=== PATIENT | female | born 1975 | race Caucasian/White ===

== ENCOUNTER 2023-07-31 21:35 | Outpatient (REF) | payer BC, SELFPAY ==
[2023-08-06 13:10] LABS: Age Gdln ACOG Testing Note (.); HPV Aptima Negative (Negative); IGP, Aptima HPV, rfx 16/18,45 Note (.)
== END 2023-07-31 21:36 | disposition home or self-care (01) ==
LOC: LAB 21:35
PROVIDERS: Visit Provider Obstetrics & Gynecology
DX: Z01.419 Encounter for gynecological examination (general) (routine) without abnormal findings (principal)
CPT/HCPCS: 87624; G0145

== ENCOUNTER 2023-08-02 14:27 | Outpatient (OUT) | payer BC, SELFPAY ==
--- NOTE | 2023-08-02 14:31 | MM_ITS ---
Patient Name: MESHA HOLLINGSWORTH MR#: [id number] : 1975 Exam Date: 08/02/2023 Ordering Doctor: DR Andrew Ma . RADIOLOGY REPORT PROCEDURE: MM TOMOSYNTHESIS SCREENING BI COMPARISON: MG MAMM SCREEN [place] W CAD, 08/22/2018. MG MAMM SCREEN 3D [place] CAD, 08/31/2021. INDICATIONS: Screening Calculator Name NCI Breast Cancer Risk Assessment Tool 5 Year Breast Cancer Risk 0.90% Lifetime Breast Cancer Risk 9.50% Personal Breast Cancer No Personal Ovarian Cancer No Treatments None Family Cancers Grandmother-maternal with cervical cancer at age ~55; Grandfather-maternal with liver cancer at age 63. LOCATION: [facility] BREAST COMPOSITION: Scattered areas fibroglandular density. FINDINGS: DIAGNOSTIC CATEGORY 1--NEGATIVE. NO CHANGE FROM COMPARISON ASSESSMENT. Scattered benign-appearing nodules are present. Scattered benign-appearing calcifications are present. Scattered benign-appearing lymph nodes are present. RIGHT BREAST: No significant suspicious finding. LEFT BREAST: No significant suspicious finding. RECOMMENDATIONS: ROUTINE MAMMOGRAM AND CLINICAL EVALUATION IN 12 MONTHS. PLEASE NOTE: A NORMAL MAMMOGRAM DOES NOT EXCLUDE THE POSSIBILITY OF BREAST CANCER. A CLINICALLY SUSPICIOUS PALPABLE LUMP SHOULD BE BIOPSIED. Dictated by: Ronak Coulter MD on 08/02/2023 at 15:54 Approved by: Ronak Coulter MD on 08/02/2023 at 16:05
--- OUTSIDE RECORDS SUMMARY | 2023-08-02 14:31 | XMS_ITS | CCD ---
Author Name Unknown Address [address] [place] [address] Organization [facility] Care Team Providers Care Brazing Furnace Feeder Name Role Phone Unavailable Primary Care Provider UnavailJean Herrera Primary Care Provider TRINA SAMUEL Attending Unavailable CLARA MORALES Referring Unavailable JEAN REED Primary Care Unavailable BRIANNA, DR JEAN Hussein Primary Care Unavailable PAY, DR ROCHE Admitting Unavailable PAY, DR ROCHE Attending Unavailable PAY, DR ROCHE Consulting Unavailable CARMEN, DR ELIZABETH Admitting Unavailable CARMEN, DR ELIZABETH Attending Unavailable FURLONG, DR JEAN Hussein Primary Care Unavailable CARMEN, DR ELIZABETH Consulting Unavailable CARMEN, DR ELIZABETH Admitting Unavailable CARMEN, DR ELIZABETH Attending Unavailable CARMEN, DR ELIZABETH Primary Care Unavailable CARMEN, DR ELIZABETH Consulting Unavailable ZIEBER, DR CJ Torres Consulting Unavailable JOSEFINA, DR MOSLEY Consulting Unavailable BRIANNA, DR JEAN Hussein Primary Care Unavailable BENEDICT FROST Admitting Unavailable BENEDICT FROST Attending Unavailable HELLEN BERNAL Consulting Unavailable BENEDICT FROST Consulting Unavailable HIRAM CLARK Consulting Unavailable Janice Frey Primary Care Provider JEAN REED Primary Care Unavailable JEAN REED Primary Care Unavailable CLARA MORALES Attending Unavailable Allergies Allergy Classification Reported Allergen(s) Allergy Type Date of Onset Reaction(s) Facility (3 sources) Fluconazole Drug Allergy 9 Hives [facility] (4 sources) Lisinopril; Translations: [lisinopril] Drug Allergy 8 Cough [facility] (2 sources) Nitrofurantoin Drug Allergy 9 Anaphylaxis [facility] (1 source) Amino Acids Drug Allergy 7 [facility] (2 sources) Fluconazole; Translations: [Diflucan] Drug Allergy 8 [facility] (2 sources) Nitrofurantoin; Translations: [Macrodantin] Drug Allergy 3 [facility] (1 source) metFORMIN Drug Allergy 3 Nausea [facility] (1 source) Nitrofurantoin Drug Allergy 8 Anaphylaxis [facility] Medications Current Medications Medication Drug Class(es) Dates Sig (Normalized) Sig (Original) albuterol 0.83 mg/ml inhalation solution (2 sources) beta2-Adrenergic Agonist Start: 10-19-2021 take 3 mL by inhalation every six hours as needed for wheezing albuterol (PROVENTIL,VENTOLIN ) 2.5 mg /3 mL (0.083 %) nebulizer solution Indications: Mild intermittent reactive airway disease without complication Inhale 3 mL (2.5 mg total) by nebulization every 6 (six) hours as needed for wheezing. 75 mL 12 10/19/2021 Active take 2 puff(s) by in halation every six hours as needed for wheezing albuterol (PROVENTIL HFA;VENTOLIN HFA) 9 0 mcg/actuation inhaler Inhale 2 puffs every 6 (six) hours as needed for wheezing. 0 Active atorvastatin 10 mg oral tablet (3 sources) HMG-CoA Reductase Inhibitor take 1 tablet by mouth in the morning atorvastatin (LIPITOR) 10 mg tablet Take 1 tablet (10 mg total) by mouth in the morning. 0 Active azelastine hydrochloride 0.137 mg/actuat metered dose nasal spray (1 source) Histamine-1 Receptor Antagonist Start: 04-04-20 take 2 spray(s) nasal route in the morning azelastine (ASTELIN) 137 mcg (0.1 %) nasal spray Administer 2 sprays into each nostril in the morning and 2 sprays before bedtime. Use in each nostril as directed. 30 mL 12 04/04/2023 Active blood-glucose meter,continuous (DEXCOM G6 ENVIRONMENTAL ASSOCIATE) misc (1 source) Start: 02-14-20 blood-glucose meter,continuous (DEXCOM G6 ENVIRONMENTAL ASSOCIATE) misc 1 Disk by miscellaneous route continuously. 1 each 5 02/13/2023 Active blood-glucose sensor (DEXCOM G6 SENSOR) device (1 source) Start: 02-14-20 blood-glucose sensor (DEXCOM G6 SENSOR) device 1 Device by miscellaneous route continuously. For continous blood sugar monitoring while on insulin 5 each 5 02/13/2023 Active 24 hr buPROPion hydrochloride 300 mg extended release oral tablet (3 sources) Aminoketone Start: 10-20-19 take 1 tablet by mouth every twenty-four hours in the morning buPROPion XL (WELLBUTRIN XL) 300 mg 24 hr tablet Take 1 tablet (300 mg total) by mouth in the morning. 0 10/19/2021 Active take 1 tablet by ever th every twelve hours buPROPion (WELLBUTRIN SR) 150 MG tablet SR Take 150 mg by mouth every 12 hours. 0 Active cetirizine hydrochloride 10 mg oral tablet (1 source) Histamine-1 Receptor Antagonist Start: 04-04-2023 take 1 tablet by mouth in the morning cetirizine (ZyrTEC) 10 mg tablet Take 1 tablet (10 mg total) by mouth in the morning. 90 tablet 4 04/04/2023 Active 12 hr cetirizine hydrochloride 5 mg / pseudoephedrine hydrochloride 120 mg extended release oral tablet (1 source) alpha-Adrenergic Agonist, Histamine-1 Receptor Antagonist cetirizine-pseudoep hedrine (ZyrTEC-D) 5-120 mg per 12 hr tablet every 12 (twelve) hours. 0 Active cholecalciferol 0.025 mg oral tablet (1 source) Vitamin D take 1 tablet by mouth in the morning cholecalciferol (VITAMIN D3) 1,000 units tablet Take 1 tablet (1,000 Units total) by mouth in the morning. 0 Active Cinnamon Preparation (1 source) Non-Standardized Food Allergenic Extract take 100 mg by mouth once daily CINNAMON PO Take 100 mg by mouth daily. 0 Active DEXCOM G6 TRANSMITTER device (1 source) Start: 02-15-2023 DEXCOM G6 TRANSMITTER device diclofenac sodium 0.01 mg/mg topical gel (1 source) Nonsteroidal Anti-inflammatory Drug diclofenac sodium (VOLTAREN) 1 % gel Voltaren 1 % topical gel 0 Active empagliflozin 25 mg oral tablet (2 sources) Sodium-Glucose Cotransporter 2 Inhibitor Empagliflozin (JARDIANCE) 25 MG Tab tablet Take 25 mg by mouth. 0 Active 24 hr empagliflozin 25 mg / metFORMIN hydrochloride 1000 mg extended release oral tablet (1 source) Biguanide, Sodium-Glucose Cotransporter 2 Inhibitor take 1 tablet by mouth every twenty-four hours in the morning empagliflozin-metFO RMIN 25-1,000 mg tablet, IR & ER, biphasic 24hr Take 1 tablet by mouth in the morning. 0 Active [id number] 0.3 ml EPINEPHrine 1 mg/ml auto-injector (1 source) alpha-Adrenergic Agonist, beta-Adrenergic Agonist, Catecholamine Start: 05-07-2023 EPINEPHrine (EPIPEN) 0.3 mg/0.3 mL auto-injector Inject 0.3 mL (0.3 mg total) into the appropriate muscle as needed (anaphylaxis). 2 each 4 05/07/2023 Active fluticasone furoate 0.0275 mg/actuat metered dose nasal spray (1 source) Corticosteroid Start: 05-09-2023 take 2 spray(s) nasal route once daily fluticasone (FLONASE SENSIMIST) 27.5 mcg/actuation nasal spray Administer 2 sprays into each nostril once daily. 10 g 12 05/09/2023 Active 1.5 ml insulin glargine 300 unt/ml pen injector (1 source) Insulin Analog Start: 05-22-2023 insulin glargine 300 unit/mL (TOUJEO SOLOSTAR U-300 INSULIN) 300 unit/mL (1.5 mL) insulin pen Indications: Type 2 diabetes mellitus with hyperglycemia, without long-term current use of insulin ([facility]) Inject 50 Units under the skin nightly. 22.5 mL 3 05/22/2023 Active losartan potassium 25 mg oral tablet (2 sources) Angiotensin 2 Receptor Balaji take 1 tablet by mouth once daily losartan (COZAAR) 25 MG Tab tablet Take 25 mg by mouth daily. 0 Active metFORMIN hydrochloride 500 mg oral tablet (2 sources) Biguanide take 500 mg by mouth twice daily METFORMIN HCL PO Take 500 mg by mouth 2 times daily. 0 Active montelukast 10 mg oral tablet (3 sources) Leukotriene Receptor Antagonist montelukast (SINGULAIR) 10 mg tablet montelukast 10 mg tablet 0 Active nystatin [id number] unt/ml topical cream (2 sources) Polyene Antifungal Start: 02-13-2023 nystatin (MYCOSTATIN) cream Indications: Candidiasis Apply 1 Application topically in the morning and 1 Application before bedtime. 60 g 1 02/13/2023 Active Start: 10-19-2021 nystatin (MYCO STATIN) powder Apply topically 2 (two) times a day as needed (rash or itching). 15 g 0 10/19/2021 Active olmesartan medoxomil 5 mg oral tablet (2 sources) Angiotensin 2 Receptor Balaji Start: 04-02-2023 take 1 tablet by mouth once daily olmesartan (BENICAR) 5 mg tablet TAKE ONE TABLET BY MOUTH DAILY 90 tablet 1 04/02/2023 Active take 1 tablet by mouth once kathryn y olmesartan 5 MG Tab Take 5 mg by mouth daily. 0 Active pantoprazole 40 mg delayed release oral tablet (3 sources) Proton Pump Inhibitor Start: 05-22-2023 take 1 tablet by mouth once daily before breakfast pantoprazole (PROTONIX) 40 mg EC tablet Indications: Gastroesophageal reflux disease with esophagitis without hemorrhage Take 1 tablet (40 mg total) by mouth every morning before breakfast. 90 tablet 0 05/22/2023 Active take 1 tablet by mouth once kathryn y pantoprazole (PROTONIX) [address] tablet DR Take 20 mg by mouth daily. 0 Active 24 hr venlafaxine 37.5 mg extended release oral capsule (1 source) Serotonin and Norepinephrine Reuptake Inhibitor Start: 10-19-2021 take 1 capsule by mouth every twenty-four hours in the morning venlafaxine XR (EFFEXOR-XR) 37.5 mg 24 hr capsule Take 1 capsule (37.5 mg total) by mouth in the morning. 0 10/19/2021 Active vitamin d 1000 unt oral tablet (2 sources) take 1 tablet by mouth once Cholecalciferol (VITAMIN D) 1000 units Tab Take 1,000 Units by mouth. 0 Active Problems Active Problems Problem Classification Problem Date Documented Date Episodic/Chronic Allergic reactions (1 source) Environmental allergy; Translations: [Other allergy status, other than to drugs and biological substances] 06-13-2023 Episodic Anxiety disorders (1 source) Mixed anxiety and depressive disorder; Translations: [Other specified anxiety disorders] Onset: 10-17-2021 10-17-2021 Chronic Asthma (1 source) Unspecified asthma, uncomplicated; Translations: [UNSPECIFIED ASTHMA UNCOMPLICATED] Onset: 10-17-2021 Chronic Disorders of lipid metabolism (1 source) Hyperlipidemia; Translations: [Hyperlipidemia, unspecified] 10-17-2022 Chronic Esophageal disorders (2 sources) Gastro-esophageal reflux disease without esophagitis; Translations: [Gastric reflux] Onset: 11-06-2017 03-28-2022 Chronic Essential hypertension (1 source) Essential hypertension; Translations: [Essential (primary) hypertension] Onset: 10-25-2021 03-28-2022 Chronic Immunizations and screening for infectious disease (1 source) Encounter for screening for human papillomavirus (HPV); Translations: [ENC SCREENING HUMAN PAPILLOMAVIRUS] Onset: 07-31-2022 Episodic Joint disorders and dislocations; trauma-related (1 source) Derangement of right knee; Translations: [Unspecified internal derangement of right knee] Onset: 11-06-2017 03-28-2022 Chronic Other nutritional; endocrine; and metabolic disorders (1 source) Morbid obesity; Translations: [Obesity, morbid, BMI 40.0-49.9] Onset: 09-24-2018 09-24-2018 Chronic Other nutritional; endocrine; and metabolic disorders (1 source) Obesity, unspecified; Translations: [OBESITY UNSPECIFIED] Onset: 10-17-2021 Chronic Other nutritional; endocrine; and metabolic disorders (1 source) Body mass index (BMI) 40.0-44.9, adult; Translations: [BODY MASS INDEX BMI 40.0-44.9 ADULT] Onset: 10-17-2021 Chronic Other nutritional; endocrine; and metabolic disorders (1 source) Body mass index 40+ - severely obese; Translations: [Morbid (severe) obesity due to excess calories] Onset: 09-24-2018 03-28-2022 Chronic Other nutritional; endocrine; and metabolic disorders (1 source) Obesity; Translations: [Obesity, unspecified] Onset: 03-28-2022 03-28-2022 Chronic Other screening for suspected conditions (not mental disorders or infectious disease) (8 sources) Encounter for screening for malignant neoplasm of cervix; Translations: [Encounter for screening mammogram for malignant neoplasm of breast] Onset: 08-31-2021 Episodic Other upper respiratory disease (1 source) Allergic rhinitis due to house dust mite; Translations: [Other allergic rhinitis] 06-13-2023 Chronic Other upper respiratory disease (1 source) Allergic rhinitis due to animal hair and dander; Translations: [Allergic rhinitis due to animal (cat) (dog) hair and dander] 06-13-2023 Chronic Other upper respiratory disease (1 source) Allergic rhinitis due to animals; Translations: [Allergic rhinitis due to animal (cat) (dog) hair and dander] 06-13-2023 Chronic Other upper respiratory disease (1 source) Allergic rhinitis caused by mold; Translations: [Other allergic rhinitis] 06-13-2023 Chronic Other upper respiratory disease (1 source) Allergic rhinitis due to pollen; Translations: [Allergic rhinitis due to pollen] 06-13-2023 Chronic Unclassified (2 sources) New Patient; Translations: [New Patient] Onset: 09-24-2018 Unclassified (1 source) CONTACT W/AND (SUSP) EXPOS COVID-19; Translations: [CONTACT W/AND (SUSP) EXPOS COVID-19] Onset: 10-17-2021 Unclassified (4 sources) LOW BACK PAIN, UNSPECIFIED; Translations: [LOW BACK PAIN, UNSPECIFIED] Onset: 10-17-2021 Past or Other Problems Problem Classification Problem Date Documented Date Episodic/Chronic Abdominal hernia (1 source) Hiatal hernia; Translations: [Diaphragmatic hernia without obstruction or gangrene] Onset: 10-18-2021 10-18-2021 Episodic Abdominal pain (2 sources) Epigastric pain; Translations: [Unspecified abdominal pain] Onset: 10-17-2021 Episodic Diabetes mellitus with complications (2 sources) Type 2 diabetes mellitus with hyperglycemia; Translations: [Type 2 diabetes mellitus] Onset: 10-17-2021 Resolved: 10-31-2022 10-31-2022 Chronic Diabetes mellitus without complication (1 source) Type 2 diabetes mellitus without complication; Translations: [Type 2 diabetes mellitus without complications] Onset: 10-15-2016 Resolved: 10-31-2022 10-31-2022 Chronic Genitourinary symptoms and ill-defined conditions (1 source) Frequency of micturition; Translations: [FREQUENCY OF MICTURITION] Onset: 10-17-2021 Episodic Mood disorders (1 source) Mood disorders Onset: 05-22-2023 05-22-2023 Nausea and vomiting (5 sources) Nausea with vomiting, unspecified; Translations: [Nausea and vomiting] Onset: 10-13-2021 Episodic Noninfectious gastroenteritis (1 source) Noninfective gastroenteritis and colitis, unspecified; Translations: [NONINFECTIVE GE AND COLITIS UNS] Onset: 10-17-2021 Episodic Nonmalignant breast conditions (3 sources) Hypertrophy of breast; Translations: [Large breast] Onset: 09-24-2018 09-24-2018 Episodic Other aftercare (1 source) Other fpc (current) drug therapy; Translations: [OTH BIOFUELS PRODUCTION TECHNICIAN CURRENT DRUG THERAPY] Onset: 10-17-2021 Episodic Other aftercare (1 source) nursing home (current) use of oral hypoglycemic drugs; Translations: [FDC USE ORAL HYPOGLYCEMIC DX] Onset: 10-17-2021 Episodic Other and unspecified benign neoplasm (1 source) Gastric polyposis; Translations: [Polyp of stomach and duodenum] Onset: 10-18-2021 10-18-2021 Episodic Residual codes; unclassified (3 sources) Chronic back pain ; Translations: [Dorsalgia, unspecified] Onset: 09-24-2018 09-24-2018 Episodic Residual codes; unclassified (1 source) Acquired absence of both cervix and uterus; Translations: [ACQUIRED ABSENCE BOTH CERVIX AND UTERUS] Onset: 10-17-2021 Episodic Residual codes; unclassified (1 source) Family history of malignant neoplasm of other genital organs; Translations: [FAM HX MALIG NEOPLSM OT GENIT ORGN] Onset: 09-01-2021 Episodic Residual codes; unclassified (1 source) Family history of malignant neoplasm of other organs or systems; Translations: [FAM HX MALIG NEOPLASM OT ORGN/SYS] Onset: 09-01-2021 Episodic Spondylosis; intervertebral disc disorders; other back problems (1 source) Neck pain; Translations: [Cervicalgia] Onset: 03-28-2022 03-28-2022 Episodic Sprains and strains (1 source) Complete tear, knee, anterior cruciate ligament; Translations: [Sprain of anterior cruciate ligament of right knee, initial encounter] Onset: 07-15-2020 07-15-2020 Episodic Unclassified (1 source) LOW BACK PAIN, UNSPECIFIED; Translations: [LOW BACK PAIN, UNSPECIFIED] Onset: 10-13-2021 Results Test Name Value Interpretation Reference Range Facility Provider Orderson 06-27-2023 Provider Orders [id number] [facility] PAP ACOG PANEL 2: 30 to 65on 08-06-2022 . . Normal [facility] Comment on above: Result Comment: Perf ormed at: WB Performed By: #### [id number] #### [facility] [address] [place] [address] Dr. Grace Frank Age Gdln ACOG Testing 30-65 Normal [facility] Comment on above: Performed By: #### [id number] #### [facility] [address] [address] [address] Grace Frank DIAGNOSIS: Comment Normal [facility] Comment on above: Result Comment: NEGA TIVE FOR INTRAEPITHELIAL LESION OR MALIGNANCY. Performed at: WB Performed By: #### [id number] #### [facility] [address] [place] [address] Dr. Grace Frank HPV Aptima Negative Normal Negative [facility] Comment on above: Result Comment: This nucleic acid amplification test detects fourteen high-risk HPV types (16,18,31,33,35,39,45,51,52,56,58,59,66,68) without differentiation. Performed at: =G Performed By: #### [id number] #### [facility] [address] [place] [address] Dr. Grace Frank HPV Genotype Reflex Comment [facility] Comment on above: Result Comment: Crit eria not met, HPV Genotype not performed. Performed at: WB Performed By: #### [id number] #### [facility] [address] [place] [address] Dr. Grace Frank Methodology: Comment [facility] Comment on above: Result Comment: This liquid based ThinPrep(R) pap test was screened with the use of an image guided system. Performed at: WB Performed By: #### [id number] #### [facility] [address] [place] [address] Dr. Grace Frank Note: Comment Normal [facility] Comment on above: Result Comment: The Pap smear is a screening test designed to aid in the detection of premalignant and malignant conditions of the uterine cervix. It is not a diagnostic procedure and should not be used as the sole means of detecting cervical cancer. Both false-positive and false-negative reports do occur. . Performed at: WB Performed By: #### [id number] #### [facility] [address] [place] [address] Dr. Grace Frank Performed by: Comment Normal [facility] Comment on above: Result Comment: Eloise Harris, Armature Connector (ASCP) Performed at: WB Performed By: #### [id number] #### [facility] [address] [place] [address] Dr. Grace Frank Specimen adequacy: Comment Normal [facility] Comment on above: Result Comment: Sati sfactory for evaluation. No endocervical component is identified. Performed at: WB Performed By: #### [id number] #### [facility] [address] [place] [address] Dr. Grace Frank CBC AUTO DIFFon 10-14-2021 BASO # 0.0 103/ul Normal 0.0-0.1 [facility] Comment on above: Performed By: #### U MICRO, ERUR #### [facility] [address] [place] [address] Dr. Grace Frank Basophils/100 WBC (Bld) 0.2 % Normal 0.2-2.0 [facility] Comment on above: Performed By: #### U MICRO, ERUR #### [facility] [address] [place] [address] Dr. Grace Frank EO # 0.1 103/ul Normal 0.0-0.7 [facility] Comment on above: Performed By: #### U MICRO, ERUR #### [facility] [address] [place] [address] Dr. Grace Frank Eosinophils/100 WBC (Bld) 0.6 % Critically low 0.9-7.0 [facility] Comment on above: Performed By: #### U MICRO, ERUR #### [facility] [address] [place] [address] Dr. Grace Frank Erythrocyte distribution width (RBC) [Ratio] 13.2 % Normal 11.0-15.0 [facility] Comment on above: Performed By: #### U MICRO, ERUR #### [facility] [address] [place] [address] Dr. Grace Frank Hematocrit (Bld) [Volume fraction] 41.4 % Normal 36.0-48.0 [facility] Comment on above: Performed By: #### U MICRO, ERUR #### [facility] [address] [place] [address] Dr. Grace Frank Hemoglobin (Bld) [Mass/Vol] 13.2 g/dL Normal 12.0-16.0 [facility] Comment on above: Performed By: #### U MICRO, ERUR #### [facility] [address] [place] [address] Dr. Grace Frank IG # 0.03 10e3/ul Normal 0.00-0.03 [facility] Comment on above: Performed By: #### U MICRO, ERUR #### [facility] [address] [place] [address] Dr. Grace Frank IG % 0.3 % Normal 0.0-0.5 [facility] Comment on above: Performed By: #### U MICRO, ERUR #### [facility] [address] [place] [address] Dr. Grace Frank LYMPH # 1.3 103/ul Normal 1.2-3.8 [facility] Comment on above: Performed By: #### U MICRO, ERUR #### [facility] [address] [place] [address] Dr. Grace Frank Lymphocytes/100 WBC (Bld) 11.9 % Critically low 20.5-60.0 [facility] Comment on above: Performed By: #### U MICRO, ERUR #### [facility] [address] [place] [address] Dr. Grace Frank MANUAL DIFF REQ NO Normal [facility] Comment on above: Performed By: #### U MICRO, ERUR #### [facility] [address] [place] [address] Dr. Grace Frank MCH (RBC) [Entitic mass] 28.6 pg Normal 26.7-34.0 [facility] Comment on above: Performed By: #### U MICRO, ERUR #### [facility] [address] [place] [address] Dr. Grace Frank MCHC (RBC) [Mass/Vol] 31.9 g/dL Normal 29.9-35.2 [facility] Comment on above: Performed By: #### U MICRO, ERUR #### [facility] [address] [place] [address] Dr. Grace Frank MCV (RBC) [Entitic vol] 89.8 fL Normal 81.0-99.0 [facility] Comment on above: Performed By: #### U MICRO, ERUR #### [facility] [address] [place] [address] Dr. Grace Frank MONO # 0.6 103/ul Normal 0.3-0.8 [facility] Comment on above: Performed By: #### U MICRO, ERUR #### [facility] [address] [place] [address] Dr. Grace Frank Monocytes/100 WBC (Bld) 5.5 % Normal 1.7-12.0 [facility] Comment on above: Performed By: #### U MICRO, ERUR #### [facility] [address] [place] [address] Dr. Grace Frank NEUT # 8.6 103/ul Critically high 1.4-6.5 [facility] Comment on above: Performed By: #### U MICRO, ERUR #### [facility] [address] [place] [address] Dr. Grace Frank Neutrophils/100 WBC (Bld) 81.5 % Critically high 43.0-75.0 [facility] Comment on above: Performed By: #### U MICRO, ERUR #### [facility] [address] [place] [address] Dr. Grace Frank Platelet mean volume (Bld) [Entitic vol] 11.1 fL Normal 9.5-13.5 [facility] Comment on above: Performed By: #### U MICRO, ERUR #### [facility] [address], [place] [address] Dr. Grace Frank PLT 247 103/ul Normal 150-450 [facility] Comment on above: Performed By: #### U MICRO, ERUR #### [facility] [address], [place] [address] Dr. Grace Frank RBC 4.61 106/ul Normal 4.20-5.40 [facility] Comment on above: Performed By: #### U MICRO, ERUR #### [facility] [address] [place], [place] [address] Dr. Grace Frank WBC 10.6 103/ul Normal 4.0-11.0 [facility] Comment on above: Performed By: #### U MICRO, ERUR #### [facility] [address], [place] [address] ABD/PELV W CONon 10-15-19 CT ABD/PELV W CON EXAM: CT abdomen and pelvis with contrast dated 10/13/2021 9:42 PM EDT HISTORY: 46 years old Female with left upper quadrant pain and nausea with vomiting. COMPARISON STUDY: 10/16/2010. No recent prior. 12/30/2015 abdomen ultrasound. TECHNIQUE: Multidetector spiral CT of the abdomen and pelvis was performed from lung bases to pubic symphysis. 100 mL Omnipaque 300 intravenous contrast was administered during this examination. Portal venous and 3 minute delayed imaging was obtained. Axial, coronal and sagittal multiplanar reformats were performed by the technologist. Dose reduction techniques were achieved by using automated exposure control and/or adjustment of mA and/or kV according to patient size and/or use of iterative reconstruction technique. FINDINGS: Lung Bases: No acute or significant lung base finding. Calcified granuloma noted at the right lung base. Normal heart size. No pleural or pericardial effusion. Liver: The liver is normal in size. Slight underlying hepatic steatosis may be present. No focal lesions. Normal hepatic vascular enhancement. Gallbladder and Biliary Tree: Distended with no definite stones on CT imaging. Very minimal dependent sludge may be present however there are no findings to suggest cholecystitis on CT imaging. Spleen: Unremarkable Pancreas: The pancreas is normal in appearance without focal lesions or abnormal enhancement. Adrenal Glands: Unremarkable Kidneys: Kidneys demonstrate normal symmetric enhancement without focal lesions, calculi or hydronephrosis. Bladder: Slight perinephric edema and very minimal thickening of the bladder is not entirely excluded. Consider laboratory value correlation for infection. The bladder does opacify with contrast on delayed phase imaging. Bowel: The stomach is underdistended however mild gastric mural thickening may be present. Slight rugal fold prominence is noted. There are areas of prominent calibers of the enteric bowel filled with fluid in the left upper abdomen and left upper quadrant however this may represent peristalsis, and lack of oral contrast lowers sensitivity for evaluation however there are no definite significant findings to suggest high-grade obstruction identified. There is fluid noted in the enteric bowel elsewhere. The appendix appears to be absent. A large amount of liquid content is noted in the proximal colon from the level of the cecum to the transverse colon. Underdistention or mild thickening of the descending colon with similar findings of the enteric bowel in the left abdomen. Thickening of the colon is best appreciated on the coronal reconstructed images 45 and 30 through 57 of series 5 more distally. No significant focal surrounding inflammatory changes are identified. Scattered diverticulosis with no diverticulitis. (Prominent loops of enteric bowel are best seen in the left abdomen on images 42 through 72 series 3.) Ascites: Absent. Lymphadenopathy: No mesenteric, retroperitoneal or periportal lymphadenopathy. Abdominal Wall and Mesentery: Unremarkable. Vasculature: The visualized abdominal aorta is normal in size and caliber. Abdominal and pelvic vessels demonstrate normal enhancement. Pelvic Organs: The uterus is surgically absent. Musculoskeletal: No aggressive focal bony lesions, acute fractures or dislocation. Mild scoliotic curvature to the right of the lumbar spine centered at L3-L4. IMPRESSION: Fluid-filled and mildly thickened large and small bowel throughout the abdomen as described above. Gastric mural thickening and slight rugal fold prominence. Findings suggest infectious or inflammatory gastroenteritis/colit is. No drainable fluid collection or features of obstruction. Mild bilateral perinephric edema and slight bladder thickening for which laboratory correlation for infection is recommended. Status post appendectomy. Status post hysterectomy. Nonacute findings as noted. Electronically authenticated by: HIARM CLARK Date: 2021-10-14 00:11 Normal [facility]23 SARS-CoV-2 (COVID-19) RNA JONN+probe Ql (Unsp spec) Not detected Normal NOT DETECTED [facility] Comment on above: Result Comment: This test is not yet approved or cleared by the [place] FDA. When there are no FDA-approved or cleared tests available, and other criteria are met, FDA can make tests available under an emergency access mechanism called an Emergency Use Authorization (EUA). The EUA for this test is supported by the [place] of Health and Human Service's (HHS's) declaration that circumstances exist to justify the emergency use of in vitro diagnostics for the detection and/or diagnosis of the virus that causes COVID-19. This EUA will remain in effect (meaning this test can be used) for the duration of the COVID-19 declaration justifying emergency of IVDs, unless it is terminated or revoked by FDA (after which the test may no longer be used). When diagnostic testing is negative, the possibility of a false negative should be considered in the context of a patient's recent exposures and the presence of clinical signs and symptoms consistent with SARS-CoV-2. Performed By: #### U MICRO, ERUR #### [facility] [address] [place] [address] Dr. Grace Frank INFLUENZA A AND B AGon 10-14 [facility] Normal [facility] Comment on above: Result Comment: Nega tive for Flu A protein angiten. Infection due to Flu A cannot be ruled out. Flu A angiten in the sample may be below the detection limit of the test. Performed By: #### U MICRO, ERUR #### [facility] [address] [place] [address] Dr. Grace Frank INFLUBNEG SEE BELOW Normal [facility] Comment on above: Result Comment: Nega tive for Flu B protein antigen. Infection due to Flu B cannot be ruled out. Flu B antigen in the sample may be below the detection limit of the test. Performed By: #### U MICRO, ERUR #### [facility] [address] [place] [address] Dr. Grace Frank INFLUENZA A AG Negative Normal NEGATIVE SEE COMMENT [facility] Comment on above: Performed By: #### U MICRO, ERUR #### [facility] [address] [place] [address] Dr. Grace Frank INFLUENZA B AG Negative Normal NEGATIVE SEE COMMENT [facility] Comment on above: Performed By: #### U MICRO, ERUR #### [facility] [address] [place] [address] Dr. Grace Frank INTERNAL CONTROLS Within Normal Limits Normal Wi thin Normal Limits [facility] Comment on above: Performed By: #### U MICRO, ERUR #### [facility] [address] [place] [address] Dr. Grace Frank LACTATE/LACTIC ACIDon 2021 Lactate [Moles/Vol] 1.0 mmol/L Normal 0.4-2.0 [facility] Comment on above: Performed By: #### L ACT #### [facility] [address] [place] [address] Dr. Grace Frank LIPASEon 10-14-2021 Lipase [Catalytic activity/Vol] 47.0 U/L Critically low 73.0-393.0 [facility] Comment on above: Performed By: #### H STROPN, LIPA, TSH, CMP #### [facility] [address] [place] [address] Dr. Grace Frank PROF 14(COMP METB)on 022 Albumin [Mass/Vol] 3.3 g/dL Critically low 3.4-5.0 [facility] Comment on above: Performed By: #### H STROPN, LIPA, TSH, CMP #### [facility] [address] [place] [address] Dr. Grace Frank Albumin/Globulin [Mass ratio] 0.9 {ratio} Normal [facility] Comment on above: Performed By: #### H STROPN, LIPA, TSH, CMP #### [facility] [address] [place] [address] Dr. Grace Frank ALP [Catalytic activity/Vol] 85 U/L Normal 46-116 [facility] Comment on above: Performed By: #### H STROPN, LIPA, TSH, CMP #### [facility] [address] [place] [address] Dr. Grace Frank ALT [Catalytic activity/Vol] 34 U/L Normal 14-59 [facility] Comment on above: Performed By: #### H STROPN, LIPA, TSH, CMP #### [facility] [address] [address] [address] Grace Frank Anion gap [Moles/Vol] 10.9 mmol/L Normal [facility] Comment on above: Performed By: #### H STROPN, LIPA, TSH, CMP #### [facility] [address] [address] [address] Grace Frank AST [Catalytic activity/Vol] 23 U/L Normal 15-37 [facility] Comment on above: Performed By: #### H STROPN, LIPA, TSH, CMP #### [facility] [address] [place] [address] Dr. Grace Frank Bilirubin [Mass/Vol] 0.7 mg/dL Normal 0.2-1.3 [facility] Comment on above: Performed By: #### H STROPN, LIPA, TSH, CMP #### [facility] [address] [address] [address] Grace Frank Calcium [Mass/Vol] 8.1 mg/dL Critically low 8.5-10.1 [facility] Comment on above: Performed By: #### H STROPN, LIPA, TSH, CMP #### [facility] [address] [place] [address] Dr. Grace Frank Chloride [Moles/Vol] 102 mmol/L Normal 98-107 [facility] Comment on above: Performed By: #### H STROPN, LIPA, TSH, CMP #### [facility] [address] [address] [address] Grace Frank CO2 [Moles/Vol] 26.9 mmol/L Normal 21.0-32.0 [facility] Comment on above: Performed By: #### H STROPN, LIPA, TSH, CMP #### [facility] [address] [place] [address] Dr. Grace Frank Creatinine [Mass/Vol] 0.65 mg/dL Normal 0.55-1.02 [facility] Comment on above: Performed By: #### H STROPN, LIPA, TSH, CMP #### [facility] [address] [place] [address] Dr. Grace Frank EGFR-AF COMORAN >60 Normal >=60 [facility] Comment on above: Performed By: #### H STROPN, LIPA, TSH, CMP #### [facility] [address] [place] [address] Dr. Grace Frank EGFR-NON AF COMORAN >60 Normal >=60 [facility] Comment on above: Performed By: #### H STROPN, LIPA, TSH, CMP #### [facility] [address] [place] [address] Dr. Grace Frank Globulin (S) [Mass/Vol] 3.5 g/dL Normal [facility] Comment on above: Performed By: #### H STROPN, LIPA, TSH, CMP #### [facility] [address] [place] [address] Dr. Grace Frank Glucose [Mass/Vol] 127 mg/dL Critically high 74-106 [facility] Comment on above: Performed By: #### H STROPN, LIPA, TSH, CMP #### [facility] [address] [place] [address] Dr. Grace Frank Potassium [Moles/Vol] 3.8 mmol/L Normal 3.5-5.1 [facility] Comment on above: Performed By: #### H STROPN, LIPA, TSH, CMP #### [facility] [address] [place] [address] Dr. Grace Frank Protein [Mass/Vol] 6.8 g/dL Normal 6.1-8.2 [facility] Comment on above: Performed By: #### H STROPN, LIPA, TSH, CMP #### [facility] [address] [place] [address] Dr. Grace Frank Sodium [Moles/Vol] 136 mmol/L Normal 136-145 [facility] Comment on above: Performed By: #### H STROPN, LIPA, TSH, CMP #### [facility] [address] [place] [address] Dr. Grace Frank Urea nitrogen [Mass/Vol] 17.0 mg/dL Normal 7.0-18.0 [facility] Comment on above: Performed By: #### H STROPN, LIPA, TSH, CMP #### [facility] [address] [place] [address] Dr. Grace Frank Urea nitrogen/Creatinin e [Mass ratio] 26.2 mg/mg Normal [facility] Comment on above: Performed By: #### H STROPN, LIPA, TSH, CMP #### [facility] [address] [place] [address] Dr. Grace Frank PROTIMEon 10-14-2021 INR Coag (PPP) [Relative time] 1.01 {INR} Normal [facility] Comment on above: Performed By: #### U MICRO, ERUR #### [facility] [address] [place] [address] Dr. Grace Frank INR GUIDELINES SEE BELOW Normal [facility] Comment on above: Result Comment: JUNG RED INR: 2.0 - 3.0 CONDITIONS NOT LISTED BELOW 2.5 - 3.5 FOR PROSTHETIC HEART VALVE REPLACEMENT 2.5 - 3.5 RECURRENT THROMBOSIS Performed By: #### U MICRO, ERUR #### [facility] [address] [place] [address] Dr. Grace Frank PT Coag (PPP) [Time] 10.9 s Normal 9.0-11.6 [facility] Comment on above: Performed By: #### U MICRO, ERUR #### [facility] [address] [place] [address] Dr. Grace Frank PTTon 10-14-2021 aPTT Coag (Bld) [Time] 25.6 s Normal 22.3-36.2 [facility] Comment on above: Performed By: #### U MICRO, ERUR #### [facility] [address] [place] [address] Dr. Grace Frank TROPONIN, HIGH SENSITIVITYon 10-14-2021 HSTROP 4.3 pg/mL Normal 4.0-51.3 [facility] Comment on above: Result Comment: CUT- OFF POINTS HAVE BEEN ESTABLISHED BASED ON THE FOURTH UNIVERSAL DEFINITIONS OF MYOCARDIAL INFARCTION. THE UPPER REFERENCE LIMIT (URL) OF TROPONIN, DEFINED THE 99TH PERCENTILE OF cTnI DISTRIBUTION IN A REFERENCE POPULATION, HAS BEEN CONFIRMED THE DECISION THRESHOLD FOR NM DIAGNOSIS. Performed By: #### H STROPN, LIPA, TSH, CMP #### [facility] [address] [place] [address] Dr. Grace Frank TSHon 10-14-2021 TSH 1.715 uIU/mL Normal 0.470-4.[address] [facility] Comment on above: Performed By: #### H STROPN, LIPA, TSH, CMP #### [facility] [address] [place] [address] Dr. Grace Frank TSH RANGE SEE BELOW Normal [facility] Comment on above: Result Comment: <0.3 4 UIU/ml HYPERTHYROID 0.34-5.60 UIU/ml EUTHYROID >5.60 UIU/ml HYPOTHYROID Performed By: #### H STROPN, LIPA, TSH, CMP #### [facility] [address] [place] [address] Dr. Grace Frank CBC AUTO DIFFon 10-13-2021 BASO # 0.0 103/ul Normal 0.0-0.1 [facility] Comment on above: Performed By: #### C BC #### [facility] [address] [place] [address] Dr. Grace Frank Basophils/100 WBC (Bld) 0.3 % Normal 0.2-2.0 [facility] Comment on above: Performed By: #### C BC #### [facility] [address] [place] [address] Dr. Grace Frank EO # 0.1 103/ul Normal 0.0-0.7 [facility] Comment on above: Performed By: #### C BC #### [facility] [address] [place] [address] Dr. Grace Frank Eosinophils/100 WBC (Bld) 0.5 % Critically low 0.9-7.0 [facility] Comment on above: Performed By: #### C BC #### [facility] [address] [place] [address] Dr. Grace Frank Erythrocyte distribution width (RBC) [Ratio] 13.2 % Normal 11.0-15.0 [facility] Comment on above: Performed By: #### C BC #### [facility] [address] [place] [address] Dr. Grace Frank Hematocrit (Bld) [Volume fraction] 44.1 % Normal 36.0-48.0 [facility] Comment on above: Performed By: #### C BC #### [facility] [address] [place] [address] Dr. Grace Frank Hemoglobin (Bld) [Mass/Vol] 14.3 g/dL Normal 12.0-16.0 [facility] Comment on above: Performed By: #### C BC #### [facility] [address] [place] [address] Dr. Grace Frank IG # 0.04 10e3/ul Critically high 0.00-0.03 [facility] Comment on above: Performed By: #### C BC #### [facility] [address] [place] [address] Dr. Grace Frank IG % 0.4 % Normal 0.0-0.5 [facility] Comment on above: Performed By: #### C BC #### [facility] [address] [place] [address] Dr. Grace Frank LYMPH # 1.3 103/ul Normal 1.2-3.8 [facility] Comment on above: Performed By: #### C BC #### [facility] [address] [place] [address] Dr. Grace Frank Lymphocytes/100 WBC (Bld) 13.9 % Critically low 20.5-60.0 [facility] Comment on above: Performed By: #### C BC #### [facility] [address] [place] [address] Dr. Grace Frank MANUAL DIFF REQ NO Normal [facility] Comment on above: Performed By: #### C BC #### [facility] [address] [address] [address] Grace Frank MCH (RBC) [Entitic mass] 29.1 pg Normal 26.7-34.0 [facility] Comment on above: Performed By: #### C BC #### [facility] [address] [place] [address] Dr. Grace Frank MCHC (RBC) [Mass/Vol] 32.4 g/dL Normal 29.9-35.2 [facility] Comment on above: Performed By: #### C BC #### [facility] [address] [place] [address] Dr. Grace Frank MCV (RBC) [Entitic vol] 89.8 fL Normal 81.0-99.0 [facility] Comment on above: Performed By: #### C BC #### [facility] [address] [place] [address] Dr. Grace Frank MONO # 0.5 103/ul Normal 0.3-0.8 [facility] Comment on above: Performed By: #### C BC #### [facility] [address] [place] [address] Dr. Grace Frank Monocytes/100 WBC (Bld) 5.2 % Normal 1.7-12.0 [facility] Comment on above: Performed By: #### C BC #### [facility] [address] [place] [address] Dr. Grace Frank NEUT # 7.7 103/ul Critically high 1.4-6.5 [facility] Comment on above: Performed By: #### C BC #### [facility] [address] [place] [address] Dr. Grace Frank Neutrophils/100 WBC (Bld) 79.7 % Critically high 43.0-75.0 [facility] Comment on above: Performed By: #### C BC #### [facility] [address] [place] [address] Dr. Grace Frank Platelet mean volume (Bld) [Entitic vol] 11.0 fL Normal 9.5-13.5 [facility] Comment on above: Performed By: #### C BC #### [facility] [address] [place] [address] Dr. Grace Frank PLT 247 103/ul Normal 150-450 [facility] Comment on above: Performed By: #### C BC #### [facility] [address] [place] [address] Dr. Grace Frank RBC 4.91 106/ul Normal 4.20-5.40 [facility] Comment on above: Performed By: #### C BC #### [facility] [address] [place] [address] Dr. Grace Frank WBC 9.7 103/ul Normal 4.0-11.0 [facility] Comment on above: Performed By: #### C BC #### [facility] [address] [place] [address] Dr. Grace Frank CULTURE URINEon 10-13-2021 CULTURE URINE Culture Observations : LIGHT GROWTH OF MIXED GENITAL SANDRA. NO POTENTIAL PATHOGENS SEEN. Normal [facility] Comment on above: Performed By: #### U MICRO, ERUR #### [facility] [address] [place] [address] Dr. Grace Frank ER URINE PROFILEon 2 Bilirubin Ql (U) Negative Normal NEGATIVE [facility] Comment on above: Performed By: #### U MICRO, ERUR #### [facility] [address] [place] [address] Dr. Grace Frank Clarity (U) CLEAR Normal CLEAR [facility] Comment on above: Performed By: #### U MICRO, ERUR #### [facility] [address] [place] [address] Dr. Grace Frank Color (U) YELLOW Normal YELLOW [facility] Comment on above: Performed By: #### U MICRO, ERUR #### [facility] [address] [place] [address] Dr. Grace WREN A micrscopic examination will be performed if indicated. Normal [facility] Comment on above: Performed By: #### U MICRO, ERUR #### [facility] [address] [place] [address] Dr. Grace Frank Glucose Ql (U) >1000 Abnormal NEGATIVE [facility] Comment on above: Performed By: #### U MICRO, ERUR #### [facility] [address] [address] [address] Grace Frank Hemoglobin Ql (U) SMALL Abnormal NEGATIVE [facility] Comment on above: Performed By: #### U MICRO, ERUR #### [facility] [address] [address] [address] Grace Frank Ketones Ql (U) >=80 Abnormal NEGATIVE [facility] Comment on above: Performed By: #### U MICRO, ERUR #### [facility] [address] [address] [address] Grace Frank LEUKOCYTES Negative Normal NEGATIVE [facility] Comment on above: Performed By: #### U MICRO, ERUR #### [facility] [address] [place] [address] Dr. Grace Frank Nitrite Ql (U) Negative Normal NEGATIVE [facility] Comment on above: Performed By: #### U MICRO, ERUR #### [facility] [address] [address] [address] Grace Frank pH (U) 6.0 [pH] Normal 5-9 [facility] Comment on above: Performed By: #### U MICRO, ERUR #### [facility] [address] [place] [address] Dr. Grace Frank SPEC GRAVITY 1.025 Normal 1.005-<=1.025 [facility] Comment on above: Performed By: #### U MICRO, ERUR #### [facility] [address] [place] [address] Dr. Grace Frank UA PROTEIN TRACE Normal NEGATIVE/ TRACE [facility] Comment on above: Performed By: #### U MICRO, ERUR #### [facility] [address] [address] [address] Grace Frank UR MICRO IND INDICATED Normal [facility] Comment on above: Performed By: #### U MICRO, ERUR #### [facility] [address] [place] [address] Dr. Grace Frank Urobilinogen Qn (U) 0.2 {John'U}/dL Normal 0.2 - 1.0 [facility] Comment on above: Performed By: #### U MICRO, ERUR #### [facility] [address] [place] [address] Dr. Grace Frank LIPASEon 10-13-2021 Lipase [Catalytic activity/Vol] 62.0 U/L Normal 23.0-300.0 [facility] Comment on above: Performed By: #### U MICRO, ERUR #### [facility] [address] [place] [address] Dr. Grace Frank URon 10-13-2021 , QUAL Negative Normal NEGATIVE [facility] Comment on above: Performed By: #### U MICRO, ERUR #### [facility] [address] [place] [address] Dr. Grace Frank PROF 14(COMP METB)on 022 Albumin [Mass/Vol] 3.7 g/dL Normal 3.4-5.0 [facility] Comment on above: Performed By: #### U MICRO, ERUR #### [facility] [address] [place] [address] Dr. Grace Frank Albumin/Globulin [Mass ratio] 0.9 {ratio} Normal [facility] Comment on above: Performed By: #### U MICRO, ERUR #### [facility] [address] [place] [address] Dr. Grace Frank ALP [Catalytic activity/Vol] 96 U/L Normal 46-116 [facility] Comment on above: Performed By: #### U MICRO, ERUR #### [facility] [address] [place] [address] Dr. Grace Frank ALT [Catalytic activity/Vol] 37 U/L Normal 14-59 [facility] Comment on above: Performed By: #### U MICRO, ERUR #### [facility] [address] [place] [address] Dr. Grace Frank Anion gap [Moles/Vol] 10.9 mmol/L Normal [facility] Comment on above: Performed By: #### U MICRO, ERUR #### [facility] [address] [address] [address] Grace Frank AST [Catalytic activity/Vol] 32 U/L Normal 15-37 [facility] Comment on above: Performed By: #### U MICRO, ERUR #### [facility] [address] [address] [address] Grace Frank Bilirubin [Mass/Vol] 0.8 mg/dL Normal 0.2-1.3 [facility] Comment on above: Performed By: #### U MICRO, ERUR #### [facility] [address] [address] [address] Grace Frank Calcium [Mass/Vol] 8.8 mg/dL Normal 8.5-10.1 [facility] Comment on above: Performed By: #### U MICRO, ERUR #### [facility] [address] [address] [address] Grace Frank Chloride [Moles/Vol] 99 mmol/L Normal 98-107 [facility] Comment on above: Performed By: #### U MICRO, ERUR #### [facility] [address] [address] [address] Grace Frank CO2 [Moles/Vol] 29.2 mmol/L Normal 21.0-32.0 [facility] Comment on above: Performed By: #### U MICRO, ERUR #### [facility] [address] [address] [address] Grace Frank Creatinine [Mass/Vol] 0.62 mg/dL Normal 0.55-1.02 [facility] Comment on above: Performed By: #### U MICRO, ERUR #### [facility] [address] [address] [address] Grace Frank EGFR-AF COMORAN >60 Normal >=[address] [facility] Comment on above: Performed By: #### U MICRO, ERUR #### [facility] [address] [address] [address] Grace Frank EGFR-NON AF COMORAN >60 Normal >=60 [facility] Comment on above: Performed By: #### U MICRO, ERUR #### [facility] [address] [address] [address] Grace Frank Globulin (S) [Mass/Vol] 3.9 g/dL Normal [facility] Comment on above: Performed By: #### U MICRO, ERUR #### [facility] [address] [address] [address] Grace Frank Glucose [Mass/Vol] 115 mg/dL Critically high 74-106 T [facility] Comment on above: Performed By: #### U MICRO, ERUR #### [facility] [address] [address] [address] Grace Frank Potassium [Moles/Vol] 4.1 mmol/L Normal 3.4-5.0 [facility] Comment on above: Performed By: #### U MICRO, ERUR #### [facility] [address] [place] [address] Dr. Grace Frank Protein [Mass/Vol] 7.6 g/dL Normal 6.1-8.2 [facility] Comment on above: Performed By: #### U MICRO, ERUR #### [facility] [address] [address] [address] Grace Frank Sodium [Moles/Vol] 135 mmol/L Critically low 137-145 [facility] Comment on above: Performed By: #### U MICRO, ERUR #### [facility] [address] [address] [address] Grace Frank Urea nitrogen [Mass/Vol] 14.0 mg/dL Normal 7.0-18.0 [facility] Comment on above: Performed By: #### U MICRO, ERUR #### [facility] [address] [address] [address] Grace Frank Urea nitrogen/Creatinin e [Mass ratio] 22.6 mg/mg Normal [facility] Comment on above: Performed By: #### U MICRO, ERUR #### [facility] [address] [address] [address] Grace Frank TROPONIN, HIGH SENSITIVITYon 10-13-2021 HSTROP 5.8 pg/mL Normal 4.0-51.3 [facility] Comment on above: Result Comment: CUT- OFF POINTS HAVE BEEN ESTABLISHED BASED ON THE FOURTH UNIVERSAL DEFINITIONS OF MYOCARDIAL INFARCTION. THE UPPER REFERENCE LIMIT (URL) OF TROPONIN, DEFINED THE 99TH PERCENTILE OF cTnI DISTRIBUTION IN A REFERENCE POPULATION, HAS BEEN CONFIRMED THE DECISION THRESHOLD FOR NM DIAGNOSIS. Performed By: #### U MICRO, ERUR #### [facility] [address] [place] [address] Dr. Grace Frank URINE MICROSCOPIC ONLYon BACTERIA TRACE Abnormal NONE SEEN [facility] Comment on above: Performed By: #### U MICRO, ERUR #### [facility] [address] [place] [address] Dr. Grace Frank Bacteria identified Cx Nom (U) INDICATED Normal [facility] Comment on above: Performed By: #### U MICRO, ERUR #### [facility] [address] [place] [address] Dr. Grace Frank CAST NONE SEEN Normal NONE SEEN [facility] Comment on above: Performed By: #### U MICRO, ERUR #### [facility] [address] [place] [address] Dr. Grace Frank Crystals LM Nom (Urine sed) NONE SEEN Normal NONE SEEN [facility] Comment on above: Performed By: #### U MICRO, ERUR #### [facility] [address] [place] [address] Dr. Grace Frank Epithelial cells LM Ql (Urine sed) MANY Abnormal NONE SEEN /RARE [facility] Comment on above: Performed By: #### U MICRO, ERUR #### [facility] [address] [place] [address] Dr. Grace Frank MUCOUS TRACE Abnormal NONE SEEN [facility] Comment on above: Performed By: #### U MICRO, ERUR #### [facility] [address] [place] [address] Dr. Grace Frank RBC 2-5 Abnormal 0-2 [facility] Comment on above: Performed By: #### U MICRO, ERUR #### [facility] [address] [place] [address] Dr. Grace Frank WBC 0-2 Abnormal NONE SEEN [facility] Comment on above: Performed By: #### U MICRO, ERUR #### [facility] [address] [address] [address] Grace Frank MG MAMM SCREEN 3D CHAUNCEY CADon 08-31-2021 MG MAMM SCREEN 3D CHAUNCEY CAD Patient: RADHA LEMOS Exam Date: 08/31/2021 : 1975 Gender:F Ordering : DR CLARA MORALES . Admission #: [id number] Family : Order #: [id number] CLICK HERE TO VIEW EXAM RADIOLOGY REPORT PROCEDURE: MAMMOGRAM SCREENING 3D BILATERAL CAD COMPARISON: MG MAMM SCREEN CHAUNCEY W CAD, 08/22/2018. MG MAMM SCREEN CHAUNCEY W CAD, 08/13/2017. INDICATIONS: Screening mammography Calculator Name NCI Breast Cancer Risk Assessment Tool 5 Year Breast Cancer Risk 0.90% Lifetime Breast Cancer Risk 9.60% Personal Breast Cancer No Personal Ovarian Cancer No Treatments None Family Cancers Grandmother-maternal with cervical cancer at age 55; Grandfather-maternal with liver cancer at age 63. LOCATION: [facility] BREAST COMPOSITION: Scattered areas fibroglandular density. FINDINGS: DIAGNOSTIC CATEGORY 1--NEGATIVE. RIGHT BREAST: No significant suspicious finding. No significant change has occurred. LEFT BREAST: No significant suspicious finding. No significant change has occurred. RECOMMENDATIONS: ROUTINE MAMMOGRAM AND CLINICAL EVALUATION IN 12 MONTHS. PLEASE NOTE: A NORMAL MAMMOGRAM DOES NOT EXCLUDE THE POSSIBILITY OF BREAST CANCER. A CLINICALLY SUSPICIOUS PALPABLE LUMP SHOULD BE BIOPSIED. Dictated by: Cj Yanes M.D. on 08/31/2021 at 15:45 Approved by: Cj Yanes M.D. on 08/31/2021 at 15:50 Normal [facility] COMPREHENSIVE METABOLIC PANE Guy 06-03-2021 Albumin [Mass/Vol] 3.9 g/dL Normal 3.6-5.1 [facility] Comment on above: Performed By: #### 1 0231, 5120 #### [facility] [address], [address] [place] [id number] Electronics Worker: Richard Cobb MD Albumin/Globulin [Mass ratio] 1.6 {ratio} Normal 1.0-2.5 [facility] Comment on above: Performed By: #### 1 0231, 7600 #### [facility] of [address] [address] Electronics Worker: Richard Cobb MD ALP [Catalytic activity/Vol] 71 U/L Normal 31-125 [facility] Comment on above: Performed By: #### 1 0231, 7600 #### [facility] of [address], [address] [place] [address] Electronics Worker: Richard Cobb MD ALT [Catalytic activity/Vol] 18 U/L Normal 6-29 [facility] Comment on above: Performed By: #### 1 0231, 7600 #### [facility] [address] [address] Electronics Worker: Richard Cobb MD AST [Catalytic activity/Vol] 15 U/L Normal 10-35 [facility] Comment on above: Performed By: #### 1 0231, 7600 #### [facility] [address] [address] Electronics Worker: Richard Cobb MD Bilirubin [Mass/Vol] 0.4 mg/dL Normal 0.2-1.2 [facility] Comment on above: Performed By: #### 1 0231, 7600 #### [facility] [address] [address] Electronics Worker: Richard Cobb MD BUN/CREATININE RATIO NOT APPLICABLE Normal 6-22 [facility] Comment on above: Performed By: #### 1 0231, 7600 #### [facility] of [address], [address] [place] [address] Electronics Worker: Richard Cobb MD Calcium [Mass/Vol] 9.1 mg/dL Normal 8.6-10.2 [facility] Comment on above: Performed By: #### 1 0231, 7600 #### [facility] [address] [address] Electronics Worker: Richard Cobb MD Chloride [Moles/Vol] 103 mmol/L Normal 98-110 [facility] Comment on above: Performed By: #### 1 230, 7600 #### [facility] [address] [address] Electronics Worker: Richard Cobb MD CO2 [Moles/Vol] 29 mmol/L Normal 20-32 [facility] Comment on above: Performed By: #### 1 023, 7600 #### [facility] [address] [address] Electronics Worker: Richard Cobb MD Creatinine [Mass/Vol] 0.61 mg/dL Normal 0.50-1.10 [facility] Comment on above: Performed By: #### 1 230, 7600 #### [facility] [address] [address] Electronics Worker: Richard Cobb MD eGFR NON-AFR. COMORAN 109 mL/min/1.73m2 Normal > OR = 60 [facility] Comment on above: Performed By: #### 1 230, 0 #### [facility] [address] [address] Electronics Worker: Richard Cobb MD GFR/1.73 sq M.predicted among blacks MDRD (S/P/Bld) [Vol rate/Area] 127 mL/min/{1.73_m2} Normal > OR = 60 [facility] Comment on above: Performed By: #### 1 023, 7600 #### [facility] [address] [address] Electronics Worker: Richard Cobb MD Globulin (S) [Mass/Vol] 2.5 g/dL Normal 1.9-3.7 [facility] Comment on above: Performed By: #### 1 023, 7600 #### [facility] [address] [address] Electronics Worker: Richard Cobb MD Glucose [Mass/Vol] 118 mg/dL High 65-99 [facility] Comment on above: Result Comment: Fasting reference interval For someone without known diabetes, a glucose value between 100 and 125 mg/dL is consistent with prediabetes and should be confirmed with a follow-up test. Performed By: #### 1 023, 7600 #### [facility] [address] [address] Electronics Worker: Richard Cobb MD Potassium [Moles/Vol] 4.2 mmol/L Normal 3.5-5.3 [facility] Comment on above: Performed By: #### 1 023, 7600 #### [facility] [address] [address] Electronics Worker: Richard Cobb MD Protein [Mass/Vol] 6.4 g/dL Normal 6.1-8.1 [facility] Comment on above: Performed By: #### 1 023, 7600 #### [facility] [address] [address] Electronics Worker: Richard Cobb MD Sodium [Moles/Vol] 139 mmol/L Normal 135-146 [facility] Comment on above: Performed By: #### 1 023, 7600 #### [facility] [address] [address] Electronics Worker: Richard Cobb MD Urea nitrogen [Mass/Vol] 17 mg/dL Normal 7-25 [facility] Comment on above: Performed By: #### 1 023, 7600 #### [facility] [address] [address] Electronics Worker: Richard Cobb MD LIPID PANEL, [facility] 05-24 Cholesterol [Mass/Vol] 172 mg/dL Normal <200 [facility] Comment on above: Order Comment: FASTI NG:YES FASTING: YES Performed By: #### 1 023, 7600 #### [facility] [address] [address] Electronics Worker: Richard Cobb MD Cholesterol in HDL [Mass/Vol] 66 mg/dL Normal > OR = 50 [facility] Comment on above: Order Comment: FASTI NG:YES FASTING: YES Performed By: #### 1 023, 7600 #### [facility] [address], [address] [place] [address] Electronics Worker: Richard Cobb MD Cholesterol in LDL [Mass/Vol] 79 mg/dL Normal [facility] Comment on above: Order Comment: FASTI NG:YES FASTING: YES Result Comment: Refe rence range: <100 Desirable range <100 mg/dL for primary prevention; <70 mg/dL for patients with CHD or diabetic patients with > or = 2 CHD risk factors. LDL-C is now calculated using the Jose calculation, which is a validated novel method providing better accuracy than the Friedewald equation in the estimation of LDL-C. Joey SS et al. DAYTON. 2013;310(19): 2524-4798 (http://education.TrueView/faq/IKQ796) Performed By: #### 1 023, 0 #### [facility] [address], [address] [place] [address] Electronics Worker: Richard Cobb MD Cholesterol.total/ Cholesterol in HDL [Mass ratio] 2.6 {ratio} Normal <5.0 [facility] Comment on above: Order Comment: FASTI NG:YES FASTING: YES Performed By: #### 1 023, 7600 #### [facility] [address], [address] [place] [address] Electronics Worker: Richard Cobb MD NON HDL CHOLESTEROL 106 mg/dL (calc) Normal <130 [facility] Comment on above: Order Comment: FASTI NG:YES FASTING: YES Result Comment: For patients with diabetes plus 1 major ASCVD risk factor, treating to a non-HDL-C goal of <100 mg/dL (LDL-C of <70 mg/dL) is considered a therapeutic option. Performed By: #### 1 023, 7600 #### [facility] [address], [address] [place] [address] Electronics Worker: Richard Cobb MD Triglyceride [Mass/Vol] 177 mg/dL High <150 [facility] Comment on above: Order Comment: FASTI NG:YES FASTING: YES Performed By: #### 1 0231, 7600 #### [facility] [address], [address] [place] [address] Electronics Worker: Richard Cobb MD ALBUMIN, RANDOM URINE W/CREA TININEon 11-15-2020 ALBUMIN, URINE 0.2 mg/dL Normal See Note: [facility] Comment on above: Result Comment: Refe rence Range: Reference Range Not established Performed By: #### 7 600, 6517, 00510, 496 #### [facility] [address], [address] [place] [address] Electronics Worker: Richard Cobb MD ALBUMIN/CREATININE RATIO, RANDOM URINE 4 mcg/mg creat Normal <30 [facility] Comment on above: Result Comment: The ADA defines abnormalities in albumin excretion as follows: Category Result (mcg/mg creatinine) Normal <30 Microalbuminuria 30-299 Clinical albuminuria > OR = 300 The ADA recommends that at least two of three specimens collected within a 3-6 month period be abnormal before considering a patient to be within a diagnostic category. Performed By: #### 7 600, 6517, 84948, 496 #### [facility] [address], [address] [place] [address] Electronics Worker: Richard Cobb MD Creatinine (U) [Mass/Vol] 57 mg/dL Normal 20-275 [facility] Comment on above: Performed By: #### 7 600, 6517, 32292, 496 #### [facility] [address], [address] [place] [address] Electronics Worker: Richard Cobb MD COMPREHENSIVE METABOLIC PANE [facility] 11-15-2020 Albumin [Mass/Vol] 4.1 g/dL Normal 3.6-5.1 [facility] Comment on above: Performed By: #### 7 600, 6517, 76231, 496 #### [facility] [address], [address] [place] [address] Electronics Worker: Richard Cobb MD Albumin/Globulin [Mass ratio] 1.5 {ratio} Normal 1.0-2.5 [facility] Comment on above: Performed By: #### 7 600, 6517, 30403, 496 #### [facility] [address] [address] Electronics Worker: Richard Cobb MD ALP [Catalytic activity/Vol] 87 U/L Normal 31-125 [facility] Comment on above: Performed By: #### 7 600, 6517, 14371, 496 #### [facility] [address] [address] Electronics Worker: Richard Cobb MD ALT [Catalytic activity/Vol] 16 U/L Normal 6-29 [facility] Comment on above: Performed By: #### 7 600, 6517, 50837, 496 #### [facility] [address] [address] Electronics Worker: Richard Cobb MD AST [Catalytic activity/Vol] 13 U/L Normal 10-35 [facility] Comment on above: Performed By: #### 7 600, 6517, 62969, 496 #### [facility] [address] [address] Electronics Worker: Richard Cobb MD Bilirubin [Mass/Vol] 0.6 mg/dL Normal 0.2-1.2 [facility] Comment on above: Performed By: #### 7 600, 6517, 16172, 496 #### [facility] [address] [address] Electronics Worker: Richard Cobb MD BUN/CREATININE RATIO NOT APPLICABLE Normal 6-22 [facility] Comment on above: Performed By: #### 7 600, 6517, 36158, 496 #### [facility] [address] [address] Electronics Worker: Richard Cobb MD Calcium [Mass/Vol] 9.2 mg/dL Normal 8.6-10.2 [facility] Comment on above: Performed By: #### 7 600, 6517, 05514, 496 #### [facility] [address] [address] Electronics Worker: Richard Cobb MD Chloride [Moles/Vol] 100 mmol/L Normal 98-110 [facility] Comment on above: Performed By: #### 7 600, 6517, 52228, 496 #### [facility] [address] [address] Electronics Worker: Richard Cobb MD CO2 [Moles/Vol] 28 mmol/L Normal 20-32 [facility] Comment on above: Performed By: #### 7 600, 6517, 21252, 496 #### [facility] [address] [address] Electronics Worker: Richard Cobb MD Creatinine [Mass/Vol] 0.67 mg/dL Normal 0.50-1.10 [facility] Comment on above: Performed By: #### 7 600, 6517, 53157, 496 #### [facility] [address] [address] Electronics Worker: Richard Cobb MD eGFR NON-AFR. COMORAN 106 mL/min/1.73m2 Normal > OR = 60 [facility] Comment on above: Performed By: #### 7 600, 6517, 05181, 496 #### [facility] [address] [address] Electronics Worker: Richard Cobb MD GFR/1.73 sq M.predicted among blacks MDRD (S/P/Bld) [Vol rate/Area] 123 mL/min/{1.73_m2} Normal > OR = 60 [facility] Comment on above: Performed By: #### 7 600, 6517, 64821, 496 #### [facility] [address] [address] Electronics Worker: Richard Cobb MD Globulin (S) [Mass/Vol] 2.7 g/dL Normal 1.9-3.7 [facility] Comment on above: Performed By: #### 7 600, 6517, 85644, 496 #### [facility] [address] [address] Electronics Worker: Richard Cobb MD Glucose [Mass/Vol] 135 mg/dL High 65-99 [facility] Comment on above: Result Comment: Fasting reference interval For someone without known diabetes, a glucose value >125 mg/dL indicates that they may have diabetes and this should be confirmed with a follow-up test. Performed By: #### 7 600, 6517, 85773, 496 #### [facility] [address] [address] Electronics Worker: Richard Cobb MD Potassium [Moles/Vol] 4.1 mmol/L Normal 3.5-5.3 [facility] Comment on above: Performed By: #### 7 600, 6517, 92868, 496 #### [facility] [address] [address] Electronics Worker: Richard Cobb MD Protein [Mass/Vol] 6.8 g/dL Normal 6.1-8.1 [facility] Comment on above: Performed By: #### 7 600, 6517, 49689, 496 #### [facility] [address] [address] Electronics Worker: Richard Cobb MD Sodium [Moles/Vol] 138 mmol/L Normal 135-146 [facility] Comment on above: Performed By: #### 7 600, 6517, 78220, 496 #### [facility] [address] [address] Electronics Worker: Richard Cobb MD Urea nitrogen [Mass/Vol] 13 mg/dL Normal 7-25 [facility] Comment on above: Performed By: #### 7 600, 6517, 26534, 496 #### [facility] of [address] [place] [address] Electronics Worker: Richard Cobb MD HEMOGLOBIN A1con 11-15-2020 HEMOGLOBIN A1c 7.0 % of total Hgb High <5.7 [facility] Comment on above: Result Comment: For someone without known diabetes, a hemoglobin A1c value of 6.5% or greater indicates that they may have diabetes and this should be confirmed with a follow-up test. For someone with known diabetes, a value <7% indicates that their diabetes is well controlled and a value greater than or equal to 7% indicates suboptimal control. A1c targets should be individualized based on duration of diabetes, age, comorbid conditions, and other considerations. Currently, no consensus exists regarding use of hemoglobin A1c for diagnosis of diabetes for children. Performed By: #### 7 600, 6517, 02607, 496 #### [facility] [address], [address] [place] [address] Electronics Worker: Richard Cobb MD LIPID PANEL, [facility] 10-23 Cholesterol [Mass/Vol] 180 mg/dL Normal <200 [facility] Comment on above: Performed By: #### 7 600, 6517, 80721, 496 #### [facility] [address] [address] Electronics Worker: Richard Cobb MD Cholesterol in HDL [Mass/Vol] 63 mg/dL Normal > OR = 50 [facility] Comment on above: Performed By: #### 7 600, 6517, 19642, 496 #### [facility] [address] [address] Electronics Worker: Richard Cobb MD Cholesterol in LDL [Mass/Vol] 91 mg/dL Normal [facility] Comment on above: Result Comment: Refe rence range: <100 Desirable range <100 mg/dL for primary prevention; <70 mg/dL for patients with CHD or diabetic patients with > or = 2 CHD risk factors. LDL-C is now calculated using the Jose calculation, which is a validated novel method providing better accuracy than the Friedewald equation in the estimation of LDL-C. Joey REYNOSO et al. DAYTON. 2013;310(19): 8415-3833 (http://education.[employer]/faq/KZX146) Performed By: #### 7 600, 6517, 95810, 496 #### [facility] [address], [address] [place] [address] Electronics Worker: Richard Cobb MD Cholesterol.total/ Cholesterol in HDL [Mass ratio] 2.9 {ratio} Normal <5.0 [facility] Comment on above: Performed By: #### 7 600, 6517, 06072, 496 #### [facility] [address], [address] [place] [address] Electronics Worker: Richard Cobb MD NON HDL CHOLESTEROL 117 mg/dL (calc) Normal <130 [facility] Comment on above: Result Comment: For patients with diabetes plus 1 major ASCVD risk factor, treating to a non-HDL-C goal of <100 mg/dL (LDL-C of <70 mg/dL) is considered a therapeutic option. Performed By: #### 7 600, 6517, 13203, 496 #### [facility] [address], [address] [place] [address] Electronics Worker: Richard Cobb MD Triglyceride [Mass/Vol] 161 mg/dL High <150 [facility] Comment on above: Performed By: #### 7 600, 6517, 81648, 496 #### [facility] [address] [place] [address] Electronics Worker: Richard Cobb MD Vital Signs Date Time Vital Sign Value Performing Clinician Suhail correa 06-13-2023 12:56-0500 Body height 162.6 cm Diamante James MD Work Phone: [facility] 06-13-2023 12:56-0500 Body mass index (BMI) [Ratio] 43.92 kg/m2 Diamante James MD Work Phone: [facility] 06-13-2023 12:56-0500 Body weight 116.12 kg Diamante James MD Work Phone: [facility] 06-13-2023 12:56-0500 Diastolic blood pressure 80 mm[Hg] Diamante James MD Work Phone: [facility] 06-13-2023 12:56-0500 Heart rate 78 /min Diamante James MD Work Phone: [facility] 06-13-2023 12:56-0500 SaO2% (BldA) [Mass fraction] 96 % Diamante James MD Work Phone: [facility] 06-13-2023 12:56-0500 Systolic blood pressure 126 mm[Hg] Diamante James MD Work Phone: [facility] 09-24-2018 14:15-0400 BMI (Body Mass Index) 44.46 kg/m2 [facility] [employer] [employer] 09-24-2018 14:15-0400 BP Diastolic 77 mm[Hg] [facility] 09-24-2018 14:15-0400 BP Systolic 110 mm[Hg] [facility] 09-24-2018 14:15-0400 Height 162.6 cm [facility] 09-24-2018 14:15-0400 Pulse (Heart Rate) 75 /min [facility] 09-24-2018 14:15-0400 Weight 117.48 kg [facility] Encounters Encounter Date Encounter Type Care Provider Facility Start: 07-31-2023 End: 07-31-2023 ambulatory CLARA MORALES Not Available Start: 07-25-2023 ambulatory [facility] ty:[facility] Start: 06-27-2023 End: 07-24-2023 [facility] Facility:[facility] Start: 06-13-2023 End: 06-13-2023 Patient encounter procedure Diamante James MD Work Phone: [facility] Comment on above: Allergic rhinitis du e to dust mite (Primary Dx); Allergic rhinitis due to animal (cat) (dog) hair and dander; Allergic rhinitis due to animals; Allergic rhinitis caused by mold; Seasonal allergic rhinitis due to pollen; Environmental allergies Start: 07-30-2022 End: 07-30-[address] CLARA MORALES Facility: Start: 10-13-2021 End: 10-14-[address] JEAN REED Facility:[facility] Start: 10-13-2021 End: 10-13-[address] JEAN REED Facility:[facility] Start: 08-31-2021 End: 09-01-[address] CLARA MORALES Facility:[facility] Start: 09-24-2018 Patient encounter procedure TRINA SAMUEL [facility] Start: 09-24-2018 End: 09-24-2018 Office outpatient new 45 minutes Trina Samuel Work Phone: [facility] Comment on above: Macromastia (Primary Dx); Chronic back pain, unspecified back location, unspecified back pain laterality Start: 08-04-2018 End: 08-04-2018 Chart abstracting Trina Samuel Work Phone: [facility] Procedures Date Procedure Procedure Detail Performing Clinician Start: 05-22-2023 Adult depression screening assessment Diamante James MD Work Phone: Plan of Treatment Date Care Activity Detail Author Start: 01-24-2026 Screening for malign ant neoplasm of colon Colon Cancer Screening 3 Year Cologuard [facility] Start: 06-13-2024 Adult BMI Screening Adult BMI Screen ing [facility] Start: 06-13-2024 Tobacco Screening Tobacco Screening [facility] Start: 05-22-2024 Depression Screening Depression Scre ening [facility] Start: 09-25-2023 End: 09-25-2023 Patient encounter procedure 09/25/2023 4:30 PM EDT [facility] [address] [place] [address] Janice Matthews, MARKETING FINANCE SPECIALIST-VICE PRESIDENT [employer]NAG[employer] [address] [place] [address] [facility] Start: 08-15-2023 End: 08-15-2023 Patient encounter procedure 08/15/2023 2:15 PM EST Office Visit [facility] [facility] [place] [address] Diamante James MD [address] [place] [address] [facility] Start: 02-22-2019 Influenza vaccination INFLUENZ A VACCINE (Season Ended) [facility] Start: 08-27-2018 End: 08-27-2018 Office Visit 08/27/2018 Office Visit Plastic Surgery Trina Samuel MD [address] [place] [address] [phone] [place] [facility] Start: 02-22-2018 Influenza vaccination INFLUENZA VACC INE (#1) [facility] Start: 2015 Fasting lipid profile LIPID SCREENIN G [facility] Start: 2015 Protein mass conc MAMMOGRAM SC REENING DISCUSSION [facility] Start: 1996 Screening for malign ant neoplasm of cervix PAP SMEAR DISCUSSION [facility] Start: 1994 DTaP,Tdap and Td Vaccines (1 - Tdap) DTaP,Tdap and Td Vaccines (1 - Tdap) [facility] Start: 1994 Third diphtheria, tetanus and acellular pertussis (DTaP) vaccination TDAP (ADULT) [facility] Start: 1993 Adult BMI Follow Up Plan Adult BMI Follow Up Plan [facility] Start: 1993 Tetanus vaccination [facility] Start: 1988 HIV screening HIV SCREENING DISCUSSION [facility] Immunizations Immunization Date Immunization Notes Care Provider Fa cility 05-09-2021 COVID-19 Vaccine, vector-nr, rS-Ad26, PF, 0.5mL Diamante James MD Work Phone: [facility] 05-09-2021 COVID-19, mRNA, LNP- S, PF, 100mcg/0.5mL Dose Diamante James MD Work Phone: [facility] Payers Date Payer Category Payer Unknown [id number] 2018 Private Health Insurance ZAY WRAY xxxxxxxxxx 2018-Present xxxxxxxxxx [id number] 2018 Private Health Insurance [id number] 1975 Unknown [id number] 1975 Unknown [id number] 1975 Unknown [id number] 1975 Unknown [id number] 1975 Unknown [id number] 1975 Unknown [id number] 1975 Unknown [id number] 1975 Unknown [id number] 1959 Unknown [id number] Social History Date Type Detail Facility Start: 08-04-2018 End: 10-17-2022 Tobacco smoking status [facility] Never smoker [facility] Start: 1975 Sex Assigned At Not on file [facility] Start: 10-17-2022 Tobacco use and exposure Smokeless tobacco non-user [facility] Start: 06-13-2023 Alcohol intake Current non-dr traffic signal mechanic of alcohol (finding) [facility] Start: 07-15-2020 End: 06-13-2023 History of Social function [facility] Start: 07-15-2020 End: 06-13-2023 Tobacco use panel [facility] Adolescent depressio n screening assessment 0 [facility] Medical Equipment Procedure Code Equipment Code Equipment Origin al Text Equipment Identifier Dates 1 Pen Needle by miscellaneous route Daily at 0300. To use daily with selena [id number] Start: 02-13-2023 Goals Date Patient Goal Desired Activity /State Personal health goal Comment on above: Formatting of this n ote might be different from the original. Evaluation of progress towards goal: Safe dc transition home. Note 06-13-2023 RVSIT - Diamante James MD - 06/13/2023 3:05 PM ESTRVSIT Dread James MD - 06/13/2023 2:42 PM ESTRVSIT Dread James MD - 06/13/2023 1:57 PM ESTRVSIT Dread James MD - 06/13/2023 1:26 PM EST Note Date & Type Note Facility 06-13-2023 Miscellaneous Notes Formattin g of this note might be different from the original. [facility] Immunotherapy Injection Visit Recorded On Date: Jun 13 2023 3:05PM By [facility] User: [id number] Initials: lc Injection Provider: Diamante James MD Diagnoses: J30.1 Injection: T G 0.5mL @ Yellow 1:10 Location: RA -> Reaction: None Rxn Notes: None -> Frequency: 1-2x/week Schedule: Cluster Visit 4 Treatment Plan: Allergy Standard Buildup Max Dose: 0.50 @ Red 1:1 Injection: W 0.5mL @ Yellow 1:10 Location: [place] -> Reaction: None Rxn Notes: None -> Frequency: 1-2x/week Schedule: Cluster Visit 4 Treatment Plan: Allergy Standard Buildup Max Dose: 0.50 @ Red 1:1 Injection: M DM C D 0.5mL @ Yellow 1:10 Location: [place] Notes: Cluster -> Reaction: None Rxn Notes: None -> Frequency: 1-2x/week Schedule: Cluster Visit 4 Treatment Plan: Allergy Standard Buildup Max Dose: 0.50 @ Red 1:1 Allergic Health Screen: Passed [facility] Immunotherapy Injection Visit Recorded On Date: Jun 13 2023 2:42PM By [facility] User: [id number] Initials: lc Injection Provider: Diamante James MD Diagnoses: J30.1 Injection: T G 0.45mL @ Yellow 1:10 Location: [place] -> Reaction: None Rxn Notes: None -> Frequency: 1-2x/week Schedule: Cluster Visit 4 Treatment Plan: Allergy Standard Buildup Max Dose: 0.50 @ Red 1:1 Injection: W 0.45mL @ Yellow 1:10 Location: RA -> Reaction: None Rxn Notes: None -> Frequency: 1-2x/week Schedule: Cluster Visit 4 Treatment Plan: Allergy Standard Buildup Max Dose: 0.50 @ Red 1:1 Injection: M DM C D 0.45mL @ Yellow 1:10 Location: RA Notes: cluster -> Reaction: None Rxn Notes: None -> Frequency: 1-2x/week Schedule: Cluster Visit 4 Treatment Plan: Allergy Standard Buildup Max Dose: 0.50 @ Red 1:1 Allergic Health Screen: Passed -> Comments: Cluster [facility] Immunotherapy Injection Visit Recorded On Date: Jun 13 2023 1:57PM By [employer] User: [id number] Initials: lc Injection Provider: Diamante James MD Diagnoses: J30.1 Injection: T G 0.4mL @ Yellow 1:10 Location: RA -> Reaction: None Rxn Notes: None -> Frequency: 1-2x/week Schedule: Cluster Visit 4 Treatment Plan: Allergy Standard Buildup Max Dose: 0.50 @ Red 1:1 Injection: W 0.4mL @ Yellow 1:10 Location: [place] -> Reaction: None Rxn Notes: None -> Frequency: 1-2x/week Schedule: Cluster Visit 4 Treatment Plan: Allergy Standard Buildup Max Dose: 0.50 @ Red 1:1 Injection: M DM C D 0.4mL @ Yellow 1:10 Location: [place] Notes: Cluster -> Reaction: None Rxn Notes: None -> Frequency: 1-2x/week Schedule: Cluster Visit 4 Treatment Plan: Allergy Standard Buildup Max Dose: 0.50 @ Red 1:1 Allergic Health Screen: Passed -> Comments: Cluster [facility] Immunotherapy Injection Visit Recorded On Date: Jun 13 2023 1:26PM By [facility] User: [id number] Initials: lc Injection Provider: Diamante James MD Diagnoses: J30.1 Injection: T G 0.35mL @ Yellow 1:10 Location: [place] -> Reaction: None Rxn Notes: None -> Frequency: 1-2x/week Schedule: Cluster Visit 4 Treatment Plan: Allergy Standard Buildup Max Dose: 0.50 @ Red 1:1 Injection: W 0.35mL @ Yellow 1:10 Location: RA -> Reaction: None Rxn Notes: None -> Frequency: 1-2x/week Schedule: Cluster Visit 4 Treatment Plan: Allergy Standard Buildup Max Dose: 0.50 @ Red 1:1 Injection: M DM C D 0.35mL @ Yellow 1:10 Location: RA Notes: Cluster -> Reaction: None Rxn Notes: None -> Frequency: 1-2x/week Schedule: Cluster Visit 4 Treatment Plan: Allergy Standard Buildup Max Dose: 0.50 @ Red 1:1 Allergic Health Screen: Passed -> Comments: Cluster documented in this encounter [facility] Clinical Note 06-13-2023 RVSIT - Diamante James MD - 06/13/2023 3:05 PM EST Note Date & Type Note Facility 06-13-2023 Note Formatting of this n ote might be different from the original. [facility] Immunotherapy Injection Visit Recorded On Date: Jun 13 2023 3:05PM By [facility] User: [id number] Initials: lc Injection Provider: Diamante James MD Diagnoses: J30.1 Injection: T G 0.5mL @ Yellow 1:10 Location: RA -> Reaction: None Rxn Notes: None -> Frequency: 1-2x/week Schedule: Cluster Visit 4 Treatment Plan: Allergy Standard Buildup Max Dose: 0.50 @ Red 1:1 Injection: W 0.5mL @ Yellow 1:10 Location: [place] -> Reaction: None Rxn Notes: None -> Frequency: 1-2x/week Schedule: Cluster Visit 4 Treatment Plan: Allergy Standard Buildup Max Dose: 0.50 @ Red 1:1 Injection: M DM C D 0.5mL @ Yellow 1:10 Location: [place] Notes: Cluster -> Reaction: None Rxn Notes: None -> Frequency: 1-2x/week Schedule: Cluster Visit 4 Treatment Plan: Allergy Standard Buildup Max Dose: 0.50 @ Red 1:1 Allergic Health Screen: Passed [facility] Clinical Note 06-13-2023 JACKIE James MD - 06/13/2023 2:42 PM EST Note Date & Type Note Facility 06-13-2023 Note Formatting of this n ote might be different from the original. [facility] Immunotherapy Injection Visit Recorded On Date: Jun 13 2023 2:42PM By [facility] User: [id number] Initials: lc Injection Provider: Diamante James MD Diagnoses: J30.1 Injection: T G 0.45mL @ Yellow 1:10 Location: [place] -> Reaction: None Rxn Notes: None -> Frequency: 1-2x/week Schedule: Cluster Visit 4 Treatment Plan: Allergy Standard Buildup Max Dose: 0.50 @ Red 1:1 Injection: W 0.45mL @ Yellow 1:10 Location: RA -> Reaction: None Rxn Notes: None -> Frequency: 1-2x/week Schedule: Cluster Visit 4 Treatment Plan: Allergy Standard Buildup Max Dose: 0.50 @ Red 1:1 Injection: M DM C D 0.45mL @ Yellow 1:10 Location: RA Notes: cluster -> Reaction: None Rxn Notes: None -> Frequency: 1-2x/week Schedule: Cluster Visit 4 Treatment Plan: Allergy Standard Buildup Max Dose: 0.50 @ Red 1:1 Allergic Health Screen: Passed -> Comments: Cluster [facility] Clinical Note 06-13-2023 JACKIE James MD - 06/13/2023 1:57 PM EST Note Date & Type Note Facility 06-13-2023 Note Formatting of this n ote might be different from the original. [facility] Immunotherapy Injection Visit Recorded On Date: Jun 13 2023 1:57PM By [facility] User: [id number] Initials: lc Injection Provider: Diamante James MD Diagnoses: J30.1 Injection: T G 0.4mL @ Yellow 1:10 Location: RA -> Reaction: None Rxn Notes: None -> Frequency: 1-2x/week Schedule: Cluster Visit 4 Treatment Plan: Allergy Standard Buildup Max Dose: 0.50 @ Red 1:1 Injection: W 0.4mL @ Yellow 1:10 Location: [place] -> Reaction: None Rxn Notes: None -> Frequency: 1-2x/week Schedule: Cluster Visit 4 Treatment Plan: Allergy Standard Buildup Max Dose: 0.50 @ Red 1:1 Injection: M DM C D 0.4mL @ Yellow 1:10 Location: [place] Notes: Cluster -> Reaction: None Rxn Notes: None -> Frequency: 1-2x/week Schedule: Cluster Visit 4 Treatment Plan: Allergy Standard Buildup Max Dose: 0.50 @ Red 1:1 Allergic Health Screen: Passed -> Comments: Cluster [facility] Clinical Note 06-13-2023 RVSIT - Diamante James MD - 06/13/2023 1:26 PM EST Note Date & Type Note Facility 06-13-2023 Note Formatting of this n ote might be different from the original. [facility] Immunotherapy Injection Visit Recorded On Date: Jun 13 2023 1:26PM By [facility] User: [id number] Initials: lc Injection Provider: Diamante James MD Diagnoses: J30.1 Injection: T G 0.35mL @ Yellow 1:10 Location: [place] -> Reaction: None Rxn Notes: None -> Frequency: 1-2x/week Schedule: Cluster Visit 4 Treatment Plan: Allergy Standard Buildup Max Dose: 0.50 @ Red 1:1 Injection: W 0.35mL @ Yellow 1:10 Location: RA -> Reaction: None Rxn Notes: None -> Frequency: 1-2x/week Schedule: Cluster Visit 4 Treatment Plan: Allergy Standard Buildup Max Dose: 0.50 @ Red 1:1 Injection: M DM C D 0.35mL @ Yellow 1:10 Location: RA Notes: Cluster -> Reaction: None Rxn Notes: None -> Frequency: 1-2x/week Schedule: Cluster Visit 4 Treatment Plan: Allergy Standard Buildup Max Dose: 0.50 @ Red 1:1 Allergic Health Screen: Passed -> Comments: Cluster [employer] History of Present illness Narrative 06-13-2023 Diamante James MD - 06/13/2023 1:00 PM EST Note Date & Type Note Facility 06-13-2023 History of Present illness Narrative Images from the original note were not included. [facility] - Allergy and Immunology HISTORY OF PRESENT ILLNESS: Radha is a 47 y.o. female who presents for follow-up and 4th cluster AIT. She was referred by Janice Matthews APRN-F*. PCP: SANTI RIBERA TODAY: She is here for her 4th cluster AIT shot. She is doing well. Denies any recent infections. PRIOR HISTORY: Seasonal Allergies: Has a h/o seasonal environmental allergies. Symptoms are mainly nasal congestion, runny nose, itchy nose, watery eyes, itchy eyes, sneezing, PND, and occasional cough. Symptoms are all year around, but worse with weather changes. Has tried fluticasone and cetirizine, Singulair, claritin, mikel which didn't help much with the symptoms. Currently using Zyrtec-D and Singulair (10 mg daily), notes no mood changes or nightmares. Previously did allergy shots but stopped due to insurance coverage. Did them for about a year. Asthma: On Albuterol as needed, has not needed to use it in a while. PAST MEDICAL HISTORY: Past Medical History: Diagnosis Date Allergic 05/15/2023 allergy shots 1 a week Asthma Diabetes mellitus type 2, controlled ([facility]) Hyperlipidemia Hypertension Meniscal injury, right, subsequent encounter PAST SURGICAL HISTORY: Past Surgical History: Procedure Laterality Date APPENDECTOMY EGD N/A 10/18/2021 Performed by Alli Rodriguez DO at [facility] HYSTERECTOMY ovaries remain KNEE SURGERY Right 04/20/2020 revision acl , medial and lateral meniscectomies Dr Amaro OTHER SURGICAL HISTORY uterine ablasion OVARIAN CYST SURGERY FAMILY HISTORY: Family History Problem Relation Age of Onset Hypertension Mother Hyperlipidemia Mother SOCIAL HISTORY: Social History Socioeconomic History Marital status: Spouse name: Not on file Number of children: Not on file Years of education: Not on file Highest education level: Not on file Occupational History Not on file Tobacco Use Smoking status: Never Smokeless tobacco: Never Vaping Use Vaping Use: Never used Substance and Sexual Activity Alcohol use: No Drug use: No Sexual activity: Yes Partners: Male control/protection: Post-menopausal Other Topics Concern Not on file Social History Narrative Not on file Social Determinants of Health Financial Resource Strain: Not on file Food Insecurity: No Food Insecurity (05/22/2023) Hunger Screening Food Insecurity - Worry: Never True Food Insecurity - Inability: Never True Transportation Needs: Not on file Physical Activity: Not on file Stress: Not on file Social Connections: Not on file Interpersonal Safety: Not on file Environmental History: Allergy Environmental History Lives with: and kids Secondhand Smoke Exposure?: Yes Pets: no Mold/mildew: No Pest/ Rodents: No Housing Type: House AC: Window Air Conditioning Heating: Furnace [place]axa: Carpet?: Yes [place]a: Hardwood?: Yes [place]: Tile?: Yes ALLERGY: Allergies Allergen Reactions Macrodantin [Nitrofurantoin Macrocrystal] Anaphylaxis Diflucan [Fluconazole] Hives Lisinopril Cough Dry cough Metformin Nausea MEDICATIONS Current Outpatient Medications Medication Sig Dispense Refill albuterol (PROVENTIL HFA;VENTOLIN HFA) 90 mcg/actuation inhaler Inhale 2 puffs every 6 (six) hours as needed for wheezing. albuterol (PROVENTIL,VENTOLIN) 2.5 mg /3 mL (0.083 %) nebulizer solution Inhale 3 mL (2.5 mg total) by nebulization every 6 (six) hours as needed for wheezing. 75 mL 12 atorvastatin (LIPITOR) 10 mg tablet Take 1 tablet (10 mg total) by mouth in the morning. azelastine (ASTELIN) 137 mcg (0.1 %) nasal spray Administer 2 sprays into each nostril in the morning and 2 sprays before bedtime. Use in each nostril as directed. 30 mL 12 blood-glucose meter,continuous (DEXCOM G6 ENVIRONMENTAL ASSOCIATE) misc 1 Disk by miscellaneous route continuously. 1 each 5 blood-glucose sensor (DEXCOM G6 SENSOR) device 1 Device by miscellaneous route continuously. For continous blood sugar monitoring while on insulin 5 each 5 buPROPion XL (WELLBUTRIN XL) 300 mg 24 hr tablet Take 1 tablet (300 mg total) by mouth in the morning. cetirizine (ZyrTEC) 10 mg tablet Take 1 tablet (10 mg total) by mouth in the morning. 90 tablet 4 cetirizine-pseudoephedrine (ZyrTEC-D) 5-120 mg per 12 hr tablet every 12 (twelve) hours. cholecalciferol (VITAMIN D3) 1,000 units tablet Take 1 tablet (1,000 Units total) by mouth in the morning. DEXCOM G6 TRANSMITTER device diclofenac sodium (VOLTAREN) 1 % gel Voltaren 1 % topical gel empagliflozin-metFORMIN 25-1,000 mg tablet, IR & ER, biphasic 24hr Take 1 tablet by mouth in the morning. EPINEPHrine (EPIPEN) 0.3 mg/0.3 mL auto-injector Inject 0.3 mL (0.3 mg total) into the appropriate muscle as needed (anaphylaxis). 2 each 4 fluticasone (FLONASE SENSIMIST) 27.5 mcg/actuation nasal spray Administer 2 sprays into each nostril once daily. 10 g 12 insulin glargine 300 unit/mL (TOUJEO SOLOSTAR U-300 INSULIN) 300 unit/mL (1.5 mL) insulin pen Inject 50 Units under the skin nightly. 22.5 mL 3 montelukast (SINGULAIR) 10 mg tablet montelukast 10 mg tablet nystatin (MYCOSTATIN) cream Apply 1 Application topically in the morning and 1 Application before bedtime. 60 g 1 nystatin (MYCOSTATIN) powder Apply topically 2 (two) times a day as needed (rash or itching). 15 g 0 olmesartan (BENICAR) 5 mg tablet TAKE ONE TABLET BY MOUTH DAILY 90 tablet 1 pantoprazole (PROTONIX) 40 mg EC tablet Take 1 tablet (40 mg total) by mouth every morning before breakfast. 90 tablet 0 pen needle, diabetic 32 gauge x 5/32 needle 1 Pen Needle by miscellaneous route Daily at 0300. To use daily with toujeo 100 each 3 venlafaxine XR (EFFEXOR-XR) 37.5 mg 24 hr capsule Take 1 capsule (37.5 mg total) by mouth in the morning. No current facility-administered medications for this visit. ROS: A comprehensive 10+ review of systems was negative except for symptoms noted in HPI. Additional positives include: None. Physical Exam General appearance: well-nourished, well-hydrated, in NAD Head: No scalp scaling, no scalp rash, no alopecia Neck: No cervical LAD, full neck ROM Eyes: Pupils symmetric, EOMMI, no conjunctival injection, no infraorbital darkening, no periorbital edema or rash ENT: Right TM- clear, +light reflex, no effusions, not bulging Left TM- clear, +light reflex, no effusions, not bulging Nose: External nose symmetric, 1+ nasal turbinates, normal nasal mucosa, no rhinorrhea, no polyps Mouth: No oropharyngeal lesions, MMM CV: RRR, no murmur, 2+ peripheral pulses, cap refill <2s Respiratory: Comfortable WOB, normal RR, no stertor, no stridor, CTAB with good aeration throughout all lung villalobos Abdomen: soft, non-distended Skin: No rash, hives, angioedema, or excoriations Neurologic: No focal deficit, normal gait Labs, imaging, and records: I have personally obtained and reviewed the labs/imaging below, with interpretation as follows: Results for orders placed or performed during the hospital encounter of 02/13/23 Comprehensive metabolic panel Result Value Ref Range Sodium 137 134 - 146 mmol/L Potassium, Bld 4.1 3.5 - 5.0 mmol/L Chloride 99 98 - 109 mmol/L CO2 27 22 - 32 mmol/L Anion gap 11 5 - 15 mmol/L BUN 18 5 - 23 mg/dL Creatinine 0.68 0.40 - 1.00 mg/dL Glucose 161 (H) 65 - 99 mg/dL Calcium 9.7 8.5 - 10.5 mg/dL Total Protein 7.3 6.0 - 8.0 g/dL Albumin 4.3 3.2 - 5.3 g/dL Alkaline Phosphatase 104 39 - 130 U/L AST 35 0 - 41 U/L ALT 37 (H) 0 - 31 U/L Total bilirubin 0.4 0.3 - 1.2 mg/dL eGFR (CKD-EPI)non-race dependent >90 >59 ml/min/1.73sq.m Hemoglobin A1c Result Value Ref Range Hemoglobin A1C 9.0 (H) 4.4 - 5.6 % Average glucose 212 mg/dL Microalbumin - Albumin: Creatinine Urine Ratio Result Value Ref Range Microalbumin urine <0.7 0.0 - 1.9 mg/dL Urine creat 31.48 mg/dL Alb/creat ratio NOT CALCULATED 0.0 - 30.0 mg/g creat Skin Prick Testing Allergy Skin Testing done by prick (puncture) technique Read: 04/04/2023 3:16 PM [place] tree Wheal: 8 Flare: 15 Elm Wheal: 8 Flare: 10 Birch tree Wheal: 10 Flare: 15 [place] Wheal: 8 Flare: 15 Boxelder (Maple) Wheal: 8 Flare: 12 [place] Wheal: 7 Flare: 15 [place] Wheal: 10 Flare: 14 [place] Wheal: 10 Flare: 30 [place] Wheal: 10 Flare: 25 [place] grass Wheal: 7 Flare: 20 [place] Wheal: 8 Flare: 20 [place] grass Wheal: 12 Flare: 30 [place] Wheal: 5 Flare: 15 [place] bluegrass Wheal: 20 Flare: 40 [place] Wheal: 15 Flare: 30 Josh grass Wheal: 30 Flare: 50 Dock/sorrel Wheal: 10 Flare: 20 Nettle Wheal: 10 Flare: 25 Martiniquais plantain Wheal: 10 Flare: 20 Pigweed Wheal: 8 Flare: 20 Kochia Wheal: 8 Flare: 20 Ragweed Wheal: 20 Flare: 45 [place]er Wheal: 7 Flare: 15 Angolan thistle Wheal: 8 Flare: 25 Damien Wheal: 10 Flare: 20 Cladosporium Wheal: 8 Flare: 25 Alternaria Wheal: 8 Flare: 30 Epicoccum nigrum Wheal: 5 Flare: 20 Aspergillus fumigatus Wheal: 10 Flare: 25 Penicillium Wheal: 5 Flare: 15 Liliana albicans Wheal: 7 Flare: 20 Trichophyton Wheal: 7 Flare: 20 D. farinae Wheal: 10 Flare: 25 Cat Wheal: 7 Flare: 25 D. pteronyssius Wheal: 10 Flare: 40 Rat Wheal: 5 Flare: 20 Feathers Wheal: 5 Flare: 20 Dog epithelium Wheal: 4 Flare: 15 Cockroach Wheal: 5 Flare: 20 AP Dog Wheal: 10 Flare: 25 Gerbil Wheal: 5 Flare: 15 Mouse Wheal: 8 Flare: 25 Guinea pig Wheal: 5 Flare: 15 Rabbit Wheal: 5 Flare: 30 Hamster Wheal: 7 Flare: 20 Saline Wheal: 0 Flare: 0 Horse Wheal: 5 Flare: 40 Histamine Wheal: 20 Flare: 50 Assessment/ Plan: 1. Allergic rhinitis due to dust mite 2. Allergic rhinitis due to animal (cat) (dog) hair and dander 3. Allergic rhinitis due to animals 4. Allergic rhinitis caused by mold 5. Seasonal allergic rhinitis due to pollen 6. Environmental allergies Allergic Rhinitis: - Patient's skin testing 04/04/23 showed sensitization to trees, weeds, grass, mold, dust mites, cockroaches, feathers, cats, rats, dogs, gerbils, guinea pig, hamster, horse, mice, and rabbits. - Reviewed proper avoidance measures during the visit today and provided a handout. - Continue Flonase Sensimist nasal spray, 2 SEN, QD (midday). - Continue azelastine nasal, 2 SEN, BID (morning and evening). - Reviewed proper nasal sprays using instructions in details today. - Continue with Vix if it helps. - Started traditional AIT on 05/09/23. - Started Cluster AIT on 05/23/2023, she took her fourth shot today 06/13/2023 and tolerated it well without any adverse events. - She is planning on continuing her shots at work where an BEHAVIOR CLINICIAN would be giving her the shots. She works at [employer]. - Follow up in 3 months or sooner as needed. Scribe Statement: Scribed for and in the presence of DIAMANTE JAMES MD by Shekhar Prajapati (scribe). Shekhar Prajapati 06/13/2023 12:53 PM I, Diamante James MD, personally performed the services described in the documentation, as scribed in my presence, and confirm that the documentation is both accurate and complete. Diamante James MD [facility] Allergy and Immunology Total time spent was 3 hours: preparing to see the patient (e.g., review of tests), obtaining and/or reviewing history, examination, counseling and educating the patient/family/caregive, orders and documenting clinical information in the electronic or other health record. [facility] Patient Instructions Note Date & Type Note Facility 06-13-2023 Instructions Shekhar Prajapati - 06/13/2023 1:00 PM EST Allergic Rhinitis: - Patient's skin testing 10/12/23 showed sensitization to trees, weeds, grass, mold, dust mites, cockroaches, feathers, cats, rats, dogs, gerbils, guinea pig, hamster, horse, mice, and rabbits. - Reviewed proper avoidance measures during the visit today and provided a handout. - Continue Flonase Sensimist nasal spray, 2 SEN, QD (midday). - Continue azelastine nasal, 2 SEN, BID (morning and evening). - Reviewed proper nasal sprays using instructions in details today. - Continue with Vix if it helps. - Started AIT on 05/09/23. - Started Cluster AIT on 05/23/2023, she took her fourth shot today 06/13/2023 and tolerated it well without any adverse events. - She is planning on continuing her shots at work where an BEHAVIOR CLINICIAN would be giving her the shots. She works at [employer]. - Follow up for next immunotherapy injection. documented in this encounter [facility] Evaluation note Note Date & Type Note Facility Evaluation note Diagnosis Allergic rhinitis due to dust mite- Primary Allergic rhinitis due to animal (cat) (dog) hair and dander Allergic rhinitis due to animals Allergic rhinitis due to animal (cat) (dog) hair and dander Allergic rhinitis caused by mold Seasonal allergic rhinitis due to pollen Environmental allergies Other allergy, other than to medicinal agents documented in this encounter [facility] History of Present Illness * Trina Samuel MD - 09/24/2018 2:00 PM EDT Subjective: Radha Lemos is an 43 y.o. female who presents for evaluation of large breasts and a history of chronic neck and back problems. She has seen a chiropractor in the past and uses anti-inflammatory agents for her neck, shoulder and back pain. Allergies Allergen Reactions Macrodantin [Nitrofurantoin] Anaphylaxis Diflucan [Fluconazole] Hives Lisinopril Current Outpatient Medications Medication Sig Dispense Refill atorvastatin (LIPITOR) 10 MG Tab tablet Take 10 mg by mouth daily. buPROPion (WELLBUTRIN SR) 150 MG tablet SR Take 150 mg by mouth every 12 hours. Cholecalciferol (VITAMIN D) 1000 units Tab Take 1,000 Units by mouth. CINNAMON PO Take 100 mg by mouth daily. Empagliflozin (JARDIANCE) 25 MG Tab tablet Take 25 mg by mouth. METFORMIN HCL PO Take 500 mg by mouth 2 times daily. montelukast (SINGULAIR) 10 MG Tab tablet Take 10 mg by mouth daily. olmesartan 5 MG Tab Take 5 mg by mouth daily. pantoprazole (PROTONIX) [address] tablet DR Take 20 mg by mouth daily. losartan (COZAAR) 25 MG Tab tablet Take 25 mg by mouth daily. No current facility-administered medications for this visit. Past Medical History: Diagnosis Date Asthma Diabetes mellitus Essential hypertension, benign Hyperlipidemia Past Surgical History: Procedure Laterality Date OTHER SURGICAL 10/05/2016 Endometrial ablation OTHER SURGICAL 2016 Uterine ablation FOOT SURGERY Right 2010 Rt foot tendon repair ANKLE SURGERY Left 2008 ACL RECONSTRUCTION Right 1998 APPENDECTOMY 1995 ARTHROSCOPY KNEE 1996, 1997, 1998 x3 with ACL x1 OVARIAN CYST REMOVAL Left 1994, 1995 TUBAL LIGATION Family History Problem Relation Age of Onset Hypertension Mother Stroke Father Diabetes Maternal Grandfather Social History Socioeconomic History Marital status: Spouse name: Not on file Number of children: Not on file Years of education: Not on file Highest education level: Not on file Occupational History Not on file Social Needs Financial resource strain: Not on file Food insecurity: Worry: Not on file Inability: Not on file Transportation needs: Medical: Not on file Non-medical: Not on file Tobacco Use Smoking status: Never Smoker Smokeless tobacco: Never Used Substance and Sexual Activity Alcohol use: Yes Drug use: Not on file Sexual activity: Not on file Lifestyle Physical activity: Days per week: Not on file Minutes per session: Not on file Stress: Not on file Relationships Social connections: Talks on phone: Not on file Gets together: Not on file Attends latter-day service: Not on file Active member of club or organization: Not on file Attends meetings of clubs or organizations: Not on file Relationship status: Not on file Intimate partner violence: Fear of current or ex partner: Not on file Emotionally abused: Not on file Physically abused: Not on file Forced sexual activity: Not on file Other Topics Concern Not on file Social History Narrative Not on file Review of Systems Pertinent items are noted in HPI. General Plastics Review of Systems: Do you have any of the following: Chills, Fatigue, Fever or Night Sweats: no. Ear pain or eye discharge: no. Hearing loss or visual changes: no. Sore throat or chronic cough: no. Shortness of breath: no. Chest pain, swelling, or heart palpitations: no. Abdominal pain: no. Constipation or diarrhea: yes. Heartburn or Nausea: yes, heartburn. Rash or skin problems: no. Dizziness or numbness: no. Headaches or Migraines: no. Seizures: no. Joint pain, joint swelling or muscle weakness: yes, joint pain. Bruise or bleed easily: no. Any swollen lymph nodes: no. Objective: Blood pressure 110/77, pulse 75, height 1.626 m (5' 4 ), weight 117.5 kg (259 lb). Bilateral mammary hypertrophy with wide ptotic breasts. No palpable masses or adenopathy. Sternal notch to nipple L--37cm, R--36cm. Shallow shoulder grooves. Hypertrophy of the trapezius Assessment: Bilateral mammary hypertrophy, neck and back pain Plan: The procedure of Bilateral breast reduction was thoroughly reviewed with the patient. The patient's goals and expectation for the surgery were reviewed, as well as the reasonable expected outcome. The expected pre-, intra-, and post- operative course was reviewed. Pt to Obtain Further Documentation to Support the Need for the Proposed Procedure. We will then submit all the obtained info to the insurance company to obtain pre-authorization. Estimate 400-600gm * Mouna Andrade - 09/24/2018 2:00 PM EDT General Plastics Review of Systems: Do you have any of the following: Chills, Fatigue, Fever or Night Sweats: no. Ear pain or eye discharge: no. Hearing loss or visual changes: no. Sore throat or chronic cough: no. Shortness of breath: no. Chest pain, swelling, or heart palpitations: no. Abdominal pain: no. Constipation or diarrhea: yes. Heartburn or Nausea: yes, heartburn. Rash or skin problems: no. Dizziness or numbness: no. Headaches or Migraines: no. Seizures: no. Joint pain, joint swelling or muscle weakness: yes, joint pain. Bruise or bleed easily: no. Any swollen lymph nodes: no. documented in this encounter Assessments Diagnosis Macromastia- Primary Hypertrophy of breast Chronic back pain, unspecified back location, unspecified back pain laterality Summary Purpose Family History No Family History Records FoundNo Family History Records FoundNo Family History Records FoundNo Family History Records FoundNo Family History Records Found Advance Directives No Advanced Directives Records FoundLatest Code Status on File Code Status Date Activated Date Inactivated Comments Full Code 10/17/2021 10:55 AM 10/19/2021 3:17 PM Additional Source Comments Reason for Visit (unrecogniz ed section and content) Reason Comments New Patient Breast reduction con sult. C/o neck, back and chest pain. Takes NSAIDS for pain. Has seen a chiropractor in the past. C/o sides and underwire of bras dig in. Pt uses Nystatin powder when it is warm outside. Reason Comments Procedure Cluster 4 INFORMATION SOURCE (unrecogn ized section and content) DATE CREATED AUTHOR 09/26/2018 [facility] DATE CREATED AUTHOR AUTHOR'S ORGANIZ ATION 06/04/2021 [facility] DATE CREATED AUTHOR AUTHOR'S ORGANIZ ATION 2022 [facility] DATE CREATED AUTHOR AUTHOR'S ORGANIZ ATION 07/25/2023 [facility] DATE CREATED AUTHOR AUTHOR'S ORGANIZ ATION 08/01/2023 [facility] Care Teams (unrecognized sec tion and content) [employer] Relationship Specialty Start Date End Date Janice Matthews APRN-VICE PRESIDENT [employer]NAGEMENT [address] [id number] PCP - General Internal Medicine 02/14/23 FOR RECORDS PERTAINING TO PATIENTS WHO ARE OR HAVE BEEN ENROLLED IN A CHEMICAL DEPENDENCY/SUBSTANCEABUSE PROGRAM, SOME INFORMATION MAY BE OMITTED. This clinical summary was aggregated from multiple sources. Caution should be exercised in using it in the provision of clinical care. This summary normalizes information from multiple sources, and as a consequence, information in this document may materially change the coding, format and clinical context of patient data. In addition, data may be omitted in some cases. CLINICAL DECISIONS SHOULD BE BASED ON THE PRIMARY CLINICAL RECORDS. [facility]. provides no warranty or guarantee of the accuracy or completeness of information in this document.
== END 2023-08-02 14:28 | disposition home or self-care (01) ==
LOC: MAMMO 14:27
PROVIDERS: Visit Provider Obstetrics & Gynecology
DX: Z12.31 Encounter for screening mammogram for malignant neoplasm of breast (principal); Z80.8 Family history of malignant neoplasm of other organs or systems
CPT/HCPCS: 77063; 77067

== ENCOUNTER 2024-08-05 19:24 | Outpatient (REF) | payer BC, SELFPAY ==
--- OUTSIDE RECORDS SUMMARY | 2024-08-05 19:27 | XMS_ITS | CCD ---
Author Organization [facility] Care Team Providers Care Correctional Security Officer Name Role Phone Unavailable Primary Care Provider UnavailJean Herrera Primary Care Provider KULWINDER SAMUEL Attending Unavailable ANDREW MA Referring Unavailable BRIANNA, JEAN Primary Care Unavailable FURLOSHANDA, DR JEAN Hussein Primary Care Unavailable PAY, DR ROCHE Admitting Unavailable PAY, DR ROCHE Attending Unavailable PAY, DR ROCHE Consulting Unavailable FRANCESCA, DR ELIZABETH Admitting Unavailable FRANCESCA, DR ELIZABETH Attending Unavailable FURLONG, DR JEAN Hussein Primary Care Unavailable FRANCESCA, DR ELIZABETH Consulting Unavailable FRANCESCA, DR ELIZABETH Admitting Unavailable FRANCESCA, DR ELIZABETH Attending Unavailable FRANCESCA, DR ELIZABETH Primary Care Unavailable FRANCESCA, DR ELIZABETH Consulting Unavailable ZIEBER, DR JULIO CESAR Torres Consulting Unavailable JOSEFINA, DR MOSLEY Consulting Unavailable ROSIONG, DR JEAN Hussein Primary Care Unavailable BENEDICT FROST Admitting Unavailable BENEDICT FROST Attending Unavailable HELLEN BERNAL Consulting Unavailable BENEDICT FROST Consulting Unavailable HIRAM CLARK Consulting Unavailable Jean Reed MD Primary Care Provider Rory FILM PAINTER-PHLEBOTOMIST LAB ASSISTANTJanice Primary Care Provider Gabriel FILM PAINTER-TABULATING SUPERVISOR, Christina Brown Primary Care Provider Christina Rios MD Unavailable Arias Dwyer MD Provider Primary Care Provi chula ANDREW MA Attending Unavailable PALOMO FRANCOIS Attending Unavailable CHRISTINA RIOS Referring Unavailable JANICE VALADEZ Referring Unavailable JANICE VALADEZ Primary Care Unavailable JANICE VALADEZ Attending Unavailable JANICE VALADEZ Referring Unavailable KUNS, MAXIMUS Primary Care Unavailable JACOB, AHMED Attending Unavailable JANICE VALADEZ ROSE Referring Unavailable KUNS, MAXIMUS Primary Care Unavailable AILINSJANICEMAXIMUS Attending Unavailable AILINSJANICEMAXIMUS Referring Unavailable KUNS, MAXIMUS Primary Care Unavailable GABRIEL, CHRISTINA L Attending Unavailable GABRIEL, CHRISTINA L Referring Unavailable GABRIEL, CHRISTINA L Primary Care Unavailable JACOB, AHMED Attending Unavailable JANICE VALADEZ ROSE Referring Unavailable GABRIEL, CHRISTINA L Primary Care Unavailable GABRIEL, CHRISTINA L Attending Unavailable GABRIEL, CHRISTINA L Referring Unavailable GABRIEL, CHRISTINA L Primary Care Unavailable GABRIEL, CHRISTINA L Attending Unavailable GABRIEL, CHRISTINA L Referring Unavailable GABRIEL, CHRISTINA L Primary Care Unavailable GABRIEL, CHRISTINA L Attending Unavailable GABRIEL, CHRISTINA L Referring Unavailable GABRIEL, CHRISTINA L Primary Care Unavailable GABRIEL, CHRISTINA L Referring Unavailable GABRIEL, CHRISTINA L Primary Care Unavailable FURLONG, JEAN G Attending Unavailable GABRIEL, CHRISTINA L Referring Unavailable GABRIEL, CHRISTINA L Primary Care Unavailable JACOB, AHMED Attending Unavailable GABRIEL, CHRISTINA L Referring Unavailable GABRIEL, CHRISTINA L Primary Care Unavailable GABRIEL, CHRISTINA L Attending Unavailable GABRIEL, CHRISTINA L Referring Unavailable GABRIEL, CHRISTINA L Primary Care Unavailable GEOFFREY BADILLO Attending Unavailable GABRIEL, CHRISTINA L Referring Unavailable GABRIEL, CHRISTINA L Primary Care Unavailable JACOB, AHMED Attending Unavailable JANICE VALADEZ Referring Unavailable AILINS, JANICE AVENDANO Primary Care Unavailable GABRIEL, CHRISTINA L Attending Unavailable GABRIEL, CHRISTINA L Referring Unavailable GABRIEL, CHRISTINA L Primary Care Unavailable JANICE VALADEZ R Referring Unavailable RORY, JANICE R Primary Care Unavailable GABRIEL, CHRISTINA L Referring Unavailable GABRIEL, CHRISTINA L Primary Care Unavailable FURLONG, JEAN G Primary Care Unavailable FURLONG, JEAN G Primary Care Unavailable FURLONG, JEAN G Primary Care Unavailable FURLONG, JEAN G Primary Care Unavailable FURLONG, JEAN G Primary Care Unavailable FURLONG, JEAN G Primary Care Unavailable FURLONG, JEAN G Primary Care Unavailable FURLONG, JEAN G Primary Care Unavailable GEORGE CALVILLO Admitting Unavailable FURLONG, JEAN G Primary Care Unavailable FURLONG, JEAN G Primary Care Unavailable FURLONG, JEAN G Primary Care Unavailable FURLONG, JEAN G Primary Care Unavailable Allergies Allergy Classification Reported Allergen(s) Allergy Type Date of Onset Reaction(s) Facility (20 sources) Fluconazole; Translations: [FLUCONAZOLE] Drug Allergy 9 Hives [facility] (20 sources) Lisinopril; Translations: [LISINOPRIL] Drug Allergy 8 Cough [facility] (7 sources) Nitrofurantoin Drug Allergy 9 Anaphylaxis [facility] (1 source) Amino Acids Drug Allergy 7 [facility] (2 sources) Fluconazole; Translations: [Diflucan] Drug Allergy 8 [facility] (2 sources) Nitrofurantoin; Translations: [Macrodantin] Drug Allergy 3 [facility] (5 sources) Fluconazole Propensity to adverse reactions 4 [facility] (5 sources) Lisinopril Propensity to adverse reactions 4 Cough [facility] (20 sources) metFORMIN; Translations: [METFORMIN] Drug Allergy 3 Nausea [facility] (20 sources) Nitrofurantoin; Translations: [NITROFURANTOIN MACROCRYSTAL] Drug Allergy 8 Anaphylaxis [facility] Medications Current Medications Medication Drug Class(es) Dates Sig (Normalized) Sig (Original) acetaminophen 325 mg / oxyCODONE hydrochloride 5 mg oral tablet (1 source) Opioid Agonist Start: 07-22-2024 End: 07-27-2024 oxyCODONE-acetamin ophen (PERCOCET) 5-325 mg per tablet Indications: Post-op pain Take 1-2 tablets by mouth every 4 (four) hours as needed for pain for up to 5 days. Max Daily Amount: 12 tablets 30 tablet 07/22/2024 07/27/2024 Active [id number] 200 actuat albuterol 0.09 mg/actuat metered dose inhaler (20 sources) beta2-Adrenergic Agonist Start: 10-21-2023 take 2 puff(s) by inhalation every six hours as needed for wheezing albuterol (PROVENTIL HFA;VENTOLIN HFA) 90 mcg/actuation inhaler Indications: Mild intermittent asthma without complication Inhale 2 puffs every 6 (six) hours as needed for wheezing. 18 g 1 10/21/2023 Active Start: 10-19-2021 take 3 mL by inhalat ion every six hours as needed for wheezing albuterol (PROVENTIL,VENTOLIN) 2.5 mg /3 mL (0.083 %) nebulizer solution Indications: Mild intermittent reactive airway disease without complication Inhale 3 mL (2.5 mg total) by nebulization every 6 (six) hours as needed for wheezing. 75 mL 12 10/19/2021 Active take 2 puff(s) by in halation every six hours for wheezing albuterol HFA 90 mcg/act inhaler Inhale 2 puffs every 6 (six) hours if needed for wheezing Active take 2 puff(s) by in halation every six hours as needed for wheezing albuterol (PROVENTIL HFA;VENTOLIN HFA) 90 mcg/actuation inhaler Inhale 2 puffs every 6 (six) hours as needed for wheezing. 0 Active atorvastatin 10 mg oral tablet (20 sources) HMG-CoA Reductase Inhibitor Start: 03-19-2024 take 1 tablet by mouth in the morning atorvastatin (LIPITOR) 10 mg tablet Take 1 tablet (10 mg total) by mouth in the morning. 90 tablet 1 03/19/2024 Active Start: 09-13-2023 take 1 tablet by ever th in the morning atorvastatin (LIPITOR) 10 mg tablet Take 1 tablet (10 mg total) by mouth in the morning. 90 tablet 1 09/13/2023 Active Start: 07-16-2023 End: 09-13-2023 take 1 tablet by mouth in the morning atorvastatin (Lipitor) 10 MG tablet Take 10 mg by mouth in the morning. 07/16/2023 Active azelastine hydrochloride 0.137 mg/actuat metered dose nasal spray (20 sources) Histamine-1 Receptor Antagonist Start: 04-04-2023 take 2 spray(s) nasal route in the morning azelastine (ASTELIN) 137 mcg (0.1 %) nasal spray Administer 2 sprays into each nostril in the morning and 2 sprays before bedtime. Use in each nostril as directed. 30 mL 12 04/04/2023 Active Start: 04-04-2023 take 2 spray(s) nasa l route in the morning azelastine (Astelin) 0.1 % nasal spray Administer 2 sprays into affected nostril(s) in the morning and 2 sprays in the evening. 04/04/2023 Active blood-glucose meter,continuo us (DEXCOM G6 RICE FIELD WORKER) misc (6 sources) Start: 02-13-2023 End: 04-14-2024 blood-glucose meter,continuo us (DEXCOM G6 RICE FIELD WORKER) misc 1 Disk by miscellaneous route continuously. 1 each 5 02/13/2023 04/14/2024 Discontinued (Therapy completed) Start: 02-13-2023 blood-glucose meter,continuous (DEXCOM G6 RICE FIELD WORKER) misc 1 Disk by miscellaneous route continuously. 1 each 5 02/13/2023 Active blood-glucose meter,continuo us (DEXCOM G7 RICE FIELD WORKER) misc (13 sources) Start: 04-14-2024 blood-glucose meter,continuous (DEXCOM G7 RICE FIELD WORKER) misc 1 each by miscellaneous route every 3 (three) months. 1 each 3 04/14/2024 Active blood-glucose sensor (DEXCOM G6 SENSOR) device (6 sources) Start: 03-06-2024 End: 04-14-2024 blood-glucose sensor (DEXCOM G6 SENSOR) device APPLY SENSOR TO SKIN FOR CONTINUOUS BLOOD SUGAR MONITORING, REPLACE EVERY 10 DAYS 3 each 1 03/06/2024 04/14/2024 Discontinued (Therapy completed) Start: 03-06-2024 blood-glucose sensor (DEXCOM G6 SENSOR) device APPLY SENSOR TO SKIN FOR CONTINUOUS BLOOD SUGAR MONITORING, REPLACE EVERY 10 DAYS 3 each 1 03/06/2024 Active Start: 02-13-2023 blood-glucose sensor (DEXCOM G6 SENSOR) device 1 Device by miscellaneous route continuously. For continous blood sugar monitoring while on insulin 5 each 5 02/13/2023 Active blood-glucose sensor (DEXCOM G7 SENSOR) device (13 sources) Start: 04-14-2024 blood-glucose sensor (DEXCOM G7 SENSOR) device 1 each by miscellaneous route every 10 days. 9 each 3 04/14/2024 Active 24 hr buPROPion hydrochloride 300 mg extended release oral tablet (20 sources) Aminoketone Start: 10-19-2021 take 1 tablet by mouth every twenty-four hours in the morning buPROPion XL (WELLBUTRIN XL) 300 mg 24 hr tablet Take 1 tablet (300 mg total) by mouth in the morning. 90 tablet 1 02/13/2024 Active take 1 tablet by ever th every twelve hours buPROPion (WELLBUTRIN SR) 150 MG tablet SR Take 150 mg by mouth every 12 hours. 0 Active cetirizine hydrochloride 10 mg oral tablet (20 sources) Histamine-1 Receptor Antagonist Start: 04-04-2023 End: 04-30-2024 take 1 tablet by mouth in the morning cetirizine (ZyrTEC) 10 mg tablet Indications: Allergic rhinitis due to dust mite , Allergic rhinitis due to animal (cat) (dog) hair and dander , Allergic rhinitis due to animals , Allergic rhinitis caused by mold , Seasonal allergic rhinitis due to pollen Take 1 tablet (10 mg total) by mouth in the morning. 90 tablet 4 04/30/2024 Active 12 hr cetirizine hydrochloride 5 mg / pseudoephedrine hydrochloride 120 mg extended release oral tablet (4 sources) alpha-Adrenergic Agonist, Histamine-1 Receptor Antagonist cetirizine-pseudoeph edrine (ZyrTEC-D) 5-120 mg per 12 hr tablet every 12 (twelve) hours. 0 Active cholecalciferol 0.025 mg oral tablet (20 sources) Vitamin D Start: 10-21-2023 take 1 tablet by mouth in the morning cholecalciferol (VITAMIN D3) 1,000 units tablet Take 1 tablet (1,000 Units total) by mouth in the morning. 100 tablet 3 10/21/2023 Active cholecalciferol (Vitamin D-[address]) 25 MCG (1000 UT) tablet Take 1,000 Units by mouth in the morning. Active take 1 tablet by mouth in the mo rning cholecalciferol (VITAMIN D3) 1,000 units tablet Take 1 tablet (1,000 Units total) by mouth in the morning. 0 Active Cinnamon Preparation (1 source) Non-Standardized Food Allergenic Extract take 100 mg by mouth once daily CINNAMON PO Take 100 mg by mouth daily. 0 Active Continuous Blood Gluc Sensor (Dexcom G6 Sensor) misc (5 sources) Start: Continuous Blood Gluc Sensor (Dexcom G6 Sensor) misc Place 1 each on the skin in the morning. 07/30/2023 Active Start: 07-30-2023 Continuous Blo od Gluc Sensor (Dexcom G6 Sensor) misc Place 1 each on the skin in the morning. 0 07/30/2023 Active DEXCOM G6 TRANSMITTER device (18 sources) Start: 01-07-2024 DEXCOM G6 MARTINEZ SMITTER device TO USE WITH CONTINOUS SYSTEM 1 each 1 01/07/2024 Active Start: 02-15-2023 DEXCOM G6 MARTINEZ SMITTER device diclofenac sodium 0.01 mg/mg topical gel (18 sources) Nonsteroidal Anti-inflammatory Drug diclofenac sodium (VOLTAREN) 1 % gel Voltaren 1 % topical gel Active empagliflozin 25 mg oral tablet (2 sources) Sodium-Glucose Cotransporter 2 Inhibitor Empagliflozin (JARDIANCE) 25 MG Tab tablet Take 25 mg by mouth. 0 Active 24 hr empagliflozin 25 mg / metFORMIN hydrochloride 1000 mg extended release oral tablet (20 sources) Biguanide, Sodium-Glucose Cotransporter 2 Inhibitor Start: take 1 tablet by mouth every twenty-four hours in the morning empagliflozin-metFOR MIN 25-1,000 mg tablet, IR & ER, biphasic 24hr Indications: Type 2 diabetes mellitus with hyperglycemia, without long-term current use of insulin ([facility]) Take 1 tablet by mouth in the morning. 90 tablet 3 10/21/2023 Active [id number] 0.3 ml EPINEPHrine 1 mg/ml auto-injector (20 sources) alpha-Adrenergic Agonist, beta-Adrenergic Agonist, Catecholamine Start: 023 EPINEPHrine (EPIPEN) 0.3 mg/0.3 mL auto-injector Inject 0.3 mL (0.3 mg total) into the appropriate muscle as needed (anaphylaxis). 2 each 4 05/07/2023 Active Start: 05-07-2023 inject 0.3 mg by int ramuscular injection every twenty-four hours as needed EPINEPHrine (Epipen) 0.3 MG/0.3ML injection syringe Inject 0.3 mg into the shoulder, thigh, or buttocks Daily as needed for anaphylaxis 05/07/2023 Active fluticasone furoate 0.0275 mg/actuat metered dose nasal spray (9 sources) Corticosteroid Start: 05-09-2023 take 2 spray(s) nasal route in the morning fluticasone (Flonase Sensimist) 27.5 MCG/SPRAY nasal spray Administer 2 sprays into affected nostril(s) in the morning. 05/09/2023 Active Start: 05-09-2023 take 2 spray(s) nasa l route once daily fluticasone (FLONASE SENSIMIST) 27.5 mcg/actuation nasal spray Administer 2 sprays into each nostril once daily. 10 g 12 05/09/2023 Active hydrOXYzine hydrochloride 10 mg oral tablet (14 sources) Antihistamine Start: 10-21-2023 take 1 tablet by mouth three times daily as needed hydrOXYzine (ATARAX) 10 mg tablet Take 1 tablet (10 mg total) by mouth 3 (three) times a day as needed for itching. 90 tablet 1 10/21/2023 Active 3 ml insulin aspart, human 100 unt/ml pen injector (8 sources) Insulin Analog Start: 06-26-2024 insulin aspart U-100 (NovoLOG Flexpen U-100 Insulin) 100 unit/mL (3 mL) insulin pen Inject under skin TID according to sliding scale. E11.65 Total daily dose 36 units 15 mL 4 06/26/2024 Active Start: 06-18-2024 End: 06-26-2024 insulin aspart U-100 (NovoLO G PenFill U-100 Insulin) 100 unit/mL cartridge Inject under skin TID according to sliding scale. E11.65 Total daily dose 36 units 15 mL 12 06/18/2024 06/26/2024 Discontinued (Therapy completed) Start: 06-12-2024 End: 06-18-2024 insulin aspart U-100 (NovoLO G PenFill U-100 Insulin) 100 unit/mL cartridge Inject under skin TID according to sliding scale. E11.65 15 mL 12 06/12/2024 06/18/2024 Discontinued 1.5 ml insulin glargine 300 unt/ml pen injector (20 sources) Insulin Analog Start: 06-11-2024 insulin glargi ne 300 unit/mL (TOUJEO SOLOSTAR U-300 INSULIN) 300 unit/mL (1.5 mL) insulin pen Indications: Type 2 diabetes mellitus with hyperglycemia, without long-term current use of insulin ([facility]) Inject 60 Units under the skin nightly. 22.5 mL 3 06/11/2024 Active Start: 05-22-2023 End: 06-11-2024 insulin glargine 300 unit/mL (TOUJEO SOLOSTAR U-300 INSULIN) 300 unit/mL (1.5 mL) insulin pen Indications: Type 2 diabetes mellitus with hyperglycemia, without long-term current use of insulin ([facility]) Inject 50 Units under the skin nightly. 22.5 mL 3 05/22/2023 06/11/2024 Discontinued Start: 05-22-2023 Lucinda BiswasoSta r 300 UNIT/ML injection Inject 50 Units under the skin in the morning. 05/22/2023 Active losartan potassium 25 mg oral tablet (2 sources) Angiotensin 2 Receptor Balaji take 1 tablet by mouth once daily losartan (COZAAR) 25 MG Tab tablet Take 25 mg by mouth daily. 0 Active meloxicam 15 mg oral tablet (12 sources) Nonsteroidal Anti-inflammatory Drug Start: 04-24-20 End: 06-25-19 take 1 tablet by mouth once daily in the morning meloxicam (MOBIC) 15 mg tablet Indications: Carpal tunnel syndrome of right wrist TAKE 1 TABLET BY MOUTH EVERY MORNING 30 tablet 1 06/25/2024 Active metFORMIN hydrochloride 500 mg oral tablet (2 sources) Biguanide take 500 mg by mouth twice daily METFORMIN HCL PO Take 500 mg by mouth 2 times daily. 0 Active montelukast 10 mg oral tablet (20 sources) Leukotriene Receptor Antagonist Start: 07-16-19 take 1 tablet by mouth once daily montelukast (SINGULAIR) 10 mg tablet Take 1 tablet (10 mg total) by mouth nightly. 90 tablet 3 10/21/2023 Active nystatin [id number] unt/ml topical cream (20 sources) Polyene Antifungal Start: 02-14-20 nystatin (MYCOSTATIN) cream Indications: Candidiasis Apply 1 Application topically in the morning and 1 Application before bedtime. 60 g 1 02/13/2023 Active Start: 10-19-2021 nystatin (MYCO STATIN) powder Apply topically 2 (two) times a day as needed (rash or itching). 15 g 10/19/2021 Active olmesartan medoxomil 5 mg oral tablet (20 sources) Angiotensin 2 Receptor Balaji Start: 04-02-2023 take 1 tablet by mouth once daily in the morning olmesartan (BENICAR) 5 mg tablet Take 1 tablet (5 mg total) by mouth every morning. 90 tablet 1 03/19/2024 Active take 1 tablet by mouth once kathryn y olmesartan 5 MG Tab Take 5 mg by mouth daily. 0 Active pantoprazole 40 mg delayed release oral tablet (20 sources) Proton Pump Inhibitor Start: 10-21-2023 take 1 tablet by mouth once daily before breakfast pantoprazole (PROTONIX) 40 mg EC tablet Indications: Gastroesophageal reflux disease with esophagitis without hemorrhage Take 1 tablet (40 mg total) by mouth every morning before breakfast. 90 tablet 3 10/21/2023 Active Start: 05-22-2023 End: 08-21-2023 take 1 tablet by mouth before mealtime pantoprazole (ProtoNix) 40 MG EC tablet Take 40 mg by mouth in the morning. Take before meals. 05/22/2023 Active take 1 tablet by ever th once daily pantoprazole (PROTONIX) [address] tablet DR Take 20 mg by mouth daily. 0 Active phentermine hydrochloride 37.5 mg oral tablet (14 sources) Sympathomimetic Amine Anorectic Start: 06-11-2024 take 40-44.9 tablets by mouth once daily before breakfast phentermine (ADIPEX-P) 37.5 mg tablet Indications: Class 3 severe obesity due to excess calories with serious comorbidity and body mass index (BMI) of 40.0 to 44.9 in adult ([facility]) Take 1 tablet (37.5 mg total) by mouth every morning before breakfast. 30 tablet 06/11/2024 Active Start: 05-07-2024 End: 06-11-2024 take 1 capsule by mouth once daily in the morning phentermine 37.5 MG capsule Indications: Obesity, morbid, BMI 40.0-49.9 ([facility]) Take 1 capsule (37.5 mg total) by mouth every morning. 30 capsule 05/07/2024 06/11/2024 Discontinued (Therapy completed) Start: 04-04-2024 End: 04-24-2024 take 1 tablet by mouth once daily before breakfast phentermine (ADIPEX-P) 37.5 mg tablet Indications: Obesity, morbid, BMI 40.0-49.9 ([facility]) Take 1 tablet (37.5 mg total) by mouth every morning before breakfast. 30 tablet 04/04/2024 04/24/2024 Discontinued (Therapy completed) Start: 04-04-2024 take 1 tablet by ever th once daily before breakfast phentermine (ADIPEX-P) 37.5 mg tablet Indications: Obesity, morbid, BMI 40.0-49.9 ([facility]) Take 1 tablet (37.5 mg total) by mouth every morning before breakfast. 30 tablet 04/04/2024 Active 24 hr venlafaxine 37.5 mg extended release oral capsule (9 sources) Serotonin and Norepinephrine Reuptake Inhibitor Start: 10-19-2021 take 1 capsule by mouth every twenty-four hours in the morning venlafaxine XR (Effexor XR) 37.5 MG 24 hr capsule Take 37.5 mg by mouth in the morning. 07/16/2023 Active vitamin d 1000 unt oral tablet (2 sources) take 1 tablet by mouth once Cholecalciferol (VITAMIN D) 1000 units Tab Take 1,000 Units by mouth. 0 Active Problems Active Problems Problem Classification Problem Date Documented Date Episodic/Chronic Anxiety disorders (19 sources) Mixed anxiety and depressive disorder; Translations: [Other specified anxiety disorders] Onset: 10-17-2021 10-17-2021 Chronic Asthma (3 sources) Unspecified asthma, uncomplicated; Translations: [Mild intermittent asthma] Onset: 10-17-2021 04-30-2024 Chronic Disorders of lipid metabolism (20 sources) Hyperlipidemia; Translations: [Hyperlipidemia, unspecified] Onset: 10-17-2022 10-17-2022 Chronic Esophageal disorders (20 sources) Gastro-esophageal reflux disease without esophagitis; Translations: [Gastric reflux] Onset: 11-06-2017 03-28-2022 Chronic Esophageal disorders (1 source) Esophageal disorders; Translations: [Gastro-esophageal reflux disease with esophagitis, without bleeding] Onset: 10-21-2023 Essential hypertension (20 sources) Essential hypertension; Translations: [Essential (primary) hypertension] Onset: 10-25-2021 03-28-2022 Chronic Immunizations and screening for infectious disease (1 source) Encounter for screening for human papillomavirus (HPV); Translations: [ENC SCREENING HUMAN PAPILLOMAVIRUS] Onset: 07-31-2022 Episodic Joint disorders and dislocations; trauma-related (18 sources) Derangement of right knee; Translations: [Unspecified internal derangement of right knee] Onset: 11-06-2017 03-28-2022 Chronic Other aftercare (2 sources) longterm (current) use of insulin; Translations: [longterm (current) use of insulin] Onset: 01-09-2024 Episodic Other connective tissue disease (1 source) Radial styloid tenosynovitis; Translations: [Radial styloid tenosynovitis [de Quervain]] 05-07-2024 Episodic Other connective tissue disease (1 source) Radial styloid tenosynovitis [de Quervain]; Translations: [Radial styloid tenosynovitis (de quervain)] Onset: 05-07-2024 Episodic Other nervous system disorders (2 sources) Carpal tunnel syndrome of right wrist; Translations: [Carpal tunnel syndrome, right upper limb] 04-24-2024 Chronic Other nervous system disorders (3 sources) Bilateral carpal tunnel syndrome; Translations: [Carpal tunnel syndrome, bilateral upper limbs] 05-27-2024 Chronic Other nervous system disorders (1 source) Carpal tunnel syndrome, right upper limb; Translations: [Carpal tunnel syndrome, right upper limb] Onset: 04-24-2024 Chronic Other nervous system disorders (3 sources) Paresthesia of hand ; Translations: [Anesthesia of skin] 05-07-2024 Episodic Other nervous system disorders (1 source) Numbness and tingling sensation of skin; Translations: [Anesthesia of skin] 05-27-2024 Episodic Other nervous system disorders (1 source) Anesthesia of skin; Translations: [Anesthesia of skin] Onset: 05-07-2024 Episodic Other nervous system disorders (1 source) Paresthesia of skin; Translations: [Paresthesia of skin] Onset: 05-07-2024 Episodic Other nervous system disorders (1 source) Postoperative pain ; Translations: [Other acute postprocedural pain] 07-22-2024 Episodic Other non-traumatic joint disorders (1 source) Pain in wrist Onset: 04-24-2024 Episodic Other nutritional; endocrine; and metabolic disorders (1 source) Morbid obesity; Translations: [Obesity, morbid, BMI 40.0-49.9] Onset: 09-24-2018 09-24-2018 Chronic Other nutritional; endocrine; and metabolic disorders (1 source) Obesity, unspecified; Translations: [OBESITY UNSPECIFIED] Onset: 10-17-2021 Chronic Other nutritional; endocrine; and metabolic disorders (2 sources) Body mass index (BMI) 40.0-44.9, adult; Translations: [BODY MASS INDEX BMI 40.0-44.9 ADULT] Onset: 10-17-2021 Chronic Other nutritional; endocrine; and metabolic disorders (19 sources) Body mass index 40+ - severely obese; Translations: [Morbid (severe) obesity due to excess calories] Onset: 09-24-2018 03-28-2022 Chronic Other nutritional; endocrine; and metabolic disorders (18 sources) Obesity; Translations: [Obesity, unspecified] Onset: 03-28-2022 03-28-2022 Chronic Other nutritional; endocrine; and metabolic disorders (1 source) Severe obesity; Translations: [Class 3 severe obesity due to excess calories with serious comorbidity and body mass index (BMI) of 40.0 to 44.9 in adult ([facility] [place] 06-11-2024 Chronic Other nutritional; endocrine; and metabolic disorders (1 source) Morbid (severe) obesity due to excess calories; Translations: [Morbid (severe) obesity due to excess calories] Onset: 03-28-2022 Chronic Other screening for suspected conditions (not mental disorders or infectious disease) (10 sources) Encounter for screening for malignant neoplasm of cervix; Translations: [Encounter for screening mammogram for malignant neoplasm of breast] Onset: 08-31-2021 Episodic Other upper respiratory disease (2 sources) Allergic rhinitis due to house dust mite; Translations: [Other allergic rhinitis] 08-21-2023 Chronic Other upper respiratory disease (2 sources) Allergic rhinitis due to animal hair and dander; Translations: [Allergic rhinitis due to animal (cat) (dog) hair and dander] 08-15-2023 Chronic Other upper respiratory disease (2 sources) Allergic rhinitis due to animals; Translations: [Allergic rhinitis due to animal (cat) (dog) hair and dander] 08-15-2023 Chronic Other upper respiratory disease (2 sources) Allergic rhinitis caused by mold; Translations: [Other allergic rhinitis] 08-15-2023 Chronic Other upper respiratory disease (2 sources) Allergic rhinitis due to pollen; Translations: [Allergic rhinitis due to pollen] 08-21-2023 Chronic Other upper respiratory disease (1 source) Other allergic rhinitis; Translations: [Other allergic rhinitis] Onset: 11-13-2023 Chronic Other upper respiratory disease (1 source) Allergic rhinitis due to animal (cat) (dog) hair and dander; Translations: [Allergic rhinitis due to animal (cat) (dog) hair and dander] Onset: 11-13-2023 Chronic Other upper respiratory disease (1 source) Allergic rhinitis due to pollen; Translations: [Allergic rhinitis due to pollen] Onset: 11-13-2023 Chronic Residual codes; unclassified (1 source) Pain Onset: 06-05-2024 Episodic Unclassified (2 sources) New Patient; Translations: [New Patient] Onset: 09-24-2018 Unclassified (1 source) CONTACT W/AND (SUSP) EXPOS COVID-19; Translations: [CONTACT W/AND (SUSP) EXPOS COVID-19] Onset: 10-17-2021 Unclassified (4 sources) LOW BACK PAIN, UNSPECIFIED; Translations: [LOW BACK PAIN, UNSPECIFIED] Onset: 10-17-2021 Unclassified (1 source) Obesity, class 3; Translations: [Obesity, class 3] Onset: 03-28-2022 Unclassified (1 source) Weight Check Onset: 11-14-2023 Past or Other Problems Problem Classification Problem Date Documented Date Episodic/Chronic Abdominal hernia (18 sources) Hiatal hernia; Translations: [Diaphragmatic hernia without obstruction or gangrene] Onset: 10-18-2021 10-18-2021 Episodic Abdominal pain (2 sources) Epigastric pain; Translations: [Unspecified abdominal pain] Onset: 10-17-2021 Episodic Allergic reactions (1 source) Other allergy status, other than to drugs and biological substances; Translations: [Other allergy status, other than to drugs and biological substances] Onset: 11-13-2023 Episodic Diabetes mellitus with complications (20 sources) Type 2 diabetes mellitus with hyperglycemia; Translations: [Type 2 diabetes mellitus] Onset: 10-17-2021 Resolved: 10-31-2022 10-31-2022 Chronic Diabetes mellitus without complication (20 sources) Type 2 diabetes mellitus without complication; Translations: [Type 2 diabetes mellitus without complications] Onset: 10-15-2016 Resolved: 10-31-2022 10-31-2022 Chronic Genitourinary symptoms and ill-defined conditions (1 source) Frequency of micturition; Translations: [FREQUENCY OF MICTURITION] Onset: 10-17-2021 Episodic Mood disorders (18 sources) Mood disorders Onset: 05-22-2023 Resolved: 06-11-2024 05-22-2023 Nausea and vomiting (20 sources) Nausea with vomiting, unspecified; Translations: [Nausea and vomiting] Onset: 10-13-2021 Episodic Noninfectious gastroenteritis (1 source) Noninfective gastroenteritis and colitis, unspecified; Translations: [NONINFECTIVE GE AND COLITIS UNS] Onset: 10-17-2021 Episodic Nonmalignant breast conditions (20 sources) Hypertrophy of breast; Translations: [Large breast] Onset: 09-24-2018 09-24-2018 Episodic Other aftercare (1 source) Other terminal makeup operator (current) drug therapy; Translations: [OTH ICE RINK ATTENDANT CURRENT DRUG THERAPY] Onset: 10-17-2021 Episodic Other aftercare (1 source) longterm (current) use of oral hypoglycemic drugs; Translations: [ICE RINK ATTENDANT USE ORAL HYPOGLYCEMIC DX] Onset: 10-17-2021 Episodic Other and unspecified benign neoplasm (18 sources) Gastric polyposis; Translations: [Polyp of stomach and duodenum] Onset: 10-18-2021 10-18-2021 Episodic Other inflammatory condition of skin (1 source) Pruritus, unspecified; Translations: [Pruritus, unspecified] Onset: 10-21-2023 Episodic Other lower respiratory disease (1 source) Chronic cough; Translations: [Chronic cough] Onset: 11-13-2023 Episodic Residual codes; unclassified (20 sources) Chronic back pain ; Translations: [Dorsalgia, [...] Spondylosis; intervertebral disc disorders; other back problems (18 sources) Neck pain; Translations: [Cervicalgia] Onset: 03-28-2022 03-28-2022 Episodic Sprains and strains (18 sources) Complete tear, knee, anterior cruciate ligament; Translations: [Sprain of anterior cruciate ligament of right knee, initial encounter] Onset: 07-15-2020 07-15-2020 Episodic Unclassified (1 source) LOW BACK PAIN, UNSPECIFIED; Translations: [LOW BACK PAIN, UNSPECIFIED] Onset: 10-13-2021 Unclassified (14 sources) Onset: 10-21-2023 10-21-2023 Results Test Name Value Interpretation Reference Range Facility Coding Summaryon 07-27-2024 Coding Summary HTMLBase 64 ZltypnrcRBu7oEv+PGhlY WQ+EJ8GQLAaN73jlZKseI 0uH7YIUArRFvasTDWRNKp ZGqQbwiQkYD8mfUEzRYAp IC8+MS8qKMRnOefntXUbl 6M7cJD6K58esk7uSIdkdY X2BBUdLoVnozuye2lqnKz 6IDcuNmluOyBt CLLbmR72ABK8fP69Pa49b EZspNThi6fbpIz5AeWrRM ElOHF9sTxuWAtxw8QtUFP kQ36xgMFpk0U2 FLRibMrlsEEwAwXxwWX7h H4nPJujkijvn1lwxpiePc c1xb89jRUaq2R6cKL4Y6T ijqQ4NMEzpWYk MmonmOPLwT3yvqvvh6bio noqCcDyGTRqBNm3JOi9MG MciQcvKnZdPJ07KYJ3TQN utnHgR5KlYJVr iBaoApD4k9C8If0MN9AUW iojE2JTCTHBAQmocAO+PC 14pm35N1MeCgqoOye2RXN aCMW7kCT3qE1l EREmOWfts8C3mTW4E2Mvq iUaak4ed4ksNMAmPMcwH1 2xxSBeg6I4NRCmuFM2FCY wuMouXiEbuH06 Oyc+AAIzdQcji3KxGakpt 0vzd8vvvTa6SdwyIIWeuv ZlnAsnMFR5u6TfDl2pQHZ dpXI4gZE9tF1i YkHnKiI9NQroI550LmDit PGuWrvqZ13kY8AgtOP+PH VyNeb5BEWyrBidDD1pM3Z hZGRpbmctbGVm fVwzSZ7dSPMgmiljTQPvb S4mXXEbE0w0DpLcOvH5VK bvK1IeEDTnopqpTy67tT4 kZpJdNdO8CDcu G9LirnD3WOQqjCRkAXxjX AT1E15sf1L8ZXPpGMMdEV Y5nJY0oA5stIunldmuyTY mdDsgdmVydGlj RGsuROrkP004UZEjhBunO kNvZGluZyBEYXRlOiAgMD IvMDMvMjAyNTwvdGQ+PHR tKLO1sFxaLQTb iISlJKxrWd0qvCfnlWitQ M2pPDSowxclYHJipM6tKL HgmRCnvGftGU9wQRIzerd hz959KpVcIPT1 ILBiwXPoZ4AsbS2hDhVwG RBvIGImV3RwpWYpXQlrK2 99CUwaAgP0LBHntzFeG2T sLWFsaWduOiB0 e3H5Ua8Mb1IpifgvC5Xgg NHmByBpRydeYDj7J0DcDh wvdHI+CZ09DOSzWE05VVs 8YPX2iEloYHsw KQRkC1OazN1qRfWoTDGxE GRkOyc+PHRhYmxlIHdpZH RoPScxMDAlJyBzdHlsZT0 gCi8cAJFtMWIh yVqosMCtZjPch7lmSDTrU EjrPJ3hhZzbV5GhaQR7YC Qvj4g6Wv62U39vS7QobIH +JWWrmSL3oCU5 xQ3hPfQbFsG8NQybX433C qSbtPAgCgpdb0jot9wodJ d2DkX4UIJuvqJrfYofMYR 7x7RdBw80M52i IHdpZHRoPSIxNSUiIHZhb Zwvuc3vkL5sJq7+PGNvbC N5tZQ5oQ7tGtZfCoR6ADc aY543AgToaEIm Egudb1rje5iprUj2WcGpZ GJqzuRxoZccQTE0w3OzCp 58S1CdzJbfo6XgIhp1xi6 1nQBgo8I9qUL4 P5XxSRDlzblomNYobVheW Z6dHLSrwxxaPDOneB7yBK YvX1q8WqAiSbC3CMyjC6C spnI1QLMcpWVj WLNzmAAYlK7kpumkv8mjw lwcEaYbDGOqZEj3RIi3RS WsiMdzRfPmHRT6BrN6KWC 6cIHeoZ4rnGdq hpxxwU5fUte+HLY1xIQof ZLXBN9pOzsutWE+PHRkIH U2aUwvKGsaPAXspI1lAHO rP9j7PaRoPcG8 JGgaU7TjooY6QPRqtJZbA AEfkZVRuW4nebutg5aoma ciQzRuEZFhQJg5VQm3GBB saWduOiBsZWZ0 ZuT9CIQ0kRIsjQ0yyNsau eprcD9dWhg+QmlydGggRG D8DCd1W9VaCac1ELYmdGh hMC4hsZAoZWmu En8oiCozhHvfRF4zDXIgg alom758JdCbz6noNFEjdV RoMXyhJTN5B31cp2D5HVH nXFHqFBH7jDY0 kZ5sgGogzxzgtBIkcTthl nJweOpqVYxzVQlfL406GX RdpEonNbMwSXz4I4RbAsx 0QNCxoLplQM4p iNGhDJkqQj9jpHkfyWqdN U5pYRVurbbdm505SgFkn3 lmUDHjfIAjGSbrQMO5S53 da5P8IRZuLNUv TWD2iRR5yH1lvBpvvunbk GVmdDsgdmVydGljYWwtYW crA533HNGtgMypMkFgfTo 5U1OkUui3QBBr uWrnJF9liGXlTEllKo4ha QfyqWfaWO6pEQHnnevug5 02RbDui0dpHJAnsOMaRMb hMPG2W20ti5L5 JIWkGWFqFJL4jAQ8nK6xz GlnbjogbGVmdDsgdmVydG xwLUdvTXwdK202ZUErzIz nPlBhdGllbnQg RSkjIXj3P1UcUxobsNA+P G68IDSwBJ14vEUvlPYrw7 lqyMl1GxXdHPZoSMK3aVe fLGrao8HsSPIh D23ihOOhr4V1CVUafFqyz RMkDnLalSO9wB2dWUwiqk mkg0vmvherQdtad1sfeg0 0aK83D63qQOgp ZHRoPSIzMCUiIHZhbGlnb x9bbV2yOb2+ISOrxIG4pR F0uE6rEOEkObH3IWblC13 9InRvcCIvPjxj e2nmz4rbvAx0AmR9NNMmq hQtiTcoXNY9u9JgSv75Z4 9sIHdpZHRoPSIyMCUiIHZ nhXzmqe5ehU1f Ii8+HRSybUW6fNN5eK4mM nIxZrY0KWsnF068EcHujU FfGojnA19rA6FutTU+PHR xVzm9XKXzzBuj AY1cwICqVCjmXc2bLNS9G bZoDxGdEFmjA4BoZEBfso mobqkubFI5TDLoZZGwqQ4 9Qm2coAdvVRKh aOZNuX3iiiwbw7mtitytU hJyIAKhAFe4KVc9KULhiZ etHuDuQGJ6XiO0ZCW3hNA klH0ltKbkbzrg pQ2nL9ZwLHPwvawuPw49q X4dVvFkSaG1BElgOqu+SE 3TTTPOEPqvLJAIP8tmWAx vdGQ+PHRkIHN0 jWuvVAdsHFPujI0oPSBuK 2z7JrPrHuS5HObpJ4MwKS LnlzeqOb48fI9mXdYeQgN 1MLzmH0LkibQ0 CANmgIGzQPvbLYK0U30wt 4Y6UBYkGYBjDGL6mXF5iF 1hbGlnbjogbGVmdDsgdmV ydGljYWwtYWxp J491ETRjpBclAtGoXvJ6X xW3WmV1T7IeLsb6UUMcaM ypCS2nrXGuLBzeJz5okIh ujCzhAW7kCUKw gybqMHYqrV9gRIZdxJBkg MgdKC0gJFRzurgln074Ry HpTSF5VYHxyFVhJ2PbzB4 yOiAjMDAwMDAw S4XzaOUuAFamD065XAtlM oZ1FQXmnmSwJ3OvAPRgeR dwCdX6y9J9Ee74HEFYRRC yczwvdGQ+PHRk CPJ2nGbvYGxgRKPhgB5qF QTxK2f2BiYmYvE8MDkhQ9 IuUTVrzjkaCv42uM4tZpB mTrZ5GNjrL5Wx cxI6XRLvkXVdHGojEIJ0V 25xd1X8MCMaZVYeIDZ1sX S3aN2ylGkehlyaiXJkfRg gdmVydGljYWwt EKcoA663OLSsqUbqSuCRI UFMRTwvdGQ+FMJlFYX0oU hnATezMUFfvZ3zNIKzB0z 9LxQwNwQ9FCql D7NoKBAkjhknUj76hQ7lC cRiYyJ3AVypT1FclyP3NN FicLQePXafPLF9F93sy2V 0QNFbMVLdSWF2 hUS7xE1qbKyuolkjcJDgt DsgdmVydGljYWwtYWxpZ2 89ECIluHvsVcRoH6Tbzuc uZyBPdXRwYXRp YU11KY11UZ30I2GkHpfon GFibGU+PHRhYmxlIHdpZH RoPScxMDAlJyBzdHlsZT0 aWy4pJLZkKZYo bWskoPIeWpDms0dsCODkF WvrQA5skApfQ2KwaGK9VC Lnn4t4Jd34T57fC9NhyVU +DQThyUH9sUW8 bS1bUhQmUfU3PDncX345A fPpmKLzUpcrt6tcl4gzhZ r2FpLdINCyuqKpsMwnHXF 5y8IpMq31R68p IHdpZHRoPSIyMCUiIHZhb Gpjjv6udY2gEa2+PGNvbC Y2rQZ1dY8gQlXeBmC4CHy jH224FeMaeBNv BvizI59oF3XmlAE+PHRyP vi0CTFtoAwdNV4liGQeYI tqMf5aHGT7LjJvAfHdWZd mW2KdUSStueux ceiaoVW9XHYrZHXujS01A d1dtCjfHy6sGHZyGNW3XJ IciPLoG0FanI3jBePqPFC rQBAyX4WhpIJq TBfxY592KCcxJyF2UATlm zUoE7JgSKJfxAciUeA2r9 S5Rk1HdWbqyDGmXQ4vBhX zINv0L7BbEvd6 FKTybVasCC8umMCmJCgjG o5ymBwosOpnWL6dTNDlkq mow917TxZiw4omFVEytHM bDBrtKAG4H26p h0A3FSDtWBNeSXZ2pXX8b W8yaYhyuxucvMDzfJouqq GflIfgWZpbMOwjC541FWD vcDsnPkZJTjo8 Z8JoXmu8RLYfrSqyEQ9uo DVwXJxcNg1llDxnaDogWO 2cNJGkplczw563KpUnw6l kIDEwcHQgVGlt NXO5R02zs3I5YODsWKYcC AE3mUM9yW2igCynjtgrlO VmdDsgdmVydGljYWwtYWx iG883ECDcyItz Su0HIzb7L3ZzVjq4JZHta CvvZX1csRNpICqiZv2ayL ygtZfdES5wDAVfhqldo55 7TkVwl8arNLHu oJSrYWnsAHP7A84un9D2K RQsCYOlDWJ4rSJ4uW3nyU lnbjogbGVmdDsgdmVydGl yUXblQEdcX291 IHRvcDsnPlBheWVyOjwvd GQ+CX90ky91I6GuVldeBc j2KVVgYKJ1iQY1dB4rZCX uMMejj6R2aKS2 J2J (more content not included)... [facility] Coding Summaryon 06-23-2024 Coding Summary HTMLBase 64 IdmhftdsKFn3eMt+PGhlY WQ+IF4MXINcE49auVCjbR 9eW2MKKUrLNeiaQIOAQNu PKhDlmqVwNP8boWGpYWGt IC8+PL1hXXCeYemxaYZnt 6C0oDO3Z04qfu5rCHhamH K4IPSdPgGlkrhbc8grgVc 6IDcuNmluOyBt IMZjwX43SPQ7wU20Mh60d ODxsPSrl5doyHk7YnXvLS TpBSH2tZwyENjwl6QgTCY xM70dpJXxs9C2 CRNxeAlpuBSdXyWbeAA1r Z5oTDtdxfidf5tjaozoYf s2ha68gLUpb6N6qDI5Z6R kckE5LMWyoYVe IncuoJMYhX6halmbi9nrd wotRgEuMDHxWQt5KMs9NX JekKgpVsJoUI15ZSV1JBQ mlwQhQ5DcPJEv yQhyKvC0m8K4We9IO1FXZ rcuS3RTBGOVDSxmwXC+PC 19hv47T9GmWjihFar1JUM yFZL0nVG9aO2w TTJdORpau7Q2sLW1M4Weu yUeah9vx7uoXQVoZOybU0 9djBEcc4Y6PSShoLI6TED sfVniZiNfqI98 Oyc+YEKxwOblh0MnToafl 7zzr8wngCf1XroiIIIwhj XjaAyuKEY2h4ArKf6bQXU tzWW8vOE0wK5t UzMnEgM4DMyrR282GaQno ZScOzvsJ09uH5MmzDM+PH YhBfa0WQKwrRyrMK8gG0G hZGRpbmctbGVm cMhzRQ3aBOGvrlviCDLhf F1oLUZmH6z7NcZcGjB5IB unY4NuMJKfvqihBo27xJ0 aXmMeCgA6TIwh G1NkfoX1FWVviIVvHErqY NY7M75uc2I3KQFwIOZxPW I1mDN9mG3hjWjvvpmldGL mdDsgdmVydGlj OObjDJitE887TBBkiSqiF kNvZGluZyBEYXRlOiAgMT IvMzEvMjAyNDwvdGQ+PHR wENV0eWfmCDQa tSBoAIgnEo0rdKfarByeF Z9wGSLrfxqyDXBpjJ2kAJ BwiPWiiDweFE2kRLDnkbi cs240UnHiORM0 OKMgsRKeM8KyjQ4wUyKhS FJoIYTmM9XfeZMmMPllH0 64LVpsBbM3OIHtwzUmW4H sLWFsaWduOiB0 h2I4Az9Pb5HpppvgI4Iib PGmXuNoNpidHIz2V8LdAa wvdHI+RG62LFFrXF00AKe 3BOY1fIhbDGnd QMDeK5KfmZ2zBiYkPDNoN GRkOyc+PHRhYmxlIHdpZH RoPScxMDAlJyBzdHlsZT0 pJr9vTNVcINUy gSzdeYTmLgFsg6tpMZIcI EgbXI7jxDzzB3UzuVV9HS Yxw1x4Qz23X76nE1SeuFT +QIXuyPX0iVT2 aV5gZdChDfR5QZybU222T lVsmTOpLvjrz2tgw1znfH i5HxY7MVHeekVsaUwcKWT 5w1ObOr87I35h IHdpZHRoPSIxNSUiIHZhb Fcnrf9lbY2aRt2+PGNvbC R9xAY8iU7jXjHzMtP5LWm dU612NdQclQMn Eksez0ipf1gmlUu6QwOiO VOmjiOooWriSCV5x1DyKe 18S9OnmXnmk0WqEay4ip5 8wSAff1D0lZG7 I9AzLVUxcbueiJQruRhlI Y7oGNSijqhoDXSmjQ4lDE MfG0l9IfXaImW7TAomF7M digX1BUWxlUVv DVSthXDHeC6tuyimh9zlz xkpXzAlAXAqUXy3OVu7LI NktZfcDpZzAAM4VeP5AAX 6xALjnJ2alWuo rcvcbR4tLlz+HOM5pYOhv JSPTH8aDftniME+PHRkIH X0hAbkVYoyTHUgkQ9oSZC gR8k9WnMhTlI8 KKruE8JvdqF7APNnmDEuA XIbjWMNgM8yguwjf9wwvn wyXpQzRHLiRIq8MLp0ZJL saWduOiBsZWZ0 ExZ7JVA4yOJyrK2vhUhbq rjwcK0rJqu+QmlydGggRG B2LRm0X5HfXhe5GKLisEc hQQ6dgAIqIQru Hs0ozWhasMbfGQ2hEPKhs uiai750UbIal5ovNFUirY YfZFsjLSF6K34uy8B5HDG aOXWjYKW9zDV3 lM9zcYevydmurJWgkVgwv iHzbLtjLGjhMOsfQ111EU CdpBohBdPjMAf5T8AbVgg 4SXOnwUdaSQ0l lMKxVVcuKl6ujEubdRrjS O0bBPSviwlyl950FzNpq7 toJMKhaKFuKZnuYXW4U17 qn0K5JYXrDRBl EXJ8kST3gL8nmMoazcems GVmdDsgdmVydGljYWwtYW axK568NQTrxAknOwJlbTt 3E2HbYew4QCGl pQunXW2bxTEiTLnjHs8fe WxcsBimJO9mRCIhsmoxt8 99QnMab1grSXHyxROdPUw yTRD8L75eg1Z4 CPEmCXPuANL1oQV2xJ6ki GlnbjogbGVmdDsgdmVydG apGBkfFIxnT298KFSzhRi nPlBhdGllbnQg DQxhWXc2I9DnFglsmCO+P O27FVIdEP12qFYrwCUgj0 nwkZx7MbGhJGLqXBE5pFh eBGbok7FdHINp G16imQYku8M3SABbiQhvn FGyYrDogLF7qG7bAStzjv wbn8slmbccGjnxj4cslx8 8yS27C05lAOzy ZHRoPSIzMCUiIHZhbGlnb k4ajA9lLh0+WXOskCM1iQ C7yY1nBBPmDrG0MFdaJ50 9InRvcCIvPjxj f5rkf6brqUr8OpM4PDVub rGaqHywMFJ8u8CiRb97B5 9sIHdpZHRoPSIyMCUiIHZ qfIytjp4ekG0h Ii8+KTEatKV8fVY0qO8rX uVaTjZ6FDpqK626WzLfdY LjDwtrG11zU9CzwQD+PHR uEwp2XITcpApv BO6vvIQfAAlaSi6zROA0I vUbEoKxVPdzR6YsRAPnds cclawtlBV6ADBlGYYxfM2 4Qt3gbRqcTTWt dWRTvL3llzjjz6laobapJ uQeWSJbQFi3DAi9NRNayO zlGcPlCNA7WdZ7OGI6rWQ mgQ2jiRscgdoh yF9mL7LuNBKbzfdqJe02s C0hQvNgVzU7IFwgSez+SE 1AYMUJFCadMEZRQ2mcZCq vdGQ+PHRkIHN0 vOpnJGfyRYCbkA1bCNTbZ 4e4JfElEyA3LJopH6MgNS SfovshZp67oE7eThEfPkW 1HUcyK4AepgA5 YFYtbHOuLImoBEY0P67ir 1E8JEBeZTRjIBT1hQD9aT 1hbGlnbjogbGVmdDsgdmV ydGljYWwtYWxp Z276AFTxtAozJsWeIiR9P mA1LyW9H1ClAdr8EJPcbO reWG3onNXiHKsvWo9qoYm ycTutHN6wDGXh dvdaEEXhqG3zTPIrwQTzt NwxMD3gBAOktwzld559Yg AyJBK8RTJmsHTeY6TotO2 yOiAjMDAwMDAw S8EmbLYeHTfoA143OAkaH vO9ZDQkhiZyL4QcBPLgwO hxGmQ4s8D1Ls98BEZVLIM yczwvdGQ+PHRk CVW6oKxkNSznYFMnaW5hK CLrB1r6TqMpHmL7CJvwB4 VrHMYhgsnxQh92iV0wNuF eOjO0ZDcpR6Kt gjI2LXEzsASmTTurVCO1U 27cr3C4IOFeQRLiGIO1cQ H9zM1cwPmnhgljeNOhbPt gdmVydGljYWwt VBevM383ZSKavYttMeHXD UFMRTwvdGQ+RBCrLXB3bC iwKIabTTGjiK5sTHWoU5s 7DbGbEaK4CNwh X6FcHHOwtqsrJt18bP5hR tDxZaF1QIlaH3CpaaV4FD GmiGZhJLijLIY5S62ng6G 9XGThJZQlAZM1 zQL3aH1miWxplteiyITfo DsgdmVydGljYWwtYWxpZ2 00AFChwCwgXmNaL5Gjdir uZyBPdXRwYXRp YZ29VF96EC26P3BgMaeoa GFibGU+PHRhYmxlIHdpZH RoPScxMDAlJyBzdHlsZT0 hOm6zXMExFPLc lCuosSFnMbAnq8ieBIRtB FurSS3sdMhvA1PnhKU0CI Ksu9a6Hk12D71tL2PokZM +HRKcdTN0pKG4 tH9wNjEyHhU9XZgwT944Q gRkxFMpJyoyy1lzf8ezbR r1UnOuNQAqojAmoMytOOC 9k8YcAr25X13m IHdpZHRoPSIyMCUiIHZhb Udzxd1kqD3dRa1+PGNvbC T4fRB0jP3lOxEzScC2JKq xI704EaVepHYg QhosI55zJ2GorXF+PHRyP oc2NBBfzWjlDK7kgSKvKN kwEe2eETB7RyPxIeEgRXc pR8JdMQRgwgfw nneemNZ0XJDuCJLnwC61A l0hcIxyAs8hPAXhYFY8BC McfNPrF2PijU9zUwGxUFM jRKRyT2PbjLAg WVtpG543DLkeGrM5CMRrf gNdA1BpKQStbEcnMiH0r0 E8Xu5FiFzefDOtEK5yRbB xFXc9F7FeTig3 UVAwsYazWT2uyHCwHFcnQ g7cnEsfxBvdSW7mCAXxvc uiw774WxNlf5pgFBDnkUH yPLkeVCI6N26j q4X8RSKzSVCmGLC9gCJ3w G5yzIlrmizmmQTmnJngjt VeqNsmBAqnNWwtN046UKH vcDsnPkZJTjo8 O9DbQns5OVInkJwdVA1oq SWnPBhiZw4xjTcfyZiiLV 3zXJFbexkzg236JsNak0n kIDEwcHQgVGlt VLH9C62bg9L5BLMqZORnX JE5bYZ1vF2rjYxdfpaneL VmdDsgdmVydGljYWwtYWx lC486WIYepGop By9JDmc0B4NuWdx9XYNja SgwIW1xvGZsUIpnJs4lzQ nqnCypJY6oLQWxvpeeb16 2MoDvs9vjPLMo cBRvFPzwBXG2G48vm5P7C NEvPDQpVRE9rZL8aG4pzS lnbjogbGVmdDsgdmVydGl cMKqhAXztI590 IHRvcDsnPlBheWVyOjwvd GQ+XQ92aj27C4JePkrfHg i2EUYsJKN0nGU7nU0eYVR iEPgzo9Y5fEE6 J2J (more content not included)... Normal [facility] HGB A1C (GLYCO-HGB)on 2023 Glucose [Mass/Vol] 197 mg/dL Normal [facility] Comment on above: Performed By: #### H A1C #### [facility] ([id number]) [address], [address] [place] [address] HbA1c (Bld) [Mass fraction] 8.5 % High 4.4-5.6 [facility] Comment on above: Result Comment: NOTE ADA Guidelines Result HgbA1c Normal : less than 5.7 % Prediabetes : 5.7 % to 6.4 % Diabetes : > 6.4 % Use with caution in patients with abnormal hemoglobin variants as the half-life of red blood cells and in vivo glycation rates are affected. Performed By: #### H A1C #### [facility] ([id number]) [address], [address] [place] [address] MICROALBUMIN - ALBUMIN:CREAT ININE URINE RATIOon 06-11-2024 ALB/CREAT RATIO NOT CALCULATED Normal 0.0-30.0 [facility] Comment on above: Result Comment: Result for Albumin/Creatinine Ratio cannot be reliably calculated because urine albumin and or urine creatinine is below the detection limit of the assay. Performed By: #### M ALBU #### [facility] ([id number]) [address], [address] [place] [address] Albumin DL <= 20 mg/L (U) [Mass/Vol] mg/dL Normal 0.0-1.9 [facility] Comment on above: Performed By: #### M ALBU #### [facility] ([id number]) [address], [address] [place] [address] URINE CREAT 40.51 mg/dL Normal [facility] Comment on above: Performed By: #### M ALBU #### [facility] ([id number]) [address], [address] [place] [address] EMG 2 Extremitieson 05-27-20 24 EMG/NCS BUE Mild Patrick [facility] NVC 05-05 Nerveson 4 EMG/NCS BUE Mild patrick [facility] Coding Summaryon 05-18-2024 Coding Summary HTMLBase 64 RlbmditoGDk3cTq+PGhlY WQ+MR7IHQKdN38gbMSpvS 3eA4MDNRjBZtefULPVQKm VDsFmfrZzVJ1uqFEaRHOm IC8+LW1xZQVkYdpgfPUrd 5N3hQD6X99ifz2zJPquuB Y4EWFvAfPcszquz0qxqXo 6IDcuNmluOyBt QMEgoH73CCF6pD98Tx70i XOhpKTex7bdsCh8LjZhZI MsOKH5lClyBRvdr8VjUMG zJ44pjBThc3K1 LSRryXfrvCMvBgRpiLP3l G0wHTacqjqun3usrrqsFn k7ef15eUUik9Y3xBO4X0Y dmhS9STNbvWSu MqozeOIHwU6wgtwny7qgd fkhAfQxYZSqSLs1OTq0QL NfzDldJhQfYY85MEO1UHC iyeEyR7UhDGVr wIhiOmQ7d1S5Pe9QW2DQT xdqP8CJLBOSVDixvXT+PC 09jn08D3YsQvdjYua2GYW cPUZ6kCX7jD6z AQBxIGjbr7H9nYH8T0Lqq uMoad1mr5vhVUWdNZqxG9 9uiGEii9B9STHnkNF7ZWU ofHewAwUmwK33 Oyc+VEUlxIunj5FfYyirk 6crc0gvbFi6YczsOBNfoo OjtOzoIXU1v9CvPp9lNLZ vpQW6fYF4nU5c VkIcEaR1AYjoH113LwJwg RJxWimyK54zS2WhoKU+PH BeIvb2ODDceKyaLT9kF6M hZGRpbmctbGVm jRxoSI0gAHYdbatiAXOks J6oBRPdF0h3BcTfIqX8HY adG3TjCVMuqtddVw40gU4 aPqIrQdT0CKij J5XxmdW3JTInwVRiYNbwY QH5K18sp3K0TYZmJTSoCQ S9zBU0vI8srQzskpwznWB mdDsgdmVydGlj JSvsLYbnZ597OAJlpBvsP kNvZGluZyBEYXRlOiAgMT EvMjUvMjAyNDwvdGQ+PHR nCAF5cWouCMSq jYFqJNnmWp8jcDmamMyuT X7bRQAvrrdlGUSaoZ3wMS EzfNSnlCeoUM1kCUXknil bu749XzZcVUV1 MAXeoLFdV8EpqK5lMlAoG CVkRRKnW7OgaKSmPTbkB9 19YXwySqR2KVJnqjZmD3G sLWFsaWduOiB0 q2K5Jf5En3RcjugaH4Kbq BNaGzAfGffhAAs6S3CvJu wvdHI+CC92ACYiBT57BNg 5SJV2zYyhRIgc YIEuG5MsuJ9qShBtKIFlP GRkOyc+PHRhYmxlIHdpZH RoPScxMDAlJyBzdHlsZT0 dPt1sPDAsBHLc eXpftGQdJgUyv3ipTZPtZ YcbSE8nnCacL9TnhSM2LV Hmh7g5Os84K80eG5VhgPB +WHKzlBF5vPR8 mF9oRcArJdH8BVynS044P qSzpOLoCvcdf3aqw2jcbU r6CxR9AUVedrCblBxuWOU 4h3HlOi43H08r IHdpZHRoPSIxNSUiIHZhb Ptxwg6hiL3kEv1+PGNvbC E1dHO7qR9zZvSrQaU1MUe tE330GuHunAZk Prcnj0ajk1qfzZa7NuJsL MQxlgNzvLfkOZS8g0TyAh 66F7VdvCylu5WwPyc4kq1 8zXZxb3A7lHN2 K1FjTSOeszvcyEMtjGgtL G5dPJPpmprbARSqxL4fAK VqW5s7JgWySxE2GHcoI1V hrvF7TIWnpNMn UHBltDJTqA9bughym9gfq ktgHkWhPOJpBYz0FSa3WA XgeQopNoOaWHF7LtY9TOY 0fZIgzN2slMbf sebfkI9cHvo+USC4ePNgu ZEGAF9gRnqbbCG+PHRkIH X2eTwaCXyaMLMvqY6bSXA yU0o4UjXwPcC1 ZHibA4DyxeL6IDWjvEUrG ZSngGCKqE6tmyzqh6cqpe kwJsOpZARgKMu5XBh4ARD saWduOiBsZWZ0 DqG8AXG2qFVshS2qgHdqs tpvuC2mZiz+QmlydGggRG C3RDu7T9ZtCev5WNOwbYi sTE6oxVZzMTmj Sd1xxRdpdJeaVO1fDFOuq gpmp275OpBbj5itASNrjN FhHPzgAJV6R06cu4B3FGJ fTWWeEBO4tBL9 rT8xcTwkamnwuJJpmQhuu gIsdNqeRHmxAVqiV497GH PztPsbJaCeCIg5Q9TjCnw 6OKDieRoeZY4t iELvLFxoDn5bfEwvfBjhY V1hSTNbozyms674YoGhl9 reRYClwLLbNTywWRQ9R40 kx5J1LQSoGVRd NPU3aUK1oM2znPkarzoad GVmdDsgdmVydGljYWwtYW syU420EITafJjaHlOpiVv 5B2EtJxc8UKEz zKbeOA2rjGEhTSgnXu9cv RfylDhvRC2sRQCzofmla6 01FlVcy7djCIZwfSOuQGh zJSJ1J92ac7H6 AVMpQCSbRJZ2lNM1bS3xx GlnbjogbGVmdDsgdmVydG rfGYzbUTszN466VQMprFi nPlBhdGllbnQg TEyrWRk2B0FrQhvosRT+P S02DPEkVZ95eKWzbOJbl1 gqsVo5XkLiBERnHZY9uVu cDDbai2MuQSRp V24qsUWxn2E8RYCihFcos XXrLiEdzAR4nE3vHSjtvy nzn5vjhhlvFbnwv3skna7 1sM75A78xYNip ZHRoPSIzMCUiIHZhbGlnb x6ksU3lHi6+MIVwpKK3cT U5yB8qOITkRsA4UWubR38 9InRvcCIvPjxj g5wlx2emwZb0UvH2LCBsa cZwcQwcEGC0q1PmFu99E5 9sIHdpZHRoPSIyMCUiIHZ oaWtdqh6hwH5j Ii8+WYTtsWP7lHB3tQ3lE bWkSrO3SCypY639CnSbeR FjEttbU39rL1RnhHZ+PHR pZvy5NKDufPcc PS8yzKJeIKayJk9uUJW7G mGkQwNqIRkmK2HzUEVldg stjgqznZT7VOScDIMeaM8 1Wx2ztYfqKVEq xDQGxA8rijrmm2pkmjdcR oGkPJPyGEr8ONs5TMJzvA mlTxSoLTY4MjP5DWK6aUR sjA2snYufmddt wF1bO4IoTEYkwldcRw56x L8mTgGtNzW5HWlyKga+SE 3USVFTCMyoBWRMT4drZBl vdGQ+PHRkIHN0 rUemYJzqFYCpgI7nRJUjS 3w0SkZnPtY3JSjhG1EdQF NgswbjLe94qI3aVsOrRlO 0YWrjN0BmitQ8 UJZbiQJxXNzpSQS2C14lz 6D3ITRdPYPuAWK7wZO2qX 1hbGlnbjogbGVmdDsgdmV ydGljYWwtYWxp E106GTZznRmnHbXmAqP3N fE6NhY5U9ZiKgq3VPKecC xyZE8vuIAcXTakZg4xcWn buOygFL5nAYOw rjwvNYGqcT6rRMPxsKTeg SpfBH4mKQFwlvxsw843Th IgPOQ1OMCnmNXaK7IytY3 yOiAjMDAwMDAw S8NbuZWuWGgbT613DWbgK pM4CNWbmxZuD3VgIQXjbC pgPxU5t9E7Hr95HEDOYFX yczwvdGQ+PHRk VDC7eFoyZVpkCAGkbX3sV AKyB4r6HhPwNoV8KScyE3 WyJZFmhbfpYy97fP3gDlK qIzN3YHexL4Si lhY2MGUuuTDoHMfiNFX6T 92ki1N2NGQxTMAiKVC3nX W4cI1vmCdhswgeyVZkfZs gdmVydGljYWwt FOksL811FNZqaNfvQmELN UFMRTwvdGQ+WNAdQWQ5hQ ehORvdLZXzzG1qWLGjK8j 3ThHfFqE2RZmw V2OwXKEaocxyZk92wH4nO aQqIkQ8UNrbV2NosmV0XE NyqKIsUVvuPKO6U20lx6R 5DPEvETGrPLR6 aQK4oD7gjKygbuyrrKAtl DsgdmVydGljYWwtYWxpZ2 92CUVwkDhnZe2JFJ38YG6 1L3PzOdrfdUZa bGU+PHRhYmxlIHdpZHRoP KzuDQIaNsOnyAowHH6oZt 9yZGVyLWNvbGxhcHNlOiB hq3wlFRSiSWmp HU3luZyhT8PcsBP2RPJvz 2u4Xm82T48uS6ErzYD+PG GbeID5iXL8oO0lSlLeZjV 9KJaeU851SsAh yZSvVlqmu9mfy3akkXb3X zToCXAmvqUnrSqkIQA2p8 UuGr85U84jDVytNRFnTEP yMCUiIHZhbGln ze5xmH0bAk3+AMSlaCG2s EZ2sE2hTzJqVqX5HHgzJ5 97BqLlkVZeIabuM13lP0O vdXA+PHRyPjx0 JVYhaCxiGQ3smDIuFBqaN b7lSBF6AmIbKfVdZIjoD6 HbXZIpebsljkdtmHR4QCG aIBPhnD28Ak8q tVdpMf9kMMCqZBB2MTLfd KQcI0DcgN0wQuGkLRPdDP PgH4SrqOFtQQtrY781ULh pJkT3JSHatzGj F7VzWPNzvJfzRaV2p1G0U r6WgCtbaHCoXS0kGuDbZR q4X9BpPtq1SSHzgSfaRY9 nmQUuCZmgRf6t tDxylSfsIL2fFNLxfuvra 562MuQpv3loRCIvmQZiWI jzCTE2M07lu6Q9WFEeZJW lGAT0jYV8mE5b bGlnbjogbGVmdDsgdmVyd VlkQJzxDZluW533CGUtzS lvMvMMSnr3K8VlMnh1NAD tiJsfDV1gdVTx NQhoXo6emQyyeQuyWL3gF MTtxzllv891FkWbm3swEU SymYEhIBatDAQ2V01qt6G 9WIWlUIEqDNP9 sAP9eL7ycEpaodizcCMbb DsgdmVydGljYWwtYWxpZ2 73GRMwtKavVl1ABtq4T6G lSxz2CNIkwOpf YS5dtBHuDQhzSd2mfIcut EpkHP0gQQBmjqjzf867Yp Frd5uzHKCbtFBkFOuiDUJ 3Y93ir2D6GKQg YTHrIKA7bNX3cG1jpYkuh jogbGVmdDsgdmVydGljYW nrVCpeB305BQBrgSvhZrM heWVyOjwvdGQ+ QD51vq69G7RiRhkxRfh0Q YOrKYA9sNT2gL3aBFHzXD dij9A5pJN9C1MzmbQjhe8 ic4pbEAFuFBoq Y29 (more content not included)... [facility] Coding Summaryon 11-01-2024 Coding Summary HTMLBase 64 RegrzisaJIg9uEc+PGhlY WQ+VQ6PKKNjI91knUWoqQ 2fZ9AEYWbGWiqyOSWKGMd KQyGdxsXiKW4oeMUbRXJr IC8+NI5nECQqOmwegUWjp 9W1eTZ9G98cho0cMMzulU X0DKKpVtZoeyhud7ihlYe 6IDcuNmluOyBt IUFmjX32TOC4lD41Ac52t LTgfBAzn5ltuYd0TvNeGH VhJJM9xHcxYLwum2LtGVS dU32kzFXla8O4 COUiwExllRIxApSnuFI0k S2qCPtbzzzvy7vzotuaUv k5cy64iGWmj5I1yDO8L5G xmzT4BOVgxSAo RruroVIOlF8ylxdhy9xnu tgaAiNcMVTjAYu4YFt1ES DqsNnfTjUnTO50VWI3NCH gjjKpE7MyXIDm cQuqUcY8o1K6Dl8KW5UWZ katN2BFLDVEEKjzdKM+PC 25ep68K4RmCmtjFlh8ITO vZDH9lSO5bI5w TEUsYTzuy6A0oXL7R0Ysf wYcxu0ee2rgIFHnNXjmG5 5raEOzl2G9ICPwhUM4QYA miUuvQmEbbU15 Oyc+IKHsaFrga0UeHdyux 4zmj4zynIj5ZnuzJSZhyc HvxKsqZRC5t4MdMv0fFGG djLZ1kBH7eV8d LgNuLfT8PYwrO929ZuAmw VQtYdxwA98lT3ZckZG+PH TaVrt3JFKfwUdnRU5sR2S hZGRpbmctbGVm uVnxYX9qLVKjuxoeMENng Q5sJYBuE4k6ZrSsSpU9HR hqV2YzRFQhhflcWu26yX8 iYpBdCrQ8PKfe M2XwmnD6TSGekTInNAchD NR9X49cj9R4CFOjCKEwQQ Y1lDH8gD9veGruycbpyYU mdDsgdmVydGlj ELfeEBevI240WBYjmIqpX kNvZGluZyBEYXRlOiAgMT EvMDEvMjAyNDwvdGQ+PHR yRME7bXzgUMCs tLLmPSxiOt1fxDdegVpeX P2kHSDedpcxTLSedY0iJU WwvAZjvWmmDX9bFNWprvk qx733HxAoVUM7 PJYpxMEdC2OxaQ8eDpEyW RThFUNsL6QwdIXiVAnhI2 74OTgnHcL8JRPykuYkB2X sLWFsaWduOiB0 o4L0Dj2Kf3KmtwwfG3Icw XMrUmUxXyspISl5L5DgOx wvdHI+BF51NUXjTB07WCe 2ONC0eRopBIee FNPyS4RnuE0zGqQxXAQoE GRkOyc+PHRhYmxlIHdpZH RoPScxMDAlJyBzdHlsZT0 eUd8sYCUqWFGd dNablFGoPoUcr7dgBLFrS OtrVH4dkHicA7IqyCF2PC Ydn5i1Qs67A20gG3NioHU +ZHLuiER5bIQ1 qH4hNpNdRcF1AQvaT908N fDmzNMdBsyjf9zzh4qjfM u2EwZ8PDOllxJtqNvxRFQ 3s9KvBa45N21m IHdpZHRoPSIxNSUiIHZhb Eilpx5jqE0vNw1+PGNvbC D3eHS5xF0nLhVbJuX0PPk rK151FvHiyOWe Kfiqs2yve6wkzBp5UpCyA DMwxrZqhZltTBH9p3QgGs 84J5AhdBjhd9RmNwy4zh4 8rSAfm5H6eWE3 A1XsZIIfgtqbpOIdtTqnH X2bLHPzbcxuRGNpsF3xWC JrK5s8LvBdBkC4CZtaA3G jhiR2AJDuhSEp AJSvgSQXnJ3lyrhcg4buh tvwDqGuJWQxGWl8AYd0EQ FrjFaoCcSgXMH0LvO9WET 8tZQhvK6hrWbe nukhqL5cZov+RGL3pQPtf TPIGS0jVfzbcPX+PHRkIH D3jVxsEQepPOFixH7yPWV rR3z6AqTiYeM1 GLqwD8UficF6UZMsrAMgC RKuuQTSjZ6fdhlmg1gzbs ixXrOwRAAjUYw2LNm9GYX saWduOiBsZWZ0 AnZ9FBG4mJKjgM5hnVpgh gthjJ9gKhl+QmlydGggRG Q4GWq6K2NhPhm9AEFjfNm eYT0nqKUaSSve Wv0gaRvrwKquHY7xHZHuw adqg302OoTpe4soEDXecI ZaFBjuZQS1I88cs2P4RNJ qUEHkCJO8aUQ8 pW6lmUvvmjzyqSKkuAfwv yFbpXweSUtfXNrrT758AL PzoTztQkNkOGi1P2NmRqw 9HLTniPlwTD1v nZYkIBegKz3nvHdyoTckK N5fMWFgdojmu599BlTie6 trKARzqTExXLneLOX9B10 mx8Y4BMZsPSKh ITO4eLE4aS2soFahkyfjr GVmdDsgdmVydGljYWwtYW mdH194QKMomSafJfHmqGf 4P6FkWnr1SUMz xTcaXD3tnCEpLTmeVh6xq GdzaHhfIJ5zYEGvqvwas1 48GkSck9ocZBMwtWMyNZa wPWZ5Y08ho2J8 XLHyIKCxJRL8dJG8hA7ak GlnbjogbGVmdDsgdmVydG zkOQvuNJivE481TIPbzGq nPlBhdGllbnQg ZFagQXi6H5FrOkvsvRQ+P Y18HGVfHZ58jJFknWLmj7 npgAd7ZaNtUEDcOSE7oSa pWHlie9UoPIVr K14wgGOtp4J6HEKycOwpi COgAbKpkMP3kS6pETldhn yui2okxoaaZkomd3xbso8 0zQ76L03vUYrs ZHRoPSIzMCUiIHZhbGlnb y7uuM9gXz1+QAPfyFS4lG Q2fL2uTRRyFaA3GTexT49 9InRvcCIvPjxj x2luu9tdkMg1XrN9GSOid fDlkVhkAJJ2z3XlFz38V9 9sIHdpZHRoPSIyMCUiIHZ nwWbsip4fwM4i Ii8+QAKmqPO4nEB9aK5wW uUiTaV2RWmoS150UiUsjJ XgTlztK72iY4NqbQZ+PHR lCpd0JCNrkQub RJ0swGOiFRqzRr6gLHC8Y yOgHiHuNAzpJ1GgYQAjzx rwbbxilXG9TLQzEXIbrJ0 6Up5hgSwhNSBt dTKWzO1lkydeh4dzoddpP kNsHJHnQQq6HHx7TKUttX haYqBxTFZ7XgG0VXL6eJD myN6hbIdlilfv yD1fN0CrLHVtgueuHv32m J6eNbCcMvW1BSfbFhr+SE 0IXRDTUOgtDRKQQ0knRDz vdGQ+PHRkIHN0 pAwmIIjrPFYshE2oPAWgE 9x3KaSzRiS3MKzaZ7BnNH OxvazrOr43fQ6aFfMgNfL 2XJxsN1YykuB3 CISmcNOnXDnsRUW2N14fz 5D7ZQZuOAIhPZU3zKI7pB 1hbGlnbjogbGVmdDsgdmV ydGljYWwtYWxp U793YZDoqKreOnEqIoS3F bX5QyQ2F2ZySmh9WISzdJ wzDH1feTFiILjdTn5foMj yfBchIF8kEGKj sdzeDPHdjJ5eVKAwgJWbk ShgJE8fYWTbkxmqk519Io RkTLX2AUVsiHWiF0RyrP5 yOiAjMDAwMDAw K5GkkVObTLerR834CBcdK pF8GQOyazDdW4BhFOJwgG bpYqQ6g1J6Hb95VLMJABD yczwvdGQ+PHRk OFG3dHusKZqzTJPxnP1bJ BQdQ2h9YcVoNqR1BLwmF7 KzJBIprtvaBv19eC0lDvU fIjL7LXprW8Fd vlE1CDHpeILcYCkvSVX6K 08fu2E6FJYnSSZpEBB8rM U7hI0mhYwztocftEIhnGy gdmVydGljYWwt NHpmD526AFJonYmkOxXLC UFMRTwvdGQ+VKEwYUQ7xV poKKerWKWfwM9dSBXgD0o 8OzIlGlZ7LAwj J6PjKRAhcjvuKw88bG5eA dZcOsR1RLmnI9NivpV4YR TxeYJuAYbqLXF8N27li4E 3ZRSvFMJhQBZ7 xXE5hZ3lsQkqrinddAMfc DsgdmVydGljYWwtYWxpZ2 98HSDkuOniTwOqB2Bmywn uZyBPdXRwYXRp XI76MM35MZ24O1VdBsskk GFibGU+PHRhYmxlIHdpZH RoPScxMDAlJyBzdHlsZT0 mZy4kDAKoNSNq sAxxqTQaYkRoc5asVITrP RpkAD6vdFajZ9LhdRN1DY Sqv9x4Wu58X69jF0DjkUU +YAQfrNC0hDL9 rS2hXiYiLuX0SUhvR081I hJovMVfNzyzc3mff7plxT v4PtKcDISunjVlzHmcKRC 4v0PbOa10V41c IHdpZHRoPSIyMCUiIHZhb Carsu6vjH8tYy5+PGNvbC J8mRB5qG7aXqOpWsQ0PGb lW350HvQzlTKi FgwxL20dI1NpsXE+PHRyP oa4UCHjqJrjXI6jbDXwMH rxRt4rVEU0UhSwFdYwGEz kI4OyQNKragea ptorlJQ6PFDiSUOitH46T z8diIsjTs6vULUwXZL6ZU KriCEfV5UtqZ0gWpUuJEL tNYSzY8WvvOKa EWlkF580WGriBdW3QKAai hEfL4WwJJOhmJaiRvO2i9 U4Sn1WpObvdNXmOT0eKtU wNJs4Q0YhGko7 DZMuhOyzQC0vdSFnOMfqA q9qsAolfRltEO0jMCCscb djd225SvLps5gxYFAdpPN rWNikGIA1X94p y8K6RNFvLLMfQOG9kPB0s S1wgIyyfsmirACjnQedsm UijUvlOWwrBKsgY746MUR vcDsnPkZJTjo8 H5NiDhb2UXJdmSrdVX8cj QHaZVpuHd1flFylyLzpKD 7uDBUuivrik813QiPly0g kIDEwcHQgVGlt EAD1T21lm0R5SQUaDVRaC EY2aZL4cY5adFstrfdjcC VmdDsgdmVydGljYWwtYWx zT483WXUedSbi Do0OFgs0U7GoGeq1OQNft FgoEM6chNMhJUbjQh8zyK afvTngZD9gSBZilkdbj95 7DjYpa2itYCDt fHEpNUmdWTW9F47js0P3A KBoEFKuYWI5uOY9nE3boA lnbjogbGVmdDsgdmVydGl fHEgbWVixX768 IHRvcDsnPlBheWVyOjwvd GQ+XD96yd79P2DlAdqkGy f6OTIeMQS6hWL6vQ7uKJS cIVkyf9S1jAH6 J2J (more content not included)... [facility] Coding Summaryon 03-17-2024 Coding Summary HTMLBase 64 UvkukgvnGZp4qOs+PGhlY WQ+DK1BUQErL32xlTFajD 5nA7WWKSmHSvnlHUQKKKl WGvMuyfOzIY4xfPWnLRGd IC8+VS5lARDfNcoboVIgf 9F5pZQ6A65bwi2xAMwmeN S2YMAtFlJqrdmcc4bqjPc 6IDcuNmluOyBt FGIynW02KPK7rF76Yb75f XAkmTAzo4hieBv6AdPmBR HtSYJ3hQazROajm2NsXWW nT51vjMRun3B0 TPIotLvxeHDkXvEshGD6v R5gUDflsgwwz0zovannGu b1fu84gJVbu5H5lPF1O6S gftT6TFUotLFe QrnpfVXLbI1rijjwl7ebn ccxZcYyLLHiLPn3JRc9YZ YveDqsJpZtYK59VOC9LMJ adlMfQ9JdXHRj gHtuWxN6l3T2Dw8OA8HUI hxdW7MWCAPXRGcomGF+PC 58sy15P1CyAqfoRjx2NSR uDRV6yCB2lK5k CUGzLNeni8J4yYJ8S1Fqh rCidu7du1kqDMTzOCdxY3 2xxGRxw7S4DOJycUS4GND aiFbyIaIifI41 Oyc+XCLkkStfa0LpUhocr 3uyj4eurDi5DmflUFKpqx HyzZwuIRB3b2LpJw3aTUP xnZW3wKC9yP0j TbToTjD7CNllH670UmSku SMqXqzgW08nX4BpyLQ+PH EvGdn1LBCuyJgsKI6gF1Z hZGRpbmctbGVm uEksHG3cOLSccchoSXRza S3fUBCzA8o3IwBsEuJ4WI kyF5WaPVKrzajeKc79qE4 jJiWiVrN2VPig R7PbiaD8PPBfmOVsHYbtJ RL5R89oa7M7NYQgPUPoDH C5dLT7uX2diGmbioxirAG mdDsgdmVydGlj YKmhPEojE618VPQmlCxfI kNvZGluZyBEYXRlOiAgMD kvMjQvMjAyNDwvdGQ+PHR jHCA3sMmxTTGx pZFtBTogOk2paRoxjHtdB S7gANLironsHJUfiR0gPG LwqXOhmEqaAL1wHMMaeds na269HsQbDCN5 YDBnmMLnW9BswL1fLlJhX JWqUHDdG2TlvNSaGEbdK8 88BMgpQrS3RRFqdaWqO6O sLWFsaWduOiB0 i3K8Ir1Xf8GovgyaY5Sim FQuQnKvIwbpNDy4G0MhZm wvdHI+KQ70QAEuQK15IPo 2FWK6rUiiDGnt YBWsN2SgiX9yImJbMGKwI GRkOyc+PHRhYmxlIHdpZH RoPScxMDAlJyBzdHlsZT0 yMt2rKXHtEFUy jHunyVWfDgXvs1yhBWAhR DvsWJ3vlCrrB1XfeNY1CA Mkh8r8Wx09S21gH3MmoKO +FUCziMP2wFO8 fZ1gHxNoTkQ0DTmbO734V dKboJAlLedhq9mrr8hvyA d5EjI5WAQpniAprKfmPBE 2w5JaRw55F76q IHdpZHRoPSIxNSUiIHZhb Eeplt6ztZ9rAd2+PGNvbC L8qZS7oW6wJwFeCjI3SDh yW933UeTemUEr Pfsjv7vfh2cfpNg2GxZzQ DBmthSszZiiDRJ0d0ZmPw 52P1ZoiYjvo4ApOjw8nu6 8zINgi9G1wXN2 J6VwWLEtaurrwFDttTgiQ P6kGSZlvxboQLYllZ8tCR WuG1d8XgHlOhA5JSepU8I jbsR9VMJlxDVx PZMxtOTQdW2uatafz9njw qnhHxRiVAArUDl8ZDf7XQ CcbEdmJiLcECQ1EsT2DYA 6wQYbhX6tmBqt gwkgtQ3qXgf+GUB7hDKzg FOGCX7tBwkqlSM+PHRkIH N3zSmjWVkcFHQguL2jIHV iI6a8GxUsNtD0 ERbaN8JffpJ9BSXxgTSfP AZgxHDMpD3qtgorp5dnhs vdXvBbJGYtSCy2AGa0ZPK saWduOiBsZWZ0 GhA4UBV3vRPlnM4ivXjtb etkoU6wUvu+QmlydGggRG S5EDd7B8YmOzf8YJOhvGu cLA2bpFYvQJci Ht8exFicwNkgCY6hDDYzp getf468JuEag7yqCYKuoN KaDXcsNIF9H13yr7U6GBQ dBFRdMGT9bUE8 nQ6ijGolckpcoFDpyFxmv tWvjWkoKMgpZYyrY244GO LfbXlpNjBkJVr7D5RzCtx 4LUHqzLzfXK3s sRVzLIrkNc8ckXbouHthB S0hHEIjkcyln284AjHtk7 xhVLUhnTDzIPzgDRN3H47 ox5P4AUNnSUKd CZJ1zYV0qV6mtEijzxmen GVmdDsgdmVydGljYWwtYW nqN782HWAqwZfhGmDavYk 1Q0DbVii3JPEh vBpnGU9zrZUaUEcsTf5wz DminFjhHA8rRUTkgspph4 71OxTwc2ynEINosWYfRQk wZHF1N93if6Q1 XDGsYEUlJRQ1iGI0gP5ty GlnbjogbGVmdDsgdmVydG osXKqbACuuW106SHIkvKy nPlBhdGllbnQg DHosMIa8D3WdIqltyKB+P P94LUMaVZ33bDDebSEsu2 wpdXz1XeNrYXDlKBL5oSo sHXhhp8MvDZRa M02hrTJzt1R9GCGirLpxk XJrMuBkiWI9mD7iPVyour cuy1lszpcxPfmfp4xydt4 3bK55D00rYEog ZHRoPSIzMCUiIHZhbGlnb c2pdO6jMl2+HKDubRF6nH P9eO8tBKQgGmW3DVnqB49 9InRvcCIvPjxj m2xpo8bobDs0RzF0XPMta xEybOdrTTD4m2SeYl66F5 9sIHdpZHRoPSIyMCUiIHZ orKapts8xwN7v Ii8+GSMrkFG5wYJ5rW3aZ rKuLaJ5NTxxW926VdVuxW IrYliyZ31cW4JssOC+PHR tArs1OEQxtArg KN8ktMHrFIiaAi4vVEF2B nDvPgSnFAynQ8HkMWMurm bokmzymMM1UBXkLEJhhF4 8Xa5wiZyaIDLy bMKAxM3siofph4zsjplxA bOaOGBtJIw2AKo5RNRkeY mhSpHtEYI1GbE0TMK0pQH jrZ0pgRbubwvw eL2vZ0DjBHDnxjcyGk55a R3zBsXuMdB7NNtjZvb+SE 0ZVKQQGYeaPALFC6wkYLm vdGQ+PHRkIHN0 hWooDRfuQZDitF4fPIKtE 5l0JwClKbD1PFiaA2OdRM HxssvkRa01aV1qVkAzEpP 0QNzxH3PuzrU4 HIBadQVmJTcoOSZ5A34yv 2T7YELwWRKwRFF9xHH8yH 1hbGlnbjogbGVmdDsgdmV ydGljYWwtYWxp S415FPValBxqBuLaDvX9S hO5ZsG7H0HeJbc8PWBfpK dyPA5itEUhFQubKl2qqMk fhWwxMS4gVJGo uvqgUMCaeK0lNXMptEXpq YyoTW6wCTGlzsnes725Ay LdRGD6UWFexNZlR4KbwP6 yOiAjMDAwMDAw X3NicKIoHSuoE226YNgrV nK6VMKbjcEiG1JtJZJfzQ blChR0u2F3Mw62IESLCPZ yczwvdGQ+PHRk NAX4jGhqKQhtFPZdqK7oQ ZDcV9s0SfNiSbQ9URiuA5 VhTYRbblfmPk18xI3sShI bEiS3ORlzB5Qu imF7ABDrvGNwTZdrYLE7T 51uq1Q7QQLzOAIrQHE9sJ W4rD8cxEwrpqoipTFzcAs gdmVydGljYWwt IRazE220MUVdoTyvLnDBJ UFMRTwvdGQ+EMRvDKG2rH xqPCewJFLoxT9vHFAbL7t 2YhZeVuI8EEwy G3TdAUTlivluIg14bZ9fV gKtFxU2MZlwF0PtlvK3ZS QvpNHjNZqkDUE9L31ub2X 2WSAdRRDjVIC3 gJW8sB1jsIlcnnygvLLhy DsgdmVydGljYWwtYWxpZ2 58MGPbvOmgEtMrO0Rmqrb uZyBPdXRwYXRp YQ86IK84JC77E7NnIvohr GFibGU+PHRhYmxlIHdpZH RoPScxMDAlJyBzdHlsZT0 gPn2jKKXzJWKi gOykmMHjKnJkd0gfEYQxS XvcOW2qcMleD5TkaKX5YI Due5f2Mg41Q83sM7ZivVS +TYWtaRI9dRT1 cG6cDqArAgE9TPksY800C pBcaRNcEsiuq3lbd8xfiE f9GxLmIITttpBncNnjXAV 7z4ZlNw16S57c IHdpZHRoPSIyMCUiIHZhb Woxkt4kjC1xCz2+PGNvbC A5fJT7bL3cVsFtSiK2SRf tB410YhYsuSVo DbpkS32xE1TwsMA+PHRyP yv5OCYfjCorHK2ycNUqXV znBg8jVND4OsTjLpTnDTf yP9NdMEYmkquh flbmpLG2BAZxVOJcnU06J t7bsQocJj4lANYwVQL5RY WjeKUgY3QwhY8qMpAdUDI uAKAmV3UxmWYl HXfcE687NWxjBpI6QEFja lZcA7XvRJGgcHiaVpU3d5 H1Xe1SfSktdXVxOO3bQnJ qMLa8G6PpTle4 WZBndAraQZ7weDDeAVtjY u0cfLqfhUmrUU0vJARbdq iqh131VaUwz0ehTJPptZY pGEcuTAR2N88b v5S3PQXgKUTpLKN3mVI2j M2afKqaiqvpwKMoeHsnay EwuZbwDNrhATnmP957XHW vcDsnPkZJTjo8 F2CuEuk9GWXooBjyIM0ty GZfFHcrMp1pcHxvoBoaLD 6vELBirbecy043McWna2w kIDEwcHQgVGlt SYB0M99hs2O8JCLmZJNjT II0yGB1eI4vwNtajmtdaU VmdDsgdmVydGljYWwtYWx yH955KXCqpVpg Ox7YJlp3Y1CaQng1KOQmf DfjQL6skEOkLXohIl0dmV ulxWvtOF7nTWZezurfc59 0GsPdv1ghRDIy tALhQKkdVVE8Y30zv5X2K UMlMTCoLQV9zOA4bK4xjM lnbjogbGVmdDsgdmVydGl hSSsnKBalX323 IHRvcDsnPlBheWVyOjwvd GQ+EP94qh63H5QzLukhJh z4QVKkXRA5yPC1kL1uQYQ uODxcy5D8kHO1 J2J (more content not included)... [facility] Coding Summaryon 02-18-2024 Coding Summary HTMLBase 64 GazobmbhLUr5gXr+PGhlY WQ+ND6QEAOvY18xeICiqQ 4pE8RWODfLFlviBHOXVGt NGoMmzmRiVL7iaZCxMTLx IC8+VT6jQYHjDlewaXFiw 5K9jTM3C55xgp8yWBakoS F8ORAsWrFyxqrzd6hpiRs 6IDcuNmluOyBt EQFuzZ20AOY2tD16Yl33o IHfrJPqa6wgpMu8QvPpFR RjCEL6rDggXJcfi3LrNAE hD05iuFBew3R2 ZBUzmLqxdXMtVqDqcWQ8p H4sACcxwzgmo9foudxgMz c8jc13tNLoh5M3dLP2T4F ztvT5VLTcvBZb IxnwiLDUkG5hhgwux4dlg ythTsYxHKYsSEa1FAr4FT NpiDmyOmFaHR40CPA6IWK emnVkF7NqIKFm zSjsWdW8x7E1Fz8GE6QKJ losX7QRCPRQJMchzKP+PC 61gq02Z7EdLxznJok2FEU uEPG7nOJ5bA2i JGJdDVpil8Q0jSY4E3Lrz mJdsv8yy4mzNHWbNFcgH9 9kvKIdy3M9CEBjxHL0KEX nkRavFtCndY02 Oyc+GUNzlIore5CyIopsc 0kcj0yntUa0KufzJJBfyf DegDtaCIW6t9XpZi8oNHV huME8lPW4wK2w MgYbJbN4BEfgI557XbNtk VWxAfatK70eJ5QowFY+PH GrEio6JETacFpeML9lH9C hZGRpbmctbGVm uQijGR2mABMdbetbFGXzs Z4sLCEyO6w6RuMzQtR1VW znM3TuJXOqyyixRs65mN2 wTfVtNzK6TIiw U1YpqpN8WPRefNNqTBomK RO5J05yt3H2ALWhHIIzRC I5jIF6mP1uxGmrjvdxyTP mdDsgdmVydGlj GRyhDLucW494ERWdlCyfQ kNvZGluZyBEYXRlOiAgMD gvMjcvMjAyNDwvdGQ+PHR fNCV5hHxdWLGi rPYnOLspKt4qzHovqNlzB R3iBPIdcniuGMRirO2kRF TemUMelYtmET5yRDLzlrx ps854VgXpPQH8 VMBufHSrA9BwcJ5dTsIbH JVoALLcM2CjtBVvCIwwF3 29UFrcMzB1KJAayxHzQ1D sLWFsaWduOiB0 u6S1Wr3Hm1RvfhwtL3Oik TYzVlVdUemrGDc0D3KmCf wvdHI+ND91XPAnXO60VNf 7DND4tMjsELvl MOHdK5PjnE4sXzQsZCZkY GRkOyc+PHRhYmxlIHdpZH RoPScxMDAlJyBzdHlsZT0 wLi3tKSFdYUIz wUbbaTRnGbWpi4dwPXIdS EyyVG5rvWjjJ5ArnGG5QD Qji1t3Ug67R79gV9UydHC +SDQcgEX5yZV9 rZ5gBcExDtU5NEavK739Y zRmlVUcDwhcy5glh9pnsE a4NiO9MOPzxhAuzHchIFW 2r3RvCm18E60h IHdpZHRoPSIxNSUiIHZhb Lmjyw6xtO3qXm4+PGNvbC N0lES3nN7nIjMtErB8EPs hC975EaBcgIRn Yqxbw7zzz7sozCw7HrJoQ UOzfeVgxMjcYEC5t7NlQr 68F0TkaWjbz2JwGsx2mw9 8cYVnl1O2vVQ5 W5NmJNUjmqzzlTNalYcoJ H4lLLBklkdbBGGkiD3uCY IzP2r0UqUpWyH7IUemK6P rnlO3ZFLfnEIk GHMonHIMnW4tcgkcx1uds jjfSoLtLGQbJXy9DSh3TM ZcxBulJnIxANA3UcA4ANF 8yBMoaN9ehBay mitkmW7iUva+JMG1uTUec FFOPM5tUoaumGM+PHRkIH E6lUevGIibLMQafZ0gJNO aZ9h1KqDrWqJ3 HJorR0GcqlT3LKKysQToZ QCqhGQDiA3jbsvlm0xupj ohZvOoRNCbRXg7MHt8RNI saWduOiBsZWZ0 BoM6WLT8lGBviO2noFvra asvdM7bUcz+QmlydGggRG J7FFc8H8HzJby1ERZwqUx iXM6kuHPaZHao Ls8obOswcXouTB3kTMVal xfer791NkDxl0ewQTAbzA XdZCcjVYR5D70te4P0WQL tQSAaSKE2qZB4 jP7mvYeorhzseIYigZmrq tEitByiGUwnIQopQ942UN SydHeqRnOjIQo0X0JmImv 0THQbwJzeTJ3s gFNrUHiaEn2fkOjbrJcdI K8bDVLddvuvs755AuVng3 iiKLOegUCtFEvdQVI4P40 mr1R1KIOnNBWq YBH2bQC3aA5qrFjmgvnov GVmdDsgdmVydGljYWwtYW pwO718KKKozJntJuNrwKx 6K6MiGei6OJRp gGefLG4wbRCjZEceDb9ex DrnvCbySM3dTVOlorzzl2 66UvSwj0pjOYAvhOEdJZl yWWF1D25mc2O2 OPDiNSJvRFE8rDA9oW6et GlnbjogbGVmdDsgdmVydG ucPXswUTfsP196SVGjjHh nPlBhdGllbnQg QIjwUFv6D2TlLjmbuPL+P I88JBDcLY82fNTrtMYjr2 stwUg8GfRmCUBrLZY1uJe qACkwg4GzMFQj D67lnQIte4U2FQZcwSxka VLgCsIfxTX9kF6eXOijhq fik6uzweblOparz3difh5 7pM84C15zVQke ZHRoPSIzMCUiIHZhbGlnb g0zvP5iGd7+JXRxzTY4gF O6wY1uZDCkBeO8JNaxH85 9InRvcCIvPjxj t7mcw6vspAp6VrW4OYWzi uLanNxjPVV8e9QdZk80Z1 9sIHdpZHRoPSIyMCUiIHZ xeLklqx2uhK1f Ii8+EACtxBU8sXO3vA4uY sAtAtL3CXkxT121EaNawR NmGdmfI24oW5OinSF+PHR sNar9KHAzeOom ST0swZMgXPknFx7fHSW5V bQxRiAlNHupP1SsMLBstr qagcuaxUR4AHWfNZUraC9 0Ei9gaTrdIGUj vHDPaD5udyncw1yuuyptL bJcZTNpEAh7RNs0ZPDdmQ rzTiMrUWY8ScU8CHO5qKB qlT9ezLrbziin zU1sT5HaWFIitksvHv45u U7gLqBaNlS2TNevJhp+SE 7TZWLGWDreZTQKM5rmSNo vdGQ+PHRkIHN0 gEsrVOyhBAVyrD2tMDAuV 4a8SkZjYjE4IXrhQ8KdBR GifxpoLl43zC4jPqSqRhK 8NOvxE6GhvrK0 CDZtiLLmQExfIIK0C21wy 9L0IFFbPQUvNNJ1zXT0fI 1hbGlnbjogbGVmdDsgdmV ydGljYWwtYWxp H310APPsrTszPbJzNfR6X rE3TqP8E9YqJnt8OBNzxM lrII9umFVeYRrnXa5dnPi bvOfbFB3aDSUc bouaBKNwzT8wWXAhyBTrt BhcVM7jUUQjnmsez870Ou MtBAU9BBZozRFiQ0ZecW0 yOiAjMDAwMDAw M1PfjLXtDTyoF546CNflW wJ9GKNyvrLlT6WrYLRxgA spEmL3p7R8Cj16YSJFCZB yczwvdGQ+PHRk ICQ3zOsaNOrpEAThkD5kK ACoS9a1QdUzRnU0DZtbQ1 ClMIYkwragKw65kP3tDgI lKjK8CRjdD2Bx yuF1SWOkhPUrAIxxSFO8E 78an7J9FBQzVZGlEZU1dD H6cE6emAmjaejkuJPuwYy gdmVydGljYWwt TQejL093CJYiqRojMoKPT UFMRTwvdGQ+AWUmVCL8uA soPTnpFOJtmQ1uKPYhD1e 3UfNdKmU4GYqz Z0IgYOIkvmeeDs12nI6fG qZvAyK3YFnzJ8EhdhX9UI GtzYNsVQpoROE9Q60ow6C 6HKIdKAEuHIU6 lKI0wB0niVmfrdhppLGah DsgdmVydGljYWwtYWxpZ2 02JXKkxYojCiJqZ3Mkzjs uZyBPdXRwYXRp XC97UR89DI84X1HeVnarq GFibGU+PHRhYmxlIHdpZH RoPScxMDAlJyBzdHlsZT0 qCu6kDPYsIFGe eHqujCIyGcUqv5vmBTZnB SjjYB5ogUszT3SkeAJ8ID Vko6r4Xq27L53kB7CjbYL +YBLscXU5kJQ7 gU4oPkNpGuZ7HWyfL052V pPgdVKiKaeuu8isd4hvuL j5SgBtHRJwdrSqwNnaVSE 9c2TiMc20E22z IHdpZHRoPSIyMCUiIHZhb Ltgzp3gcM3oTe9+PGNvbC N4mUS4yS8aMtCnKkW1KKn pX375WqQycQTt SzwmJ86uM7VliWW+PHRyP my1SZOpxAptHK4lyLLtOL mpPk8zCEX0MuKqIpOaDGz tI1BgUOQgvtoo ipczsVB0EKZbPJVotJ62N e7uaWnxAp8uABGiOZF1EA PfsHMkS0QyrS2mIdGpHPJ oGBYaS7IjgLPt KYrxZ341COhnUsN8EVOkg fHqB9WzTWUmaZfpEgC0i4 R4Hf3PqUnsrVWuJU6sTzO hLGy3J2GlBmv1 JKMvoGsxBO6yfTFiDOvoB d8zfSfnmJxrGN0qWZTraj sbo891ZmVwc6hjIBBhyQE jEEnhZDS7A34t l1J9JEIxPNYgZWX2mTL2k Z6vqQlxiptmuRTqoCdoiw AvvUxjMNflSViaE909JDI vcDsnPkZJTjo8 Y3BnTxi9QZHbnLqwYT7vx RNiIGgbGr3gpShgeKhbQV 9vQYXewukkx765GrNfg6s kIDEwcHQgVGlt TZT3U73un1X5CUQlWQZhE AZ1aXI6pK8zmKbpldxipU VmdDsgdmVydGljYWwtYWx sE359ZHFpgLit Nc9XBzs1B5OvQji6SOUnq IpgIH1gpNDqIPccTl4zgB tdsPyiCW5lXCPijfpcm83 7SmGki2akNZXl hYUfGTxnJYL3S57mh6L1H UQxTBRnAHU5jMU5cJ6gyI lnbjogbGVmdDsgdmVydGl vFYjvOKqlG183 IHRvcDsnPlBheWVyOjwvd GQ+DZ03sb04B6DkHhvoDc a5RMAcHVY7nGW6tE2kTJS vIGdrp5P0oBP0 J2J (more content not included)... [facility] Coding Summaryon 01-20-2024 Coding Summary HTMLBase 64 KtgkfysjGXo8fMc+PGhlY WQ+TB5QEICzN30uvEXskT 1gY1EHAVtCVzryRBKLOKr XMnKjntKyRR3ecUMiNDEq IC8+EN5eBZUuRhfsgOLed 1S5jVD6C77zaw6dMGnzyY Z3WAWyHpUivnidn4recSr 6IDcuNmluOyBt RCCkuM59OWU7gF16Ky75j ZBdhKCsd3crgQb7TxAeAE VzFDJ5qZeuEKeeb1TxPNY xI07gcMSuu9K3 NPAzkPivrWAjPaJmzRQ3k K2wILowskshw6xxlwpnHy b5go19bLWqh1E4hPF3I4N nbiD0BWUoiKYa QshhcCEJbP5ocoxby1xon ehyHnOpLSSnAAg7LKm8HA BwhSynSmUxAN45CAB7WVY ehqRjR2KnEHSx rWpeNwH6i8I9Ih4ME0DOA eeaZ7RKAWSXITdhgJD+PC 25ee09Y0OaUtpnNmd2TFI zDLD3qGL7rO9t YTCqKVncy4O3eOY6P5Hgy aHpkp0vq3gkUDVjTFexE5 2kdQHrt9M9BUMrzFK2QZC jkAxcHdIscY53 Oyc+QKEwdMnhp2QbAkvrw 3dkq4rprUy5OoicIAEqbu LkaKauFZN0j6GpOz0oEFC qnUZ9mDF6gQ5m QaUvUlO4VCteO913AdNwj OOwJgqqI85tM7ZbjJO+PH EjDdq6LWMwpZbqVL6sS5M hZGRpbmctbGVm mXuqQC8mSGVwmjstNAXjc A6fGDEuD2n3QhKiFvV8NY lhQ3EmDLLlrceuVm34wG2 rUfJvOkW2UJss B9DszzH4TNEewBKxKJryZ HQ6F16gb8F9YDAeJNOlRE T6kJL9cS7qaLvuniiksST mdDsgdmVydGlj SCniMSpcC706DVBxzTtjH kNvZGluZyBEYXRlOiAgMD cvMjkvMjAyNDwvdGQ+PHR sHIG1bOdhMNCp qGCbERadSo5kjUirjEcoU I8aGBBrmyylTARonL9uCB FhfQYkzWypEE3iANXgimv yq597BhFrZXU6 CXJjaVNhX5AnbT3fHhVoA MEmHGZnI4RrdFOyJRbeN6 69OUxgErG0AAOlntQwY4W sLWFsaWduOiB0 h7K0Zi3Rv5BadqdwD3Rgm APcZbLmHqtzGFh4S3VqMn wvdHI+GK24IRLeTJ05JNw 9NRL4oSlvRRdu VDYjL5WunN2jTyLiABQaA GRkOyc+PHRhYmxlIHdpZH RoPScxMDAlJyBzdHlsZT0 jCo1lARJlSZQs uOtqiUHhWiTcc9ocXOOvL IxkIS7ndKqkV6HgoAB1XD Wce9g6Aa10G39tS4OyxLY +ELCdcFX9iQY2 jS8sZjHvFsH0PUakQ780H lFwdCHkWfkdg3ogw6zkkP v6OkY7UELdwvJfqTbwTRC 8y2MzMc84W47r IHdpZHRoPSIxNSUiIHZhb Vwfjl3eeG8kAe3+PGNvbC I3yYJ3mB5xQnLwHnA6RCu oM520CkBcaKNl Sanwi0cks5zhrKy5SuMyO MAsglJozTpnOVU0l2QpAm 20Q3LkrOqvk8UwZhk8pe6 2sYOcu1G1yOF9 U8OjHYPhyugoaNQzpOvvI W4iCZMjedhfPTNfcK6tXG YlA1e0QlAaCaK8CBbeX8E btxD5TUKshJLe ALXelITOoZ2xrgyxr5jcb sliVjQnXRQmKXv1WFa3HS QsoWajLrEmQRJ5HoR0YCI 5xZStxL2grOkz osnctU8uAyy+MFP5nPIzf TVAXG5vCqypnPQ+PHRkIH S3cMewZMtcUKLaiZ8cEBB eG6k1JpWpCtN9 QIkvA2LnmpO2RILwuDBsA MQglYHWtV8hntmmu4zswy khTzFbIJKyMUy1LTl8OTN saWduOiBsZWZ0 FkP5GBZ6nUEmoS2mwCgnb wfeeZ6pIpg+QmlydGggRG H1IXz6J6EdOky8EESvjYp jOP2nnFDhMRlm Gn4smKicyDpcDT7wCKZdh hsqb208JsUpl1bbRVElqQ JcBFcvPPV7W52ax4Z2YLI fHXOoLPJ8uLR7 gG6iaThayofhmOZgiWxrk cDzdRhaVDgxVBtwA181NQ TvoZblSuQyJVl5F7UjHid 2BKAghDoyRV4u xIYnPQggHl0kkOxqyIbaY E9qMDOcusang812WpZgz9 dmEJTvmWZaJWhyWFW5E36 dq2F7TJTzREPk TAG8hAQ9kX9bpYguxciwa GVmdDsgdmVydGljYWwtYW kuU946GNIrdBtcRkEdsJh 7N7CvCxa6WQLu dOivSM2auPYcYBobZg9xh GzrbHnpHM5aYOOntsubg7 57AmLhh1fnTJAlcPWpLTe yZJW1D90gh4P3 LOBsSQXxBNS4iPZ5rK2ny GlnbjogbGVmdDsgdmVydG xdQGpmODbzE933BGMncJc nPlBhdGllbnQg OIowIBt2F4QqOxtwfOL+P T67ATTtIF60oGSbjYOrf0 kpgDh4ZlRwAOHpBZD6xCs pLKfaq8FrJDMe G65yxBEgk3M1BSVybYivg HVdNuMyfAO4qC5bYAbfsz udx1znimeeRfmjr7wtve2 5zQ26F62aIZph ZHRoPSIzMCUiIHZhbGlnb y9ypD7uOt1+HQUrbSE6mI J9vC2dIURbUeJ0XElaM13 9InRvcCIvPjxj j4nsn1dbdIn9HqD8PIOgz jIqrMgkFTT9t6JkYm42P4 9sIHdpZHRoPSIyMCUiIHZ ngKamdd7hjS5y Ii8+SPIoaHL2jUG8xW7qC fVzOaA9GJcoJ229VrOnyT OkYbugP67eU0PjcLB+PHR qMrc9NJVahNxw TY0haZVuNLaxKo9nSHX5W pHySxSjWCmiX4HwOTEyuq qnyabbpYN4SBMxEXIdfN9 2Vp2qaOihLYDc nLSPmQ7qyfelb1ogriurR uIsUBAdNHn3MXe1CBEiqQ zmYqQjPNN0JuX2IJQ7rTT gpL1meDfyvegp lK3hV8TfSINkudbxZi19k H2tQoYeXkU0IOciDax+SE 2PPVTXWWliLRPFS3yxECb vdGQ+PHRkIHN0 fYpwCWnnHEReoI2vOGArA 3h8PnHiDhO4HIolR5AoNO WbkixeJo97eG6bXoDmLaP 1YJbxC8AvcaO8 ULAdtEJjMVquXHZ5L26wn 3X7AETaSHKxZJL9aRX4pH 1hbGlnbjogbGVmdDsgdmV ydGljYWwtYWxp C353RKHkyWokMaFzQpC3H hA2MiY3O6KlOzf5ODNckW rdXU3flEAhPOstXs9rzNk orIlfWD2gULHo ebjeAZEnxX4hCYOyxMLgc IwaVZ6jQMYkquizu817Ry KeGSM6KMOkoUVrE9PlzF1 yOiAjMDAwMDAw C9YmyHGvUHscY980QKrvU mB0ALYehvNaO1FsDGZhhM hnPoW3i2M0Xc36MQSEVMA yczwvdGQ+PHRk FGB5pMicZIrlWJPdwP5oZ UIfS4p6KzPhAdM3YTdlF4 XuRXMixivaTr24oX3mBxX yKeN3KThyY5Rz qeD4ICZrdJKqXEehHPL0D 82zy2S3HUEsBARaJKK9yD X4pS8mtCtrusaujZPbpSq gdmVydGljYWwt YUkcV774ZETabRuhMqXFX UFMRTwvdGQ+NRCwFOF6cX mfPIkmATOegC9sQMLmE7k 9BuZqCjX8MAvd B2HsPBTqodsrZn49uJ3oF eEqRxL9LBzeT2MpflN7PM UwoKZaJOrmWCX9Y90fz5H 8DPNxVFJrZDP5 wAS0uA6clMeupddtbIVah DsgdmVydGljYWwtYWxpZ2 28BRZwaYqeDjJyI8Lquss uZyBPdXRwYXRp VX48RI58ZO38Y3YhWenpv GFibGU+PHRhYmxlIHdpZH RoPScxMDAlJyBzdHlsZT0 xNk4kYLWgOYMa nLlckZTfPbBdu5mmJQPbA NvqCH8xhTohV7KixFG2LJ Kod6b8Ab20F54yR8FeoYH +DPKbnBU0cPW6 pJ3zLrAuDxW5XXmtK414X tIifEVsIzqbo0rgh7wymT l9QiNtGZOnkgOevJkmWCG 6a3CwHx41I80r IHdpZHRoPSIyMCUiIHZhb Efnod3ssL1vIt1+PGNvbC W1fIP7bQ0fLiRrObO8HZt yI611KnYzyWWy SdinK01qK3TynXE+PHRyP ww8UDFckMfyTM0joCZcTN ysIa3jACX1GsLuDbZlQZq hR0PrRUAflaxp zdmijUB9CGStMIJdgW40O w9pjAioDh3mBBDkKZT2WJ UsfSMzW9ZvvK3nCoWtRTT aSPPsU6IujOCl VJjfB498RTcuIhT9FKNhh vZuY8BzIWCzvOlfHnM8t1 C2Bo3VnVytzPCgOY6hBgB rEUn5E4MyMlh5 KOZuvJnqTC6cqCJfTXmuF m5laCotmDmeUP3wLPKlxl lwl656ChXxi0cmZCNhiUJ vDJuwPVE4Q55x u4J3UKNgTQOoBCN9pBI3r F1roUlwtehkgEOyvPufyd LnpEacJWcxUDatP793KZE vcDsnPkZJTjo8 E6DbChf4ADQjsZwxGV2bq BCrKTgnCz5ewHpaoDikOZ 8cLOUeduczn503FwKty5m kIDEwcHQgVGlt PXE0N86nw0M4GQMkQQXzI JT2oWF2yV0ywIrkujcnyR VmdDsgdmVydGljYWwtYWx sD611BNQtxUex Aa4EVfh9X1HyZsb0MLRhx KymYA3lmOCpBYvyFn6rcM qzlHcbDR3xAMLeyyfip37 4JvYks4uuCJBa lQUjMIdkCUX8O27wp7D9X APvWXLuWLH0xNE2dB7jrN lnbjogbGVmdDsgdmVydGl sOWzsDWamA843 IHRvcDsnPlBheWVyOjwvd GQ+RX56yi82H8GfSjqyGy u0YYQjETY7uED2wT3yYKW jPPqjw3I5sXG7 J2J (more content not included)... [facility] Provider Orderson 12-23-2023 Provider Orders [id number] [email or web address] Coding Summaryon 12-17-2023 Coding Summary HTMLBase 64 GzebxbweYAy4bYc+PGhlY WQ+ZR0XYBIrO51fqDDvuA 3bF6JTIEzOUsggVGAKQPp LZjLxwtZnIJ6zjGGkDJZt IC8+TU4aTVAlHowmsNZjw 6J0kTZ8G46lwf6bMTajyB F1MGLiAaHeiutha0zooDw 6IDcuNmluOyBt OGLlhU07ZUF2bJ03Gq23s OKacDIvd5ytsOq5SvUfES FrBAB1xZohCGfee1GcIGV kF54nyPDwj2W0 OCRomGadaPDoGoBicUD4t Y4oXHboeozvn8fntcauCc g5bc59wRLfz2N8cMO6O9T gzwP1WSYuxIHz YwrpmDTDhC5janfad5brl gqmVkVrJFVqZIa1GDa3OL XhdZmvNoOgSJ85DJL4TZQ dwdLyZ5ClQELx sPgkHmT4z2N6Cw4GA5PED qleN4ZFRNQABKhgpJL+PC 69sc38W5ZsGkxaKcu5KLA uRNN4aHI2dN5p MXPbFRani3T4yQN4D3Agl qZzgj3ik2asZMNnCNwqG7 0eqRZjb9Q1ILDwfDS8LMX bwBhhPzViwK10 Oyc+HFKfmXyod7MlKdnem 0doh8pbyDt0NfkiJZRetx NiyTnxOIS2v9MbNs1tGGZ vmCI1hSH8gV5b UgUjJvC8RMwiF386YmJkh JZoQcaeI94qS7SqsPF+PH HiLip6ZIFrySpwGC6yH3R hZGRpbmctbGVm lUedCN7nFQXcybxaNGPdj K5gVTSdZ1f6PjWlLsF9JM tuN5RfJOVddlzpAe14jP4 fMcHhQnV1VAwf X0PaqbF8FCZdbFSmUCsrF SG7Z26yc9I0ZDUwFWXiJU M3jOD1jR5ghUfitxlyvYH mdDsgdmVydGlj WIpoTCjvI083XOGwyGceE kNvZGluZyBEYXRlOiAgMD YvMjUvMjAyNDwvdGQ+PHR fBLY1lZrpZIAr hNEoPNnxDt2vuEisgXahT H3aCQLknuoaOXDizR2cQL KqlCAcnDgpEN3qRNBvyxs bo529JrMnOKU0 VLFcsRFoW6ZoiP0xJrXfL KVdVBAaE9TdnKVuSJbdA9 81KPccAhX2YHMmthYhT2P sLWFsaWduOiB0 z9C3Up7Qf4CzhlunK5Olo EKaClUzMzmgCAx5K4EcOl wvdHI+RO17BHVjBR45HIu 8AGX8lWcpKVip BUAwK1HpxZ9vPlZiJPItE GRkOyc+PHRhYmxlIHdpZH RoPScxMDAlJyBzdHlsZT0 nJz2iZEWxOWVj sLtfgPRiTiWjj4doBRLjG TllSK1xyGyrT4HfmEP1RU Qau3x7Vz26F22tG7XvnRF +NLNfkSF6fFD8 bT2fShBdGvZ9NZgqI150J xLifXEkFokde7nly9bkzI v0ZwP0HITqzxIgoMvvSQP 9a7YiGv23W48v IHdpZHRoPSIxNSUiIHZhb Repgy4veK7bFd1+PGNvbC F8vZG1wH1hFdXlCtQ7NXu gP162IgPomELz Zbkyn4lvf7mqyAs5ErSmL VEoleWoiXtdJCS2x8MfWd 18N6MlrAjat4HgVvf1nw6 0hKKzh9S9vSC3 M9WbMIIgrovtyDDsfZwvU L2jEMIdsruoZUMsiX3dYM NbP3l0BoJzVzK6DRrvQ3E lsiT7YPQqoRPu SZZjqQYZsO0wmqdvk6wto cckNqEgNQSmWZs4MYy3PZ FazJzdZdWoTPA8LgP9IOB 8yXEodP4ylDbx svyqyI2zEbf+MHT5eQJxr LVWHQ5tNgwkfBD+PHRkIH J7aUqpBLzcLDSoeX6mDYX uS0b4RsVuWoE6 NJgkU5AtmgJ4GYSnzVLvR PIrtKWAoR7wgacum2sgst jdAbBzFTPyWEa6WPg9ZYB saWduOiBsZWZ0 XeP5RUK7fSGdjW2uxUcio wvjvN5iXio+QmlydGggRG H6DJy7W6VoVlz5TRKcqRb yQP2qiLMhQFdj Fa5unKthiRwdBQ7kETMxu exjl370YaVkm2bjSELxiX EsZAycSUI7E30ke6L4QES uNUBbFGR6aDN0 qC3owLldopkfsWCztKnfj pQdzBelPOpdHRywA842AO YtaNnaEbHaWNc2I9JqLjc 7ZAXwoJhvOJ9l lIVpTWhmKs5njXkfqUcyN D2sPLNanqoue009EtNsp2 smGITlhORtJJniSXY3T38 hn4G8FCYtIELf KVR5iYC8aN2xyVrkcxahb GVmdDsgdmVydGljYWwtYW dxR045GJPnhSrxOqDgjIp 8F7VzBqm6RAJi bFrqON6faHSoRIerMm6mt OthsDvnNW1iHQXhuuxyx5 55BsXms6nnPKBtrLXvRSe dBXI9P07pp5R4 DRJcXACvBQK5bPF6gM2ta GlnbjogbGVmdDsgdmVydG igOHbkHXueW456UDTddHn nPlBhdGllbnQg VUcdVAs0K0XpJcyfhNZ+P J79JOZeEB52gDYqaQGje4 yujAz7WyKyKCIwBRE4nJs uZIhhv0ByAYIx T64rgOLes1D8WOUzjXpze RHvYbEnyKN3dB2hIRwqmv txr6holepuMfpue9wxqg3 3pF54E82hSSfa ZHRoPSIzMCUiIHZhbGlnb q2jlH7pJs6+VHWipLF2oG G7fC9gRWSeMoL7QQrwS84 9InRvcCIvPjxj d8hjc7rouVn9UyI8ZUIxk gDgnYxvTPE0e2XcWd87N8 9sIHdpZHRoPSIyMCUiIHZ qmSyilu2beT3f Ii8+PKZcnVB9bOI9kI6dX hCtTeV9VZejB248PwSibW JsReobE97gW8ArrCZ+PHR jOjt6ZBKvlJyt ED1jcWTdSWdrJx1zKVP0S pXtKlVjPKqhM3EvQJRuxu kvwgfzhMV0YCAhWZVbaX4 0Ve5yzWxgBVFc oFWXqK9zotgyy5skjlkgD gLoHGVgHUz3KVe9IXTlyN vbHzXbCQC4KiP0GSY9oTL xcX7hsGnyhqpd uJ4tE8AgHMUsjmyoLi23s Y3qNtLxEnZ7IJlnXxn+SE 1QEEQMAJyxKAJHT5ucLJr vdGQ+PHRkIHN0 bPqyFWknYDUkvC5hNJXfI 5h6LtBxKkW9CUjpE9UhCX WwrmndSh89wO0bGaYnQaO 5KMxeZ8YdqjE2 CZJyzKKsRLozSRU7M91kz 7A4GYGcKFGnWCN1sSA0vI 1hbGlnbjogbGVmdDsgdmV ydGljYWwtYWxp T108CGOnwSdxGrAmKwF5T nT5NuZ0L5CgDqo7RQIldB agWL4upNHpYRbvWp6ycFq unXpyUR4pBJKw sgcjKAWnrK2tJTVchRSlz JqyQH0yWTQpdyhyp641Nt QeWRW1XJBguEXvB5ZfoP2 yOiAjMDAwMDAw A3XirPFkPLmoH139MJsnB bL4GRVikkZyP6MdPJZyhE xfFvY2f3L1Ln82TQHQLFD yczwvdGQ+PHRk VDL8mRhoQNfzBOJsiP3dL CMmM0t3UdBaNjR7BHlqK6 FxMEMjobkoRm90yC5rZjO iZxV5XIozO6Sy sbI5RLAgbGWjLQzjDUY3G 41tv0E6IATxXCFiFVY0bE V1oB4hxQofglyniXHxnHx gdmVydGljYWwt MRejF804YRNlpIsnOeRWE UFMRTwvdGQ+XZVqNIB1hD imTBpsUOEfmU3vDIHvS2o 1ZcTgKfJ8NUhy Y0SeRVVcmeflNi23hC0hC tFxXoS0UZukT0CwifW3BB NpnVRyVOyqNLS9O21yb0E 5SDVkAGDcUWC8 rAX1fS4zmTaugaeqnASzy DsgdmVydGljYWwtYWxpZ2 89GSKceUthWyBaK0Rggcp uZyBPdXRwYXRp IN46MO24FO44X9TjRhlbe GFibGU+PHRhYmxlIHdpZH RoPScxMDAlJyBzdHlsZT0 vXy2pDYCsRLIa zTxixCJpEjNxr9waSPPgY EjlKR8wdZvcR7RwvML8RO Vrg7c8Il64I47oY9DmjCT +XJKbiNA9fEV1 nN8pNyHaVcT9AZeaW284R fXddOEgMobvg1rsz8vhrG r5TrPpGRDgqfFjmAjkLQZ 7d6UwXu22E74i IHdpZHRoPSIyMCUiIHZhb Mdrpd6qqP1aUq9+PGNvbC P4hFH5tL2eDzOlDgW2KOy gH766QnYqxDUo VmwqY82pX8PpuEC+PHRyP ti7IVLvkGffYV7svKYqCZ deUx8tBBX4ChWkXqFfNGg hZ5UpGLHxnewl brtlfNR7AQAfJACnzS82J d9inNppWh7mAEUsOSE3NU MpnZMrK5NmiB8uQsPbPOA vAXYtJ5BitADl LCahY742ZVbrUlE8UGXnk iSqY5JkCKWogBeoUhO5q0 D0Es6WfUgebCTxJI3aQnX mGMs9Q0QlHrq5 OFQnhJrhTX6hfYAoAIfbM q9zpDookXyoGR5jXSWzct qab121IlCox8xtPVLbmLH qQPqpKDG2L38o i9T1EEWwAYNgCJF0sJM5h W1lgRoxeqnnkPEprPbrdz LnkTspRMafYEzrY807BEK vcDsnPkZJTjo8 Z3XxJzs7UBBhoWbaFY9xq PVtPFhdLm2pdBfurAuvEA 0aRQLyrykss171UtFjy9d kIDEwcHQgVGlt WRC2D30hm6S1WZJfXZRhP TZ8lIB8qV5ddZojysidsG VmdDsgdmVydGljYWwtYWx lY757THHgeIiw Te8LUhk8J5VtAtv1QIOdh JygMD2pgHWcRKgaQq8kzD qxgGlqNF5mOEBwvhegf13 5VhEip1gsVQHq zBPbDAiqSGW3J27ls6X6C ELcRUPkMSW4eEK4cK6rpG lnbjogbGVmdDsgdmVydGl nJSpkSDyhF893 IHRvcDsnPlBheWVyOjwvd GQ+IY07sr78H9WdJohtUj y2NOIlKOJ0yMJ3mL2lJNW oPZrba3N7dBL7 J2J (more content not included)... [facility] Coding Summaryon 11-19-2023 Coding Summary HTMLBase 64 CzsqpxfmQWh2wJj+PGhlY WQ+CU2XQXVuN65vbTRoiB 7yA7ZWHKhXXcuzNJFPUGi PEjNdszYxGB5cpPNpFKLk IC8+ZB9cTDFsAnqzcNYze 7O1dUF4B94hwm8lOSnnpY K2SXLcDdMnixwyc4mmwZc 6IDcuNmluOyBt VLXbdB31KCO7yC48Pp21r SVfmKAuj7gztJc0BxLrHW OdXKS0mSjbVWqth2DySQJ hI51rkAAfe3K2 PACdqShhfVFuGaPwdFY5d Z8lFPyjydggt9rxjnhkWd t4hk15kAYvj3Y9iVU4D3S lxsV5JFEfxITw GnctoJDCcF6ysersr4bsv rrhDpFbAIMbSTk7YFn9SH WnjHhcJbTeMW97EKB5KSA mwlQzH7ZdSNHh tKrfLhZ9s1L2Ip3WF3XCL vbhI3TEBYQAJCgabHH+PC 53qa98U0LjZdwlWkm5YMJ rDFM5cZT9zS8t TPDzJZsjj7J0bCQ9C2Oyy qVwvq8pl5hyCUZmXZnjF8 2mlDXrz5M6GFOoyWX7GUK iaYkcRrRadB78 Oyc+PTFwpEqur0YsQfhli 8kff1dkpJg6SdoeBFTjdu LxbUmjNWV0d6YmHj5dJRX djNE0sQO5qM2v YbFpZjN5KNpoJ083UvTpz DBuRyzxM20eC3ZbjGZ+PH DhLsi1MVClqXznJJ7nD5D hZGRpbmctbGVm uDoqBI1nEDHuvzcjLHYhq Y8fFSIgT7t9ApAtGwM1VW soS8QgLMBymcooYj05xS0 rAdAkGaD5NLgo S1SujhH6JVWqeJXoQKjwY EV9U98vb9I7OOKwNKLjCE K9kKK7gV8ngOxvjyyisYM mdDsgdmVydGlj AZydXCkxQ715EEEubFwqG kNvZGluZyBEYXRlOiAgMD UvMjgvMjAyNDwvdGQ+PHR kPMV2lNydZWNr dPEcBAezZr8lqNklaCrsF D9pEOAcxaeqNWBbxZ4tQG AvpQWeoQueTD3hYHItajr dc180ZmMiCJL9 GYEyfKAcN1BghJ4bZaMnG EKjUMKuX9JqtXOtAUhvF0 89COweXjZ4NGGjsuVbV7N sLWFsaWduOiB0 t5W7Sd6Tu4WmilngS9Hsk UCcMgMfQhfpNJf4I8YvIy wvdHI+IT95NYVnWS68RUi 5FLX5lHgwECfd SPCyZ3ZuoH3aUlImGCFyX GRkOyc+PHRhYmxlIHdpZH RoPScxMDAlJyBzdHlsZT0 sBq3fBJYiMCBj yEtsjKYtXrLsm1ikRKKaX TnqWG7ofPdaD4BndRV1RQ Qgr2l1Xu05C97mB9MwxCL +EWVonWZ6dYX9 rQ8sWfHhDzJ5VSrfY300Y kSmlSTcKbpod3von8hmvR m8RpH3JTXjlvYxvAyoQKH 2c4LyAq05G35w IHdpZHRoPSIxNSUiIHZhb Shkwg4ntL6eXe0+PGNvbC G4rRN3hO0sPcUcWxD5CAg fO291DvMlwQCw Jqtou8rld8onpEo5MkUkV SKpnmLxuKeeCIL5y9AwMn 54K4GivTjwc4IzAxx1br8 4cEYjd6D5uPY0 V5QyORQdtwzafYXtoQhdM A5jXXBgdcxhYZRqzV1kLP OlJ1x5MyOeJqG5UIvfK5S rdjW3ZMGblNNt NLTnfTLDsJ5oinufm4set qiuFnCnMMSbVDp8YJf2BD YnyJusKqDlEWI7GdY7EIH 9cXGbqZ6vuOle lprhuP4mGhk+ZKX0nTQwj KGRIW1hYsputNX+PHRkIH O7oHhuFTvsJKRxwD4pZDK xJ6s9YcPkGzP5 WCutD9HtauJ7OLTnaFTqD FKflRKLlX4dqjnzg8iajw xmWkZuETHjCQj6SWe2ULC saWduOiBsZWZ0 WgT7LXP4xCGaeH3ekCagf otlnE8kJcy+QmlydGggRG N6GJx4W5XkMln7ZUTmpJq eAI2hyFJfUVgy Ak7efGkquHmsZC0aHXWwb yklb099JmZuw2jzSOEvaB HrYQngYZD1P60th7N8CRF hGMUeAWS3zYV9 vI8mxDshgnmsiHJwlTzli rPviPplETgbCYslK468WS BntYqrYdUtBFn7W8KjZxw 1YQScwHsbAG2a eVFjCMtcXl2dpHshfGupO M6sASBetpxec895FkCdb6 itCUDylGJuXAlwXCJ1E02 bd1P9NHNfMAXt CKS1mRU4mB1ktRzqighnc GVmdDsgdmVydGljYWwtYW vvO038XYXaaHsqCnBzlTg 1U0QdAyx2ARLn rZqcLU6bcVMdAWfiSf2hb WhysLbhNQ5yUKLgbrmrm1 01FvMwc9ssAUZbdBWoEBv aBEY4E79wk7C4 ASKnXFJyHGX4sXP8kY8ic GlnbjogbGVmdDsgdmVydG lvXAkdQJigY406LEHbbCe nPlBhdGllbnQg KIbwIWa4B9YiGhwceRD+P H45TDOuYW76hFVqhEDsj5 cdvBc9YbGuQKNsPJF9lYn qDXxhg1SxMDMl D12ijKEwv0S6YTXqtJgit UQrPcPwoLI9hT2cNCkuig ygw2jczhryPdfzz5tcfb6 0kK42Y23cVQnf ZHRoPSIzMCUiIHZhbGlnb b0bhB5cAr6+FEZecKW5jR M3cD8zUCWyHfG2PIvcN06 9InRvcCIvPjxj i9wsy2lxxMj2BiV3DPCnp xXhbHdbLHI2u7SrFw15S3 9sIHdpZHRoPSIyMCUiIHZ xuGnwod4oxO3c Ii8+BIBfxJY9hRO7iE1eK wRcVhJ6NGibX161UyMyoA NyRnroH24kF4VyfXD+PHR dYtu1NZCxiIbh GR8zmSJhRAsjKn4uNVN3F hYrVrIpRYihD8TvHXMgub xiubcopCQ5SKOoRACmbE8 2Go9zrWnaXDAt qUTNoQ0iaueta8voyvjcB tHcDIPyCLh1WIv0EFQkkD osCxNoKAQ9YmJ8LMT3eZW pfX8fiJnmghir aO5bN4MwWPQrcckmQu10m J7oYlLcSsJ1ZKzxSpt+SE 2YTGOQJHzoTNMHC8agNQg vdGQ+PHRkIHN0 sQtkZEubOLFwzY6aGRSmQ 3a1FwLnRhF9WRhtT3JsWR GsnssqYf05vU1xYkRhFkF 9GKpqJ3LggdW5 OKYtsAHzLTfeZJM4F94qo 0I6ICIsXUDgKMN6dWO8jG 1hbGlnbjogbGVmdDsgdmV ydGljYWwtYWxp P346HVJtgSshRuRmNtS9A dX5SjG5K5LaDcg5CITdeE leAX9kwTJlPTeoFe9ewMj zcQutIS4sYLWm gwkrJMTliP4iHRYuiWVkg UprBW1iVHRtanuda505Sl HcJOH4DINbsIBmF8YtvA5 yOiAjMDAwMDAw K7RaiOBxGRnzM504QUmdI yX0BUWnzlVgC0AbMDYziG wxRtI7z4C0Cx55RGMTBYS yczwvdGQ+PHRk DKV3bUgeXTyiJGPfiW9lE RZwA9y6AvIfGxN7LKatZ5 VjXWYuzbhaFp86nK3xOsT hTrY1FUtxZ8Qt ggF5HIGiqSKfXWdyXKP3C 92hu3B8UGGyKSYpJDD5dH U3bG3muAegdjvahOFniBx gdmVydGljYWwt IZinT575HPCloCkgSqROL UFMRTwvdGQ+VEFuSGS9xL stHXgdXMOqcP0bIPIpS5h 0JkGrVvM3WXld B1HyINQelapjKl13nE3nV jTeIqY8SLznI1WthnU9JL HoxGKgEDsjRBC5Y51zb5Q 5SBGvJKFxTZQ9 yBJ3fW7mlMqzxhmduAJoi DsgdmVydGljYWwtYWxpZ2 99GDMfzLooUlCwK8Lhgjr uZyBPdXRwYXRp OS82VF59WJ25L0TvSarqv GFibGU+PHRhYmxlIHdpZH RoPScxMDAlJyBzdHlsZT0 sIz3mJHDmNYJy nZbeoXLyBcGfo6tfGNCnE ByuAX8mnOcsE9NkvWO7FM Vwo7v0Ry73Z72uZ4VuvDR +NPWoqHR2rAN7 gQ1xNkMdKmV4CJjyS161T mOycTLaTqcxz3txx5oueZ c1XaGmJFGfgdDeaZsjGBY 7f9CaDq32Y44l IHdpZHRoPSIyMCUiIHZhb Yoivj8vvZ8tMx6+PGNvbC D8xSD6cL7xTgTePaT2OQz nL716BqJenCVm ZrodK31sK9MmeBD+PHRyP ea3IROmeDpiND3hjVFwOL hyHk3uNMQ4GuOsCpAaVKj dF5VpPMHtpama fqtmiVT7XFOmZRAtqN85O i0blObjNe7fSRKoFVM1WQ NxmLZmY5EoxH9qVmWtOBK jDVQrY7NqpGIg REniO846GLlsSkH8OTNwi tYcT3CbMKNyvDicQrQ5j8 V8Nk5YcEnrjANfJV9bWgN nJZl5X5SmJhx8 EAPkeDkxRY5cfMGvYWbaW u6xsJrlnFulGB4pEQUlsn czf953UyPss3ccHVAkrKI hDNcnYVH1F75e g7O2HZOtQBIfTLR8yCT5o Y3lyNmzvbeogEAxrWudch LltPdeIHmlSDhsK707CZD vcDsnPkZJTjo8 L1PxEre6YPXqmBlcWC9wh FEhVQreIb8ahZuzwLgeSS 6uQGAqnofbs583LhSuy2z kIDEwcHQgVGlt HAZ0E88jp9D9CGGnCBPcI CB3jEX1hD6xiYzopwuagY VmdDsgdmVydGljYWwtYWx zT250QAKzfQtc Ae7TZcp3E5HcDpj3XAYqr SayWV0wgOKfOIduSz2bwX evvUwoZI5pDVFddufjk27 8NfKpg9kvMCOx lITpCVtkVOT8E21oj6K1B ZItYPIxBLY7zSZ1gP1biJ lnbjogbGVmdDsgdmVydGl dUXjtQIhrC548 IHRvcDsnPlBheWVyOjwvd GQ+VO78nd21A8ZgZiseBr r4TKRlLYC9xFR6qW3cXJN jGRall7X2aUM9 J2J (more content not included)... [facility] Coding Summaryon 10-22-2023 Coding Summary HTMLBase 64 EzxsgapkMZu0aYf+PGhlY WQ+LO1FQNCbX35pzMYfzB 3iH7BCNTdBMfnzUOJINRp FFiLxfcVkFH1vqSWiISSy IC8+RU6vVIIdWjrpbJQit 8Z2aIB8B16ohi8cBDbwdX Y9TXCtVfSekhgva3kfdRy 6IDcuNmluOyBt CTCzwD90EWT7tK98Wl88p YOsdJOos6aqgUo0PyZoTU KqTGM7bDizVOspj2AfRRW cY38shMKmz1T9 GPShvEepvQWgKjMuhGD3p N7aVLhyuyxdr5igtvmpQm x9iq77oRAhs5B7sZE1P2D xjzQ7NAAukFEn DgmhoFLKmY8wiobkp0sai lubAzFtKXCpHLo7PFl7CL XtwLxtTuLjLT71QKZ8ZHJ tlcPbL2OjYWIu aQfmYkL2u7N6El9VT1NHL unsS0GYHZNSOMffkQK+PC 47on46H0VsZqqgQai0TIK sVVD3zZY2mV4h ZIPiKHuip5J3dFQ1F1Ila zKiez1qk9feQVJrHAvyS5 0pzZNej0U7PYCabQC7QXO ekForRiLfzG73 Oyc+JSSxeFzlq1SiTvrjp 5azi2hivNy6JtcoLAMzhs DyoRofJZT3z5IsPw3gHDA yeVR0mOA9aX5r QdFnCqV0NFqfC622ZePgr AEwLtmmA84tS2UttSM+PH ThEvm2ZBWlcNsjEG1iB6Z hZGRpbmctbGVm fYrpHT4iIGDqtgwqZROtt O2kZOZhR0m8UuUfGyP9KQ tiZ5EbGHYrnroqYk31eB8 hCfCmQvJ5WBbs W5GsgrD8RORkpXIuNQskC WU1Y84xw9Y9TEMjRDUiNP J1vYM7fH2dlAclmgeitJO mdDsgdmVydGlj PEpqVEedO477VZEviNkjY kNvZGluZyBEYXRlOiAgMD QvMzAvMjAyNDwvdGQ+PHR lTRT3pBatXTQo kYSlXKyvDm5qyYmbqWusJ C1cICDbsmarAEKxqJ3mAO KqfMMkgIxgLH6yCHTvjzi qp020WvWiBUX9 HEMnxTHxN1DltK2xIvOqC XPdSRTrM8KqcZPaXKrbM8 75PZclIqK1UPMtqfYaS8Y sLWFsaWduOiB0 i5S4Cv5Qo4QpyqueP0Gfg GIpLrOoVkqoXXv1R7UlVq wvdHI+ME13MBEiTX06MSk 8IOA6tAhiSFtt ZJRvR8NbeG0cZoBmGEChT GRkOyc+PHRhYmxlIHdpZH RoPScxMDAlJyBzdHlsZT0 zIg1hTIAuWSUs yRvblFWyQzBpv8ijOEBsS KwwGW0puPmzK1TavLR4HS Hnr4q4Aq83Q65eF7FlrXG +LXRbqCU1pPO4 cO9aMyCmGhJ8FBtgJ614X jCpcHLsGrsky5ynw9xalW x7TeQ2EUEafoPhkAvgULV 7b8UkOf45Z42f IHdpZHRoPSIxNSUiIHZhb Xfdlm6euJ8cMq7+PGNvbC E7lCO8eU3sDhLcLiC6JTn eC435BmYoxRJq Nmgep3fvf9agxDe4DqAjV KQefxCcdKbfGUU6f9LnIo 50B2CwbXpxb8TaOrk6lh0 4cRWyb3B1bQL6 K8JkLJDtwbmvvNKafFxxU A8jZEWdlvmvOSUzdT5yZY RuI0r1UcPuYeY8RDoeB4O pfzI5JHJyqOSw NEJscLDNbS0nvxsud1wwh hwnSnMkEKTkBJl9TCh2GW JcjUceKmNbMND1UzK0CRT 2uBGpdT2ncEvx qayueM0oZol+UXF6zKJnv GTRAS7jPlydiKD+PHRkIH T2vHafKYjgNXMpgE4fJFB lS8j5CcIgElR6 YSnjG2YobxF4OYMvsNXuU WLxwLLBkL4utgymo2wvrr irDbQrDYXvCTc1JQn5FCW saWduOiBsZWZ0 GhE5TCF9lLBazX7vzVsbj mlrbU4tLjg+QmlydGggRG B1OJo6D0IqHnq6LMXowLk wPT2pgNQtUJby Sg8ppAxmvMonCH3gAEUyk gysf940CpIgf9fdJYAclB JqJMqaRJE3S61ap1I7JEA hOVEzEPA3kFO0 sK9wkWatqeqzvHKesFhkf bXcdHnzONhhNYbzD844GK QrfPkdYgDtKBg3Y8MwQkz 3PJDolVgaCX7v jEFvVDtvOr6qtMdtyZhnZ Y5xMRYzxqnih550YmXzx6 vmJPAceZSvMQfwRVN8Q37 lp0B1DWHsTURp KZH9tZG9jC7sgZsjiuosb GVmdDsgdmVydGljYWwtYW cbM224JAFhqGavVyCofYa 8L2HfUsn6XFWf tQraFL9qfIEiQWlyDv9bs IaraAodUY0uWPXiphzax2 07ThRkj2dgBSVkcYZqTFu gGTY2I99bl3J4 NHJwIKLiKCM9uTC5xF3hi GlnbjogbGVmdDsgdmVydG xqICanAOzvH531PWRsoDs nPlBhdGllbnQg JMykVQi9D7NlWwkvmMI+P Y15YGSoOP30kVSezAGhz3 bwwFd6NuQoTYIiLCP3yPv wZFjjc7BcHPRk P45noQKzo8I6RTZtgOmhh KMxZrUldYW8aE3mCIxuwc xat3amdfajFymhg5yaps1 3rG33B52zCUbb ZHRoPSIzMCUiIHZhbGlnb k9ztO9vAg0+EHKeeYA9nQ H9kG4pQEHzIhS7WGuxE37 9InRvcCIvPjxj u7xbr7snoJx7VwD3VVAnc uJxvDaxUUF9b4McWl37G4 9sIHdpZHRoPSIyMCUiIHZ xqDgftr8weI4p Ii8+JMHnuFN4tGA4xN6rT fIsTtZ7EBzlG097VrKnuG CqSpwoH97dM5FknFD+PHR eNqw8FOVyaMzo KV3asHNfGLwwYe0bVPR6B nLiVmXoIVlkM3TlKPHjfk rvvmtkkUF1KAKhQSPcqH7 6Qj2ioMisGRKa bAHTkU5twdjif0fdeymtC eAxMLHiWXf9XKb2FAFzfJ jaZgLsWVI2RwK2DYS7wXI uaB3ziVzwesqk mG5xG8WnMYBergqpIl57g N2sKuWhLfU3QCqkRbe+SE 2OHOXREFjuTKWVK3lnAJb vdGQ+PHRkIHN0 bIvdHUjpMUZwqQ9lJGHoY 5t5DqVpZmB3DQvrH1DqLH SqeecgWp98nG4mNvEfAhF 8LPdiX1DwkbK1 XUBjqLHtXVsbSZK1N68wk 6X5UIRbFKDhRMQ5zZY7hC 1hbGlnbjogbGVmdDsgdmV ydGljYWwtYWxp Q673ZOHlkMxwQvTqKfJ3T hT2NoA2T2KuLtz7PZExsD hgVA4faPNyADrqSs8edYj feKcrZW9cAZEi rltoMJXqlZ6rSBOcmIDkx RetMV9dPEUjtygjo835Kn DfYIT1MTQunAPmN3FzjC5 yOiAjMDAwMDAw Y1QwgDIiVYyeN408JActV kZ7XYTqvvSvQ2KzPCCwkI jsJlT0u8O8So45HCHXEEH yczwvdGQ+PHRk ZNW2aFcwOUqbACDxdZ5dD DEaM8x5TtRzIuX2FNxvO2 IuPLLlcfwaQv74aT2sRrN cZbK4ZJroV3Vx voL6JBZguQHqZZgxBGQ9M 91zr2M9VJFcPQInJQW9qA O0kA9gbYjcvtcunBFzkOo gdmVydGljYWwt QXfjL693WJZmlHaaMbONK UFMRTwvdGQ+SDFdOUC0hT kyQYwtUVBaoM8eMMScK1q 0YcDnPdV4AXzg H9ObYJTymsccVj64uR9oL wZiBtD3RQtzC6KcorL6CQ NalABdYTdqLCM7N36wf4P 5BMJfETQaQDC6 zHR8zI9obVbkpwomrNQng DsgdmVydGljYWwtYWxpZ2 32EABsdYulCqHcY4Qdrgg uZyBPdXRwYXRp TW75SA04ZN39U8PwTbili GFibGU+PHRhYmxlIHdpZH RoPScxMDAlJyBzdHlsZT0 iNr4oDARnLJMh pDdxiZHhJzBxi3oyQESwM SvuWL6qkCgbR6IsoCA7WD Epe8s4Yx78G58uV0IaeIV +TIKouXI3lWH6 cY4xFcIhLpA8GDyyJ430F uNfkOCoJhglq9fgp0jjhH j9VdDdMQZauvZhtZeeBMC 3j4YpSf69O15w IHdpZHRoPSIyMCUiIHZhb Pzpmp2kxB7zVm3+PGNvbC A5hEP8hJ8rEaNvBxS2MWp vD248FoXilUEq FnqmG45qM6QedRK+PHRyP tn0FYLxrVvrUQ4qjQBdRS gzMt4nZVF5LsMjGeAkOFg lW4QvTMTwwydm ibjzxYE0JIUtERAxhL39L z0zeUfiGl1gLOZtWWY1XY RfqAPxA2GomC7dLkWiOLB yXZNkB9GzmUZi DGmeQ439NZpwUvP9PDQvp sBeX1ZzZRDngYbkLrV9z2 A7Hu8NaTulcGIwCH1pEaE eFSu8O3VjMwg9 NNAqqUjmZU0imFWaBJmdX f9pjEhzdUbaLN0qMVExqp hlg339FtEcb7hkLPYwuMG zVJqsULU4D58u d7R6VBIsTMTfAUO9hCC6d B9diAurebjmnIZezBryfs ZkxCusWHmgCGyzK822QWG vcDsnPkZJTjo8 P3KiBbb1EJJlxWsvRI8yc TYkFPvqBp0ovLalfNdkKP 5kFUIbqodyq287AkBvd4f kIDEwcHQgVGlt QBV6L01os3I0JLYxRGUvJ MR5rNY3lB9bbJjqhiedsL VmdDsgdmVydGljYWwtYWx nL198ASMocEaq Rf9INcx1N0AcXob3OBPhx FbqQU4nrERxOAmeFb6zgS ifkHbsGX3nYQMunucot61 5UvQjs9ncPFDk rETfJMgoPKR2T15iu9L9Z HWeYFEuTGC9jZU3oF2bzX lnbjogbGVmdDsgdmVydGl gUWpnMIevE341 IHRvcDsnPlBheWVyOjwvd GQ+CT40hv59X8PzIkvsPg l3HUIgBXE6lOY5pT7oASB gRKpbn4J8rXR6 J2J (more content not included)... Normal [facility] COMPREHENSIVE METABOLIC PANE Guy 10-21-2023 Albumin [Mass/Vol] 4.4 g/dL Normal 3.2-5.3 [facility] Comment on above: Performed By: #### C ERWIN, [id number], HA1C #### [facility] ([id number]) [address] [place] [address] ALP [Catalytic activity/Vol] 111 U/L Normal 39-130 [facility] Comment on above: Performed By: #### C ERWIN, [id number], HA1C #### [facility] ([id number]) [address], [address] [place] [address] ALT [Catalytic activity/Vol] 38 U/L High 0-31 [facility] Comment on above: Performed By: #### Terrie HOOD, 72957-7, HA1C #### [facility] ([id number]) [address] [place] [address] Anion gap [Moles/Vol] 13 mmol/L Normal 5-15 [facility] Comment on above: Performed By: #### Terrie HOOD, 48659-0, HA1C #### [facility] ([id number]) [address], [address] [place] [address] AST [Catalytic activity/Vol] 30 U/L Normal 0-41 [facility] Comment on above: Performed By: #### Terrie HOOD 98604-1, HA1C #### [facility] ([id number]) [address], [address] [place] [address] Bilirubin [Mass/Vol] 0.6 mg/dL Normal 0.3-1.2 [facility] Comment on above: Performed By: #### Terrie HOOD 55749-9, HA1C #### [facility] ([id number]) [address], [address] [place] [address] Calcium [Mass/Vol] 10.1 mg/dL Normal 8.5-10.5 [facility] Comment on above: Performed By: #### Terrie HOOD 15584-6, HA1C #### [facility] ([id number]) [address], [address] [place] [address] Chloride [Moles/Vol] 97 mmol/L Low 98-109 [facility] Comment on above: Performed By: #### Terrie HOOD, 56556-5, HA1C #### [facility] ([id number]) [address], [address] [place] [address] CO2 [Moles/Vol] 30 mmol/L Normal 22-32 [facility] Comment on above: Performed By: #### C ERWIN, 32584-5, HA1C #### [facility] ([id number]) [address], [address] [place] [address] Creatinine [Mass/Vol] 0.81 mg/dL Normal 0.40-1.00 [facility] Comment on above: Result Comment: METH OD TRACEABLE TO IDMS STANDARD Performed By: #### C ERWIN, 05691-2, HA1C #### [facility] ([id number]) [address], [address] [place] [address] GFR/1.73 sq M.predicted among non-blacks MDRD (S/P/Bld) [Vol rate/Area] 89 mL/min/{1.73_m2} Normal >59 [facility] Comment on above: Result Comment: Reported eGFR is based on the CKD-EPI 2020 equation that does not use a race coefficient. Performed By: #### Terrie HOOD, 71587-1, HA1C #### [facility] ([id number]) [address], [address] [place] [address] Glucose [Mass/Vol] 138 mg/dL High 65-99 [facility] Comment on above: Performed By: #### Terrie HOOD, 29471-0, HA1C #### [facility] ([id number]) [address], [address] [place] [address] Potassium [Moles/Vol] 3.8 mmol/L Normal 3.5-5.0 [facility] Comment on above: Performed By: #### Terrie HOOD, 62478-5, HA1C #### [facility] ([id number]) [address], [address] [place] [address] Protein [Mass/Vol] 7.9 g/dL Normal 6.0-8.0 [facility] Comment on above: Performed By: #### Terrie HOOD, 14883-3, HA1C #### [facility] ([id number]) [address], [address] [place] [address] Sodium [Moles/Vol] 140 mmol/L Normal 134-146 [facility] Comment on above: Performed By: #### Terrie HOOD, 70528-1, HA1C #### [facility] ([id number]) [address], [facility] [address] [place] [address] Urea nitrogen [Mass/Vol] 14 mg/dL Normal 5-23 [facility] Comment on above: Performed By: #### Terrie HOOD, 40536-9, HA1C #### [facility] ([id number]) [address], [facility] [address] [place] [address] HGB A1C (GLYCO-HGB)on 2023 Glucose [Mass/Vol] 203 mg/dL Normal [facility] Comment on above: Performed By: #### Terrie HOOD, 83165-5, HA1C #### [facility] ([id number]) [address] [address] [place] [address] HbA1c (Bld) [Mass fraction] 8.7 % High 4.4-5.6 [facility] Comment on above: Result Comment: NOTE ADA Guidelines Result HgbA1c Normal : less than 5.7 % Prediabetes : 5.7 % to 6.4 % Diabetes : > 6.4 % Use with caution in patients with abnormal hemoglobin variants as the half-life of red blood cells and in vivo glycation rates are affected. Performed By: #### Terrie HOOD, 48251-9, HA1C #### [facility] ([id number]) [address] [address] [place] [address] Lipid 1996 panelon 4 Cholesterol [Mass/Vol] 198 mg/dL Normal 150-200 [facility] Comment on above: Performed By: #### Terrie HOOD, 90484-1, HA1C #### [facility] ([id number]) [address], [address] [place] [address] Cholesterol in HDL [Mass/Vol] 70 mg/dL Normal >39 [facility] Comment on above: Result Comment: HDL <40 mg/dL - High Risk HDL > or = 40mg/dL- Desirable HDL >60 mg/dL - Negative Risk Performed By: #### Terrie HOOD, 11849-2, HA1C #### [facility] ([id number]) [address], [address] [place] [address] Cholesterol in LDL [Mass/Vol] 89 mg/dL Normal <130 [facility] Comment on above: Result Comment: LDL <100 mg/dL - Desirable LDL >160 mg/dL - High Risk Performed By: #### Terrie HOOD, 61000-4, HA1C #### [facility] ([id number]) [address], [address] [place] [address] Cholesterol in VLDL [Mass/Vol] 39 mg/dL High 0-30 [facility] Comment on above: Performed By: #### Terrie HOOD, 95733-2, HA1C #### [facility] ([id number]) [address], [address] [place] [address] CHOLESTEROL:HDL 2.8 Normal 1.0-5.0 [facility] Comment on above: Performed By: #### Terrie HOOD, 73829-2, HA1C #### [facility] ([id number]) [address], [address] [place] [address] Triglyceride [Mass/Vol] 193 mg/dL High 27-150 [facility] Comment on above: Performed By: #### C , 51433-6, HA1C #### [facility] ([id number]) [address] [facility], [address] [place] [address] Coding Summaryon 10-16-2023 Coding Summary HTMLBase 64 XxgleovtSHo2fPw+PGhlY WQ+DR4HTEHdR59hiSVtiS 4rQ8JUCNrLIelwQYESICl HKiTuajBlCI5fgMTvKKUn IC8+QU4jPAGjFemddXKxm 1P7gWA6R47puh1lWIsyeU T1NFFrPrVcuomxk3fttHj 6IDcuNmluOyBt HOPkfI07FTV9vS91Vt41y TCdsJYie3ntzVs7AiYsXM RlVPR4rTnrSSwxc0EfOCZ hP84ylFNpz2T0 SIWuhBpjuPBaZzTsoUS7v X3pIFpbhahcc1wcbgcyEj p3fi85oJTwr1M4cNQ2F1L qrzY8NUJufPSg MtqhiYCNrU6cvjdyd7uqp txdYaBdEJPpMSh9LJf9MB SvvSjjKpMuDZ33QRM4AHX ztmEfV2TxXPNg oPhxIvI4v8Z5Ry5HZ8VWS wgcR2GYHJUQSHqapCD+PC 92wu59J2NiZtroUwt5FCY sPMF5dAO4pK6t ACEqGBcbr8F0rTO2F1Tbm qRfbj1cl6ylLFJpTUibH5 0hsMVfn7P8QEGbxDJ3CND wlGfcQcJdgE15 Oyc+WDSgrSphs8QrZizog 6ggg1ypkJl5HgshZOHyqb ZabEdzDBY5a2NsDz5vVVG aiFH8aMG7cX3u LzSiNrY7ISjtZ570DaAct XVlLqpiB46uC7RvlSQ+PH IzEiy1HWCgsRmaWL5lZ7S hZGRpbmctbGVm vSpfDI3tAEZlhxstEJKvz J7jUMGyI6e7NbCgZmR6ZW glJ5GeFLZqqnegUu67zE8 nRcCiQcJ6FQff B7FikbY3IOWlbFDiDZfnX GL1Q55tj4L0OIEbMSWiDM O0vFN8kT8enXwqqxaarIW mdDsgdmVydGlj JAljBTknH105DBBhbZmrM kNvZGluZyBEYXRlOiAgMD QvMjQvMjAyNDwvdGQ+PHR aCIY9nJpcLKIq cKGjMGwaZf7qwKodcJszN D4tZIXucnxbVBJtgV8fNJ MggRDnqChzAV2xXCBwyfx ri550IgZtEYL9 YJJgpYVaY9KgzQ1fUaXtV UKcMOUmB5GbsTJzYWtfG7 93MWkcNmU7KVIkwoGuR3L sLWFsaWduOiB0 a5R6Mw9Re5LcpjoeJ8Nmm SNbDdYuUorjBRn9P2CmTc wvdHI+AE42BQZmGY26KVq 1KQV9rLyjQMcs BECxB8QgnB1eYqYfYMWtQ GRkOyc+PHRhYmxlIHdpZH RoPScxMDAlJyBzdHlsZT0 oVl9wZRWuHRRf lBwqcPZaPkIps3kpLSPnK EcrIP0qmPrcM5GstFA2FY Swb8t7Pa63K20dE6KeiED +BWZshWX3rKR4 gQ9bBoDvKmM0QBqyQ643Q tPuzWEqUwywa9svw3rrdL t9DoO8TEBgrzBxsRhyOCU 5t3CqPn97F47i IHdpZHRoPSIxNSUiIHZhb Zaeag3aiX7hSj9+PGNvbC Y9iFP0qE0xQxOkVbK9CQa kO739WiBneVCi Ewqoq0ccn8xyzGf0FgWaE QXuzmJtuJmcDCT7l7XkTz 69I0YubOjya6YjKjw2yh1 1dQHqf5I4oPK0 V9GhHXUodtpclWRfzYpyO J6iVKSwlrluMMHpnA1sIP CyP3o4BoMnNtI8UYrzG0V bslG0AIOxtXVj HVWiuZWOgR4hspugl7wyx bgdDeKbIGTrHLe8QGp8NP YbmHcjBiZaZXP7AuT9EXK 9nATezV8mxJxw vsiulJ5yRrm+XQY3mCAbd XHIIJ5bGpmykAL+PHRkIH Y5uMihMKtyVVVgyA3tCZT rI9r0KnNpTfM5 MJabO5VbdtT9ZJHsjJMsM JEyjACCfP8sipvjb3iefm bqApEmXQKbCGx5YTx4HZP saWduOiBsZWZ0 GnQ0DLT3tCFxkU6cnShdz cwqmE0lKug+QmlydGggRG W2DNn7S8OeYcd9LRNstQh pAF4wzLLjMSwo Na1ryZffgAhgWN9mYYYww joid342JfOhe0okCJEhsX CpRNbiMZO8H42bf8F0ENI wIWAvWWT1sPZ8 lW3gdIqneoeetVKpaEajh tEkhXycLDboAOrkT017RV JdsEtxYtUzCEp2N2IcHie 5JHKbuImsOS4p eWHoXJtyQf8ghCtltFozT H1hYKPdwkxoz038ReWyi1 jwLPWvjTSqEGdcOJR0F54 vc5V0OSNdFDUl FCM4aSR7gM2mwTawvcdri GVmdDsgdmVydGljYWwtYW dcR971UEBkfJkkDeAncZf 7F6YsQam4OATd aWspKE7diVMeTWtvEl6ux DcsyDvsUZ7zUSRrrhhsd0 02CaYlw0rvGMRlzOSrJAc kXSH3F33dc9Y0 ZMDeDCFkJDT6dEM8sE9en GlnbjogbGVmdDsgdmVydG qqXCfvCDffE606WARqwUq nPlBhdGllbnQg RFnjBEf8V9XnDyhdoMY+P E11KGPiPH22cTIupFNcq6 jqaPr5WuSwDAFzFWH5aKm aRXdzs9ZdXLCb I25ehHClu3L9BSMybBtxy QLrZmBptHU0cT3pBJluzw mij7ojwtzlUhfvo4tvcp1 4bO29B36aYEko ZHRoPSIzMCUiIHZhbGlnb h0uvN9cFn9+GZKrlYF0yK M6zZ2uXVIoEmZ9LEknS07 9InRvcCIvPjxj o0pso8vvqGn2FsT2QRTgb yXgcWrwZEX3v4BiOv88B8 9sIHdpZHRoPSIyMCUiIHZ uuQucuv5zaX4h Ii8+KHHlzSR4rQW1cA2jM nOhBvT2QAxuX794JfDeeM QxYuygH01uF3HrvEO+PHR iMsv7KSXplNal SC2wdXQhLJqcKt8mMTS5P qUoUbFdHYgsE4BpSCEuqd beqopjdDG2SMDdIECmzL2 8Mc4fkPchRHAw aILCeQ7ejssae8jmldxhI yIzXGJvHCj0PPn4CDCjiB kyYhZwEOY5NvK5OFV9oCY bwI2llOttjnfg lL1iP9BrRHUkctziHf60m Z3oDgHxUeL4NVvoGlj+SE 2IWKFZPYfhOTRAN9ucGQi vdGQ+PHRkIHN0 lIyaXArjMUGieZ2eQFPzP 2q5IzFaVdX5JJjxR9GkTF BuigzeVe19hX3gUbSsVrH 5TMinJ9MiwkF2 BLXdsWXwETsiSAY9D91lk 3J7VDTnXIAzAIV2yAQ7oK 1hbGlnbjogbGVmdDsgdmV ydGljYWwtYWxp F304LYYhhPgvUiQeVqW6G mH5EdO6V3NwPpw2MXKifT ffQJ0yrFWlGUrnAv8xtFt brCpzWQ7tOZTo pwhsFMFzgE6gFOEwfLYxm MtaNR5aFNJkirfhl431Mi BjMQQ0MHCjhMHiO7IopT7 yOiAjMDAwMDAw I6CwxAXvYWotA953JLefO tT8OAObmcHwB5AiEYWqxX rjQxR4z4C2Ih49TCTPYLG yczwvdGQ+PHRk QGN3qPivMFmjELVbzP8eG XFmT0t0FvWkZbD5GGvxB3 HvFQJqzfprCe16iG4bImS wXwE7XPzxQ4Ae fzS0BWTzuHAhPZsmQAF4L 38dx2C7MOChBXGcDZS0cG J4gL7ggAwrlqrqxLDgfJj gdmVydGljYWwt UCucT077HPYxaVbaDzOSG UFMRTwvdGQ+YYLiDCF3wJ uiJJbgFJUseG8tBISkE9r 5RdRkRwX9OUzm D7QnDWUkshdsSw56iL5uM aGoMhF2PQsyP8TgeuJ7HM IewPYaUStvNYY9V57ez1K 7JUSyYHWkKJM2 rHT7aJ5ogVqmvjitlVFws DsgdmVydGljYWwtYWxpZ2 41SOKxbTfaBaUfW4Sbcjt uZyBPdXRwYXRp ZO88OT49LK79X6CaYuhgn GFibGU+PHRhYmxlIHdpZH RoPScxMDAlJyBzdHlsZT0 nGa9vULAyGTEh kFxhkTPrCnFrn6wwPOQmU GzzSH5sfTclT1JmuSA0CL Ric7z8Zu73S27dS1BxiAN +MQLxzQJ0zEU4 hM5lSgPxJhM8PFfaN359R lNeiYIrRehcu7tgb6fekB i1HcQoOQAuimPosEgvVMS 0b6MsYk81I03w IHdpZHRoPSIyMCUiIHZhb Eijkz1txW2pIi6+PGNvbC E1mUH3xX9hXzBzUeU4SFw wU233PuEqlJTr NrpgP39aE6PuhLD+PHRyP bs2CPYtyZawBG4roMNlOW wuDt2jCTW5MwCsMoNjUSq fS0IuQSHyulyw cyvvmBW8CWEaDHFfwV41K j9cuQmjGz7lZEQvCML7ZX MwrVCsL6WtqI8jNlXuBMB uJSUpZ8YifEFv XFsrD804LIukKiI5HGBse lRwS1VsZQJorLeuFbV8z9 S6Mv9HxLecbQOpQG2dHcK eWSp0W1PtSba8 KXNfbYwdKQ7eiOHtWIuxT i8fjMfmiBzjLV7cZPSlyx aus646SuWfo8hrFISaaYQ aWPybQHQ6V15d y8K8ATHbOHSaCWD7gIG3k K5heDzpdqxnbJEcmNvfpp PavZwhRJeeRBhdQ959KXR vcDsnPkZJTjo8 A2SsVzw8XHJxcCvgDL5ko MZwPHwaAx4suBuslIfaKB 5gKCFgtryfe482PnXih2j kIDEwcHQgVGlt GVB5E22mn5D5JSRhHCKmZ GS5gLL7iH4wnEhviutjpL VmdDsgdmVydGljYWwtYWx cY860VETesPmc Nf5VLlh1K2OnPzn0NYGgh QajWE8dpVPdWXipQk3uiP cdjWloCZ3kCOYxubpwu51 2NeZxc2teIHUb uHPjRLmcCFY2E74co8Y6Z CLcLIUoWUV6kXY6jC5ktS lnbjogbGVmdDsgdmVydGl lUAgbZXxlT610 IHRvcDsnPlBheWVyOjwvd GQ+SC79qq64L8ApVrvmPe v9URPmTQS1wDT3yV1xFBT eHUror8D1uUN8 J2J (more content not included)... [facility] Coding Summary HTMLBase 64 MpxsbuunXWg0wLd+PGhlY WQ+JI2QXPXsE38uaNKdtP 0lY2SANAjKPzqsMFUIJDz LSoOltwOeIJ8idWVgQVJw IC8+XS4xUAHkJaszxRLwk 3B2qUC6Y98rlw3dHKzybY T8VOTsQgXnhorrb3eieCn 6IDcuNmluOyBt XJKlqN53GWD0hE11Ym66a SSraLIqm8ywtQc6RdVkRN XlAKP4mMfzXKxlj2TwZXD rB36zlSPmo9M5 LKSwtNaboXKyZyLabCT1k L5dBPokdunxw7oywgzaKj r4cj86fJRcb1X5kJR5A9J praH0CXVwaUNq DjgzkXUChF0ajjuma6mkn affSzMlXWHwKHq5PZo8XI MhcViaXgAhWY38DQM7KOH ikoDvJ5PfVRVv gWsgAeZ8r3H6Aq9UP9DMJ uwmX8SVOILWGAqmyZN+PC 36xw43M4WjKryvUus2DCX kWUW5eFK1uR5e THDbBHhak9Y9xZA8Z9Xtb uGtzj9ki2qxNNBdLKrlV1 9nsWZcb8T7ZDHwnWR5MBC xkYorOrSuqQ77 Oyc+KKCakZhmk4BoPmcjw 1pww4mtiNo2LbdfJJRbob EkcOdrQVV1r7WfZc7sXLB njDP6eOX0uY0q VyKoAtQ2BQdaZ638KxTqg RDkQncyM87nL0AeqCN+PH ReKde0PMHxoAtiOK5lA5T hZGRpbmctbGVm eGdmAF1cUOCzkjhkWECva V5bHKVpC4b7FnLwBeA4XP ldJ9NcMUJgpexlQa11jR8 iFgKkHvS2UKus J4HdupA3HKGryLKeIDjdD ZY3V64yi7O8UJFdNLZbIH F7kEX9tS5seDtvdmxzpGY mdDsgdmVydGlj TQnkPSzgM107XDAmmOamB kNvZGluZyBEYXRlOiAgMD QvMjQvMjAyNDwvdGQ+PHR vKIL9jPpeTMJr kLXzLTtqEo6ipAvwfZukQ C7nHMYixchnWBJduV9aYD UpuEXfjSzkJO4vVHXfkdx lc630OvLgPFS9 XFVlkNJlH3RoiK7eAxCbZ HSnFYVnK8SplHRfIHscZ2 54AVxzUzS7COPhyySfG0T sLWFsaWduOiB0 r9Q3Ue1Il1QvwccxC6Ian RPbMvLvYacvNEn9C1CmIj wvdHI+VF67BWQqXL73IBl 4QGG5vKohYXrl SJDoT4ExiD3wBcAoJEQvG GRkOyc+PHRhYmxlIHdpZH RoPScxMDAlJyBzdHlsZT0 sFi3hDLDwVEFo rQxsrDZoGnUxl2kcSHHfJ CitCE2kyHgbX2JpqNX5JM Zqh1m8Bb71C82iR3IyiRK +QENvyAZ1fGG6 yB2nMuBzOzZ9PPagH170I uDsvSDnLzemg0yhl7qohD p4KdL9NFYoiwNnkOysEMR 8m3ClZm40X97y IHdpZHRoPSIxNSUiIHZhb Pfczu6ngO4pEf0+PGNvbC K2mMS9fA9wMfWgJlL8YDe tU657AbEogPOu Ebjbb9isk1efyHr4McVdZ QCkqzHagPujHWB1i2QjKy 59A4DrvLuhe4UhYpu5mn0 0qKQzp4C2kXP1 L3OsCWZgqrgfeJDogGgrS D3jLIImqsvtPKXlgM5vMT OvN0m1AnZfVnM4QGuiU4G dfbJ7SWZyjMFd LLCmlPCQyI9ihpevq3pzn ktdIyHyTSLwNHr7KLh1BR UhhItiByEtAYY9OnH2DAB 8mKKliZ6uqKuu uirbvZ1lWfi+NEY4yUIqs AISTJ5zJbvhhJI+PHRkIH B1jXnxXLoeJJMcqX8rCPJ hV1h8SmNpZaW1 HFqnN6DskuZ6DSOndOUuW GQnsLCDtF6tfovfn3sgou mqUtYeUMFzGIp6GSb7BEI saWduOiBsZWZ0 EtE9ZSA9jGVafT7zwDbdj pvhkY4dPrf+QmlydGggRG M1VZd1D1UjZwn0PHBgqWo kBD3rxUTeZWsm Pz7ctTfzxZgpRL4cINMav lvte142TrYtp6qeZKSxiX HtVIusKTO3J38ly7U5WGJ qZNDgBWM5vDR4 aE6rxBrvyhhzuMYneBaph mNgxHfoSEciBInvQ653AZ EvqKjqAnAlUHq7N7RuIzc 3RSEcpJmpXR0b xFHzPDmzBf3wjTmqzDgcR F3rVMReriuns117OpGux9 lnVZMkdHTqLNjdOLI6U80 rb7L3CDPnTKHe GJU6bUC5xJ7hsJvvketda GVmdDsgdmVydGljYWwtYW ugS788YQPyiSsjGvTchNl 3A9RiCth9MAVu qDhxPT4rcHXtIJxxBn7wh WxxfYsrTR8wEMIbvusuq3 53MmKvp4mzFUIcvMWiLLq eXHW6S40tf7H4 NMXcFURkZCA7oBM0kI0bv GlnbjogbGVmdDsgdmVydG vuHCycENweM956XEJtqUt nPlBhdGllbnQg JWbvKXo4P3NiEsmmrNB+P K76TIKwCO94vWYzcAIqo8 fsrBd3FxMaNWNtCEL2vPm zTTgry4RpEVVo O08ftPTqq8O2BTSdjYfgf ZRuOnFuyGY2uI6aJFpkfk ebm7sorsxvKkavc4kulp8 4xS04B27gWKfz ZHRoPSIzMCUiIHZhbGlnb g9pyX3uLr8+OYZiuZK3rG S7qZ3gPYVkOiL2JTauQ24 9InRvcCIvPjxj v5amd1opeVd7GbS3WYDsq mMmuOtvDYI0t6TsMe96Q7 9sIHdpZHRoPSIyMCUiIHZ zxZtigv5mzG9b Ii8+HNYrrVR5eMO1kG1mG lPuIqJ5DEwpT006KjIxcR ZnMufkM01oI0SmwGQ+PHR gYrj7XJJrgJpf RM1kbOFyZSykYg5mJJY1Y fWaZaBjRLwlK6JjCPVfyj xxbjleiHB7WVPvKDVipX6 8Qp6ktUuzQCJo oFTJeM5fymmdi3unxwzfM zEgAKDjWRd0FMq5LNHglP bqVnEaOWD3XpV9GLI8xAO jjT8ngWemjkuh sK0fS1KfUTGjokbaQd79t D2vYvPqPnE9JBvwFce+SE 8JFTGHWBdqCOAUS1lxUDf vdGQ+PHRkIHN0 bPetWZajYBQftW5yPDGcF 4w9VzAjMtN1HWvwO6MmXO GigbgnXz49vT4aMtDyUhH 3VTdoA7YxwdB7 SFTniHDlOJnxDBU9R03vn 1Y9COKyXWTsZTK6sLP3xE 1hbGlnbjogbGVmdDsgdmV ydGljYWwtYWxp I528EQQffFkrLlCvSrB7F tX9JbZ7X0DdUqh8XFDkpE isIR8pvCMhWFzlKy6vkIw wdSwpTN4cCLIc uodoSJBkyC4rYLJxzOIyu XihHJ8kJGVqqvkbd376Mc MaMLN5AELjmDUhI8ZviZ2 yOiAjMDAwMDAw J1LtwEQsZJwxS681LChgE xJ9FSPfprSnR8IiESRteW poSqU3q2Q7Qe58RFJYYKL yczwvdGQ+PHRk KNE7yKbjUVncMXYefF5hK ATrK4u8OjNxCdU4VLztG6 OhVBPqzpaiSr36mM2vEwU gPjJ0OFchQ7Lu avQ4WIDpwZVuDTwcFNB6J 60hw6G0RQVaUVJbEYN4oM N5fB1bxIpsooudhBYvgTc gdmVydGljYWwt YOvlY611BLQoxCugEoJLU UFMRTwvdGQ+BHLkOBS2qI qiBYyzSGNevS2vQASwM9p 9DrGiYjP2MYzs V3XeOOUdzownTs28rD3tE lIjCaZ2NSdqV6FehsA9WK KjtEJoHUlfECM9V34py2O 2YXKcBAJzGXM7 lNY7eK8ojZsbldzbxDCdf DsgdmVydGljYWwtYWxpZ2 94VATieHboXrIlD2Utbhi uZyBPdXRwYXRp KA13KA91FF14G5EgGvgrq GFibGU+PHRhYmxlIHdpZH RoPScxMDAlJyBzdHlsZT0 rSx8gAMBdDOFh bTwoqUUmCgKtu2vvAKZxV CxzOY0igIkuS3DylWB4RO Hll8u2Gk83V49pJ8VesPJ +UBZooCL5zJF2 iV8rRgDkHeF3PLrsY355P mTrkEJfFgesd4xgq7weaR n1YoXxGKHrgqVmmJmlYKK 7j7MyWb17V84p IHdpZHRoPSIyMCUiIHZhb Mxbct4zbH0jMk9+PGNvbC K7eLV3hY0bNqXkDcJ6YHk nI360ZpXroTLl MhzfE78dT6TlpTH+PHRyP lk4INDmjMllHR9iqTVrCT daDt4nKJA0SoSwFiDaLXh hK0UsQWMkmqvb deqypAM0FCMjOUHieX25R n0umOfkGe0wAICxKAP0KJ SotGRvK4MdgL0lQhHxJBS vDXAoQ3AqeWUl QQdyD596GTkuKjL7UIMzf xKtH3CuOTEisJfbFzM7c5 Q3Ca5GoJuqqNQfBE4mXrM uVJe6O7UyWns0 SFVehBubFY3vgRCcZGxaE r9qtYuzlKyoBB9aPBJgmg ydo384IsArh8erGTSvwWN iFGkoYFT2P43s a3L6RGNrFDKaFXV9jZE1k L0ysRehmglzaGOaiLnezr TjeRpoRVycVUpbX609MSP vcDsnPkZJTjo8 A6MiHji1DRQdqGjiVA7fb BOmMYvpEv4jkCqppMsjGT 0lZVVkcsrjg677DaRjp3y kIDEwcHQgVGlt KIF1E43ik1C3NMZkTLQoD ZJ9dKM7nD6vkWfkqurphW VmdDsgdmVydGljYWwtYWx qY888FLJyzBrb Li1MGpf4A6KcJea6EJMrd XdpKL9uzYNtEFhpWv3nhG epwQwaJZ6hKNGuqbcvd40 2NnGbx0lsFKDc mUIjQEhfRXY3I25rj0Z6V WSsBCEhJAV1rBT7sG2mdY lnbjogbGVmdDsgdmVydGl vCDtyZXtqB028 IHRvcDsnPlBheWVyOjwvd GQ+EU51aq09I8QjEzjhBd z4ACWpVVZ6kRW5aF4mZIQ wOJkrp3Y7bQK7 J2J (more content not included)... [facility] Coding Summary HTMLBase 64 VrmdoeffBBe9jMf+PGhlY WQ+TH3IENPbZ53drLAlcI 7qX0TNPErNLifjHXIOVEd HVvGpcdPpKQ3gxDRkBODh IC8+GS8vUBDqAybijMFgq 5Q2tJW9A96qfx1jIPeogG O2LBPnOvObyljyv9pcgKw 6IDcuNmluOyBt BETqzC95FST0pV97Kp72s XYqcBRbz4wbaQk5KnVhWN NuEKV8nSgePKncx0NtJXJ cA98ptJAhj6D7 SACrvRncoDUvDyEvdGX2e B0gWMhknywem9sootaoMj f5jn30oSDyk8A4kSN0G1D daeU4PYRutXIu CpnbyAFAoY6incbgr5vjg kkjVfIuSVLcKKq6FEb9XF JirCiqJbKhYI14OSO8AAG loqCfA3TcHRKz zVglWsI0f8T6Ys2KY9ZWZ nuuO0EMSCQMZGikyQU+PC 35ju25L9MeDodrYcp1HCB xXBM1vRW3qJ1a YQDpAKzka6R1uGR0X3Dyy oEvbj3xp7amESIaFWbnU0 4ljXUte2V0LEKbgEZ5YOV ywYoiXzDavN65 Oyc+IWWbsQphx1JgSqdmf 8shx2nwnFo4DsquFFEjyw GjxSygLEZ0b8HzAr3mJFM izFK4dKQ6kO2q QsFzLxC6JKrdM248FiNop NAoZqfpD07rK7QmyAL+PH UyVzf2TRSrgOkuIC1yM3Z hZGRpbmctbGVm rXiaUS1bWSTcsvkzUDDsl Y4bYEYvC5p1FiKbZaK2TM npN0UjHTMrekryRm49fR9 zYmMtAgF3HQvu V3IkvuS7FKUiyFXwYYbnN PT3G56rq9C1VBOcGJUmSI Q8eBN2eD0qwVjpdccfvGB mdDsgdmVydGlj PMcjGFsaH938PBAscKeeM kNvZGluZyBEYXRlOiAgMD QvMjQvMjAyNDwvdGQ+PHR yAGB9yPweFTXr uTJjYYnsWt1owIqekKfmW X0kBPGyltvzGKBpwS7qTE WqlBNvlRabUK6pGRZzyyu nj312TuWwQOO2 YAAaxRHfF1EtgI2mDgOqF WKgXJYoP5DshSQyQQsaW8 33FJtcGnR9MNEvxvFfU4Y sLWFsaWduOiB0 z6R1Yx3Sw6MonurzI4Ejx ULnCcNwNuiiNFg4O9OnAv wvdHI+HR31HYKoKP73FWj 4WRP9yAmgPLhl HLApA3MuoD3kPwXjESNnC GRkOyc+PHRhYmxlIHdpZH RoPScxMDAlJyBzdHlsZT0 lKo5vYOSmMFXv aGafqYQhBrWpb1qoUHKdN VzuFZ0byZniK0WomBM1ZO Hoq1w1Gl44R51uN9PexGW +SDZxeJB4hAD2 mT4uJpYzRmQ1ROpyF132K zDryFXgSeiut8dcw0jrlX n6AqJ6WXFetcTrcEvsWWT 6c1YbIz41U02j IHdpZHRoPSIxNSUiIHZhb Iujga7znQ6iZf3+PGNvbC A1oWS0hM5oEsHxBmR9VDo bG687FfPioXMw Mlqas0moj2srrBv4NtYzI JJggaZlyMzzNGF0p6OaIm 57O8WapKohh4DtYbb8ff8 8jRBsm3L6fIY8 Z2NuOVZycejhyGBbmGekZ J1uKMMrnwbiLDLkuC1sYB InE8b4WyTyNdE8TJfnS9P rvvG7YPGovQUe IKUxcGHYhX6zqkpvb7dor naqRlLpBRFaDWo3UDf8WC XzoUawPeMwPKA8BcR6ZHN 0tZHsyW4bxJgo hxmfyI1fIvb+TPC8hCYob OWQSF5sExvsfCA+PHRkIH Y8gCmqXVdnCQZhhI9vUOD dN5k2PqNeFoP6 MOxqQ7HhygD4SDDgoNRpE OHybOXVeE5tjixti9zknz jgIvNjJJOhAEo9DCn0IPA saWduOiBsZWZ0 AhE7BSU7hNPpdZ8ntCprd qkubF8eBva+QmlydGggRG E8CAg0K9MtTpn9XRHofKx fLQ0gwOIhJInx Mt4bxHpxxCmwDY0rYTTir wkjy796XvIro2zpGGHopC AfQHycUSB9H33kk2Y9QWG qIELjVLA5zZK5 pB7epVvygbhqzTIqxLqsu sZgfVidXYgdPHsqM943WZ ClwVgbMvUgHPh5G9CdArk 1RPDbvSisCB0x kMFsZVpnHq7riMbkvWbeV T7nXROjuyzyb191VcXdu2 usMVKcoRRjCHmnGXY8W60 ez9H5WXKlAXOe SVU4oMW2eL5evCbedkmgr GVmdDsgdmVydGljYWwtYW llS034HJXmqMcuNrNclOe 5E0IzXof2ERAr pCpbBG0fiXWmQNhjKe5za FiwfWcqMV5rRCNwycqwf2 11CmFcc1gmWNPahXRcDYt zRXI5O18cm1X7 SLYrUJXyOME3iRY3vC7ey GlnbjogbGVmdDsgdmVydG ouKIbxJXrdS684PUFugKh nPlBhdGllbnQg IFmcKTe3N5ZkBlysmZT+P S15NCErNF90lJXmpOHgf0 euoTs2ItTnSDAmILE8dPs lCFdoa3TpGBAc X97umMFed5V7EKCsgGiyc NDrCtQbyUJ6oJ9fGEcvfh qzt8zbemabQdjkg6frgp5 8dE13O32pWIgd ZHRoPSIzMCUiIHZhbGlnb x1toJ9jMl0+FEZtcGY8aV Z5wG2tVIJlGhL3XBynJ54 9InRvcCIvPjxj k6gxa8sgzPz5NbO1AERpi dFohPlnEMN8y6WhYz82J4 9sIHdpZHRoPSIyMCUiIHZ hqPigwa6woD9m Ii8+DWApnGZ0bUO7oZ9uB zQaGdY0CAipT508ToYslR OtJbivS44hI7KulLD+PHR gUnd5BPNfwPsa IC7nyAYyMZbmEr1iANL1R kXcKgXmGKfoO4SiGRKznj vgxuprzHY5BSWwUDJbiK7 4Ks0cvLmoEBNr cESSsK7cqzmql4zoeottX zAaCBJiQUs8HZe8QIBtoH ulCpIlACN0TzD4LSO7gQU duN0ygZrwebis oW8lA4TuEUNhaapcZb03j L2uAdNhOnD7VVntAxc+SE 6UNGLXRZwzKTMYM5fhOIh vdGQ+PHRkIHN0 aLvrDNeoNZPihK6kWIKzC 5v0UjNzYoU3CZtfC6MvJA YklgzpYw79qN1fAqAxXaE 0RWpyN8JahfX9 RHIjwZNiBSsgWNM8G78rs 3M0WLAzAKFoZAF8bZC3kI 1hbGlnbjogbGVmdDsgdmV ydGljYWwtYWxp N393OBRclPbjEwKcXzR6M xG0WxC9U5EsMls1ASRmvU mbJU8fmMVfBLwsSo0ckBe jbVjqQZ8dNWWu ldghOQZzbR0yHDVxxYStp EelHS8bKHPzjezpg092Uo ZjSJK5VCYdaWAnL5PsqX1 yOiAjMDAwMDAw A2GflVNxKFfyC612EVzdV xK4ASNwlkJyT7GsYSJibF tuBfL4k4D8Hi22SVQJHUS yczwvdGQ+PHRk XRO5dEbrURuhJOWbzY4uY FPlS7s8QcUlKeR9YIgbD2 AhBKZrhjelSx55yI2gOuN cCmQ5ZSxkL1Jh svZ6JZPqjVNbFUqqTNH4N 89eb0J2ASMzTJQwGFO8fY Q7bS2ooGebqusshPUtxLb gdmVydGljYWwt YNemE271HWAgtUmjZnDMR UFMRTwvdGQ+LWFqGMC2wD kdDKeqQOOglU5fUONmL8b 2MqIyLlM9LDbg R9TwDBJrcpizNt51jW9vA hTpTbV0DIujE6MdvcC5HO GznEIjSTxzFSL4R73op4K 0IAYtVJHsWJD6 cIF6pC8ehGdbvzhyiIJdn DsgdmVydGljYWwtYWxpZ2 01TQFjjIzfKsVtR3Bfipv uZyBPdXRwYXRp GY61XV88CT02M7BiXxcgb GFibGU+PHRhYmxlIHdpZH RoPScxMDAlJyBzdHlsZT0 tIw1kBQDdQCBj mOhxlBLiXwIvr0pdWDIcP BqdYR7kbNpzC0JofXV0MH Zck0u4Jj62V97yN7CfbXU +GSDmbPN4sLU2 mN7xTzXrCeC0VXwgZ583N dIfbNVcXedeh5cdj4ghdG w2NiZiOQXvqoLolEmpBLP 7l6UjHp49A68i IHdpZHRoPSIyMCUiIHZhb Iurev9ykR6cAv4+PGNvbC E1xPL7qE5uIkIgWoN4NFu uC094JzXesCOk ColnV66aS5NwzLD+PHRyP se1NZKohPcsPX9inCHcOC ihZf1aTSL8HgSwEePpSPk hZ0GuHSDjlcux aunofRJ2GRYkRUNjwP67U v4jmMpfEs5rWUSuEZS9SB AnsSHvR8CeqS8uTaYjPSF sGTVwI3AxfHDy RIqpM465IRrgLkJ5XQUyt fLfX4JiAVCrvAxcSlF0r5 H8Uo2MqKzykMCbPF8yPaW yFWp3D3MsDec3 TTVhcQvvHJ5kfYTgJNojQ l9vvRmknDhrBG9iTMSuwo hhm860LnVlt6mvIMMhyGQ aTUpeLEC1Z00y w8A3FRLrTCFcQVT2aTM6l N5bmIvdupadiZSpdCpovr VmlOchCOxtOOvcY591CWS vcDsnPkZJTjo8 W3WyBta1VOFldFemCK8ic UAwVPjuRn4axXlngAecHN 5nWIArdkwds682BvSuo2z kIDEwcHQgVGlt HCU4X74ww2R1GGUnXHRjR MN0fVC5lS0wwJmrdxkxpF VmdDsgdmVydGljYWwtYWx nO426CBQleHlf At0PKii8G2DeXyu8DALjt XnfAL3odKRfXHtuRe9dvV lkjSfkDL9wBESyrjfvj24 5SgPnq6txDJYe wBXiQDmeTJK8Z33mb0N2X ONsBTCtULG2iFQ8gO1irH lnbjogbGVmdDsgdmVydGl nYLalWWhjC134 IHRvcDsnPlBheWVyOjwvd GQ+LT80xl00V0HhTyggXz u8JKJlOTT5rGZ6jE0nRCH mTJiey8O7qID4 J2J (more content not included)... [facility] IGP,APTIMA HPV,AGE GDLNon AGE GDLN ACOG TESTING Note . [facility] Comment on above: TESTS RESULT FLAG UN ITS REF RANGE LAB Clinician Provided Cytology Information Source.............Vagina No. of containers..01 ThinPrep Vial Age Algo ACOG Ayleen... 30 FLAG LEGEND: L-Low Normal,H-High Normal,LL-Alert Low,HH-Alert High <-Panic Low,>-Panic High,A-Abnormal,AA-Critical Abnormal Performed at: 01 =[address] [id number] Mary Irwin MD, HPV APTIMA Negative Negative [facility] Comment on above: This nucleic acid am plification test detects fourteen high- risk HPV types (16,18,31,33,35,39,45,51,52,56,58,59,66,68) without differentiation. Performed at: = - [address] [id number] Pump Machine Operator: Mary Irwin MD, Phone: [phone] Performed at: [address] [id number] Pump Machine Operator: Mary Irwin MD, Phone: [phone] IGP, APTIMA HPV, RFX 16/18,45 Note . [facility] Comment on above: TESTS RESULT FLAG UN ITS REF RANGE LAB DIAGNOSIS: 02 NEGATIVE FOR INTRAEPITHELIAL LESION OR MALIGNANCY. THIS SPECIMEN WAS RESCREENED PART OF OUR MEDICAL PHYSICS TEACHER PROGRAM. Specimen adequacy: 02 Satisfactory for evaluation. Performed by: Sunday Juarez Auto Technician Mechanic (ASCP) QC reviewed by: Spring Stinson Auto Technician Mechanic ([facility]) . 02 Note: Note 02 The Pap smear is a screening test designed to aid in the detection of premalignant and malignant conditions of the uterine cervix. It is not a diagnostic procedure and should not be used as the sole means of detecting cervical cancer. Both false-positive and false-negative reports do occur. Test Methodology: Note 02 This liquid based ThinPrep(R) pap test was screened with the use of an image guided system. HPV Genotype Reflex Note 02 Criteria not met, HPV Genotype not performed. FLAG LEGEND: L-Low Normal,H-High Normal,LL-Alert Low,HH-Alert High <-Panic Low,>-Panic High,A-Abnormal,AA-Critical Abnormal Performed at: 02 WB [facility] [address] [id number] Mary Irwin MD, SPATULA-ALONE [facility] PAP ACOG PANEL 2: 30 to 65on 08-06-2022 . . Normal [facility] Comment on above: Result Comment: Perf ormed at: WB Performed By: #### [id number] #### [facility] [address] [address] [address] Grace Frank Age Gdln ACOG Testing 30-65 Normal [facility] Comment on above: Performed By: #### [id number] #### [facility] [address] [place], [place] [address] Dr. Grace Frank DIAGNOSIS: Comment Normal [facility] Comment on above: Result Comment: NEGA TIVE FOR INTRAEPITHELIAL LESION OR MALIGNANCY. Performed at: WB Performed By: #### [id number] #### [facility] [address] [place] [address] Dr. Grace Frank HPV Aptima Negative Normal Negative [facility] Comment on above: Result Comment: This nucleic acid amplification test detects fourteen high-risk HPV types (16,18,31,33,35,39,45,51,52,56,58,59,66,68) without differentiation. Performed at: =G Performed By: #### [id number] #### [facility] [address] [address] [address] Grace Frank HPV Genotype Reflex Comment Normal [facility] Comment on above: Result Comment: Crit eria not met, HPV Genotype not performed. Performed at: WB Performed By: #### [id number] #### [facility] [address] [place] [address] Dr. Grace Frank Methodology: Comment Normal [facility] Comment on above: Result Comment: This liquid based ThinPrep(R) pap test was screened with the use of an image guided system. Performed at: WB Performed By: #### [id number] #### [facility] [address] [place] [address] Dr. Grace Frank Note: Comment Normal [facility] Comment on above: Result Comment: The Pap smear is a screening test designed to aid in the detection of premalignant and malignant conditions of the uterine cervix. It is not a diagnostic procedure and should not be used as the sole means of detecting cervical cancer. Both false-positive and false-negative reports do occur. . Performed at: WB Performed By: #### [id number] #### [facility] [address] [place] [address] Dr. Grace Frank Performed by: Comment Normal [facility] Comment on above: Result Comment: Eloise Harris, Auto Technician Mechanic (ASCP) Performed at: WB Performed By: #### [id number] #### [facility] [address] [place] [address] Dr. Grace Frank Specimen adequacy: Comment Normal [facility] Comment on above: Result Comment: Sati sfactory for evaluation. No endocervical component is identified. Performed at: WB Performed By: #### [id number] #### [facility] [address] [place] [address] Dr. Grace Frank CBC AUTO DIFFon 10-14-2021 BASO # 0.0 103/ul Normal 0.0-0.1 [facility] Comment on above: Performed By: #### U MICRO, ERUR #### [facility] [address] [place] [address] Dr. Grace Frank Basophils/100 WBC (Bld) 0.2 % Normal 0.2-2.0 [facility] Comment on above: Performed By: #### U MICRO, ERUR #### [facility] [address] [place] [address] Dr. Grace Frank EO # 0.1 103/ul Normal 0.0-0.7 [facility] Comment on above: Performed By: #### U MICRO, ERUR #### [facility] [address] [place] [address] Dr. Grace Frank Eosinophils/100 WBC (Bld) 0.6 % Critically low 0.9-7.0 [facility] Comment on above: Performed By: #### U MICRO, ERUR #### [facility] [address] [place] [address] Dr. Grace Frank Erythrocyte distribution width (RBC) [Ratio] 13.2 % Normal 11.0-15.0 [facility] Comment on above: Performed By: #### U MICRO, ERUR #### [facility] [address] [place] [address] Dr. Grace Frank Hematocrit (Bld) [Volume fraction] 41.4 % Normal 36.0-48.0 [facility] Comment on above: Performed By: #### U MICRO, ERUR #### [facility] [address] [place] [address] Dr. Grace Frank Hemoglobin (Bld) [Mass/Vol] 13.2 g/dL Normal 12.0-16.0 [facility] Comment on above: Performed By: #### U MICRO, ERUR #### [facility] [address] [address] [address] Grace Frank IG # 0.03 10e3/ul Normal 0.00-0.03 [facility] Comment on above: Performed By: #### U MICRO, ERUR #### [facility] [address] [place] [address] Dr. Grace Frank IG % 0.3 % Normal 0.0-0.5 [facility] Comment on above: Performed By: #### U MICRO, ERUR #### [facility] [address] [place] [address] Dr. Grace Frank LYMPH # 1.3 103/ul Normal 1.2-3.8 [facility] Comment on above: Performed By: #### U MICRO, ERUR #### [facility] [address] [place] [address] Dr. Grace Frank Lymphocytes/100 WBC (Bld) 11.9 % Critically low 20.5-60.0 [facility] Comment on above: Performed By: #### U MICRO, ERUR #### [facility] [address] [place] [address] Dr. Grace Frank MANUAL DIFF REQ NO Normal [facility] Comment on above: Performed By: #### U MICRO, ERUR #### [facility] [address] [place] [address] Dr. Grace Frank MCH (RBC) [Entitic mass] 28.6 pg Normal 26.7-34.0 [facility] Comment on above: Performed By: #### U MICRO, ERUR #### [facility] [address] [place] [address] Dr. Grace Frank MCHC (RBC) [Mass/Vol] 31.9 g/dL Normal 29.9-35.2 [facility] Comment on above: Performed By: #### U MICRO, ERUR #### [facility] [address] [place] [address] Dr. Grace Frank MCV (RBC) [Entitic vol] 89.8 fL Normal 81.0-99.0 [facility] Comment on above: Performed By: #### U MICRO, ERUR #### [facility] [address] [address] [address] Grace Frank MONO # 0.6 103/ul Normal 0.3-0.8 [facility] Comment on above: Performed By: #### U MICRO, ERUR #### [facility] [address] [address] [address] Grace Frank Monocytes/100 WBC (Bld) 5.5 % Normal 1.7-12.0 [facility] Comment on above: Performed By: #### U MICRO, ERUR #### [facility] [address] [address] [address] Grace Frank NEUT # 8.6 103/ul Critically high 1.4-6.5 [facility] Comment on above: Performed By: #### U MICRO, ERUR #### [facility] [address] [place] [address] Dr. Grace Frank Neutrophils/100 WBC (Bld) 81.5 % Critically high 43.0-75.0 [facility] Comment on above: Performed By: #### U MICRO, ERUR #### [facility] [address] [place] [address] Dr. Grace Frank Platelet mean volume (Bld) [Entitic vol] 11.1 fL Normal 9.5-13.5 [facility] Comment on above: Performed By: #### U MICRO, ERUR #### [facility] [address] [address] [address] Grace Frank PLT 247 103/ul Normal 150-450 [facility] Comment on above: Performed By: #### U MICRO, ERUR #### [facility] [address] [place] [address] Dr. Grace Frank RBC 4.61 106/ul Normal 4.20-5.40 [facility] Comment on above: Performed By: #### U MICRO, ERUR #### [facility] [address] [place] [address] Dr. Grace Frank WBC 10.6 103/ul Normal 4.0-11.0 [facility] Comment on above: Performed By: #### U MICRO, ERUR #### [facility] [address] [address] ABD/PELV W CONon [...] Nonacute findings as noted. Electronically authenticated by: HIRAM CLARK Date: 2021-10-14 00:11 Normal [facility]on 09[facility]23 SARS-CoV-2 (COVID-19) RNA JONN+probe Ql (Unsp spec) Not detected Normal NOT DETECTED [facility] Comment on above: Result Comment: This test is not yet approved or cleared by the [place] FDA. When there are no FDA-approved or cleared tests available, and other criteria are met, FDA can make tests available under an emergency access mechanism called an Emergency Use Authorization (EUA). The EUA for this test is supported by the [place] of Health and Human Service's (HHS's) declaration [...] Performed By: #### U MICRO, ERUR #### [facility] [address] [place] [address] Dr. Grace Frank INFLUEN[facility] B [facility] 10[facility] Normal [facility] Comment on above: Result Comment: Nega tive for Flu A protein angiten. Infection due to Flu A cannot be ruled out. Flu A angiten in the sample may be below the detection limit of the test. Performed By: #### U MICRO, ERUR #### [facility] [address] [place] [address] Dr. Grace Frank INFLUBNEG SEE BELOW Normal [facility] Comment on above: Result Comment: Nega tive for Flu B protein antigen. Infection due to Flu B cannot be ruled out. Flu B antigen in the sample may be below the detection limit of the test. Performed By: #### U MICRO, ERUR #### [facility] [address] [place] [address] Dr. Grace Frank INFLUENZA A AG Negative Normal NEGATIVE SEE COMMENT [facility] Comment on above: Performed By: #### U MICRO, ERUR #### [facility] [address] [place] [address] Dr. Grace Frank INFLUENZA B AG Negative Normal NEGATIVE SEE COMMENT [facility] Comment on above: Performed By: #### U MICRO, ERUR #### [facility] [address] [place] [address] Dr. Grace Frank INTERNAL CONTROLS Within Normal Limits Normal Wi thin Normal Limits [facility] Comment on above: Performed By: #### U MICRO, ERUR #### [facility] [address] [place] [address] Dr. Grace Frank LACTATE/LACTIC ACIDon 2021 Lactate [Moles/Vol] 1.0 mmol/L Normal 0.4-2.0 [facility] Comment on above: Performed By: #### L ACT #### [facility] [address] [place] [address] Dr. Grace Frank LIPASEon 10-14-2021 Lipase [Catalytic activity/Vol] 47.0 U/L Critically low 73.0-393.0 [facility] Comment on above: Performed By: #### H STROPN, LIPA, TSH, CMP #### [facility] [address] [place] [address] Dr. Grace Frank PROF 14(COMP METB)on 022 Albumin [Mass/Vol] 3.3 g/dL Critically low 3.4-5.0 [facility] Comment on above: Performed By: #### H STROPN, LIPA, TSH, CMP #### [facility] [address] [place] [address] Dr. Grace Frank Albumin/Globulin [Mass ratio] 0.9 {ratio} Normal [facility] Comment on above: Performed By: #### H STROPN, LIPA, TSH, CMP #### [facility] [address] [place] [address] Dr. Grace Frank ALP [Catalytic activity/Vol] 85 U/L Normal 46-116 [facility] Comment on above: Performed By: #### H STROPN, LIPA, TSH, CMP #### [facility] [address] [place] [address] Dr. Grace Frank ALT [Catalytic activity/Vol] 34 U/L Normal 14-59 [facility] Comment on above: Performed By: #### H STROPN, LIPA, TSH, CMP #### [facility] [address] [place] [address] Dr. Grace Frank Anion gap [Moles/Vol] 10.9 mmol/L Normal [facility] Comment on above: Performed By: #### H STROPN, LIPA, TSH, CMP #### [facility] [address] [place] [address] Dr. Grace Frank AST [Catalytic activity/Vol] 23 U/L Normal 15-37 [facility] Comment on above: Performed By: #### H STROPN, LIPA, TSH, CMP #### [facility] [address] [address] [address] Grace Frank Bilirubin [Mass/Vol] 0.7 mg/dL Normal 0.2-1.3 [facility] Comment on above: Performed By: #### H STROPN, LIPA, TSH, CMP #### [facility] [address] [address] [address] Grace Frank Calcium [Mass/Vol] 8.1 mg/dL Critically low 8.5-10.1 [facility] Comment on above: Performed By: #### H STROPN, LIPA, TSH, CMP #### [facility] [address] [place] [address] Dr. Grace Frank Chloride [Moles/Vol] 102 mmol/L Normal 98-107 [facility] Comment on above: Performed By: #### H STROPN, LIPA, TSH, CMP #### [facility] [address] [place] [address] Dr. Grace Frank CO2 [Moles/Vol] 26.9 mmol/L Normal 21.0-32.0 [facility] Comment on above: Performed By: #### H STROPN, LIPA, TSH, CMP #### [facility] [address] [place] [address] Dr. Grace Frank Creatinine [Mass/Vol] 0.65 mg/dL Normal 0.55-1.02 [facility] Comment on above: Performed By: #### H STROPN, LIPA, TSH, CMP #### [facility] [address] [place] [address] Dr. Grace Frank EGFR-AF DANISH >60 Normal >=60 [facility] Comment on above: Performed By: #### H STROPN, LIPA, TSH, CMP #### [facility] [address] [place] [address] Dr. Grace Frank EGFR-NON AF DANISH >60 Normal >=60 [facility] [facility] Comment on above: Performed By: #### H STROPN, LIPA, TSH, CMP #### [facility] [address] [place] [address] Dr. Grace Frank Globulin (S) [Mass/Vol] 3.5 g/dL Normal [facility] Comment on above: Performed By: #### H STROPN, LIPA, TSH, CMP #### [facility] [address] [address] [address] Grace Frank Glucose [Mass/Vol] 127 mg/dL Critically high 74-106 T [facility] Comment on above: Performed By: #### H STROPN, LIPA, TSH, CMP #### [facility] [address] [address] [address] Grace Frank Potassium [Moles/Vol] 3.8 mmol/L Normal 3.5-5.1 [facility] Comment on above: Performed By: #### H STROPN, LIPA, TSH, CMP #### [facility] [address] [place] [address] Dr. Grace Frank Protein [Mass/Vol] 6.8 g/dL Normal 6.1-8.2 [facility] Comment on above: Performed By: #### H STROPN, LIPA, TSH, CMP #### [facility] [address] [place] [address] Dr. Grace Frank Sodium [Moles/Vol] 136 mmol/L Normal 136-145 [facility] Comment on above: Performed By: #### H STROPN, LIPA, TSH, CMP #### [facility] [address] [place] [address] Dr. Grace Frank Urea nitrogen [Mass/Vol] 17.0 mg/dL Normal 7.0-18.0 [facility] Comment on above: Performed By: #### H STROPN, LIPA, TSH, CMP #### [facility] [address] [place] [address] Dr. Grace Frank Urea nitrogen/Creatinin e [Mass ratio] 26.2 mg/mg Normal [facility] Comment on above: Performed By: #### H STROPN, LIPA, TSH, CMP #### [facility] [address] [place] [address] Dr. Grace Frank PROTIMEon 10-14-2021 INR Coag (PPP) [Relative time] 1.01 {INR} Normal [facility] Comment on above: Performed By: #### U MICRO, ERUR #### [facility] [address] [address] [address] Grace Frank INR GUIDELINES SEE BELOW Normal [facility] Comment on above: Result Comment: JUNG RED INR: 2.0 - 3.0 CONDITIONS NOT LISTED BELOW 2.5 - 3.5 FOR PROSTHETIC HEART VALVE REPLACEMENT 2.5 - 3.5 RECURRENT THROMBOSIS Performed By: #### U MICRO, ERUR #### [facility] [address] [address] [address] Grace Frank PT Coag (PPP) [Time] 10.9 s Normal 9.0-11.6 [facility] Comment on above: Performed By: #### U MICRO, ERUR #### [facility] [address] [address] [address] Grace Frank PTTon 10-14-2021 aPTT Coag (Bld) [Time] 25.6 s Normal 22.3-36.2 [facility] Comment on above: Performed By: #### U MICRO, ERUR #### [facility] [address] [place] [address] Dr. Grace Frank TROPONIN, HIGH SENSITIVITYon 10-14-2021 HSTROP 4.3 pg/mL Normal 4.0-51.3 [facility] Comment on above: Result Comment: CUT- OFF POINTS HAVE BEEN ESTABLISHED BASED ON THE FOURTH UNIVERSAL DEFINITIONS OF MYOCARDIAL INFARCTION. THE UPPER REFERENCE LIMIT (URL) OF TROPONIN, DEFINED THE 99TH PERCENTILE OF cTnI DISTRIBUTION IN A REFERENCE POPULATION, HAS BEEN CONFIRMED THE DECISION THRESHOLD FOR MA DIAGNOSIS. Performed By: #### H STROPN, LIPA, TSH, CMP #### [facility] [address] [address] [address] Grace Frank TSHon 10-14-2021 TSH 1.715 uIU/mL Normal 0.470-4.680 [facility] Comment on above: Performed By: #### H STROPN, LIPA, TSH, CMP #### [facility] [address] [address] [address] Grace Frank TSH RANGE SEE BELOW Normal [facility] Comment on above: Result Comment: <0.3 4 UIU/ml HYPERTHYROID 0.34-5.60 UIU/ml EUTHYROID >5.60 UIU/ml HYPOTHYROID Performed By: #### H STROPN, LIPA, TSH, CMP #### [facility] [address] [place] [address] Dr. Grace Frank CBC AUTO DIFFon 10-13-2021 BASO # 0.0 103/ul Normal 0.0-0.1 [facility] Comment on above: Performed By: #### C BC #### [facility] [address] [place] [address] Dr. Grace Frank Basophils/100 WBC (Bld) 0.3 % Normal 0.2-2.0 [facility] Comment on above: Performed By: #### C BC #### [facility] [address] [place] [address] Dr. Grace Frank EO # 0.1 103/ul Normal 0.0-0.7 [facility] Comment on above: Performed By: #### C BC #### [facility] [address] [place] [address] Dr. Grcae Frank Eosinophils/100 WBC (Bld) 0.5 % Critically low 0.9-7.0 [facility] Comment on above: Performed By: #### C BC #### [facility] [address] [place] [address] Dr. Grace Frank Erythrocyte distribution width (RBC) [Ratio] 13.2 % Normal 11.0-15.0 [facility] Comment on above: Performed By: #### C BC #### [facility] [address] [place] [address] Dr. Grace Frank Hematocrit (Bld) [Volume fraction] 44.1 % Normal 36.0-48.0 [facility] Comment on above: Performed By: #### C BC #### [facility] [address] [place] [address] Dr. Grace Frank Hemoglobin (Bld) [Mass/Vol] 14.3 g/dL Normal 12.0-16.0 [facility] Comment on above: Performed By: #### C BC #### [facility] [address] [place] [address] Dr. Grace Frank IG # 0.04 10e3/ul Critically high 0.00-0.03 [facility] Comment on above: Performed By: #### C BC #### [facility] [address] [place] [address] Dr. Grace Frank IG % 0.4 % Normal 0.0-0.5 [facility] Comment on above: Performed By: #### C BC #### [facility] [address] [place] [address] Dr. Grace Frank LYMPH # 1.3 103/ul Normal 1.2-3.8 [facility] Comment on above: Performed By: #### C BC #### [facility] [address] [place] [address] Dr. Grace Frank Lymphocytes/100 WBC (Bld) 13.9 % Critically low 20.5-60.0 [facility] Comment on above: Performed By: #### C BC #### [facility] [address] [place] [address] Dr. Grace Frank MANUAL DIFF REQ NO Normal [facility] Comment on above: Performed By: #### C BC #### [facility] [address] [place] [address] Dr. Grace Frank MCH (RBC) [Entitic mass] 29.1 pg Normal 26.7-34.0 [facility] Comment on above: Performed By: #### C BC #### [facility] [address] [place] [address] Dr. Grace Frank MCHC (RBC) [Mass/Vol] 32.4 g/dL Normal 29.9-35.2 [facility] Comment on above: Performed By: #### C BC #### [facility] [address] [place] [address] Dr. Grace Frank MCV (RBC) [Entitic vol] 89.8 fL Normal 81.0-99.0 [facility] Comment on above: Performed By: #### C BC #### [facility] [address] [place] [address] Dr. Grace Frank MONO # 0.5 103/ul Normal 0.3-0.8 [facility] Comment on above: Performed By: #### C BC #### [facility] [address] [place] [address] Dr. Grace Frank Monocytes/100 WBC (Bld) 5.2 % Normal 1.7-12.0 [facility] Comment on above: Performed By: #### C BC #### [facility] [address] [place] [address] Dr. Grace Frank NEUT # 7.7 103/ul Critically high 1.4-6.5 [facility] Comment on above: Performed By: #### C BC #### [facility] [address] [place] [address] Dr. Grace Frank Neutrophils/100 WBC (Bld) 79.7 % Critically high 43.0-75.0 [facility] Comment on above: Performed By: #### C BC #### [facility] [address] [place] [address] Dr. Grace Frank Platelet mean volume (Bld) [Entitic vol] 11.0 fL Normal 9.5-13.5 [facility] Comment on above: Performed By: #### C BC #### [facility] [address] [place] [address] Dr. Grace Frank PLT 247 103/ul Normal 150-450 [facility] Comment on above: Performed By: #### C BC #### [facility] [address] [place] [address] Dr. Grace Frank RBC 4.91 106/ul Normal 4.20-5.40 [facility] Comment on above: Performed By: #### C BC #### [facility] [address] [place] [address] Dr. Grace Frank WBC 9.7 103/ul Normal 4.0-11.0 [facility] Comment on above: Performed By: #### C BC #### [facility] [address] [place] [address] Dr. Grace Frank CULTURE URINEon 10-13-2021 CULTURE URINE Culture Observations : LIGHT GROWTH OF MIXED GENITAL SANDRA. NO POTENTIAL PATHOGENS SEEN. Normal [facility] Comment on above: Performed By: #### U MICRO, ERUR #### [facility] [address] [address] [address] Grace Frank ER URINE PROFILEon 2 Bilirubin Ql (U) Negative Normal NEGATIVE [facility] Comment on above: Performed By: #### U MICRO, ERUR #### [facility] [address] [place] [address] Dr. Grace Frank Clarity (U) CLEAR Normal CLEAR [facility] Comment on above: Performed By: #### U MICRO, ERUR #### [facility] [address] [place] [address] Dr. Grace Frank Color (U) YELLOW Normal YELLOW [facility] Comment on above: Performed By: #### U MICRO, ERUR #### [facility] [address] [place] [address] Dr. Grace Frank ERUAHD A micrscopic examination will be performed if indicated. Normal [facility] Comment on above: Performed By: #### U MICRO, ERUR #### [facility] [address] [address] [address] Grace Frank Glucose Ql (U) >1000 Abnormal NEGATIVE [facility] Comment on above: Performed By: #### U MICRO, ERUR #### [facility] [address] [address] [address] Grace Frank Hemoglobin Ql (U) SMALL Abnormal NEGATIVE [facility] Comment on above: Performed By: #### U MICRO, ERUR #### [facility] [address] [address] [address] Grace Frank Ketones Ql (U) >=80 Abnormal NEGATIVE [facility] Comment on above: Performed By: #### U MICRO, ERUR #### [facility] [address] [place] [address] Dr. Grace Frank LEUKOCYTES Negative Normal NEGATIVE [facility] Comment on above: Performed By: #### U MICRO, ERUR #### [facility] [address] [place] [address] Dr. Grace Frank Nitrite Ql (U) Negative Normal NEGATIVE [facility] Comment on above: Performed By: #### U MICRO, ERUR #### [facility] [address] [place] [address] Dr. Grace Frank pH (U) 6.0 [pH] Normal 5-9 [facility] Comment on above: Performed By: #### U MICRO, ERUR #### [facility] [address] [place] [address] Dr. Grace Frank SPEC GRAVITY 1.025 Normal 1.005-<=1.025 [facility] Comment on above: Performed By: #### U MICRO, ERUR #### [facility] [address] [place] [address] Dr. Grace Frank UA PROTEIN TRACE Normal NEGATIVE/ TRACE [facility] Comment on above: Performed By: #### U MICRO, ERUR #### [facility] [address] [place] [address] Dr. Grace Frank UR MICRO IND INDICATED Normal [facility] Comment on above: Performed By: #### U MICRO, ERUR #### [facility] [address] [place] [address] Dr. Grace Frank Urobilinogen Qn (U) 0.2 {John'U}/dL Normal 0.2 - 1.0 [facility] Comment on above: Performed By: #### U MICRO, ERUR #### [facility] [address] [place] [address] Dr. Grace Frank LIPASEon 10-13-2021 Lipase [Catalytic activity/Vol] 62.0 U/L Normal 23.0-300.0 [facility] Comment on above: Performed By: #### U MICRO, ERUR #### [facility] [address] [place] [address] Dr. Grace Frank URon 10-13-2021 , QUAL Negative Normal NEGATIVE [facility] Comment on above: Performed By: #### U MICRO, ERUR #### [facility] [address] [address] [address] Grace Frank PROF 14(COMP METB)on 022 Albumin [Mass/Vol] 3.7 g/dL Normal 3.4-5.0 [facility] Comment on above: Performed By: #### U MICRO, ERUR #### [facility] [address] [address] [address] Grace Frank Albumin/Globulin [Mass ratio] 0.9 {ratio} Normal [facility] Comment on above: Performed By: #### U MICRO, ERUR #### [facility] [address] [address] [address] Grace Frank ALP [Catalytic activity/Vol] 96 U/L Normal 46-116 [facility] Comment on above: Performed By: #### U MICRO, ERUR #### [facility] [address] [place] [address] Dr. Grace Frank ALT [Catalytic activity/Vol] 37 U/L Normal 14-59 [facility] Comment on above: Performed By: #### U MICRO, ERUR #### [facility] [address] [address] [address] Grace Frank Anion gap [Moles/Vol] 10.9 mmol/L Normal [facility] Comment on above: Performed By: #### U MICRO, ERUR #### [facility] [address] [address] [address] Grace Frank AST [Catalytic activity/Vol] 32 U/L Normal 15-37 [facility] Comment on above: Performed By: #### U MICRO, ERUR #### [facility] [address] [address] [address] Grace Frank Bilirubin [Mass/Vol] 0.8 mg/dL Normal 0.2-1.3 [facility] Comment on above: Performed By: #### U MICRO, ERUR #### [facility] [address] [address] [address] Grace Frank Calcium [Mass/Vol] 8.8 mg/dL Normal 8.5-10.1 [facility] Comment on above: Performed By: #### U MICRO, ERUR #### [facility] [address] [address] [address] Grace Frank Chloride [Moles/Vol] 99 mmol/L Normal 98-107 [facility] Comment on above: Performed By: #### U MICRO, ERUR #### [facility] [address] [address] [address] Grace Frank CO2 [Moles/Vol] 29.2 mmol/L Normal 21.0-32.0 [facility] Comment on above: Performed By: #### U MICRO, ERUR #### [facility] [address] [address] [address] Grace Frank Creatinine [Mass/Vol] 0.62 mg/dL Normal 0.55-1.02 [facility] Comment on above: Performed By: #### U MICRO, ERUR #### [facility] [address] [address] [address] Grace Frank EGFR-AF DANISH >60 Normal >=60 [facility] Comment on above: Performed By: #### U MICRO, ERUR #### [facility] [address] [address] [address] Grace Frank EGFR-NON AF DANISH >60 Normal >=60 [facility] Comment on above: Performed By: #### U MICRO, ERUR #### [facility] [address] [address] [address] Grace Frank Globulin (S) [Mass/Vol] 3.9 g/dL Normal [facility] Comment on above: Performed By: #### U MICRO, ERUR #### [facility] [address] [address] [address] Grace Frank Glucose [Mass/Vol] 115 mg/dL Critically high 74-106 T [facility] Comment on above: Performed By: #### U MICRO, ERUR #### [facility] [address] [address] [address] Grace Frank Potassium [Moles/Vol] 4.1 mmol/L Normal 3.4-5.0 [facility] Comment on above: Performed By: #### U MICRO, ERUR #### [facility] [address] [address] [address] Grace Frank Protein [Mass/Vol] 7.6 g/dL Normal 6.1-8.2 [facility] Comment on above: Performed By: #### U MICRO, ERUR #### [facility] [address] [address] [address] Grace Frank Sodium [Moles/Vol] 135 mmol/L Critically low 137-145 Th [facility] Comment on above: Performed By: #### U MICRO, ERUR #### [facility] [address] [address] [address] Grace Frank Urea nitrogen [Mass/Vol] 14.0 mg/dL Normal 7.0-18.0 [facility] Comment on above: Performed By: #### U MICRO, ERUR #### [facility] [address] [place] [address] Dr. Grace Frank Urea nitrogen/Creatinin e [Mass ratio] 22.6 mg/mg Normal [facility] Comment on above: Performed By: #### U MICRO, ERUR #### [facility] [address] [place] [address] Dr. Grace Frank TROPONIN, HIGH SENSITIVITYon 10-13-2021 HSTROP 5.8 pg/mL Normal 4.0-51.3 [facility] Comment on above: Result Comment: CUT- OFF POINTS HAVE BEEN ESTABLISHED BASED ON THE FOURTH UNIVERSAL DEFINITIONS OF MYOCARDIAL INFARCTION. THE UPPER REFERENCE LIMIT (URL) OF TROPONIN, DEFINED THE 99TH PERCENTILE OF cTnI DISTRIBUTION IN A REFERENCE POPULATION, HAS BEEN CONFIRMED THE DECISION THRESHOLD FOR MA DIAGNOSIS. Performed By: #### U MICRO, ERUR #### [facility] [address] [place] [address] Dr. Grace Frank URINE MICROSCOPIC ONLYon BACTERIA TRACE Abnormal NONE SEEN [facility] Comment on above: Performed By: #### U MICRO, ERUR #### [facility] [address] [address] [address] Grace Frank Bacteria identified Cx Nom (U) INDICATED Normal [facility] Comment on above: Performed By: #### U MICRO, ERUR #### [facility] [address] [address] [address] Grace Frank CAST NONE SEEN Normal NONE SEEN [facility] Comment on above: Performed By: #### U MICRO, ERUR #### [facility] [address] [address] [address] Grace Frank Crystals LM Nom (Urine sed) NONE SEEN Normal NONE SEEN [facility] Comment on above: Performed By: #### U MICRO, ERUR #### [facility] [address] [address] [address] Grace Farnk Epithelial cells LM Ql (Urine sed) MANY Abnormal NONE SEEN /RARE [facility] Comment on above: Performed By: #### U MICRO, ERUR #### [facility] [address] [place] [address] Dr. Grace Frank MUCOUS TRACE Abnormal NONE SEEN [facility] Comment on above: Performed By: #### U MICRO, ERUR #### [facility] [address] [place] [address] Dr. Grace Frank RBC 2-5 Abnormal 0-2 [facility] Comment on above: Performed By: #### U MICRO, ERUR #### [facility] [address] [place] [address] Dr. Grace Frank WBC 0-2 Abnormal NONE SEEN [facility] Comment on above: Performed By: #### U MICRO, ERUR #### [facility] [address] [place] [address] Dr. Grace Frank MG MAMM SCREEN 3D PATRICK CADon 08-31-2021 MG MAMM SCREEN 3D PATRICK CAD Patient: RADHA LEMOS Exam Date: 08/31/2021 : 1975 Gender:F Ordering : DR ANDREW MA . Admission #: [id number] Family : Order #: [id number] CLICK HERE TO VIEW EXAM RADIOLOGY REPORT PROCEDURE: MAMMOGRAM SCREENING 3D BILATERAL CAD COMPARISON: MG MAMM SCREEN PATRICK W CAD, 08/22/2018. MG MAMM SCREEN PATRICK W CAD, 08/13/2017. INDICATIONS: Screening mammography Calculator Name NCI Breast Cancer Risk Assessment Tool 5 Year Breast Cancer Risk 0.90% Lifetime Breast Cancer Risk 9.60% Personal Breast Cancer No Personal Ovarian Cancer No Treatments None Family Cancers Grandmother-maternal with cervical cancer at age 55; Grandfather-maternal with liver cancer at age 63. LOCATION: [facility] BREAST COMPOSITION: Scattered areas fibroglandular density. [...] PALPABLE LUMP SHOULD BE BIOPSIED. Dictated by: Julio Cesar Yanes M.D. on 08/31/2021 at 15:45 Approved by: Julio Cesar Yanes M.D. on 08/31/2021 at 15:50 Normal [facility] COMPREHENSIVE METABOLIC PANE Guy 06-03-2021 Albumin [Mass/Vol] 3.9 g/dL Normal 3.6-5.1 [facility] Comment on above: Performed By: #### 1 0231, 7600 #### [facility] [address] [place] [address] [employer] Technician: Richard Cobb MD Albumin/Globulin [Mass ratio] 1.6 {ratio} Normal 1.0-2.5 [facility] Comment on above: Performed By: #### 1 0231, 7600 #### [facility] [address] [employer] Technician: Richard Cobb MD ALP [Catalytic activity/Vol] 71 U/L Normal 31-125 [facility] Comment on above: Performed By: #### 1 0231, 7600 #### [facility] [place] [address] [employer] Technician: Richard Cobb MD ALT [Catalytic activity/Vol] 18 U/L Normal 6-29 [facility] Comment on above: Performed By: #### 1 0231, 7600 #### [facility] [address] [place] [id number] [employer] Technician: Richard Cobb MD AST [Catalytic activity/Vol] 15 U/L Normal 10-35 [facility] Comment on above: Performed By: #### 1 0231, 7600 #### [facility] [address] [place] [address] [employer] Technician: Richard Cobb MD Bilirubin [Mass/Vol] 0.4 mg/dL Normal 0.2-1.2 [facility] Comment on above: Performed By: #### 1 023, 7600 #### [facility] [address] [place] [address] [employer] Technician: Richard Cobb MD BUN/CREATININE RATIO NOT APPLICABLE Normal 6-22 [facility] Comment on above: Performed By: #### 1 023, 7600 #### [facility] [place] [address] [employer] Technician: Richard Cobb MD Calcium [Mass/Vol] 9.1 mg/dL Normal 8.6-10.2 [facility] Comment on above: Performed By: #### 1 023, 7600 #### [facility] [address] [place] [address] [employer] Technician: Richard Cobb MD Chloride [Moles/Vol] 103 mmol/L Normal 98-110 [facility] Comment on above: Performed By: #### 1 023, 7600 #### [facility] [address] [place] [address] [employer] Technician: Richard Cobb MD CO2 [Moles/Vol] 29 mmol/L Normal 20-32 [facility] Comment on above: Performed By: #### 1 0231, 7600 #### [facility] [address] [place] [address] [employer] Technician: Richard Cobb MD Creatinine [Mass/Vol] 0.61 mg/dL Normal 0.50-1.10 [facility] Comment on above: Performed By: #### 1 0231, 7600 #### [facility] [address], [address] [place] [address] [employer] Technician: Richard Cobb MD eGFR NON-AFR. DANISH 109 mL/min/1.73m2 Normal > OR = 60 [facility] Comment on above: Performed By: #### 1 023, 7600 #### [facility] [address], [address] [place] [address] [employer] Technician: Richard Cobb MD GFR/1.73 sq M.predicted among blacks MDRD (S/P/Bld) [Vol rate/Area] 127 mL/min/{1.73_m2} Normal > OR = 60 [facility] Comment on above: Performed By: #### 1 023, 7600 #### [facility] [address], [address] [place] [address] [employer] Technician: Richard Cobb MD Globulin (S) [Mass/Vol] 2.5 g/dL Normal 1.9-3.7 [facility] Comment on above: Performed By: #### 1 023, 7600 #### [facility] [address], [address] [place] [address] [employer] Technician: Richard Cobb MD Glucose [Mass/Vol] 118 mg/dL High 65-99 [facility] Comment on above: Result Comment: Fasting reference interval For someone without known diabetes, a glucose value between 100 and 125 mg/dL is consistent with prediabetes and should be confirmed with a follow-up test. Performed By: #### 1 230, 7600 #### [facility] [address], [address] [place] [address] [employer] Technician: Richard Cobb MD Potassium [Moles/Vol] 4.2 mmol/L Normal 3.5-5.3 [facility] Comment on above: Performed By: #### 1 023, 7600 #### [facility] [address], [address] [place] [address] [employer] Technician: Richard Cobb MD Protein [Mass/Vol] 6.4 g/dL Normal 6.1-8.1 [facility] Comment on above: Performed By: #### 1 0231, 7600 #### [facility] [address], [address] [place] [address] [employer] Technician: Richard Cobb MD Sodium [Moles/Vol] 139 mmol/L Normal 135-146 [facility] Comment on above: Performed By: #### 1 0231, 7600 #### [facility] [address], [address] [place] [address] [employer] Technician: Richard Cobb MD Urea nitrogen [Mass/Vol] 17 mg/dL Normal 7-25 [facility] Comment on above: Performed By: #### 1 0231, 7600 #### [facility] [place] [address] [employer] Technician: Richard Cobb MD LIPID PANEL, [place] [address] Cholesterol [Mass/Vol] 172 mg/dL Normal <200 [facility] Comment on above: Order Comment: FASTI NG:YES FASTING: YES Performed By: #### 1 0231, 7600 #### [facility] [address], [address] [place] [address] [employer] Technician: Richard Cobb MD Cholesterol in HDL [Mass/Vol] 66 mg/dL Normal > OR = 50 [facility] Comment on above: Order Comment: FASTI NG:YES FASTING: YES Performed By: #### 1 0231, 7600 #### [facility] [place] [address] [employer] Analysis [employer] Technician: Richard Cobb MD Cholesterol in LDL [Mass/Vol] [...] LDL-C. Joey REYNOSO et al. DAYTON. 2013;310(19): 1826-1109 (http://education.Avokia/faq/RNN600) Performed By: #### 1 0231, 7600 #### [facility] [address], [address] [place] [address] [employer] Analysis Engineering Technician: Richard Cobb MD Cholesterol.total/ Cholesterol in HDL [Mass ratio] 2.6 {ratio} Normal <5.0 [facility] Comment on above: Order Comment: FASTI NG:YES FASTING: YES Performed By: #### 1 0231, 7600 #### [facility] [address], [address] [place] [address] [employer] Analysis Engineering Technician: Richard Cobb MD NON HDL CHOLESTEROL 106 mg/dL (calc) Normal <130 [facility] Comment on above: Order Comment: FASTI NG:YES FASTING: YES Result Comment: For patients with diabetes plus 1 major ASCVD risk factor, treating to a non-HDL-C goal of <100 mg/dL (LDL-C of <70 mg/dL) is considered a therapeutic option. Performed By: #### 1 0231, 7600 #### [facility] [address], [address] [place] [address] [employer] Analysis Engineering Technician: Richard Cobb MD Triglyceride [Mass/Vol] 177 mg/dL High <150 [facility] Comment on above: Order Comment: FASTI NG:YES FASTING: YES Performed By: #### 1 0231, 7600 #### [facility] [address], [address] [place] [address] [employer] Analysis Engineering Technician: Richard Cobb MD ALBUMIN, RANDOM URINE W/CREA TININEon 11-15-2020 ALBUMIN, URINE 0.2 mg/dL Normal See Note: [facility] Comment on above: Result Comment: Refe rence Range: Reference Range Not established Performed By: #### 7 600, 0117, 57324, 496 #### [facility] [address], [address] [place] [address] Air Analysis Engineering Technician: Richard Cobb MD ALBUMIN/CREATININE RATIO, RANDOM URINE [...] category. Performed By: #### 7 600, 6517, 92246, 496 #### [facility] [place] [address] [employer] Analysis Engineering Technician: Richard Cobb MD Creatinine (U) [Mass/Vol] 57 mg/dL Normal 20-275 [facility] Comment on above: Performed By: #### 7 600, 6517, 74797, 496 #### [facility] [place] [address] Air Analysis Engineering Technician: Richard Cobb MD [facility] 11-15-2020 Albumin [Mass/Vol] 4.1 g/dL Normal 3.6-5.1 [facility] Comment on above: Performed By: #### 7 600, 6517, 25437, 496 #### [facility] [place] [address] Air Analysis Engineering Technician: Richard Cobb MD Albumin/Globulin [Mass ratio] 1.5 {ratio} Normal 1.0-2.5 [facility] Comment on above: Performed By: #### 7 600, 6517, 88747, 496 #### [facility] [place] [address] Air Analysis Engineering Technician: Richard Cobb MD ALP [Catalytic activity/Vol] 87 U/L Normal 31-125 [facility] Comment on above: Performed By: #### 7 600, 6517, 69768, 496 #### [facility] [place] [address] Air Analysis Engineering Technician: Richard Cobb MD ALT [Catalytic activity/Vol] 16 U/L Normal 6-29 [facility] Comment on above: Performed By: #### 7 600, 6517, 38038, 496 #### [facility] of [address], [address] [place] [address] Air Analysis Engineering Technician: Richard Cobb MD AST [Catalytic activity/Vol] 13 U/L Normal 10-35 [facility] Comment on above: Performed By: #### 7 600, 6517, 61546, 496 #### [facility] of [address], [address] [place] [address] Air Analysis Engineering Technician: Richard Cobb MD Bilirubin [Mass/Vol] 0.6 mg/dL Normal 0.2-1.2 [facility] Comment on above: Performed By: #### 7 600, 6517, 86447, 496 #### [facility] of [place] [address] Air Analysis Engineering Technician: Richard Cobb MD BUN/CREATININE RATIO NOT APPLICABLE Normal 6-22 [facility] Comment on above: Performed By: #### 7 600, 6517, 13485, 496 #### [facility] of [place] [address] Air Analysis Engineering Technician: Richard Cobb MD Calcium [Mass/Vol] 9.2 mg/dL Normal 8.6-10.2 [facility] Comment on above: Performed By: #### 7 600, 6517, 14426, 496 #### [facility] of [place] [address] Air Analysis Engineering Technician: Richard Cobb MD Chloride [Moles/Vol] 100 mmol/L Normal 98-110 [facility] Comment on above: Performed By: #### 7 600, 6517, 28044, 496 #### [facility] of [address], [address] [place] [address] Air Analysis Engineering Technician: Richard Cobb MD CO2 [Moles/Vol] 28 mmol/L Normal 20-32 [facility] Comment on above: Performed By: #### 7 600, 6517, 60260, 496 #### [facility] of [place] [address] Air Analysis Engineering Technician: iRchard Cobb MD Creatinine [Mass/Vol] 0.67 mg/dL Normal 0.50-1.10 [facility] Comment on above: Performed By: #### 7 600, 6517, 34085, 496 #### [facility] [place] [address] Air Analysis Engineering Technician: Richard Cobb MD eGFR NON-AFR. DANISH 106 mL/min/1.73m2 Normal > OR = 60 [facility] Comment on above: Performed By: #### 7 600, 6517, 49818, 496 #### [facility] of [place] [address] [employer] Analysis Engineering Technician: Richard Cobb MD GFR/1.73 sq M.predicted among blacks MDRD (S/P/Bld) [Vol rate/Area] 123 mL/min/{1.73_m2} Normal > OR = 60 [facility] Comment on above: Performed By: #### 7 600, 6517, 10146, 496 #### [facility] [place] [address] Air Analysis Engineering Technician: Richard Cobb MD Globulin (S) [Mass/Vol] 2.7 g/dL Normal 1.9-3.7 [facility] Comment on above: Performed By: #### 7 600, 6517, 42217, 496 #### [facility] [place] [address] Air Analysis Engineering Technician: Richard Cobb MD Glucose [Mass/Vol] 135 mg/dL High 65-99 [facility] Comment on above: Result Comment: Fasting reference interval For someone without known diabetes, a glucose value >125 mg/dL indicates that they may have diabetes and this should be confirmed with a follow-up test. Performed By: #### 7 600, 6517, 29714, 496 #### [facility] [place] [address] Air Analysis Engineering Technician: Richard Cobb MD Potassium [Moles/Vol] 4.1 mmol/L Normal 3.5-5.3 [facility] Comment on above: Performed By: #### 7 600, 6517, 91841, 496 #### [facility] [address], [address] [place] [address] Air Analysis Engineering Technician: Richard Cobb MD Protein [Mass/Vol] 6.8 g/dL Normal 6.1-8.1 [facility] Comment on above: Performed By: #### 7 600, 6517, 01488, 496 #### [facility] [address], [address] [place] [address] Air Analysis Engineering Technician: Richard Cobb MD Sodium [Moles/Vol] 138 mmol/L Normal 135-146 [facility] Comment on above: Performed By: #### 7 600, 6517, 30168, 496 #### [facility] [place] [address] Air Analysis Engineering Technician: Richard Cobb MD Urea nitrogen [Mass/Vol] 13 mg/dL Normal 7-25 [facility] Comment on above: Performed By: #### 7 600, 6517, 44026, 496 #### [facility] [place] [address] Air Analysis Engineering Technician: Richard Cobb MD HEMOGLOBIN A1con 11-15-2020 HEMOGLOBIN [...] children. Performed By: #### 7 600, 6517, 04124, 496 #### [facility] [place] [address] Air Analysis Engineering Technician: Richard Cobb MD LIPID PANEL, STANDARDon 10-23 Cholesterol [Mass/Vol] 180 mg/dL Normal <200 [facility] Comment on above: Performed By: #### 7 600, 6517, 12606, 496 #### [facility] [place] [address] Air Analysis Engineering Technician: Richard Cobb MD Cholesterol in HDL [Mass/Vol] 63 mg/dL Normal > OR = 50 [facility] Comment on above: Performed By: #### 7 600, 6517, 69596, 496 #### [facility] [address], [address] [place] [address] Air Analysis Engineering Technician: Ricahrd Cobb MD Cholesterol in LDL [Mass/Vol] 91 [...] LDL-C. Joey REYNOSO et al. DAYTON. 2013;310(19): 3769-4134 (http://education.PlumChoice.Ogden Tomotherapy/faq/OKV521) Performed By: #### 7 600, 6517, 97499, 496 #### [facility] [place] [address] Air Analysis Engineering Technician: Richard Cobb MD Cholesterol.total/ Cholesterol in HDL [Mass ratio] 2.9 {ratio} Normal <5.0 [facility] Comment on above: Performed By: #### 7 600, 6517, 73659, 496 #### [facility] [place] [address] Air Analysis Engineering Technician: Richard Cobb MD NON HDL CHOLESTEROL 117 mg/dL (calc) Normal <130 [facility] Comment on above: Result Comment: For patients with diabetes plus 1 major ASCVD risk factor, treating to a non-HDL-C goal of <100 mg/dL (LDL-C of <70 mg/dL) is considered a therapeutic option. Performed By: #### 7 600, 6517, 68784, 496 #### [facility] [address] [place] [address], [address] [place] [address] Air Analysis Engineering Technician: Richard Cobb MD Triglyceride [Mass/Vol] 161 mg/dL High <150 [facility] Comment on above: Performed By: #### 7 600, 6517, 43737, 496 #### [facility] [address] [facility], [address] [place] [address] Air Analysis Engineering Technician: Richard Cobb MD Vital Signs Date Time Vital Sign Value Performing Clinician Facility 06-11-2024 15:16-0500 Body height 162.6 cm Christina Gabriel FILM PAINTER-TABULATING SUPERVISOR Work Phone: [facility] 06-11-2024 15:16-0500 Body mass index (BMI) [Ratio] 43.08 kg/m2 Christina Gabriel FILM PAINTER-TABULATING SUPERVISOR Work Phone: [facility] 06-11-2024 15:16-0500 Body temperature 97.3 [degF] Christina Gabriel FILM PAINTER-TABULATING SUPERVISOR Work Phone: [facility] 06-11-2024 15:16-0500 Body weight 113.85 kg Christina Gabriel FILM PAINTER-TABULATING SUPERVISOR Work Phone: [facility] 06-11-2024 15:16-0500 Diastolic blood pressure 78 mm[Hg] Christina Gabriel FILM PAINTER-TABULATING SUPERVISOR Work Phone: [facility] 06-11-2024 15:16-0500 Heart rate 88 /min Christina Gabriel FILM PAINTER-TABULATING SUPERVISOR [facility] 06-11-2024 15:16-0500 Respiratory rate 18 /min Christina Gabriel FILM PAINTER-TABULATING SUPERVISOR Work Phone: [facility] 06-11-2024 15:16-0500 SaO2% (BldA) [Mass fraction] 98 % Christina Gabriel FILM PAINTER-TABULATING SUPERVISOR [facility] 06-11-2024 15:16-0500 Systolic blood pressure 124 mm[Hg] Christina Gabriel FILM PAINTER-TABULATING SUPERVISOR Work Phone: [facility] 06-05-2024 07:34-0500 Body height 162.6 cm Geoffrey Badillo MD Work Phone: [facility] 06-05-2024 07:34-0500 Body mass index (BMI) [Ratio] 43.94 kg/m2 Geoffrey Badillo MD Work Phone: [facility] 06-05-2024 07:34-0500 Body weight 116.12 kg Geoffrey Badillo MD Work Phone: [facility] 05-07-2024 13:03-0500 Body height 162.6 cm Christina Gabriel FILM PAINTER-TABULATING SUPERVISOR Work Phone: [facility] 05-07-2024 13:03-0500 Body mass index (BMI) [Ratio] 44.05 kg/m2 Christina Gabriel FILM PAINTER-TABULATING SUPERVISOR Work Phone: [facility] 05-07-2024 13:03-0500 Body temperature 97.5 [degF] Christina Gabriel FILM PAINTER-TABULATING SUPERVISOR Work Phone: [facility] 05-07-2024 13:03-0500 Body weight 116.39 kg Christina Gabriel FILM PAINTER-TABULATING SUPERVISOR Work Phone: [facility] 05-07-2024 13:03-0500 Diastolic blood pressure 80 mm[Hg] Christina Gabriel FILM PAINTER-TABULATING SUPERVISOR Work Phone: [facility] 05-07-2024 13:03-0500 Heart rate 77 /min Christina Gabriel FILM PAINTER-TABULATING SUPERVISOR Work Phone: [facility] 05-07-2024 13:03-0500 Respiratory rate 18 /min Christina Gabriel FILM PAINTER-TABULATING SUPERVISOR Work Phone: [facility] 05-07-2024 13:03-0500 SaO2% (BldA) [Mass fraction] 97 % Christina Rios APRN-TABULATING SUPERVISOR Work Phone: [facility] 05-07-2024 13:03-0500 Systolic blood pressure 120 mm[Hg] Christina Rios APRN-TABULATING SUPERVISOR Work Phone: [facility] 04-30-2024 15:58-0500 Body height 162.6 cm Hayley James MD Work Phone: [facility] 04-30-2024 15:58-0500 Body mass index (BMI) [Ratio] 43.94 kg/m2 Hayley James MD Work Phone: [facility] 04-30-2024 15:58-0500 Body weight 116.12 kg Hayley James MD Work Phone: [facility] 04-30-2024 15:58-0500 Diastolic blood pressure 79 mm[Hg] Hayley James MD Work Phone: [facility] 04-30-2024 15:58-0500 Heart rate 96 /min Hayley James MD Work Phone: [facility] 04-30-2024 15:58-0500 SaO2% (BldA) [Mass fraction] 98 % Hayley James MD Work Phone: [facility] 04-30-2024 15:58-0500 Systolic blood pressure 123 mm[Hg] Hayley James MD Work Phone: [facility] 04-24-2024 10:44-0400 Body height 162.6 cm Jean Lordng DO Work Phone: [facility] 04-24-2024 10:44-0400 Body mass index (BMI) [Ratio] 43.43 kg/m2 Jean Furlong DO Work Phone: [facility] 04-24-2024 10:44-0400 Body temperature 97.2 [degF] Jean Furlong DO Work Phone: [facility] 04-24-2024 10:44-0400 Body weight 114.76 kg Jean Lordng DO Work Phone: [facility] 04-24-2024 10:44-0400 Diastolic blood pressure 80 mm[Hg] Jean Lordng DO Work Phone: [facility] 04-24-2024 10:44-0400 Heart rate 92 /min Jean Lordng DO Work Phone: [facility] 04-24-2024 10:44-0400 SaO2% (BldA) [Mass fraction] 98 % Jean Lordng DO Work Phone: [facility] 04-24-2024 10:44-0400 Systolic blood pressure 138 mm[Hg] Jean Lordng DO Work Phone: [facility] 08-15-2023 13:50-0500 Body height 162.6 cm Hayley James MD Work Phone: [facility] 08-15-2023 13:50-0500 Body mass index (BMI) [Ratio] 47.2 kg/m2 Hayley James MD Work Phone: [facility] 08-15-2023 13:50-0500 Body weight 124.74 kg Hayley James MD Work Phone: [facility] 08-15-2023 13:50-0500 Diastolic blood pressure 83 mm[Hg] Hayley James MD Work Phone: [facility] 08-15-2023 13:50-0500 Heart rate 72 /min Hayley James MD Work Phone: [facility] 08-15-2023 13:50-0500 SaO2% (BldA) [Mass fraction] 93 % Hayley James MD Work Phone: [facility] 08-15-2023 13:50-0500 Systolic blood pressure 125 mm[Hg] Hayley James MD Work Phone: [facility] 07-31-2023 16:14-0500 Body mass index (BMI) [Ratio] 43.79 kg/m2 Andrew Francesca DO Work Phone: [facility] 07-31-2023 16:14-0500 Body weight 115.71 kg Andrew Francesca DO Work Phone: [facility] 07-31-2023 16:14-0500 Diastolic blood pressure 80 mm[Hg] Andrew Francesca DO Work Phone: [facility] 07-31-2023 16:14-0500 Systolic blood pressure 122 mm[Hg] Anderw Francesca DO Work Phone: [facility] 09-24-2018 14:15-0400 BMI (Body Mass Index) 44.46 kg/m2 [facility] 09-24-2018 14:15-0400 BP Diastolic 77 mm[Hg] [facility] 09-24-2018 14:15-0400 BP Systolic 110 mm[Hg] [facility] 09-24-2018 14:15-0400 Height 162.6 cm [facility] 09-24-2018 14:15-0400 Pulse (Heart Rate) 75 /min [facility] 09-24-2018 14:15-0400 Weight 117.48 kg [facility] Encounters Encounter Date Encounter Type Care Provider Facility Start: 07-27-2024 ambulatory JEAN REED [facility] ty:[facility] Start: 07-22-2024 End: 07-22-2024 Orders Only Geoffrey Badillo MD Work Phone: [facility] Comment on above: Post-op pain (Primar y Dx) Start: 06-26-2024 End: 06-26-2024 Orders Only Christina Rios APRN-TABULATING SUPERVISOR Work Phone: [facility] Start: 06-25-2024 End: 07-24-2024 ambulatory JEAN REED Facility:[facility] Start: 06-24-2024 End: 06-25-2024 Refill Jean Reed DO Work Phone: [facility] Comment on above: Carpal tunnel syndro me of right wrist Start: 06-18-2024 End: 06-22-2024 Orders Only Christina Kevin Rios FILM PAINTER-TABULATING SUPERVISOR Work Phone: [facility] Start: 06-12-2024 End: 06-12-2024 Orders Only Christina L Gabriel FILM PAINTER-TABULATING SUPERVISOR Work Phone: [facility] Comment on above: Type 2 diabetes iron itus with hyperglycemia, without long-term current use of insulin ([facility]) (Primary Dx) Start: 06-11-2024 End: 06-11-2024 ambulatory [facility] Start: 06-11-2024 End: 06-11-2024 Office outpatient visit 25 minutes Christina Kevin Rios FILM PAINTER-TABULATING SUPERVISOR Work Phone: [facility] Comment on above: Type 2 diabetes iron itus with hyperglycemia, with long-term current use of insulin ([facility]) (Primary Dx); Essential hypertension; Class 3 severe obesity due to excess calories with serious comorbidity and body mass index (BMI) of 40.0 to 44.9 in adult ([facility]); Type 2 diabetes mellitus with hyperglycemia, without long-term current use of insulin ([facility]); Bilateral carpal tunnel syndrome Start: 06-11-2024 End: 06-11-2024 ambulatory [facility] Start: 06-05-2024 End: 06-05-2024 Office outpatient new 45 minutes Geoffrey Badillo MD Work Phone: [facility] Comment on above: Bilateral carpal jeni farhad syndrome (Primary Dx) Start: 06-05-2024 End: 06-05-2024 ambulatory GEOFFREY BADILLO [facility] Start: 05-27-2024 End: 05-27-2024 Bamboo flowsheet Palomo Francois DO Work Phone: [facility] Start: 05-27-2024 End: 05-27-2024 Bamboo flowsheet Palomo Francois DO Work Phone: [facility] Start: 05-27-2024 End: 05-27-2024 Patient encounter procedure Palomo Francois DO Work Phone: [facility] Comment on above: Carpal tunnel syndro me, bilateral (Primary Dx); Numbness and tingling Start: 05-27-2024 End: 05-27-2024 ambulatory PALOMO FRANCOIS Not Available Start: 05-26-2024 End: 06-18-2024 ambulatory [facility] Facility:[facility] Start: 05-14-2024 End: 05-14-2024 ambulatory [facility] Facility:[facility] Start: 05-07-2024 End: 05-07-2024 Office outpatient visit 25 minutes Christina Gabriel FILM PAINTER-TABULATING SUPERVISOR Work Phone: [facility] Comment on above: Type 2 diabetes iron itus with hyperglycemia, with long-term current use of insulin ([facility]) (Primary Dx); Obesity, morbid, BMI 40.0-49.9 ([facility]); Gastric reflux; Numbness and tingling in both hands; Tendinitis, de Quervain's Start: 05-07-2024 End: 05-07-2024 ambulatory [facility] Start: 04-30-2024 End: 04-30-2024 Office outpatient visit 25 minutes Hayley James MD Work Phone: [facility] Comment on above: Allergic rhinitis du e to dust mite (Primary Dx); Allergic rhinitis due to animal (cat) (dog) hair and dander; Allergic rhinitis due to animals; Allergic rhinitis caused by mold; Seasonal allergic rhinitis due to pollen; Mild intermittent asthma without complication Start: 04-30-2024 End: 04-30-2024 ambulatory HAYLEY JAMES [facility] Start: 04-24-2024 End: 04-24-2024 Office outpatient visit 15 minutes [facility] DO Work Phone: [facility] Comment on above: Carpal tunnel syndro me of right wrist (Primary Dx) Start: 04-24-2024 End: 04-24-2024 ambulatory [facility] Start: 04-15-2024 End: 04-15-2024 Orders Only Christina Kevin Gabriel FILM PAINTER-TABULATING SUPERVISOR Work Phone: [facility] Start: 04-14-2024 End: 04-14-2024 Orders Only Christina L Gabriel FILM PAINTER-TABULATING SUPERVISOR Work Phone: [facility] Start: 04-01-2024 End: 04-23-2024 ambulatory [facility] Facility:[facility] Start: 03-27-2024 End: 03-27-2024 Patient encounter procedure [facility] Start: 03-27-2024 End: 03-27-2024 ambulatory [facility] Start: 03-19-2024 End: 03-19-2024 ambulatory [facility] Start: 02-25-2024 End: 03-12-2024 ambulatory [facility] Facility:[facility] Start: 02-13-2024 End: 02-13-2024 ambulatory [facility] Start: 01-30-2024 End: 02-18-2024 ambulatory [facility] Facility:[facility] Start: 01-09-2024 End: 01-09-2024 ambulatory [facility] Start: 12-23-2023 End: 01-17-2024 ambulatory [facility] Facility:[facility] Start: 12-19-2023 End: 12-19-2023 ambulatory [facility] Start: 12-12-2023 End: 12-12-2023 ambulatory [facility] Start: 11-25-2023 End: 12-19-2023 ambulatory [facility] Facility:[facility] Start: 11-14-2023 End: 11-14-2023 ambulatory [facility] Start: 11-13-2023 End: 11-13-2023 ambulatory [facility] Start: 10-23-2023 End: 11-19-2023 ambulatory [facility] Facility:[facility] Start: 10-21-2023 End: 10-21-2023 ambulatory [facility] Start: 10-21-2023 End: 10-21-2023 ambulatory [facility] Start: 09-24-2023 End: 10-21-2023 ambulatory [facility] Facility:[facility] Start: 09-13-2023 Orders Only Janice Valadez FILM PAINTER-PHLEBOTOMIST LAB ASSISTANT Work Phone: [facility] Start: 08-26-2023 End: 09-23-2023 ambulatory [facility] Facility:[facility] Start: 08-21-2023 Refill Janice Valadez FILM PAINTER-PHLEBOTOMIST LAB ASSISTANT Work Phone: [facility] Comment on above: Gastroesophageal ref lux disease with esophagitis without hemorrhage Start: 08-15-2023 End: 08-15-2023 Office outpatient visit 25 minutes Hayley James MD Work Phone: [facility] Comment on above: Seasonal allergic rh initis due to pollen (Primary Dx); Allergic rhinitis due to dust mite; Allergic rhinitis due to animal (cat) (dog) hair and dander; Allergic rhinitis due to animals; Allergic rhinitis caused by mold Start: 08-15-2023 End: 08-15-2023 ambulatory [facility] Start: 08-08-2023 Telephone encounter Analy grey RN Work Phone: [facility] Start: 07-31-2023 End: 07-31-2023 ambulatory ANDREW MA Not Available Start: 07-31-2023 End: 07-31-2023 Patient encounter procedure Andrew Francesca DO Work Phone: [facility] Work Phone: Start: 07-31-2023 End: 07-31-2023 Periodic preventive med est patient 40-64yrs Anrdew Francesca DO Work Phone: [facility] Comment on above: Well woman exam with routine gynecological exam; Breast cancer screening by mammogram Start: 07-31-2023 Clinisync Result Encounter Cor ey Francesca DO Work Phone: [facility] Unsolicited Start: 07-31-2023 Clinisync Result Encounter Cor ey Francesca DO Work Phone: [facility] Unsolicited Start: 06-18-2023 End: 06-18-2023 ambulatory [facility] Start: 07-30-2022 End: 07-30-[address] ANDREW MA Facility:[facility] Start: 10-13-2021 End: 10-14-[address] JEAN REED Facility:[facility] Start: 10-13-2021 End: 10-13-[address] JEAN REED Facility:[facility] Start: 08-31-2021 End: 09-01-[address] ANDREW MA Facility:[facility] Start: 09-24-2018 Patient encounter procedure KULWINDER HUMMEL [facility] Start: 09-24-2018 End: 09-24-2018 Office outpatient new 45 minutes Kulwinder Samuel Work Phone: [facility] Plastic Surgery Comment on above: Macromastia (Primary Dx); Chronic back pain, unspecified back location, unspecified back pain laterality Start: 08-04-2018 End: 08-04-2018 Chart abstracting Kuliwnder Samuel Work Phone: [facility] Plastic Surgery Procedures Date Procedure Procedure Detail Performing Clinician Start: 06-11-2024 Adult depression scr eening assessment Christina Rios FILM PAINTER-TABULATING SUPERVISOR Work Phone: Start: 05-27-2024 End: 05-27-2024 Needle emg ea extremty w/paraspinl area complete Palomo Francois DO Work Phone: Start: 04-24-2024 Adult depression scr eening assessment Jean Reed DO Work Phone: Start: 02-13-2024 Adult depression scr eening assessment [facility] Room Start: 11-13-2023 Follow-up visit Follow-up HAYLEY STEWART Start: 08-02-2023 Mammography Andrew Fazi o DO Work Phone: Start: 07-31-2023 IGP,APTIMA HPV,AGE GDLN Andrew Francesca DO Work Phone: Start: 05-22-2023 Adult depression scr eening assessment Analy Arechiga RN Work Phone: Plan of Treatment Date Care Activity Detail Author Start: 01-24-2026 Screening for malign ant neoplasm of colon Colon Cancer Screening 3 Year Cologuard [facility] Start: 01-17-2026 Screening for malign ant neoplasm of colon [facility] Start: 06-11-2025 Adult BMI Screening Adult BMI Screen ing [facility] Start: 06-11-2025 Depression Screening Depression Scre ening [facility] Start: 06-11-2025 Tobacco Screening Tobacco Screening [facility] Start: 05-07-2025 Adult BMI Screening Adult BMI Screen ing [facility] Start: 05-07-2025 Tobacco Screening Tobacco Screening [facility] Start: 04-30-2025 Adult BMI Screening Adult BMI Screen ing [facility] Start: 04-30-2025 Tobacco Screening Tobacco Screening [facility] Start: 04-29-2025 End: 04-29-2025 Patient encounter procedure 04/29/2025 4:00 PM EST Office Visit [facility] [address] [place] [address] Hayley James MD [address] [place] [address] [facility] Start: 04-24-2025 Adult BMI Screening Adult BMI Screen ing [facility] Start: 04-24-2025 Depression Screening Depression Scre ening [facility] Start: 04-24-2025 Tobacco Screening Tobacco Screening [facility] Start: 03-19-2025 Adult BMI Screening Adult BMI Screen ing [facility] Start: 03-19-2025 Tobacco Screening Tobacco Screening [facility] Start: 02-12-2025 Depression Screening Depression Scre ening [facility] Start: 10-20-2024 Adult BMI Follow Up Plan Adult BMI Follow Up Plan [facility] Start: 09-10-2024 End: 09-10-2024 Patient encounter procedure 09/10/2024 4:00 PM EDT Office Visit [facility] [address] [place] [address] Christina Rios, FILM PAINTER-TABULATING SUPERVISOR [address] [place] [address] [facility] Start: 08-15-2024 Adult BMI Screening Adult BMI Screen ing [facility] Start: 08-15-2024 Tobacco Screening Tobacco Screening [facility] Start: 08-05-2024 End: 08-05-2024 Patient encounter procedure 08/05/2024 4:00 PM EST Office Visit [facility] [address] [place] [id number] Andrew Ma, DO [address] [place] [address] [facility] Start: 08-02-2024 Screening for malign ant neoplasm of breast Mammogram [facility] Start: 06-13-2024 Adult BMI Screening Adult BMI Screen ing [facility] Start: 06-13-2024 Tobacco Screening Tobacco Screening [facility] Start: 06-11-2024 End: 06-11-2024 Patient encounter procedure 06/11/2024 3:20 PM EST Office Visit [facility] [address] [place] [address] Christina Rios, FILM PAINTER-TABULATING SUPERVISOR [address] [place] [address] [facility] Start: 05-27-2024 End: 05-27-2024 Patient encounter procedure 05/27/2024 8:30 AM EST Procedure Visit [facility] [address] [facility] [address] [place] [id number] Palomo Francois [address] [place] [address] Arrived [facility] Comment on above: Arrived Start: 05-22-2024 Depression Screening Depression Scre [facility] Start: 05-07-2024 End: 05-07-2024 Patient encounter procedure 05/07/2024 1:00 PM EST Office Visit [facility] [address] [place] [address] Christina Rios, FILM PAINTER-TABULATING SUPERVISOR [address] [facility] [place] [address] [facility] Start: 04-30-2024 End: 04-30-2024 Patient encounter procedure 04/30/2024 4:00 PM EST Office Visit [facility] [place] [address] Hayley James MD [address] [place] [address] [facility] Start: 02-23-2024 Influenza vaccination Influenza Vacc ine (#1) [facility] Start: 11-13-2023 End: 11-13-2023 Patient encounter procedure 11/13/2023 4:00 PM EDT Office Visit [facility] [address] [place] [address] Hayley James MD [address] [facility] [address] [place] [address] [facility] Start: 10-21-2023 End: 10-21-2023 Patient encounter procedure 10/21/2023 2:30 PM EDT Office Visit [facility] [address] [place] [address] Janice Valadez, FILM PAINTER-PHLEBOTOMIST LAB ASSISTANT [address] [place] [address] [facility] Start: 09-25-2023 End: 09-25-2023 Patient encounter procedure 09/25/2023 4:30 PM EDT Office Visit [facility] [address] [place] [address] Janice Valadez, FILM PAINTER-PHLEBOTOMIST LAB ASSISTANT [address] [place] [address] [facility] Start: 08-15-2023 End: 08-15-2023 Patient encounter procedure 08/15/2023 2:15 PM EST Office Visit [facility] [address] [place] [address] Hayley James MD [address] [facility] [address] [place] [address] [facility] Start: 07-31-2023 End: 09-28-2024 MG Breast - bilateral Screening Bilateral screening mammogram Imaging Routine Breast cancer screening by mammogram Expected: 07/31/2023 (Approximate), Expires: 09/28/2024 [facility] Work Phone: Comment on above: Expected: 07/31/2023 (Approximate), Expires: 09/28/2024 Start: 02-22-2023 Influenza vaccination Influenza Vacc ine (#1) [facility] Start: 02-22-2019 Influenza vaccination INFLUENZ A VACCINE (Season Ended) [facility] Start: 08-27-2018 End: 08-27-2018 Office Visit 08/27/2018 Office Visit Plastic Surgery Kulwinder Samuel MD [address] [place] [address] [phone] [facility] Start: 02-22-2018 Influenza vaccination INFLUENZA VACC INE (#1) [facility] Start: 2015 Fasting lipid profile LIPID SCREENIN G [facility] Start: 2015 Protein mass conc MAMMOGRAM SC REENING DISCUSSION [facility] Start: 2005 Screening for malign ant neoplasm of cervix [facility] Start: 1996 Screening for malign ant neoplasm of cervix [facility] Start: 1994 DTaP,Tdap and Td Vaccines (1 - Tdap) DTaP,Tdap and Td Vaccines (1 - Tdap) [facility] Start: 1994 Third diphtheria, tetanus and acellular pertussis (DTaP) vaccination TDAP (ADULT) [facility] Start: 1993 Adult BMI Follow Up Plan Adult BMI Follow Up Plan [facility] Start: 1993 Tetanus vaccination [facility] Start: 1988 HIV screening HIV SCREENING DISCUSSI ON [facility] Start: 1975 Screening for malign ant neoplasm of colon [facility] End: 05-07-2025 EMG EMG Neurology Routine Numbness and tingling in both hands 1 Occurrences starting 05/07/2024 until 05/07/2025 [facility] Work Phone: Comment on above: 1 Occurrences starti ng 05/07/2024 until 05/07/2025 End: 06-11-2025 Hemoglobin A1c/Hemoglobin.total in Blood Hemoglobin A1c Lab Routine Type 2 diabetes mellitus with hyperglycemia, with long-term current use of insulin ([facility]) 1 Occurrences starting 06/11/2024 until 06/11/2025 [facility] Work Phone: Comment on above: 1 Occurrences starti ng 06/11/2024 until 06/11/2025 End: 06-11-2025 Microalbumin - Albumin: Creatinine Urine Ratio Microalbumin - Albumin: Creatinine Urine Ratio Lab Routine Type 2 diabetes mellitus with hyperglycemia, with long-term current use of insulin ([facility]) 1 Occurrences starting 06/11/2024 until 06/11/2025 [facility] Comment on above: 1 Occurrences starti ng 06/11/2024 until 06/11/2025 THIN PREP TIS PAP AN D HR HPV DNA THIN PREP TIS PAP AND HR HPV DNA Pathology and Cytology Routine Well woman exam with routine gynecological exam Ordered: 07/31/2023 [facility] Comment on above: Ordered: 07/31/2023 Immunizations Immunization Date Immunization Notes Care Provider Fa [facility] 05-09-2021 COVID-19 Vaccine, vector-nr, rS-Ad26, PF, 0.5mL Analy Arechiga RN Work Phone: [facility] 05-09-2021 COVID-19, mRNA, LNP- S, PF, 100mcg/0.5mL Dose Analy Arechiga RN Work Phone: [facility] Payers Date Payer Category Payer [facility] [id number] 2020 [facility] Managed Care - Other ANTHEM [id number] 2020 Unknown [id number]. 1.13.693. 2.7.3.319902.315 2018 Private Health Insurance ZAY WRAY xxxxxxxxxx 2018-Present xxxxxxxxxx [id number]. [id number] 2018 Private Health Insurance [id number] 1975 Unknown [id number] 2.16.840.1.058231.3.579. 2.983 1975 Unknown [id number] 2.16.840.1.832661.3.579. 2.593 1975 Unknown [id number] 2.16.840.1.318123.3.579. 2.593 1975 Unknown [id number] 2.16.840.1.596158.3.579. 2.593 1975 Unknown [id number] 2.16.840.1.526996.3.579. 2.593 1975 Unknown [id number] 2.16.840.1.972048.3.579. 2.1259 1975 Unknown [id number] 2.16.840.1.737196.3.579. 2.1259 1975 Unknown [id number] 2.16.840.1.803709.3.579. 2.1286 1975 Unknown [id number] 2.16.840.1.284004.3.579. 2.1285 1975 Unknown [id number] 2.16.840.1.198777.3.579. 2.1285 1975 Unknown [id number] 2.16.840.1.535931.3.579. 2.1285 1975 Unknown [id number] 2.16.840.1.041751.3.579. 2.1285 1975 Unknown [id number] 2.16.840.1.527986.3.579. 2.1285 1975 Unknown [id number] 2.16.840.1.349515.3.579. 2.1285 1975 Unknown [id number] 2.16.840.1.969889.3.579. 2.1285 1975 Unknown [id number] 2.16.840.1.801289.3.579. 2.1285 1975 Unknown [id number] 2.16.840.1.846353.3.579. 2.1285 1975 Unknown [id number] 2.16.840.1.140087.3.579. 2.1285 1975 Unknown [id number] 2.16.840.1.800152.3.579. 2.1285 1975 Unknown [id number] 2.16.840.1.647289.3.579. 2.1285 1975 Unknown [id number] 2.16.840.1.602096.3.579. 2.1285 1975 Unknown [id number] 2.16.840.1.084861.3.579. 2.1285 1975 Unknown [id number] 2.16.840.1.897027.3.579. 2.1285 1975 Unknown [id number] 2.16.840.1.813135.3.579. 2.1285 1975 Unknown [id number] 2.16.840.1.213324.3.579. 2.1286 1975 Unknown [id number] 2.16.840.1.213090.3.579. 2.8 1975 Unknown [id number] 2.16.840.1.926776.3.579. 2.8 1975 Unknown [id number] 2.16.840.1.233199.3.579. 2.8 1975 Unknown [id number] 2.16.840.1.509237.3.579. 2. 1975 Unknown [id number] 2.16.840.1.570656.3.579. 2. 1975 Unknown [id number] 2.16.840.1.793030.3.579. 2. 1975 Unknown [id number] 2.16.840.1.623887.3.579. 2.8 1975 Unknown [id number] 2.16.840.1.411967.3.579. 2.8 1975 Unknown [id number] 2.16.840.1.657818.3.579. 2.8 1975 Unknown [id number] 2.16.840.1.704842.3.579. 2.8 1975 Unknown [id number] 2.16.840.1.394326.3.579. 2.8 1975 Unknown [id number] 2.16.840.1.486348.3.579. 2.718 1959 Unknown [id number] Social History Date Type Detail Facility Start: 08-04-2018 End: 10-17-2022 Tobacco smoking status NMIS Never smoker [facility] Start: 1975 Sex Assigned At Not on file A YULIYA Gasngo Start: 07-31-2023 Alcohol intake Ex-drinker (finding) [facility] Start: 07-15-2020 End: 07-09-2023 History of Social function [facility] Start: 07-15-2020 End: 07-09-2023 Tobacco use panel [facility] Start: 07-09-2023 Alcohol Comment Alcohol: occas ional . Caffeine:1-2 cups per day tea [facility] Start: 10-17-2022 Tobacco use and exposure Smokeless tobacco non-user [facility] Start: 06-13-2023 End: 06-11-2024 Alcohol intake Current non-drinker of alcohol (finding) [facility] Adolescent depressio n screening assessment 0 [facility] Start: 01-27-2015 Sex Female (finding) [facility] Medical Equipment Procedure Code Equipment Code Equipment Origin al Text Equipment Identifier Dates 1 Pen Needle by miscellaneous route Daily at 0300. To use daily with toujeo [id number] Start: 02-13-2023 1 Pen Needle by miscellaneous route Daily at 0300. To use daily with toujeo [id number] Start: 02-10-2024 Goals Date Patient Goal Desired Activity /State Personal health goal Comment on above: Formatting of this n ote might be different from the original. Evaluation of progress towards goal: Safe dc transition home. Clinical Notes 07-31-2023 to 06-18-2024 Telephone Encounter - Radha Rasmussen - 06/18/2024 4:31 PM ESTTelephone Encounter - Radha Rasmussen - 06/18/2024 4:31 PM ESTTelephone Encounter - Radha Rasmussen - 06/18/2024 4:31 PM EST Note Date & Type Note Facility 06-18-2024 Miscellaneous Notes Is a Toujeo affordable for patient? It was denied by her insurance but I would prefer using this over Lantus which is preferred. If it is too expensive we can switch to Lantus. [place] get it through them documented in this encounter [facility] 06-18-2024 Telephone encounter Note Is a Toujeo affordable for patient? It was denied by her insurance but I would prefer using this over Lantus which is preferred. If it is too expensive we can switch to Lantus. [facility] 06-18-2024 Telephone encounter Note Mailbox full [facility] 06-18-2024 Telephone encounter Note [place] get it through them [facility] 06-11-2024 History of Presen t illness Narrative [address] [place] [facility] [phone] Patient: Radha Lemos Date of : 1975 Encounter Date: 06/11/2024 History of Present Illness: The patient is a 48 y.o. female, an established patient, and is here for Chief Complaint Patient presents with Diabetes . HPI Patient is here for a diabetic checkup, to check bilateral wrist carpal tunnel syndromes and weight check. She was advised to wean off of her Adipex at last appointment but unfortunately the pharmacy gave her capsules and she was unable to break these to do the wean. She did lose 5 lb this month from the regular dose Adipex. She is having no adverse side effects. Her blood sugars have been about 50% out of range in the last 1 month. Right now her blood sugar in the office is 144 according to her CGM. She has had 7% of her blood sugars very high out of range. She is unable to take G LP 1 inhibitors as she was in the hospital with nausea and vomiting the last time she took them. She is on metformin, SGLT inhibitor and insulin at this time. Patient has bilateral carpal tunnel surgery July 22 and she will be off for 4-6 weeks for this. Problem List Items Addressed This Visit Cardiovascular and Mediastinum Essential hypertension Digestive Obesity Relevant Medications phentermine (ADIPEX-P) 37.5 mg tablet Other Visit Diagnoses Type 2 diabetes mellitus with hyperglycemia, with long-term current use of insulin ([facility]) - Primary Relevant Medications insulin glargine 300 unit/mL (TOUJEO SOLOSTAR U-300 INSULIN) 300 unit/mL (1.5 mL) insulin pen Other Relevant Orders Hemoglobin A1c Microalbumin - Albumin: Creatinine Urine Ratio Type 2 diabetes mellitus with hyperglycemia, without long-term current use of insulin ([facility]) Relevant Medications insulin glargine 300 unit/mL (TOUJEO SOLOSTAR U-300 INSULIN) 300 unit/mL (1.5 mL) insulin pen Bilateral carpal tunnel syndrome Past Medical, Family, and Social History Update: The following portions of the patient's history were reviewed and updated as appropriate: allergies, current medications, past family history, past medical history, past social history, past surgical history and problem list. Past Medical History: Diagnosis Date Allergic 05/15/2023 allergy shots 1 a week Asthma Diabetes mellitus type 2, controlled ([facility]) Hyperlipidemia Hypertension Meniscal injury, right, subsequent encounter Past Surgical History: Procedure Laterality Date APPENDECTOMY EGD N/A 10/18/2021 Performed by Alli Rodriguez DO at [facility] HYSTERECTOMY ovaries remain KNEE SURGERY Right 04/20/2020 revision acl , medial and lateral meniscectomies Dr Amaro OTHER SURGICAL HISTORY uterine ablasion OVARIAN CYST SURGERY Current Outpatient Medications Medication Sig Dispense Refill albuterol (PROVENTIL HFA;VENTOLIN HFA) 90 mcg/actuation inhaler Inhale 2 puffs every 6 (six) hours as needed for wheezing. 18 g 1 atorvastatin (LIPITOR) 10 mg tablet Take 1 tablet (10 mg total) by mouth in the morning. 90 tablet 1 azelastine (ASTELIN) 137 mcg (0.1 %) nasal spray Administer 2 sprays into each nostril in the morning and 2 sprays before bedtime. Use in each nostril as directed. 30 mL 12 blood-glucose meter,continuous (DEXAdvanced-Tec G7 RICE FIELD WORKER) misc 1 each by miscellaneous route every 3 (three) months. 1 each 3 blood-glucose sensor (DEXCOM G7 SENSOR) device 1 each by miscellaneous route every 10 days. 9 each 3 buPROPion XL (WELLBUTRIN XL) 300 mg 24 hr tablet Take 1 tablet (300 mg total) by mouth in the morning. 90 tablet 1 cetirizine (ZyrTEC) 10 mg tablet Take 1 tablet (10 mg total) by mouth in the morning. 90 tablet 4 cholecalciferol (VITAMIN D3) 1,000 units tablet Take 1 tablet (1,000 Units total) by mouth in the morning. 100 tablet 3 DEXCOM G6 TRANSMITTER device TO USE WITH CONTINOUS SYSTEM 1 each 1 diclofenac sodium (VOLTAREN) 1 % gel Voltaren 1 % topical gel empagliflozin-metFORMIN 25-1,000 mg tablet, IR & ER, biphasic 24hr Take 1 tablet by mouth in the morning. 90 tablet 3 EPINEPHrine (EPIPEN) 0.3 mg/0.3 mL auto-injector Inject 0.3 mL (0.3 mg total) into the appropriate muscle as needed (anaphylaxis). 2 each 4 hydrOXYzine (ATARAX) 10 mg tablet Take 1 tablet (10 mg total) by mouth 3 (three) times a day as needed for itching. 90 tablet 1 meloxicam (MOBIC) 15 mg tablet Take 1 tablet (15 mg total) by mouth in the morning. 30 tablet 1 montelukast (SINGULAIR) 10 mg tablet Take 1 tablet (10 mg total) by mouth nightly. 90 tablet 3 nystatin (MYCOSTATIN) cream Apply 1 Application topically in the morning and 1 Application before bedtime. 60 g 1 nystatin (MYCOSTATIN) powder Apply topically 2 (two) times a day as needed (rash or itching). 15 g 0 olmesartan (BENICAR) 5 mg tablet Take 1 tablet (5 mg total) by mouth every morning. 90 tablet 1 pantoprazole (PROTONIX) 40 mg EC tablet Take 1 tablet (40 mg total) by mouth every morning before breakfast. 90 tablet 3 pen needle, diabetic 32 gauge x 5/32 needle 1 Pen Needle by miscellaneous route Daily at 0300. To use daily with toujeo 100 each 3 insulin glargine 300 unit/mL (TOUJEO SOLOSTAR U-300 INSULIN) 300 unit/mL (1.5 mL) insulin pen Inject 60 Units under the skin nightly. 22.5 mL 3 phentermine (ADIPEX-P) 37.5 mg tablet Take 1 tablet (37.5 mg total) by mouth every morning before breakfast. 30 tablet 0 No current facility-administered medications for this visit. (All medications reviewed and updated by provider since last office visit or hospitalization) Allergies: Macrodantin [nitrofurantoin macrocrystal], Diflucan [fluconazole], Lisinopril, and Metformin Tobacco History: Social History Tobacco Use Smoking Status Never Smokeless Tobacco Never (If patient a smoker, smoking cessation counseling offered) Social History: Social History Substance and Sexual Activity Alcohol Use No Review of Systems: Review of Systems Constitutional: Positive for unexpected weight change (5 lb weight loss). HENT: Negative. Respiratory: Negative. Cardiovascular: Negative. Musculoskeletal: Positive for arthralgias. Neurological: Negative. Psychiatric/Behavioral: Negative. Physical Exam: BP 124/78 (BP Site: Right Arm) Pulse 88 Temp 36.3 C (97.3 F) Resp 18 Ht 162.6 cm (5' 4 ) Wt 113.9 kg (251 lb) SpO2 98% BMI 43.08 kg/m Physical Exam Vitals reviewed. Constitutional: Appearance: Normal appearance. She is obese. HENT: Head: Normocephalic and atraumatic. Neck: Vascular: No carotid bruit. Cardiovascular: Rate and Rhythm: Normal rate and regular rhythm. Pulses: Normal pulses. Heart sounds: Normal heart sounds. Pulmonary: Effort: Pulmonary effort is normal. Breath sounds: Normal breath sounds. Abdominal: General: Bowel sounds are normal. Palpations: Abdomen is soft. Tenderness: There is no abdominal tenderness. Musculoskeletal: Right lower leg: No edema. Left lower leg: No edema. Comments: Wearing right wrist cock-up splint Skin: General: Skin is warm. Capillary Refill: Capillary refill takes less than 2 seconds. Neurological: General: No focal deficit present. Mental Status: She is alert and oriented to person, place, and time. Psychiatric: Mood and Affect: Mood normal. Behavior: Behavior normal. Assessment and Plan: Radha was seen today for diabetes. Diagnoses and all orders for this visit: Type 2 diabetes mellitus with hyperglycemia, with long-term current use of insulin ([facility]) - Hemoglobin A1c; Future - Microalbumin - Albumin: Creatinine Urine Ratio; Future Essential hypertension Class 3 severe obesity due to excess calories with serious comorbidity and body mass index (BMI) of 40.0 to 44.9 in adult ([facility]) - phentermine (ADIPEX-P) 37.5 mg tablet; Take 1 tablet (37.5 mg total) by mouth every morning before breakfast. Type 2 diabetes mellitus with hyperglycemia, without long-term current use of insulin ([facility]) - insulin glargine 300 unit/mL (TOUJEO SOLOSTAR U-300 INSULIN) 300 unit/mL (1.5 mL) insulin pen; Inject 60 Units under the skin nightly. Bilateral carpal tunnel syndrome Follow-up: Patient's blood glucose has been out of range at least 50% of the time so her A1c is likely not at goal today. Plan to increase her Toujeo to 60 units per day. Depending on what her A1c is and with patient wanting to wait to see what the value is before starting anything new, we may consider adding short-acting insulin for mealtime coverage with sliding scale. Patient was also offered electrical and radio mechanic and/or endocrinology referral but patient would like to see what her A1c as 1st. We will wean down on the Adipex this month, she was given wean schedule at last appointment referred to last appointment note for weaned schedule according to pharmacist recommendation. Patient's blood pressure and can year cardiovascular risk is low at 0.9%. No changes. The OARRS/MAPPS database was reviewed today and found to be appropriate. No indication of medication diversion, or non compliance. Discussed weight loss measures with patient including bariatric surgery as patient can not use G LP 1 inhibitors. She is going to [facility] with [facility] about [facility]. Patient has upcoming bilateral carpal tunnel surgery. We will try to optimize blood sugars and A1c before surgery at the end of June. Patient should return in 3 months until A1c is less than 7%. LOGAN KILLIAN APRN-CNP 06/11/24 1646 documented in this encounter [facility] 06-05-2024 History of Presen t illness Narrative [facility] [address] [facility] [id number] Name: Radha Lemos : 1975 Chief Complaint Patient presents with Right Hand - Pain New Patient Right hand pain, pain located in thumb area, and on top, taking mobic, prior PT 10 years ago, no cortisone inj or surgery, right is worse. EMG report in symptom Left Hand - Pain Left hand discomfort, denies pain, having numbness and tingle, taking mobic, prior PT 10 years ago, prior cortisone inj 10 years ago or surgery, EMG report in symptom HPI: The patient is a 48 y.o. female with Bilateral hand pain. This has been present now for many years. It has been progressive over time. She has numbness and tingling that primarily involves the thumb, index, and long fingers. She has more recently started to have pain around her carpal tunnel area. Symptoms were initially present at night but are now present during the day and with most activity. Her treatment course up to this point has included: NSAID use, activity modification, physical therapy, corticosteroid injection, wrist braces without improvement. REVIEW OF SYSTEMS: Positive for joint pain, numbness, tingling. Negative for fever, chills, shortness of breath, chest pain, abdominal discomfort. Past Medical History: Diagnosis Date Allergic 05/15/2023 allergy shots 1 a week Asthma Diabetes mellitus type 2, controlled ([facility]) Hyperlipidemia Hypertension Meniscal injury, right, subsequent encounter Past Surgical History: Procedure Laterality Date APPENDECTOMY EGD N/A 10/18/2021 Performed by Alli Rodriguez DO at [facility] HYSTERECTOMY ovaries remain KNEE SURGERY Right 04/20/2020 revision acl , medial and lateral meniscectomies Dr Amaro OTHER SURGICAL HISTORY uterine ablasion OVARIAN CYST SURGERY Allergies Allergen Reactions Macrodantin [Nitrofurantoin Macrocrystal] Anaphylaxis Diflucan [Fluconazole] Hives Lisinopril Cough Dry cough Metformin Nausea Home Meds as of 06/05/24 0735 Medication Sig albuterol (PROVENTIL HFA;VENTOLIN HFA) 90 mcg/actuation inhaler Inhale 2 puffs every 6 (six) hours as needed for wheezing. atorvastatin (LIPITOR) 10 mg tablet Take 1 tablet (10 mg total) by mouth in the morning. azelastine (ASTELIN) 137 mcg (0.1 %) nasal spray Administer 2 sprays into each nostril in the morning and 2 sprays before bedtime. Use in each nostril as directed. blood-glucose meter,continuous (DEXCOM G7 RICE FIELD WORKER) misc 1 each by miscellaneous route every 3 (three) months. blood-glucose sensor (DEXCOM G7 SENSOR) device 1 each by miscellaneous route every 10 days. buPROPion XL (WELLBUTRIN XL) 300 mg 24 hr tablet Take 1 tablet (300 mg total) by mouth in the morning. cetirizine (ZyrTEC) 10 mg tablet Take 1 tablet (10 mg total) by mouth in the morning. cholecalciferol (VITAMIN D3) 1,000 units tablet Take 1 tablet (1,000 Units total) by mouth in the morning. DEXCOM G6 TRANSMITTER device TO USE WITH CONTINOUS SYSTEM diclofenac sodium (VOLTAREN) 1 % gel Voltaren 1 % topical gel empagliflozin-metFORMIN 25-1,000 mg tablet, IR & ER, biphasic 24hr Take 1 tablet by mouth in the morning. EPINEPHrine (EPIPEN) 0.3 mg/0.3 mL auto-injector Inject 0.3 mL (0.3 mg total) into the appropriate muscle as needed (anaphylaxis). hydrOXYzine (ATARAX) 10 mg tablet Take 1 tablet (10 mg total) by mouth 3 (three) times a day as needed for itching. insulin glargine 300 unit/mL (LUCINDA GUARDADO U-300 INSULIN) 300 unit/mL (1.5 mL) insulin pen Inject 50 Units under the skin nightly. meloxicam (MOBIC) 15 mg tablet Take 1 tablet (15 mg total) by mouth in the morning. montelukast (SINGULAIR) 10 mg tablet Take 1 tablet (10 mg total) by mouth nightly. nystatin (MYCOSTATIN) cream Apply 1 Application topically in the morning and 1 Application before bedtime. nystatin (MYCOSTATIN) powder Apply topically 2 (two) times a day as needed (rash or itching). olmesartan (BENICAR) 5 mg tablet Take 1 tablet (5 mg total) by mouth every morning. pantoprazole (PROTONIX) 40 mg EC tablet Take 1 tablet (40 mg total) by mouth every morning before breakfast. pen needle, diabetic 32 gauge x 5/32 needle 1 Pen Needle by miscellaneous route Daily at 0300. To use daily with lucinda phentermine 37.5 MG capsule Take 1 capsule (37.5 mg total) by mouth every morning. PHYSICAL EXAM: Vitals: 06/05/24 0734 Weight: 116.1 kg (256 lb) Height: 162.6 cm (5' 4 ) Body mass index is 43.94 kg/m . The patient is alert and oriented. There are no apparent distress. Examination of the right upper extremity shows the skin to be intact. There is no soft tissue swelling. There is no thenar atrophy. There is tenderness to palpation at the carpal tunnel. ROM at the wrist is 60 of flexion and extension. 50 radioulnar arc. There is full range of motion throughout all the fingers. Negative CMC grind. Negative Haylee's test. Negative Wellington's test. Positive Tinel and Phalen at the carpal tunnel. Negative elbow flexion test and Tinel at the cubital tunnel. 5/5 strength wrist flexion and extension. 5/5 road production general manager strength. Sensation is intact to light touch with reduced two-point discrimination in the median distribution as compared to the contralateral extremity. Sensation is intact in the radial and ulnar distributions. 2+ radial pulse. Examination of the left upper extremity shows the skin to be intact. There is no soft tissue swelling. There is no thenar atrophy. There is tenderness to palpation at the carpal tunnel. ROM at the wrist is 60 of flexion and extension. 50 radioulnar arc. There is full range of motion throughout all the fingers. Negative CMC grind. Negative Haylee's test. Negative Wellington's test. Positive Tinel and Phalen at the carpal tunnel. Negative elbow flexion test and Tinel at the cubital tunnel. 5/5 strength wrist flexion and extension. 5/5 road production general manager strength. Sensation is intact to light touch with reduced two-point discrimination in the median distribution as compared to the contralateral extremity. Sensation is intact in the radial and ulnar distributions. 2+ radial pulse. EMG: Bilateral carpal tunnel syndrome (mild). A/P: Radha Lemos is a 48 y.o. female with Bilateral carpal tunnel syndrome. This has been present for many years and symptoms are progressively worsening over time. It has been confirmed on EMG. She has failed extensive nonoperative modalities. We had a discussion today about further options. We discussed the risks and benefits to surgery which include but are not limited to: Bleeding, infection, damage to surrounding structures, continued symptoms, need for additional procedures. She would like to proceed. Planned procedure will be bilateral carpal tunnel release (mac). Expected postoperative course was discussed. Ample time was allowed for questions. She would like to proceed. Geoffrey Badillo MD 11:50 AM 06/05/2024 documented in this encounter [facility] 05-27-2024 History of Presen t illness Narrative Images from the original note were not included. Reason for Appointment: EMG Patient: Radha Lemos : 1975 EMG Computer: [employer] Referring Physician: Christina Rios CNP EMG: JONATHAN inspector repairer sandstone: Dave Nix RT(R) Office Location: [place] Reason for EMG: c/o numbness/tingling in bilateral hands/forearms L>R. Hx of DM. Not on blood thinners. Comments: Procedure was explained to the patient who expressed understanding. Patient appeared to have tolerated the test well despite some discomfort due to the nature of the test. documented in this encounter [facility] 05-07-2024 History of Presen t illness Narrative [address] [place] [address] Patient: Radha Lemos Date of : 1975 Encounter Date: 05/07/2024 History of Present Illness: The patient is a 48 y.o. female, an established patient, and is here for Chief Complaint Patient presents with Weight Check . HPI Patient is here for a weight check on the Adipex. Unfortunately patient did not lose any weight since last appointment. She is here with her daughter Grisel. Her fasting blood sugars have been in the 150s and after eating blood sugars are usually between 230 and 250. She has had no hypoglycemia. Her A1c in January was 8.7%. Patient can not tolerate G LP 1 inhibitors as she had to be hospitalized when Ozempic was increased in the past due to nausea and vomiting. Patient is also here to follow-up on her diagnosed right carpal tunnel syndrome after last appointment with Dr. Reed. She has been wearing a right wrist brace since April 25 and states her wrist pain and numbness and tingling are only minimally improved. She still has wrist pain to the thumb side and numbness and tingling in all of her fingers. The numbness and tingling is not new as this has been going on for about 1 year. 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 The Mobic helps slightly and does not hurt her stomach or cause GERD. Problem List Items Addressed This Visit Digestive Gastric reflux Obesity, morbid, BMI 40.0-49.9 ([facility]) Relevant Medications phentermine 37.5 MG capsule Other Visit Diagnoses Type 2 diabetes mellitus with hyperglycemia, with long-term current use of insulin ([facility]) - Primary Numbness and tingling in both hands Relevant Orders EMG [facility] - Celia - Mel TendinitisCrump's Past Medical, Family, and Social History Update: The following portions of the patient's history were reviewed and updated as appropriate: allergies, current medications, past family history, past medical history, past social history, past surgical history and problem list. Past Medical History: Diagnosis Date Allergic 05/15/2023 allergy shots 1 a week Asthma Diabetes mellitus type 2, controlled ([facility]) Hyperlipidemia Hypertension Meniscal injury, right, subsequent encounter Past Surgical History: Procedure Laterality Date APPENDECTOMY EGD N/A 10/18/2021 Performed by Alli Rodriguez DO at [facility] HYSTERECTOMY ovaries remain KNEE SURGERY Right 04/20/2020 revision acl , medial and lateral meniscectomies Dr Amaro OTHER SURGICAL HISTORY uterine ablasion OVARIAN CYST SURGERY Current Outpatient Medications Medication Sig Dispense Refill albuterol (PROVENTIL HFA;VENTOLIN HFA) 90 mcg/actuation inhaler Inhale 2 puffs every 6 (six) hours as needed for wheezing. 18 g 1 atorvastatin (LIPITOR) 10 mg tablet Take 1 tablet (10 mg total) by mouth in the morning. 90 tablet 1 azelastine (ASTELIN) 137 mcg (0.1 %) nasal spray Administer 2 sprays into each nostril in the morning and 2 sprays before bedtime. Use in each nostril as directed. 30 mL 12 blood-glucose meter,continuous (DEXCOM G7 RICE FIELD WORKER) misc 1 each by miscellaneous route every 3 (three) months. 1 each 3 blood-glucose sensor (DEXCOM G7 SENSOR) device 1 each by miscellaneous route every 10 days. 9 each 3 buPROPion XL (WELLBUTRIN XL) 300 mg 24 hr tablet Take 1 tablet (300 mg total) by mouth in the morning. 90 tablet 1 cetirizine (ZyrTEC) 10 mg tablet Take 1 tablet (10 mg total) by mouth in the morning. 90 tablet 4 cholecalciferol (VITAMIN D3) 1,000 units tablet Take 1 tablet (1,000 Units total) by mouth in the morning. 100 tablet 3 DEXCOM G6 TRANSMITTER device TO USE WITH CONTINOUS SYSTEM 1 each 1 diclofenac sodium (VOLTAREN) 1 % gel Voltaren 1 % topical gel empagliflozin-metFORMIN 25-1,000 mg tablet, IR & ER, biphasic 24hr Take 1 tablet by mouth in the morning. 90 tablet 3 EPINEPHrine (EPIPEN) 0.3 mg/0.3 mL auto-injector Inject 0.3 mL (0.3 mg total) into the appropriate muscle as needed (anaphylaxis). 2 each 4 hydrOXYzine (ATARAX) 10 mg tablet Take 1 tablet (10 mg total) by mouth 3 (three) times a day as needed for itching. 90 tablet 1 insulin glargine 300 unit/mL (TOULARRY SOLOSTBELEM U-300 INSULIN) 300 unit/mL (1.5 mL) insulin pen Inject 50 Units under the skin nightly. 22.5 mL 3 meloxicam (MOBIC) 15 mg tablet Take 1 tablet (15 mg total) by mouth in the morning. 30 tablet 1 montelukast (SINGULAIR) 10 mg tablet Take 1 tablet (10 mg total) by mouth nightly. 90 tablet 3 nystatin (MYCOSTATIN) cream Apply 1 Application topically in the morning and 1 Application before bedtime. 60 g 1 nystatin (MYCOSTATIN) powder Apply topically 2 (two) times a day as needed (rash or itching). 15 g 0 olmesartan (BENICAR) 5 mg tablet Take 1 tablet (5 mg total) by mouth every morning. 90 tablet 1 pantoprazole (PROTONIX) 40 mg EC tablet Take 1 tablet (40 mg total) by mouth every morning before breakfast. 90 tablet 3 pen needle, diabetic 32 gauge x 5/32 needle 1 Pen Needle by miscellaneous route Daily at 0300. To use daily with toujeo 100 each 3 phentermine 37.5 MG capsule Take 1 capsule (37.5 mg total) by mouth every morning. 30 capsule 0 No current facility-administered medications for this visit. (All medications reviewed and updated by provider since last office visit or hospitalization) Allergies: Macrodantin [nitrofurantoin macrocrystal], Diflucan [fluconazole], Lisinopril, and Metformin Tobacco History: Social History Tobacco Use Smoking Status Never Smokeless Tobacco Never (If patient a smoker, smoking cessation counseling offered) Social History: Social History Substance and Sexual Activity Alcohol Use No Review of Systems: Review of Systems Constitutional: Negative. HENT: Negative. Respiratory: Negative. Cardiovascular: Negative. Musculoskeletal: Positive for arthralgias. Neurological: Negative. Physical Exam: BP 120/80 (BP Site: Left Arm, BP Postition: Sitting) Pulse 77 Temp 36.4 C (97.5 F) (Oral) Resp 18 Ht 162.6 cm (5' 4 ) Wt 116.4 kg (256 lb 9.6 oz) SpO2 97% BMI 44.05 kg/m Physical Exam Vitals reviewed. Constitutional: Appearance: Normal appearance. She is obese. HENT: Head: Normocephalic and atraumatic. Neck: Vascular: No carotid bruit. Cardiovascular: Rate and Rhythm: Normal rate and regular rhythm. Pulses: Normal pulses. Heart sounds: Normal heart sounds. Pulmonary: Effort: Pulmonary effort is normal. Breath sounds: Normal breath sounds. Abdominal: General: Bowel sounds are normal. Palpations: Abdomen is soft. Tenderness: There is no abdominal tenderness. Musculoskeletal: Right forearm: Normal. Right wrist: Tenderness (thumb side) and bony tenderness present. No swelling, deformity, effusion, lacerations, snuff box tenderness or crepitus. Normal range of motion. Normal pulse. Left wrist: Laceration present. Right hand: Tenderness present. No swelling, deformity, lacerations or bony tenderness. Normal range of motion. Right lower leg: No edema. Left lower leg: No edema. Comments: + Phalen's + Tinel's sign over carpal tunnel Skin: General: Skin is warm. Capillary Refill: Capillary refill takes less than 2 seconds. Neurological: General: No focal deficit present. Mental Status: She is alert and oriented to person, place, and time. Psychiatric: Mood and Affect: Mood normal. Behavior: Behavior normal. Assessment and Plan: Radha was seen today for weight check. Diagnoses and all orders for this visit: Type 2 diabetes mellitus with hyperglycemia, with long-term current use of insulin ([facility]) Obesity, morbid, BMI 40.0-49.9 ([facility]) - phentermine 37.5 MG capsule; Take 1 capsule (37.5 mg total) by mouth every morning. Gastric reflux Numbness and tingling in both hands - EMG; Future - [facility] - Celia - Mel; Future Tendinitis, Crump'renaldo Follow-up: Patient has type 2 diabetes is uncontrolled but it is too early for an A1c today. Plan to bring patient back in May to check A1c and possibly add mealtime insulin and/or increase Toujeo. Patient can not tolerate G LP 1 inhibitors. It was recommended that she wean off of the Adipex as she has not had significant weight loss in the past 1 month and benefit is not outweighing risk at this point. She was advised to take half a tab daily for 2 weeks then a half a tab every other day for 1 week then half a tab every 3rd day for 1 week then off. The OARRS/MAPPS database was reviewed today and found to be appropriate. No indication of medication diversion, or non compliance. Other weight loss measures were discussed including bariatric surgery and patient will check with insurance to determine if this is a covered service. Long-term risks of PPIs reviewed with patient but she can not stopped them because she has return of symptoms when she stops. She can not take H2 blockers because she is worried that symptoms will return. Recommend weight loss for improvement of symptoms to avoid being on PPI long-term. Numbness and tingling in hands is likely carpal tunnel syndrome versus diabetic polyneuropathy. Will obtain EMG and ortho referral placed for evaluation of carpal tunnel on the right. Patient may continue the Mobic as needed but sparingly. She should stop if it aggravates her GERD. She may use topical analgesics for the tendonitis and continue to wear wrist brace. Return to office in May for A1c check. LOGAN KILLIAN APRN-CNP 05/07/24 1559 documented in this encounter [facility] 04-30-2024 History of Presen t illness Narrative Images from the original note were not included. [facility] HISTORY OF PRESENT ILLNESS: Radha is a 48 y.o. female who presents for a follow-up. She was referred by Christina Rios APRN-C*. PCP: LOGAN KILLIAN TODAY 04/30/24: AR: AIT injections have been going well, she receives them at work. She needs a refill on cetirizine, has been taking this dily with saline nasal spray. Asthma: Reports her asthma is under good control on albuterol and montelukast. Denies any side effects. PREVIOUS VISIT 12/19/23: Her Ait injections have been helping her allergy symptoms. No side effects from Singulair. She has only needed her rescue 3 times in the past few months (she had a cough during this time). She no longer uses nasal sprays. PRIOR HISTORY: Seasonal Allergies: Has a h/o [...] week Asthma Diabetes mellitus type 2, controlled ([facility]) Hyperlipidemia Hypertension Meniscal injury, right, subsequent encounter PAST SURGICAL HISTORY: Past Surgical History: Procedure Laterality Date APPENDECTOMY EGD N/A 10/18/2021 Performed by Alli Rodriguez DO at [facility] HYSTERECTOMY ovaries remain KNEE SURGERY Right 04/20/2020 revision acl , medial and lateral meniscectomies Dr Amaro OTHER SURGICAL HISTORY uterine ablasion OVARIAN CYST SURGERY FAMILY HISTORY: Family History Problem Relation Age of Onset Hypertension Mother Hyperlipidemia Mother SOCIAL HISTORY: Social History Socioeconomic History Marital status: Tobacco Use Smoking status: Never Smokeless tobacco: Never Vaping Use Vaping status: Never Used Substance and Sexual Activity Alcohol use: No Drug use: No Sexual activity: Yes Partners: Male control/protection: Post-menopausal Social Drivers of Health Food Insecurity: No Food Insecurity (04/30/2024) Hunger Screening Food Insecurity - Worry: Never True Food Insecurity - Inability: Never True Environmental History: Allergy Environmental History Lives with: [...] 6 (six) hours as needed for wheezing. 18 g 1 atorvastatin (LIPITOR) 10 mg tablet Take 1 tablet (10 mg total) by mouth in the morning. 90 tablet 1 azelastine (ASTELIN) 137 mcg (0.1 %) nasal spray Administer 2 sprays into each nostril in the morning and 2 sprays before bedtime. Use in each nostril as directed. 30 mL 12 blood-glucose meter,continuous (DEXCOM G7 RICE FIELD WORKER) misc 1 each by miscellaneous route every 3 (three) months. 1 each 3 blood-glucose sensor (DEXCOM G7 SENSOR) device 1 each by miscellaneous route every 10 days. 9 each 3 buPROPion XL (WELLBUTRIN XL) 300 mg 24 hr tablet Take 1 tablet (300 mg total) by mouth in the morning. 90 tablet 1 cetirizine (ZyrTEC) 10 mg tablet Take 1 tablet (10 mg total) by mouth in the morning. 90 tablet 4 cholecalciferol (VITAMIN D3) 1,000 units tablet Take 1 tablet (1,000 Units total) by mouth in the morning. 100 tablet 3 Corporama G6 TRANSMITTER device TO USE WITH CONTINOUS SYSTEM 1 each 1 diclofenac sodium (VOLTAREN) 1 % gel Voltaren 1 % topical gel empagliflozin-metFORMIN 25-1,000 mg tablet, IR & ER, biphasic 24hr Take 1 tablet by mouth in the morning. 90 tablet 3 EPINEPHrine (EPIPEN) 0.3 mg/0.3 mL auto-injector Inject 0.3 mL (0.3 mg total) into the appropriate muscle as needed (anaphylaxis). 2 each 4 hydrOXYzine (ATARAX) 10 mg tablet Take 1 tablet (10 mg total) by mouth 3 (three) times a day as needed for itching. 90 tablet 1 insulin glargine 300 unit/mL (RevegyUCellabus SOLOSTAR U-300 INSULIN) 300 unit/mL (1.5 mL) insulin pen Inject 50 Units under the skin nightly. 22.5 mL 3 meloxicam (MOBIC) 15 mg tablet Take 1 tablet (15 mg total) by mouth in the morning. 30 tablet 1 montelukast (SINGULAIR) 10 mg tablet Take 1 tablet (10 mg total) by mouth nightly. 90 tablet 3 nystatin (MYCOSTATIN) cream Apply 1 Application topically in the morning and 1 Application before bedtime. 60 g 1 nystatin (MYCOSTATIN) powder Apply topically 2 (two) times a day as needed (rash or itching). 15 g 0 olmesartan (BENICAR) 5 mg tablet Take 1 tablet (5 mg total) by mouth every morning. 90 tablet 1 pantoprazole (PROTONIX) 40 mg EC tablet Take 1 tablet (40 mg total) by mouth every morning before breakfast. 90 tablet 3 pen needle, diabetic 32 gauge x 5/32 needle 1 Pen Needle by miscellaneous route Daily at 0300. To use daily with Haptik 100 each 3 No current facility-administered medications for this visit. [...] follows: Results for orders placed or performed in visit on 02/13/24 POCT Hemoglobin A1c Collection Time: 02/13/24 9:13 AM Result Value Ref Range External Poct Hgb A1C 8.7 (A) 4 - 7 g/dL Skin Prick Testing Allergy Skin Testing done by prick (puncture) technique Read: 04/04/2023 3:16 PM [place] tree Wheal: 8 Flare: 15 [place] Wheal: 8 Flare: 10 [place] tree Wheal: 10 Flare: 15 [place] Wheal: 8 Flare: 15 [place] (Maple) Wheal: 8 Flare: 12 [place] Wheal: 7 Flare: 15 [place] Wheal: 10 Flare: 14 [place] Wheal: 10 Flare: 30 [place] Wheal: 10 Flare: 25 [place] grass Wheal: 7 Flare: 20 [place] Wheal: 8 Flare: 20 [place] grass Wheal: 12 Flare: 30 [place] Wheal: 5 Flare: 15 [place] bluegrass Wheal: 20 Flare: 40 [place] Wheal: 15 Flare: 30 [place] grass Wheal: 30 Flare: 50 [place]/sorrel Wheal: 10 Flare: 20 [place] Wheal: 10 Flare: 25 [place] plantain Wheal: 10 Flare: 20 [place] Wheal: 8 Flare: 20 [place] Wheal: 8 Flare: 20 Rag[place] Wheal: 20 Flare: 45 [place] Wheal: 7 Flare: 15 [place] thistle Wheal: 8 Flare: 25 [place] Wheal: [...] Seasonal allergic rhinitis due to pollen 6. Mild intermittent asthma without complication Allergic Rhinitis: - Patient's skin testing on 04/04/23 showed sensitization to trees, weeds, grass, mold, dust mites, cockroaches, feathers, cats, rats, dogs, gerbils, guinea pig, hamster, horse, mice, and rabbits. - She hasn't been needing her nasal sprays since she started allergy shots. - Continue with Vix saline nasal spray if it helps. - Started traditional AIT on 05/09/23. - Started Cluster AIT on 05/23/2023. - She continues her shots at work where an PALLIATIVE NURSE would be giving her the shots. She works at [employer] [place]. Intermittent asthma - Current medication: Albuterol 2 puffs Q2-4 H as needed, Singulair 10 mg. - Triggers: exertion, aeroallergen exposure, illnesses. - Albuterol helped resolved her cough. Continue to use it PRN for cough, wheezing, or SOB. - Will consider spirometry in the future if her cough recurs. - Follow up in 12 months or sooner as needed. Scribe Statement: Scribed for and in the presence of HAYLEY JAMES MD by Latasha Fenton ([email or web address]). I, HAYLEY JAMES MD personally performed the services described in the documentation, as scribed by Latasha Fenton (Brittany) in my presence, and it is both accurate and complete. Hayley James MD [facility] Total time spent was 30 mins: preparing to see the patient (e.g., review of tests), obtaining and/or reviewing history, examination, counseling and educating the patient/family/caregive, orders and documenting clinical information in the electronic or other health record. documented in this encounter [facility] 04-30-2024 Instructions Latasha Fenton - 04/30/2024 4:00 PM EST Allergic Rhinitis: - Patient's skin testing on 04/04/23 showed sensitization to trees, weeds, grass, mold, dust mites, cockroaches, feathers, cats, rats, dogs, gerbils, guinea pig, hamster, horse, mice, and rabbits. - She hasn't been needing her nasal sprays since she started allergy shots. - Continue with Vix saline nasal spray if it helps. - Started traditional AIT on 05/09/23. - Started Cluster AIT on 05/23/2023. - She continues her shots at work where an PALLIATIVE NURSE would be giving her the shots. She works at [employer] [place]. Intermittent asthma - Current medication: Albuterol 2 puffs Q2-4 H as needed, Singulair 10 mg. - Triggers: exertion, aeroallergen exposure, illnesses. - Albuterol helped resolved her cough. Continue to use it PRN for cough, wheezing, or SOB. - Will consider spirometry in the future if her cough recurs. - Follow up in 12 months or sooner as needed. documented in this encounter [facility] 04-24-2024 History of Presen t illness Narrative Subjective Patient ID: Radha Lemos is a 48 y.o. female. Radha presents for a right hand and wrist problem. She is right handed. It started 3 days ago in distal palm and 3rd and 4th digits with pain and tingling. There was no injury. 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 She wakes up at night with hand numb and has to shake it to get feeling back. She has tried heat and ice with very little benefit. Wrist Pain The following portions of the patient's history were reviewed and updated as appropriate: allergies, current medications, past family history, past medical history, past social history, past surgical history, problem list, and medication reconciliation was completed including current medication and post discharge medication. Review of Systems Musculoskeletal: Positive for arthralgias. Objective Physical Exam Cardiovascular: Pulses: Normal pulses. Musculoskeletal: Right forearm: Normal. Right wrist: Tenderness and bony tenderness present. No swelling, deformity, effusion, lacerations, snuff box tenderness or crepitus. Normal range of motion. Normal pulse. Right hand: Tenderness present. No swelling, deformity, lacerations or bony tenderness. Normal range of motion. Comments: + reverse Phalen's Negative Tinel's sign over carpal tunnel Neurological: General: No focal deficit present. Mental Status: She is alert and oriented to person, place, and time. Assessment/Plan Radha was seen today for wrist pain. Diagnoses and all orders for this visit: Carpal tunnel syndrome of right wrist - Wrist splint - meloxicam (MOBIC) 15 mg tablet; Take 1 tablet (15 mg total) by mouth in the morning. I suspect a carpal tunnel syndrome unless likely tendonitis or other problem. It is too early to get an EMG since slowly been there for 3 days. We will try conservative therapy with rest, ice and nonsteroidal anti-inflammatory. Does have history of GERD so will use meloxicam which I have found to be less irritating to the stomach. She may need EMG if it persists. She has an appointment in a couple weeks already so they can recheck this problem then documented in this encounter [facility] 03-27-2024 Miscellaneous Notes [facility] Immunotherapy Injection Visit Recorded On Date: Mar 27 2024 1:59PM By [facility] User: [id number] Initials: lc Injection Provider: Hayley James MD Diagnoses: J30.89,J30.89,J30.81 Injection: M DM C D 0.35mL @ Red 1:1 Location: RA -> Reaction: None Rxn Notes: None -> Frequency: 1-2x/week Schedule: Standard Red Buildup Treatment Plan: Allergy Standard Buildup Max Dose: 0.50 @ Red 1:1 !-> Dosage Override: Dosage: 0.35 / Suggested: 0.05 / Reason: new reds Injection: W 0.35mL @ Red 1:1 Location: RA -> Reaction: None Rxn Notes: None -> Frequency: 1-2x/week Schedule: Standard Red Buildup Treatment Plan: Allergy Standard Buildup Max Dose: 0.50 @ Red 1:1 !-> Dosage Override: Dosage: 0.35 / Suggested: 0.05 / Reason: new reds Injection: T G 0.35mL @ Red 1:1 Location: LA Notes: Began new red vials -> Reaction: None Rxn Notes: None -> Frequency: 1-2x/week Schedule: Standard Red Buildup Treatment Plan: Allergy Standard Buildup Max Dose: 0.50 @ Red 1:1 !-> Dosage Override: Dosage: 0.35 / Suggested: 0.05 / Reason: new reds Allergic Health Screen: Passed -> Comments: Patient did not have shot record with her, nor was it scanned in [employer]. Spoke with Dr. Pham and he allowed patient to get shot. documented in this encounter [facility] 03-27-2024 Note Formatting of this n ote might be different from the original. [facility] Immunotherapy Injection Visit Recorded On Date: Mar 27 2024 1:59PM By [facility] User: [id number] Initials: lc Injection Provider: Hayley James MD Diagnoses: J30.89,J30.89,J30.81 Injection: M DM C D 0.35mL @ Red 1:1 Location: RA -> Reaction: None Rxn Notes: None -> Frequency: 1-2x/week Schedule: Standard Red Buildup Treatment Plan: Allergy Standard Buildup Max Dose: 0.50 @ Red 1:1 !-> Dosage Override: Dosage: 0.35 / Suggested: 0.05 / Reason: new reds Injection: W 0.35mL @ Red 1:1 Location: RA -> Reaction: None Rxn Notes: None -> Frequency: 1-2x/week Schedule: Standard Red Buildup Treatment Plan: Allergy Standard Buildup Max Dose: 0.50 @ Red 1:1 !-> Dosage Override: Dosage: 0.35 / Suggested: 0.05 / Reason: new reds Injection: T G 0.35mL @ Red 1:1 Location: LA Notes: Began new red vials -> Reaction: None Rxn Notes: None -> Frequency: 1-2x/week Schedule: Standard Red Buildup Treatment Plan: Allergy Standard Buildup Max Dose: 0.50 @ Red 1:1 !-> Dosage Override: Dosage: 0.35 / Suggested: 0.05 / Reason: new reds Allergic Health Screen: Passed -> Comments: Patient did not have shot record with her, nor was it scanned in [employer]. Spoke with Dr. Pham and he allowed patient to get shot. [facility] 08-15-2023 History of Presen t illness Narrative Images from the original note were not included. [facility] - Allergy [facility] Immunology HISTORY OF PRESENT ILLNESS: Radha is a 48 y.o. female who presents for follow-up and 4th cluster AIT. She was referred by Janice Valadez APRN-F*. PCP: ALLEN RIBERAP TODAY: She is doing well and has seen improvement with her allergies since starting AIT. Denies any new eye symptoms, she will use nasal sprays as needed. Denies any recent infections. PRIOR HISTORY: Seasonal [...] week Asthma Diabetes mellitus type 2, controlled ([facility]) Hyperlipidemia Hypertension Meniscal injury, right, subsequent encounter PAST SURGICAL HISTORY: Past Surgical History: Procedure Laterality Date APPENDECTOMY EGD N/A 10/18/2021 Performed by Alli Rodriguez DO at [facility] HYSTERECTOMY ovaries remain KNEE SURGERY Right [...] on file Food Insecurity: No Food Insecurity (08/15/2023) Hunger Screening Food Insecurity - Worry: Never True Food Insecurity - Inability: Never True Transportation Needs: Not on file Physical Activity: Not on file Stress: Not on file Social Connections: Not on file Interpersonal Safety: Not on file Housing Instability: Not on file Environmental History: Allergy Environmental [...] 30 mL 12 blood-glucose meter,continuous (DEXCOM G6 RICE FIELD WORKER) misc 1 Disk by miscellaneous route continuously. [...] mouth in the morning. 90 tablet 4 cholecalciferol (VITAMIN D3) 1,000 units tablet Take [...] 10 g 12 insulin glargine 300 unit/mL (BEHZADULARRY SOLOSTAR U-300 INSULIN) 300 unit/mL (1.5 mL) [...] mg total) by mouth in the morning. cetirizine-pseudoephedrine (ZyrTEC-D) 5-120 mg per 12 hr tablet every 12 (twelve) hours. (Patient not taking: Reported on 08/15/2023) No current facility-administered medications for this visit. [...] 10 Birch tree Wheal: 10 Flare: 15 [place] Wheal: 8 Flare: 15 Boxelder (Maple) Wheal: 8 Flare: 12 [place] Wheal: 7 Flare: 15 [place] Wheal: 10 Flare: 14 [place] Wheal: 10 Flare: 30 [place] Wheal: 10 Flare: 25 [place] grass Wheal: 7 Flare: 20 [place] Wheal: 8 Flare: 20 [place] grass Wheal: 12 Flare: 30 [place] Wheal: 5 Flare: 15 [place] bluegrass Wheal: 20 Flare: 40 [place] Wheal: 15 Flare: 30 Josh grass Wheal: 30 Flare: 50 Dock/sorrel Wheal: 10 Flare: 20 Nettle Wheal: 10 Flare: 25 Burmese plantain Wheal: 10 Flare: 20 Pigweed Wheal: 8 Flare: 20 [place] Wheal: 8 Flare: 20 Ragweed Wheal: 20 Flare: 45 [place] Wheal: 7 Flare: 15 Azerbaijani thistle Wheal: 8 Flare: 25 Damien Wheal: [...] Wheal: 20 Flare: 50 Assessment/ Plan: 1. Seasonal allergic rhinitis due to pollen 2. Allergic rhinitis due to dust mite 3. Allergic rhinitis due to animal (cat) (dog) hair and dander 4. Allergic rhinitis due to animals 5. Allergic rhinitis caused by mold Allergic Rhinitis: - Patient's skin testing on 04/04/23 showed sensitization to trees, weeds, grass, mold, dust mites, cockroaches, feathers, cats, rats, dogs, gerbils, guinea pig, hamster, horse, mice, and rabbits. - Continue Flonase Sensimist nasal spray, 2 SEN, QD (midday). - Continue azelastine nasal, 2 SEN, BID (morning and evening). - If wants to start weaning medications since she started having improvement in her allergies after starting AIT, recommended to start weaning Azelastine, and to continue with fluticasone nasal spray for now. - Continue with Vix if it helps. - Started traditional AIT on 05/09/23. - Started Cluster AIT on 05/23/2023. - She continues her shots at work where an PALLIATIVE NURSE would be giving her the shots. She works at [employer] [facility] [place]. - Follow up in 3 months or sooner as needed. Scribe Statement: Scribed for and in the presence of HAYLEY JAMES MD by Shekhar Prajapati (scribe). Shekhar Prajapati 06/13/2023 12:53 PM I, Hayley James MD, personally performed the services described in the documentation, as scribed in my presence, and confirm that the documentation is both accurate and complete. Hayley James MD [facility] Total time spent was 30 mins: preparing to see the patient (e.g., review of tests), obtaining and/or reviewing history, examination, counseling and educating the patient/family/caregive, orders and documenting clinical information in the electronic or other health record. documented in this encounter [facility] 08-15-2023 Instructions Shekhar Prajapati - 08/15/2023 2:15 PM EST Allergic Rhinitis: - Patient's skin testing on 04/04/23 showed sensitization to trees, weeds, grass, mold, dust mites, cockroaches, feathers, cats, rats, dogs, gerbils, guinea pig, hamster, horse, mice, and rabbits. - Continue Flonase Sensimist nasal spray, 2 SEN, QD (midday). - Continue azelastine nasal, 2 SEN, BID (morning and evening). - If wants to start weaning medications since she started having improvement in her allergies after starting AIT, recommended to start weaning Azelastine, and to continue with fluticasone nasal spray for now. - Continue with Vix if it helps. - Started traditional AIT on 05/09/23. - Started Cluster AIT on 05/23/2023. - She continues her shots at work where an PALLIATIVE NURSE would be giving her the shots. She works at [employer]. - Follow up in 3 months or sooner as needed. documented in this encounter [facility] 08-08-2023 Miscellaneous Notes Patient left message on shot room VM requesting double order of new Red vials. Attempted to call back for verbal auth, no answer and voicemail full. We also will need to have patient fax current shot records to our office. documented in this encounter [facility] 08-08-2023 Telephone encounter Note Patient left message on shot room VM requesting double order of new Red vials. Attempted to call back for verbal auth, no answer and voicemail full. We also will need to have patient fax current shot records to our office. [facility] Work Phone: 07-31-2023 History of Presen t illness Narrative Reason for Appointment: Patient ID: Radha Lemos is a 47 y.o. female who presents for Well Women Visit Patient presents today for Annual Exam appointment. Current Medications: has a current medication list which includes the following prescription(s): albuterol hfa, atorvastatin, azelastine, bupropion xl, cetirizine, cholecalciferol, dexcom g6 sensor, synjardy xr, epinephrine, flonase sensimist, montelukast, olmesartan, pantoprazole, toujeo solostar, and venlafaxine xr. Medical History: Active Ambulatory Problems Diagnosis Date Noted No Active Ambulatory Problems Resolved Ambulatory Problems Diagnosis Date Noted No Resolved Ambulatory Problems Past Medical History: Diagnosis Date Abdominal pain, LLQ Abnormal uterine bleeding (AUB) Acid reflux Asthma (CMS/HCC) Back pain Bladder spasm Diabetes (CMS/HCC) Diabetes mellitus (CMS/HCC) Fatigue due to treatment Foot fracture, left Glucosuria Granulation tissue of vagina History of hysterectomy History of medical treatment Hot flashes Hypercholesterolemia (CMS/HCC) Increased frequency of headaches Ketonuria Menopausal symptoms Mood swings Morbid obesity with BMI of 40.0-44.9, adult (CMS/HCC) PCB (post coital bleeding) Pendulous breast Personal history of medical treatment Swelling of both lower extremities Family History Problem Relation Name Age of Onset Stroke Mother Hypertension Mother Stroke Father Diabetes Paternal Grandmother Diabetes Paternal Grandfather Cancer Paternal Grandfather Coronary artery disease Other Mental illness Other Social History Tobacco Use Smoking status: Never Smokeless tobacco: Not on file Substance Use Topics Alcohol use: Not Currently Comment: Alcohol: occasional . Caffeine:1-2 cups per day tea Drug use: Not on file Past Surgical History: Procedure Laterality Date ANKLE SURGERY Left Dr Sifuentes ANKLE SURGERY Right Tendon repair R ankle Dr sifuentes APPENDECTOMY ENDOMETRIAL ABLATION 09/2016 HYSTERECTOMY 2019 with BSO KNEE SURGERY 3 Rt Knee Surgeries menisectomy x2 ,ACL reconstruction Dr Barillas LAPAROTOMY OVARIAN CYSTECTOMY Left ovarian cystectomy OVARIAN CYST REMOVAL TUBAL LIGATION Allergies Allergen Reactions Diflucan [Fluconazole] Lisinopril Cough Nitrofurantoin Review of Systems: Review of Systems Constitutional: Negative. HENT: Negative. Eyes: Negative. Respiratory: Negative. Cardiovascular: Negative. Gastrointestinal: Negative. Genitourinary: Negative. Musculoskeletal: Negative. Skin: Negative. Neurological: Negative. All other systems reviewed and are negative. Hematological: Negative. Endocrine: Negative. Allergic/Immunologic: Negative. Objective Physical Exam Constitutional: Appearance: Normal appearance. She is well-developed. Genitourinary: Vulva normal. Vaginal cuff intact. Cervix is not absent. Uterus is not absent. Cardiovascular: Rate and Rhythm: Normal rate and regular rhythm. Abdominal: General: Bowel sounds are normal. There is no distension. Palpations: Abdomen is soft. Tenderness: There is no abdominal tenderness. There is no guarding or rebound. Musculoskeletal: General: No swelling. Normal range of motion. Right lower leg: No edema. Left lower leg: No edema. Neurological: Mental Status: She is alert and oriented to person, place, and time. Skin: General: Skin is warm and dry. Psychiatric: Mood and Affect: Mood normal. Behavior: Behavior normal. Vitals and nursing note reviewed. Exam conducted with a wreath maker present. Vitals: Estimated body mass index is 43.79 kg/m as calculated from the following: Height as of 23: 5' 4 . Weight as of this encounter: 255 lb 1.6 oz. BP: 122/80 No LMP recorded. Patient has had a hysterectomy. Assessment/Plan Encounter Diagnoses Name Primary? Well woman exam with routine gynecological exam Breast cancer screening by mammogram Patient presents today for an annual exam. Patient states she is doing well and has no complaints. Pap was obtained without difficulty and patient given mammogram order to have scheduled/obtained. Follow Up: Patient is to return in one year for annual unless needed otherwise. Documented by Stephanie Landis LPN on behalf of: Andrew Ma DO documented in this encounter [facility] Evaluation note Diagnosis Well woman exam with routine gynecological exam Routine gynecological examination Breast cancer screening by mammogram [facility] Diagnosis Seasonal allergic rhinitis due to pollen- Primary Allergic rhinitis due to dust mite Allergic rhinitis due to animal (cat) (dog) hair and dander Allergic rhinitis due to animals Allergic rhinitis due to animal (cat) (dog) hair and dander Allergic rhinitis caused by mold [facility] Diagnosis Gastroesophageal reflux disease with esophagitis without hemorrhage [facility] Diagnosis Carpal tunnel syndrome of right wrist- Primary [facility] Diagnosis Allergic rhinitis due to dust mite- Primary Allergic rhinitis due to animal (cat) (dog) hair and dander Allergic rhinitis due to animals Allergic rhinitis due to animal (cat) (dog) hair and dander Allergic rhinitis caused by mold Seasonal allergic rhinitis due to pollen Mild intermittent asthma without complication [facility] Diagnosis Type 2 diabetes mellitus with hyperglycemia, with long-term current use of insulin ([facility] Primary Obesity, morbid, BMI 40.0-49.9 ([facility]) Gastric reflux Esophageal reflux Numbness and tingling in both hands Tendinitis, de Quervain's [facility] Diagnosis Carpal tunnel syndrome, bilateral- Primary Carpal tunnel syndrome Numbness and tingling Disturbance of skin sensation documented in this encounter [facility]* Diagnosis Bilateral carpal tunnel syndrome- Primary Carpal tunnel syndrome [facility] Diagnosis Type 2 diabetes mellitus with hyperglycemia, with long-term current use of insulin ([facility])- Primary Essential hypertension Unspecified essential hypertension Class 3 severe obesity due to excess calories with serious comorbidity and body mass index (BMI) of 40.0 to 44.9 in adult ([facility]) Type 2 diabetes mellitus with hyperglycemia, without long-term current use of insulin ([facility]) Bilateral carpal tunnel syndrome Carpal tunnel syndrome [facility] Diagnosis Type 2 diabetes mellitus with hyperglycemia, without long-term current use of insulin ([facility])- Primary [facility] Diagnosis Carpal tunnel syndrome of right wrist [facility] Diagnosis Post-op pain- Primary Other acute postoperative pain [facility] System[facility]ructionsNot on filedocumented in this encounter [facility] SystemInstructionsNot on filedocumented in this encounter [facility] SystemInstructionsNot on filedocumented in this encounter [facility] SystemInstructionsNot on filedocumented in this encounter [facility] System[facility]* Attachments The following attachments cannot be sent through Care Everywhere. * de Quervain tendinopathy (Burmese) [facility] System[facility]ructionsNot on file documented in [facility] SystemInstructionsNot on file documented in this [facility] SystemInstructionsNot on file documented in this [facility] SystemInstructionsNot on file documented in this [facility] SystemInstructionsNot on file documented in [facility] SystemReason for visit Narrative* Other Medical (Routine) - Closed Specialty Diagnoses / Procedures Referred By Gerson t Referred To Contact Neurology Diagnoses Carpal tunnel syndrome, right upper limb Procedures SD NEEDLE EMG EA EXTREMTY W/PARASPINL AREA COMPLETE SD NERVE CONDUCTION STUDIES 9-10 STUDIES Christina Rios MD [address] [place], [place] [address] [address] Phone: tel: fax: Julio Cesar Larsen MD [address] [place] [address] Phone: tel: fax: Referral ID Status Reason Start Date Expiration Date V isits Requested Visits Authorized [id number] Closed Perform Procedure 05/08/2024 11/04/2024 1 1 [facility] History of Present Illness * Kulwinder Samuel MD - 09/24/2018 2:00 PM EDT [...] SURGICAL 2016 Uterine ablation FOOT SURGERY Right 2009 Rt foot tendon repair ANKLE SURGERY Left 2007 ACL RECONSTRUCTION Right 1997 APPENDECTOMY 1995 ARTHROSCOPY KNEE 1996, 1997, 1998 [...] file Gets together: Not on file Attends congregational service: Not on file Active member of [...] Code 10/17/2021 10:55 AM 10/19/2021 3:17 PM Date Activated Date Inactivated Comments 10/17/2021 10:55 AM 10/19/2021 3:17 PM Date Activated Date Inactivated Comments 10/17/2021 10:55 AM 10/19/2021 3:17 PM Additional Source Comments Reason for Visit (unrecogniz ed section and content) Reason Comments New Patient Breast reduction con sult. C/o neck, back and chest pain. Takes NSAIDS for pain. Has seen a chiropractor in the past. C/o sides and underwire of bras dig in. Pt uses Nystatin powder when it is warm outside. Reason Comments Well Women Visit Reason Comments Follow-up Patient states Reason Comments Med Refill Reason Comments Wrist Pain Right x1 week Reason Comments Follow-up Reason Comments Weight Check Reason Comments Pain New PatientRight grover d pain, pain located in thumb area, and on top, taking mobic, prior PT 10 years ago, no cortisone inj or surgery, right is worse. EMG report in symptom Pain Left hand discomfort , denies pain, having numbness and tingle, taking mobic, prior PT 10 years ago, prior cortisone inj 10 years ago or surgery, EMG report in symptom Specialty Diagnoses / Procedures Referred By Contshala t Referred To Contact Orthopedic Surgery Diagnoses Numbness and tingling in both hands Christina Rios, FILM PAINTER-TABULATING SUPERVISOR [address] [place] [address] Phone: tel: fax: [facility] [place] [address] [facility] [address] [place] [address] Phone: tel: fax: Referral ID Status Reason Start Date Expiration Date Visits Requested Visits Authorized [id number] Pending Review Specialty Services Required 05/07/2025 1 1 Reason Comments Diabetes INFORMATION SOURCE (unrecogn ized section and content) DATE CREATED AUTHOR 09/26/2018 [facility] DATE CREATED AUTHOR AUTHOR'S ORGANIZ ATION 06/04/2021 [facility] DATE CREATED AUTHOR AUTHOR'S ORGANIZ ATION 2022 [facility] DATE CREATED AUTHOR AUTHOR'S ORGANIZ ATION 05/29/2024 [facility] EPIC DATE CREATED AUTHOR AUTHOR'S ORGANIZ ATION 06/15/2024 [facility] DATE CREATED AUTHOR AUTHOR'S ORGANIZ ATION 06/15/2024 [facility] DATE CREATED AUTHOR AUTHOR'S ORGANIZ ATION 07/28/2024 [facility] l Care Teams (unrecognized sec tion and content) Correctional Security Officer Relationship Specialty Start Date End Date Jean Reed MD [address] [place] [address] [address] [place] [address] PCP - General Family Medicine 07/31/23 Correctional Security Officer Relationship Specialty Start Date End Date Jean Reed MD [address] [place] [address] PCP - General Family Medicine 07/31/23 Correctional Security Officer Relationship Specialty Start Date End Date Janice Valadez, FILM PAINTER-PHLEBOTOMIST LAB ASSISTANT [address] [place] [address] PCP - General Internal Medicine 02/14/23 Correctional Security Officer Relationship Specialty Start Date End Date Janice Valadez, FILM PAINTER-PHLEBOTOMIST LAB ASSISTANT [address] [place] [address] PCP - General Internal Medicine 02/14/23 Correctional Security Officer Relationship Specialty Start Date End Date Janice Valadez, FILM PAINTER-PHLEBOTOMIST LAB ASSISTANT [address] [place] [address] PCP - General Internal Medicine 02/14/23 Correctional Security Officer Relationship Specialty Start Date End Date Christina Rios APRN-TABULATING SUPERVISOR [address] [place] [address] PCP - General Internal Medicine 11/14/23 Correctional Security Officer Relationship Specialty Start Date End Date Christina Rios APRN-TABULATING SUPERVISOR [address] [place] [address] PCP - General Internal Medicine 11/14/23 Correctional Security Officer Relationship Specialty Start Date End Date Christina Rios FILM PAINTER-TABULATING SUPERVISOR [address] [place] [address] PCP - General Internal Medicine 11/14/23 Correctional Security Officer Relationship Specialty Start Date End Date Christina Rios APRN-TABULATING SUPERVISOR [address] [place] [address] PCP - General Internal Medicine 11/14/23 Correctional Security Officer Relationship Specialty Start Date End Date Christina Rios FILM PAINTER-TABULATING SUPERVISOR [address] [place] [address] PCP - General Internal Medicine 11/14/23 Correctional Security Officer Relationship Specialty Start Date End Date Unallocated, Arias Sheridan MD [address] [place], [place] [address] [address] PCP - General Family Medicine 05/08/24 Christina Rios MD [address] [place] [address] Referring Physician Family Medicine 05/08/24 Correctional Security Officer Relationship Specialty Start Date End Date Unallocated, Arias Sheridan MD [facility] [place] [address] PCP - General Family Medicine 05/08/24 Christina Rios MD [address] [place] [address] Referring Physician Family Medicine 05/08/24 Correctional Security Officer Relationship Specialty Start Date End Date Christina Rios APRN-TABULATING SUPERVISOR [address] [place] [address] PCP - General Internal Medicine 11/14/23 Correctional Security Officer Relationship Specialty Start Date End Date Christina Rios FILM PAINTER-TABULATING SUPERVISOR [address] [place] [address] PCP - General Internal Medicine 11/14/23 Correctional Security Officer Relationship Specialty Start Date End Date [facility] [address] [place] [address] PCP - General Internal Medicine 11/14/23 Correctional Security Officer Relationship Specialty Start Date End Date Christina Rios, FILM PAINTER-[facility] [address] [place] [address] PCP - General Internal Medicine 11/14/23 FOR RECORDS PERTAINING TO PATIENTS WHO ARE [...] BE BASED ON THE PRIMARY CLINICAL RECORDS. [facility]. provides no warranty or guarantee of the accuracy or completeness of information in this document.
[2024-08-11 13:08] LABS: Age Gdln ACOG Testing Note (.); HPV Aptima Negative (Negative); IGP, Aptima HPV, rfx 16/18,45 Note (.)
== END 2024-08-05 19:25 | disposition home or self-care (01) ==
LOC: LAB 19:24
PROVIDERS: Visit Provider Obstetrics & Gynecology
DX: Z01.419 Encounter for gynecological examination (general) (routine) without abnormal findings (principal)
CPT/HCPCS: 88175